=== PATIENT | male | born 1940 | race Caucasian/White ===

== ENCOUNTER 2018-04-16 12:22 | Outpatient (CLI) | payer MEDICARE, SELFPAY ==
[2018-04-17 09:06] LABS: PSA, Diagnostic 1.2 ng/ml (0-6.5)
[2018-04-19 15:25] LABS: Testosterone, Total 35 ng/dL (240-950)
== END 2018-04-16 12:42 ==
PROVIDERS: Nurse Practitioner; Visit Provider Radiology Radiation Oncology
DX: C61 Malignant neoplasm of prostate (principal)
CPT/HCPCS: 36415; 84403; 84153

== ENCOUNTER 2018-08-23 07:28 | Emergency (ER) | payer MEDICARE, SELFPAY ==
[2018-08-23] VITALS (11 sets, daily range): BP systolic 116–162; BP diastolic 59–75; PULSE 68–77; RESP 15–20; TEMP 36.6–36.8; O2SAT 95–97
--- NOTE | 2018-08-23 07:25 | DI.CT_ITS ---
SYMPTOMS/DIAGNOSIS: LT SIDED NUMBNESS NONCONTRAST HEAD CT: No intracranial hemorrhage, mass or infarct is seen. Moderate diffuse atrophy is again noted. The ventricles are normal in size. There are mild white matter changes of small vessel disease. There is mucosal thickening of the maxillary and ethmoid sinuses. The mastoid air cells appear clear. IMPRESSION: Atrophy. No acute abnormality.
[2018-08-23] MEDS: Normal Saline 1,000 ML 125 ML IV (07:53)
[2018-08-23 07:59] LABS: Abs Immature Grans 0.03 k/cumm (0.0-0.09); Absolute Basophil Count 0.02 k/cumm (0.0-0.2); Absolute Eosinophil Count 0.09 k/cumm (0.0-0.7); Absolute Lymphocyte Count 0.82 k/cumm (1.2-3.4); Absolute Monocyte Count 0.49 k/cumm (0.11-0.7); Absolute Neutrophil Count 4.38 k/cumm (1.2-6.7); Basophils % 0.3; Eosinophils % 1.5; HCT 43.9 % (40.0-50.0); HGB 14.9 g/dL (13.5-17.5); Immature Grans % 0.5; Lymphocytes % 14.1; Mean Corp. HGB Concentration 33.9 g/dL (32.0-36.0); Mean Corpuscular Hemoglobin 33.7 pg (27.0-33.0); Mean Corpuscular Volume 99.3 fL (80-95); Mean Platelet Volume 10.8 fL (8.0-11.0); Monocytes % 8.4; Neutrophils % 75.2; Platelet Count 144 x1000/uL (130-400); RBC 4.42 m/cumm (4.50-6.00); RBC Distribution Width 12.9 % (11.8-14.1); White Blood Cell Count 5.83 k/cumm (4.4-10.8)
--- NOTE | 2018-08-23 08:01 | W.ED.GENAD ---
Discharge Plan Disposition Patient Disposition: HOME Condition: Stable Discharge Details Chief Complaint: CVA/TIA Clinical Impression: Arm numbness Reason For Visit: TRI Primary Care Provider: [facility] ED Provider: Terrance Asencio Home Meds and New Rx's Prescriptions: New Eliquis 5 mg tablet 5 mg PO BID Qty: 60 RF: 0 Continued docusate sodium 60 MG/15 ML syrup 100 mg PO BID RF: 0 donepezil 10 MG tablet,disintegrating 10 mg PO DAILY RF: 0 acetaminophen [Tylenol] 325 MG tablet 650 mg PO Q6H PRN PRN (Reason: Mild Pain, Temp. Over 38.5) RF: 0 No Action amlodipine 10 MG tablet 10 mg PO DAILY Qty: 25 RF: 0 Metoprolol Succinate 50 MG TAB.ER.24H 75 mg PO DAILY Qty: 25 RF: 0 atorvastatin 40 MG tablet 40 mg PO DAILY Qty: 25 RF: 0 furosemide 20 MG tablet 40 mg PO DAILY Qty: 60 RF: 11 folic acid 1 MG tablet 1 mg PO DAILY RF: 0 triamcinolone acetonide 63 GM aerosol 63 gm Topical PRN RF: 0 aspirin [Aspir-81] 81 MG tablet,delayed release (DR/EC) 1 tab PO DAILY RF: 0 Discharge Instructions Additional Instructions: With your history of atrial fibrillation you should be on a blood thinner so we prescribed eliquis. If you do start drinking alcohol again then please stop taking this medicine follow up with your primary care provider within 1-2 weeks, and they should prescribe further blood thinners if they want to continue you on this return to the emergency department for weakness, vision changes, or symptoms such as chest pain or difficulty breathing Medical Decision Making 78 yo male with hx of afib not on blood thinners due to prior hx of alcohol abuse and risk of falls and states he no longer drinks alcohol and hasn't so in over a year per pt, comes in with left arm numbness since this morning. Denies weakness, vision changes, chest pain, sob, abd pain. He has no focal motor or sensation deficits on exam, NIH 0, cn II-xII are intact on exam. States numbness is primarily in his shoulder and upper left arm but has no deficits of sensation on exam. I think given lack of focal findings that this is a cva/tia, could be cervical radiculopathy given the localized numbness. Prior provider bfore my exam ordered CT head which showed no acute findings. Will check for electrolyte abnormalities and monitor Pt's labs unremarkable other than glucose of over 300, normal bicarb. Pt has been ambulating with normal gait and states he feels his gait feels normal. Continues to have no deficits and no sensation deficits. I had a long discussion with the pt about how this is likely peripheral neuropathy vs cervical radiculopathy but the possiblity of tia/cva is not excluded. We had a long discussion about if this were the cause of his symptoms it would likely be due to his afib and not being on a blood thinner. After a lengthy discussion the pt decided that he would like me to restart anticoaguation and prefers eliquis over coumadin after lengthy discussion about pros and cons and pt has no desire to be admitted at this time and I feel this is reasonable given his lack of deficits. I advised he f/u with his pcp at the [facility] within 2 weeks and return precautions given. All pt's questions were answered. Differential Diagnosis tia, cva, cervical radiulopathy Imaging Data Radiologic Study: Attestation: I personally reviewed and interpreted this imaging study as follows: Imaging: CT Scan Radiologist's impression: IMPRESSION: 1. No evidence of acute intracranial abnormality. No evidence of acute infarction, hemorrhage, or mass. 2. Atrophy and microvascular disease. 3. Mucosal sinus disease. Lab Data Lab results reviewed: Yes I reviewed the patient's lab results. ECG Data Attestation: I personally reviewed and interpreted this ECG (s) as follows: Prior ECG tracings: not available for review Interpretation: sinus rhythm, rate of 70, pr 206, no acute ischemic st t wave changes HPI General Mode of arrival: EMS. Date/Time Provider Initiated Documentation: 08/23/18 07:48. Limitations to Documentation: no limitations. Information obtained by: patient and old records reviewed. History of Present Illness 78 year old M presents to the emergency department with the chief complaint of left arm numbness, described as mild, Patient started experiencing this unknown No relieving factors improve symptom(s), No exacerbating factors reported . Patient notes no other symptoms.. Patient did receive the following treatments prior to arrival, none Related Data Home Medications Medication Instructions Recorded Confirmed acetaminophen [Tylenol] 650 mg PO Q6H PRN PRN tab 06/24/16 11/09/16 aspirin [Aspir 81] 1 tab PO DAILY 11/09/16 11/09/16 amlodipine 10 mg PO DAILY #25 tab-cap 08/06/17 folic acid 1 mg PO DAILY tab-cap 08/06/17 furosemide 40 mg PO DAILY #60 tab-cap 08/06/17 triamcinolone acetonide 63 gm TOPICAL PRN 08/06/17 albuterol sulfate 2 puff INHALATION QID PRN 08/23/18 08/23/18 apixaban [Eliquis] 5 mg PO BID #60 tab 08/23/18 atorvastatin 0.5 tab PO DAILY 08/23/18 08/23/18 budesonide-formoterol 2 puff INHALATION BID 08/23/18 08/23/18 finasteride 5 mg PO DAILY 08/23/18 08/23/18 gabapentin 300 mg PO BID 08/23/18 08/23/18 metoprolol succinate 75 mg PO DAILY 08/23/18 08/23/18 tamsulosin 0.4 mg PO DAILY 08/23/18 08/23/18 Previous Rx's Medication Instructions Recorded acetaminophen [Tylenol] 650 mg PO Q6H PRN PRN tab 06/24/16 amlodipine 10 mg PO DAILY #25 tab-cap 08/06/17 furosemide 40 mg PO DAILY #60 tab-cap 08/06/17 apixaban [Eliquis] 5 mg PO BID #60 tab 08/23/18 Allergies Allergy/AdvReac Type Severity Reaction Status Date / Time wheat dextrin AdvReac Severe Unverified 08/23/18 07:39 codeine AdvReac Unverified 08/23/18 07:39 glutens Allergy Unknown Uncoded 08/23/18 07:39 glutethimide Allergy Unknown Uncoded 08/23/18 07:39 General Stated Complaint: CVA/TIA ABDIAS: 1 Review of Systems Review of Systems All systems reviewed & are unremarkable except as noted in HPI and below Constitutional Denies chills, Denies fever(s) and Denies weakness Eyes Denies loss of vision ENT Denies change in voice Cardiovascular Denies chest pain and Denies dyspnea Respiratory Denies dyspnea Gastrointestinal Denies abdominal pain, Denies nausea and Denies vomiting Genitourinary Denies dysuria Musculoskeletal Denies joint swelling Integumentary/Breasts Denies rash Neurologic Denies loss of vision and Denies weakness Psychiatric Denies depression Endocrine Denies cold intolerance and Denies heat intolerance Allergic/Immunologic Denies urticaria PFSH Social History Smoking/Tobacco Use Status: Never Exam Const General: no acute distress Orientation: alert HENMT Head: normal to inspection Ears: external ears normal General nose exam: external nose normal Mouth: moist mucous membranes Eyes General: appearance normal, both eyes and all related structures Neck Neck: normal visual inspection Resp Effort & Inspection: normal respiratory effort and able to speak in complete sentences Cardio Rate: regular rate Skin General skin exam: no rashes or lesions noted Neuro General: alert and oriented x3 Extrem General: normal to inspection Psych Mental Status: mental status grossly normal Course Vital Signs Temperature 36.6 C 08/23/18 07:42 Pulse 74 08/23/18 07:42 Respiratory Rate 15 08/23/18 07:42 Blood Pressure 159/75 H 08/23/18 07:42 Pulse Oximetry 96 08/23/18 07:42 Temperature 36.6 C 08/23/18 07:42 Temperature Source Temporal Artery Scan 08/23/18 07:42 Pulse 74 08/23/18 07:42 Respiratory Rate 15 08/23/18 07:46 Respiratory Effort Non-Labored 08/23/18 07:46 Respiratory Depth Normal 08/23/18 07:46 Respiratory Pattern Normal 08/23/18 07:46 Blood Pressure 159/75 H 08/23/18 07:42 Blood Pressure Position Supine 08/23/18 07:42 Pulse Oximetry 96 08/23/18 07:42 Oxygen Delivery Method Room Air 08/23/18 07:42 Oxygen Flow Rate 0 08/23/18 07:42 Pain Level 0 08/23/18 07:42 Lab/Test Results Lab/Test Results: Laboratory Tests Range/Units 08/23/18 07:50 WBC (4.4-10.8) k/cumm 5.83 RBC (4.50-6.00) m/cumm 4.42 L Hgb (13.5-17.5) g/dL 14.9 Hct (40.0-50.0) % 43.9 MCV (80-95) fL 99.3 H MCH (27.0-33.0) pg 33.7 H MCHC (32.0-36.0) g/dL 33.9 RDW (11.8-14.1) % 12.9 Plt Count (130-400) x1000/uL 144 MPV (8.0-11.0) fL 10.8 Immature Gran % 0.5 Neutrophils % 75.2 Lymphocytes % 14.1 Monocytes % 8.4 Eosinophils % 1.5 Basophils % 0.3 Absolute Neutrophils (1.2-6.7) k/cumm 4.38 Absolute Lymphocytes (1.2-3.4) k/cumm 0.82 L Absolute Monocytes (0.11-0.7) k/cumm 0.49 Absolute Eosinophils (0.0-0.7) k/cumm 0.09 Absolute Basophils (0.0-0.2) k/cumm 0.02
--- NOTE | 2018-08-23 08:07 | DI.VRAD_ITS ---
Addendum created by Mayra Sams MD on 08/23/2018 8:18:[address] Asencio was notified of these results by telephone call from Dr. Mayra Sams 08/23/2018 8:17 AM EST and acknowledged receipt of this notification. Initial report created on 08/23/2018 8:06:34 AM EST EXAM: CT Head Without Contrast EXAM DATE/TIME: 08/23/2018 7:27 AM CLINICAL HISTORY: 78 years old, male; Signs and symptoms; Other: Left side numbness TECHNIQUE: Axial computed tomography images of the head/brain without contrast. All CT scans at this facility use at least one of these dose optimization techniques: automated exposure control; mA and/or kV adjustment per patient size (includes targeted exams where dose is matched to clinical indication); or iterative reconstruction. Coronal and sagittal reformatted images were created and reviewed. STROKE PROTOCOL was implemented. COMPARISON: CT HEAD AND CSPINE W/O CONTRAST 05/20/2016 1:03 PM FINDINGS: Brain: There is no acute intracranial hemorrhage. There is lucency in the cerebral white matter, likely microvascular disease although non-specific. Ng white differentiation is intact. There are no extra-axial fluid collections. No evidence of mass. There is no mass effect or midline shift. Ventricles: The ventricles and sulci are enlarged, consistent with volume loss / atrophy. No hydrocephalus. Bones/joints: No acute fracture. Sinuses: There is mucosal thickening in paranasal sinuses. Mastoid air cells: No significant mastoid effusion. Soft tissues: Unremarkable as visualized. Vasculature: There is vascular calcification. IMPRESSION: 1. No evidence of acute intracranial abnormality. No evidence of acute infarction, hemorrhage, or mass. 2. Atrophy and microvascular disease. 3. Mucosal sinus disease. Dictated and Authenticated by: Mayra Sams MD. Ordering:SHARLA Gillette MD
[2018-08-23 08:12] LABS: PTT Activated 28.1 sec (21.0-31.4); Prothrombin Time 9.9 sec (9.3-11.0)
[2018-08-23 08:17] LABS: ALT 41 U/L (12-78); AST 28 U/L (15-37); Albumin 3.6 g/dL (3.4-5.0); Alkaline Phosphatase 93 U/L (46-116); Anion Gap 9.7 mmol/L (3-11); BUN 16 mg/dL (7-18); Bilirubin, Total 0.6 mg/dL (0.2-1.0); CO2 27.3 mmol/L (21.0-32.0); CREATININE 1.05 mg/dL (0.70-1.30); Calcium 9.4 mg/dL (8.5-10.1); Chloride 102 mmol/L (98-107); Glucose 309 mg/dL (70-100); Magnesium 1.9 mg/dL (1.8-2.4); Potassium 4.2 mmol/L (3.5-5.1); Sodium 139 mmol/L (136-145); Total Protein 8.4 g/dL (6.4-8.2); Troponin I < 0.02 ng/mL (0.00-0.06)
[2018-08-23] MEDS: Apixaban 5 MG TAB PO (08:46)
--- NOTE | 2018-08-23 10:09 | PDOC.ERCMPRO ---
Care Management Progress Note FARNAZ paged [facility] for transportation support to enable Williams to return to the [facility]. RCT reported freight delivery driver would be arriving soon for transport. FARNAZ paged [place]: [phone] to notify of requests for F/U appt this week and [facility] CM left for Melanie Figueroa requesting the same as well. FARNAZ spoke with [facility] pharmacist Monica and then relayed information to RN; Funmilayo to coordinate Williams returning home with a few days worth of Eliquis until Williams can retrieve new prescription in the community. CM notified ED of above.
--- NOTE | 2018-08-23 10:20 | CMPROGNOTE_ITS ---
Care Management Progress Note FARNAZ paged [facility] for transportation support to enable Williams to return to the [facility]. RCT reported delivery route driver would be arriving soon for transport. FARNAZ paged [place]: [phone] to notify of requests for F/U appt this week and [facility]. CM left for Melanie Figueroa requesting the same as well. FARNAZ spoke with [facility] pharmacist Monica and then relayed information to RN; Funmilayo to coordinate Williams returning home with a few days worth of Eliquis until Williams can retrieve new prescription in the community. CM notified ED of above.
[2018-08-23] MEDS: Apixaban 5 MG TAB 15 MG PO (10:22)
--- NOTE | 2018-08-24 09:38 | PDOC.ERCMPRO ---
Care Management Progress Note CM rec'd VM from Melanie; BREONNA OSEI requesting documentation of ED encounter. FARNAZ faxed documents to Melanie: F#[phone].
--- NOTE | 2018-08-24 09:45 | CMPROGNOTE_ITS ---
Care Management Progress Note 08/24-Dr. Asencio started Williams on eliqu and and wanted his regular medications reviewed. Kaycee, inpatient Risk And Compliance Analytics Director called Melanie on Friday and left a voice mail. This CM called and left Melanie Figueroa at the [place] a voicemail requesting PCP f/u. Called Williams but there was no answer.
== END 2018-08-23 10:30 | disposition home or self-care (01) ==
LOC: ER 08:41
PROVIDERS: Emergency Medicine; Emergency Provider Emergency Medicine
DX: R20.2 Paresthesia of skin (principal)
CPT/HCPCS: 36415; 80053; 96360; 99284; 70450; 83735; 84484; 85025; 85610; 85730

== ENCOUNTER 2018-10-10 17:39 | Emergency (ER) | payer MEDICARE, SELFPAY ==
[2018-10-10 17:44] VITALS: BP 168/93; PULSE 88; RESP 16; TEMP 36.6; O2SAT 95
--- NOTE | 2018-10-10 18:37 | DI.US_ITS ---
SYMPTOMS/DIAGNOSIS: LEG SWELLING BILATERAL LOWER EXTREMITY ULTRASOUND: The femoral and popliteal veins as well as visualized portions of the calf veins are freely compressible bilaterally. No thrombus is visible. The doppler venous wave form augments normally. No superficial venous thrombosis or odonnell's cyst is seen. IMPRESSION: Negative bilateral lower extremity ultrasound. No evidence of DVT.
[2018-10-10] MEDS: Cephalexin 500 MG CAP PO (18:41)
--- NOTE | 2018-10-10 19:09 | ED.GENADUL_ITS ---
Discharge Plan Disposition Patient Disposition: HOME Condition: Stable Discharge Details Chief Complaint: GenMedical Clinical Impression: Cellulitis Primary Care Provider: [facility] Provider: Jim Reich Home Meds and New Rx's Prescriptions: New cephalexin 500 mg tablet 500 mg PO QID 7 Days Qty: 28 RF: 0 Continued amlodipine 10 MG tablet 10 mg PO DAILY Qty: 25 RF: 0 furosemide 20 MG tablet 40 mg PO DAILY Qty: 60 RF: 11 folic acid 1 MG tablet 1 mg PO DAILY RF: 0 triamcinolone acetonide 63 GM aerosol 63 gm Topical PRN RF: 0 aspirin [Aspir-81] 81 MG tablet,delayed release (DR/EC) 1 tab PO DAILY RF: 0 tamsulosin 0.4 mg Capsule 0.4 mg PO DAILY RF: 0 gabapentin 300 mg Capsule 300 mg PO BID RF: 0 metoprolol succinate 25 mg Tablet Extended Release 24 Hr 75 mg PO DAILY RF: 0 albuterol sulfate 90 mcg/actuation Hfa Aerosol Inhaler 2 puff INHALATION QID PRNRF: 0 finasteride 5 mg Tablet 5 mg PO DAILY RF: 0 budesonide-formoterol 160-4.5 mcg/actuation Hfa Aerosol Inhaler 2 puff INHALATION BID RF: 0 Eliquis 5 mg tablet 5 mg PO BID Qty: 60 RF: 0 atorvastatin 40 MG tablet 0.5 tab PO DAILY RF: 0 docusate sodium 100 mg Tablet 200 mg PO BID RF: 0 acetaminophen [Tylenol] 325 MG tablet 650 mg PO Q6H PRN PRN (Reason: Mild Pain, Temp. Over 38.5) RF: 0 Discharge Instructions Instructions: Cellulitis (ED) Additional Instructions: Please take antibiotics as prescribed and return immediately to the emergency department for any significant worsening of symptoms or if not improving in 48 hours. You may also follow-up with your primary care provider and referral has been sent for a close follow-up to discuss further medication compliance. Referrals: [facility] [Outside] - 3 days (Please call their office Friday morning for arrangement of follow-up appointment) Discharge Data Discharge Date/Time-TO BE ENTERED AT DEPARTURE: 10/10/18 21:22 Medical Decision Making Patient presenting to the emergency department for chief complaint of lower leg pain. Patient's family states that this is been going on for the past week. This morning patient informed family members that he was not feeling well is having a little wheezing which is now resolved but this evening his main concern was his lower leg pain and malaise. Family inspected the legs and noticed some significant redness to right anterior lower leg and left lateral upper leg. Patients chief complaint is discomfort of legs. He denies chest pain, shortness of breath, difficulty breathing or other symptoms. physical exam shows right anterior darby erythema with mild abrasions, left proximal fibula erythema of significant size. Patient has edema to both lower extremities with left being greater than right. Patient denies any known trauma or injury to these areas family states that patient is very poor at taking medication due to dementia. Patient is alert and oriented to person place but does state some difficulty with time. Given physical exam findings and patient is not compliant with his medication including his anticoagulant for his intermittent A. fib which I do not feel that he is in given regular rate and rhythm and normal cardiac exam there is concern of DVT versus cellulitis. Given the lateral aspect of erythema and complaint more suspicious of cellulitis plan to do ultrasound to rule out DVT. Patient given cephalexin pending results. DVT was interpreted as unremarkable for any thrombosis. I feel patient's malaise, and leg pain is due to infection. Patient is otherwise stable with no fever, not hypotensive or tachycardic, no other worrisome exam findings noted. Family very concerned about patient not being able to fully manage his medications and not being compliant with meds. I did contact care management whom stated they would be able to [facility] morning but at this time they recommended that family assist patient in taking medications until further arrangements could be made. Thorough discussion with family and patient about assisting patient with medications, close follow-up with [facility] provider and returning for any worsening of condition or lack of improvement of condition or further concerns of patient not doing well. Patient strongly encouraged to take medication and accept assistance from family or others as I feel that this may also be contributing to him not feeling well. Review of previous records shows multiple attempts to provide patient with assistance with patient continuing to refuse additional services or help. Patient and family were informed they were may return at any point for any further concerns relating to diagnosis of cellulitis or other medical conditions given that patient has not been compliant with medication also did discuss with patient and family that he should take his meds given that he has been placed on anticoagulation due to his atrial fibrillation history. After discussion of diagnosis and plan of care patient and family members no further needs, questions, or concerns and states clear understanding to return to the emergency department for any worsening symptoms or further concerns. HPI General Mode of arrival: ambulatory . Date/Time Provider Initiated Documentation: 10/10/18 17:43 . Limitations to Documentation: no limitations . Information obtained by: patient, family, RN notes reviewed and old records reviewed . History of Present Illness 78 year old M presents to the emergency department with the chief complaint of leg pain/rash, described as moderate, with intensity rated at 3. Quality is described as burning, and is localized to the lower extremity (bilateral). Patient started experiencing this week(s) (1) and it has been constant. Patient did receive the following treatments prior to arrival, none Related Data Home Medications Medication Instructions Recorded Confirmed acetaminophen [Tylenol] 650 mg PO Q6H PRN PRN tab 06/24/16 10/10/18 aspirin [Aspir-81] 1 tab PO DAILY 11/09/16 10/10/18 amlodipine 10 mg PO DAILY #25 tab-cap 08/06/17 10/10/18 folic acid 1 mg PO DAILY tab-cap 08/06/17 10/10/18 furosemide 40 mg PO DAILY #60 tab-cap 08/06/17 10/10/18 triamcinolone acetonide 63 gm TOPICAL PRN 08/06/17 10/10/18 Eliquis 5 mg PO BID #60 tab 08/23/18 10/10/18 albuterol sulfate 2 puff INHALATION QID PRN 08/23/18 10/10/18 atorvastatin 0.5 tab PO DAILY 08/23/18 10/10/18 budesonide-formoterol 2 puff INHALATION BID 08/23/18 10/10/18 finasteride 5 mg PO DAILY 08/23/18 10/10/18 gabapentin 300 mg PO BID 08/23/18 10/10/18 metoprolol succinate 75 mg PO DAILY 08/23/18 10/10/18 tamsulosin 0.4 mg PO DAILY 08/23/18 10/10/18 cephalexin 500 mg PO QID 7 Days #28 tab 10/10/18 docusate sodium 200 mg PO BID 10/10/18 10/10/18 Previous Rx's Medication Instructions Recorded acetaminophen [Tylenol] 650 mg PO Q6H PRN PRN tab 06/24/16 amlodipine 10 mg PO DAILY #25 tab-cap 08/06/17 furosemide 40 mg PO DAILY #60 tab-cap 08/06/17 Eliquis 5 mg PO BID #60 tab 08/23/18 cephalexin 500 mg PO QID 7 Days #28 tab 10/10/18 Allergies Allergy/AdvReac Type Severity Reaction Status Date / Time wheat dextrin AdvReac Severe Unverified 10/10/18 17:49 codeine AdvReac Unverified 10/10/18 17:49 glutens Allergy Unknown Uncoded 10/10/18 17:49 glutethimide Allergy Unknown Uncoded 10/10/18 17:49 General Stated Complaint: GenMedical ABDIAS: 3 Review of Systems Constitutional Denies chills, Denies fever(s) and Reports malaise Cardiovascular Denies chest pain and Reports leg edema Respiratory Denies cough and Reports wheezing (now resolved) Gastrointestinal Denies abdominal pain, Denies nausea and Denies vomiting Integumentary/Breasts Reports as per HPI, Reports erythema, Reports rash and Reports skin pain Allergic/Immunologic Reports wheezing (now resolved) [facility] Social History Smoking and Tabacco status: Never Exam Const General: cooperative, comfortable and no acute distress Orientation: alert and awake Resp Effort & Inspection: normal respiratory effort and able to speak in complete sentences Auscultation: clear to auscultation bilaterally, breath sounds present, no crackles, no rales and no rhonchi Cardio Rate: regular rate and not tachycardic Rhythm: regular rhythm and regular rhythm Heart Sounds: S1 normal and S2 normal Extrem Right lower extremity: lower leg Details: erythema Location: of the mid lower leg Location: anteriorly, tenderness Location: of the distal tibia, non-pitting edema and abrasion (midshaft tibia) Left lower extremity: lower leg Details: erythema Location: of the proximal lower leg Location: laterally and anterolaterally, tenderness Location: of the proximal fibula; not of the posterior calf and non-pitting edema; no palpable cords and no deformity Course Vital Signs Temperature 36.6 C 10/10/18 17:44 Pulse 88 10/10/18 17:44 Respiratory Rate 16 10/10/18 17:44 Blood Pressure 168/93 H 03/02/19 17:44 Pulse Oximetry 95 10/10/18 17:44 Temperature 36.6 C 10/10/18 17:44 Temperature Source Temporal Artery Scan 10/10/18 17:44 Pulse 88 10/10/18 17:44 Respiratory Rate 16 10/10/18 17:44 Blood Pressure 168/93 H 10/10/18 17:44 Blood Pressure Position Sitting 10/10/18 17:44 Pulse Oximetry 95 10/10/18 17:44 Oxygen Delivery Method Room Air 10/10/18 17:44 Oxygen Flow Rate 0 10/10/18 17:44
--- NOTE | 2018-10-10 20:47 | DI.VRAD_ITS ---
EXAM: US Duplex Bilateral Lower Extremity Veins EXAM DATE/TIME: 10/10/2018 8:15 PM CLINICAL HISTORY: 78 years old, male; Pain; Leg, upper and leg, lower; Bilateral; Patient HX: Bilateral pain and swelling TECHNIQUE: Real-time duplex ultrasound of the Bilateral Lower Extremities with 2-D willis scale, color Doppler flow and spectral waveform analysis. Complete exam focused on the bilateral lower extremity veins. COMPARISON: No relevant prior studies available. FINDINGS: Right deep veins: Unremarkable. The common femoral, femoral, proximal profunda femoral and popliteal veins are patent without thrombus. Normal Doppler waveforms. Normal compressibility and/or augmentation response. Right superficial veins: Saphenofemoral junction is patent without thrombus. Left deep veins: Unremarkable. The common femoral, femoral, proximal profunda femoral and popliteal veins are patent without thrombus. Normal Doppler waveforms. Normal compressibility and/or augmentation response. Left superficial veins: Saphenofemoral junction is patent without thrombus. Soft tissues: Unremarkable. IMPRESSION: No acute findings. No evidence of deep vein thrombosis. Dictated and Authenticated by: Jono Rosario MD. Ordering:JUAN Fernandez MD
[2018-10-10] MEDS: Cephalexin 500 MG CAP 1000 MG PO (21:22)
--- NOTE | 2018-10-12 10:45 | PDOC.ERCMPRO ---
Care Management Progress Note 10/12-Called [facility] to [facility]. Williams asked this CM to call his daughter in law Lanette who works at [employer]. Williams stated that Lanette was making the f/u appt. Called Lanette and she stated she had reached out to the [facility] this morning and was waiting for a call back for a f/u appt. Lanette stated that Williams should not be living in the apartment at the [facility] and that he needed to be in a fpc. Lanette stated that he could return to [employer]. Recommended that Lanette speak to the [facility] about this as they paid for Williams to be at [employer] the last time. Both Williams and Lanette have this CM's contact information if further assistance is needed.
--- NOTE | 2018-10-12 10:48 | CMPROGNOTE_ITS ---
Care Management Progress Note 10/12-Called Williams to discuss his [facility]. Williams asked this CM to call his daughter in law Lanette who works at [employer]&. Williams stated that Lanette was making the f/u appt. Called Lanette and she stated she had reached out to the [facility] this morning and was waiting for a call back for a f/u appt. Lanette stated that Williams should not be living in the apartment at the [facility] and that he needed to be in a detention. Lanette stated that he could return to [employer]. Recommended that Lanette speak to the [facility] about this as they paid for Williams to be at [facility] the last time. Both Williams and Lanette have this CM's contact information if further assistance is needed.
== END 2018-10-10 21:22 | disposition home or self-care (01) ==
PROVIDERS: Emergency Provider Nurse Practitioner Family
DX: L03.115 Cellulitis of right lower limb (principal); L03.116 Cellulitis of left lower limb; I10 Essential (primary) hypertension
CPT/HCPCS: 99284; 93970

== ENCOUNTER 2018-10-29 11:43 | Outpatient (REF) | payer MEDICARE, SELFPAY ==
[2018-10-30 09:31] LABS: PSA, Diagnostic 0.6 ng/ml (0-6.5)
== END 2018-10-29 12:03 ==
LOC: LBN 11:43
PROVIDERS: PCP Nurse Practitioner; Visit Provider Nurse Practitioner
DX: C61 Malignant neoplasm of prostate (principal)
CPT/HCPCS: 84153

== ENCOUNTER 2019-07-29 16:10 | Outpatient (CLI) | payer MEDICARE, SELFPAY ==
[2019-07-30 11:49] LABS: PSA, Diagnostic 0.1 ng/mL (0.0-6.5)
== END 2019-07-29 16:30 ==
PROVIDERS: PCP Nurse Practitioner; Visit Provider Nurse Practitioner
DX: C61 Malignant neoplasm of prostate (principal)
CPT/HCPCS: 36415; 84153

== ENCOUNTER 2020-06-06 08:03 | Outpatient (CLI) | payer MEDICARE, SELFPAY ==
[2020-06-08 15:44] LABS: PSA, Ultrasensitive 0.22 ng/mL (<= 7.2)
== END 2020-06-06 08:23 ==
PROVIDERS: PCP Nurse Practitioner; Visit Provider Nurse Practitioner Family
DX: C61 Malignant neoplasm of prostate (principal)
CPT/HCPCS: 36415; 84153

== ENCOUNTER 2020-07-11 17:03 | Emergency (ER) | payer MEDICARE, SELFPAY ==
[2020-07-11] VITALS (12 sets, daily range): BP systolic 111–159; BP diastolic 61–90; PULSE 52–97; RESP 20–23; TEMP 36.5; O2SAT 95–97
--- NOTE | 2020-07-11 17:00 | RT.EKG_ITS ---
APPROVED REPORT Exam: Resting ECG Patient Location: E HR:69 bpm ECG Measurements Heart Rate 69 AXIS TX [id number] P [id number] QRSd 106 QRS 64 QT 421 T 6 QTc 450 Conclusion Atrial fibrillation...? atrial activity. No STEMI. I have reviewed and interpreted ECG and agree with software generated interpretation.
[2020-07-11 17:29] LABS: Abs Immature Grans 0.06 10^3/uL (0.0-0.06); Absolute Basophil Count 0.03 10^3/uL (0.0-0.2); Absolute Eosinophil Count 0.23 10^3/uL (0.0-0.7); Absolute Lymphocyte Count 1.76 10^3/uL (1.2-3.4); Absolute Monocyte Count 0.67 10^3/uL (0.1-0.8); Absolute Neutrophil Count 6.78 10^3/uL (1.2-6.7); Basophils % 0.3; Eosinophils % 2.4; HCT 41.8 % (40.0-50.0); HGB 13.6 g/dL (13.5-17.5); Immature Grans % 0.6; Lymphocytes % 18.5; MCH 32.4 pg (27.0-33.0); MCHC 32.5 % (32.0-36.0); MCV 99.5 fL (80-95); MPV 10.7 fL (8.0-11.0); Neutrophils % 71.2; Nucleated RBC 0 %; Platelet Count 192 10^3/uL (130-400); RDW 13.2 % (11.8-14.1); RDW-SD 48.2 fL; WBC 9.53 10^3/uL (4.4-10.8)
--- NOTE | 2020-07-11 17:33 | ED.GENADUL_ITS ---
Discharge Plan Disposition Patient Disposition: HOME Condition: Improving Discharge Details Clinical Impression: Atrial fibrillation, Palpitations Primary Care Provider: Erika Mix ED Provider: Elba Giles Home Meds and New Rx's Prescriptions: Continued amlodipine 10 MG tablet 10 mg PO DAILY Qty: 25 RF: 0 furosemide 20 MG tablet 40 mg PO DAILY Qty: 60 RF: 11 folic acid 1 MG tablet 1 mg PO DAILY RF: 0 triamcinolone acetonide 63 GM aerosol 63 gm Topical PRN RF: 0 aspirin [Aspir-81] 81 MG tablet,delayed release (DR/EC) 1 tab PO DAILY RF: 0 tamsulosin 0.4 mg Capsule 0.4 mg PO DAILY RF: 0 gabapentin 300 mg Capsule 300 mg PO BID RF: 0 metoprolol succinate 25 mg Tablet Extended Release 24 Hr 75 mg PO DAILY RF: 0 albuterol sulfate 90 mcg/actuation Hfa Aerosol Inhaler 2 puff INHALATION QID PRNRF: 0 finasteride 5 mg Tablet 5 mg PO DAILY RF: 0 budesonide-formoterol 160-4.5 mcg/actuation Hfa Aerosol Inhaler 2 puff INHALATION BID RF: 0 Eliquis 5 mg tablet 5 mg PO BID Qty: 60 RF: 0 atorvastatin 40 MG tablet 0.5 tab PO DAILY RF: 0 docusate sodium 100 mg Tablet 200 mg PO BID RF: 0 acetaminophen [Tylenol] 325 MG tablet 650 mg PO Q6H PRN PRN (Reason: Mild Pain, Temp. Over 38.5) RF: 0 Discharge Instructions Instructions: A-fib (Atrial Fibrillation) (ED), Heart Palpitations (ED) Additional Instructions: Drink plenty of fluids and get plenty of rest. Be sure you are taking your medications as directed. You will receive a visit from home health at your residence for further assessment of any needs you may have at home. Follow-up with your primary care doctor within the next week for re-evaluation and for referral for outpatient hospital monitor if your palpitations continue and for referral to cardiology for consideration for procedure to treat your atrial fibrillation if indicated. Return to the emergency department with any worsening or new concerning symptoms. Discharge Data Discharge Date/Time-TO BE ENTERED AT DEPARTURE: 07/11/20 19:43 Discharge Physician: Elba Giles Medical Decision Making 80-year-old male with history of atrial fibrillation on Eliquis, hypertension, GERD who presents to the ED with palpitations since yesterday. EKG on arrival notes a rate of 69, atrial fibrillation without acute ST-T wave ischemic changes. Patient has no acute complaints at this time. His vitals are within normal limits. Patient referred for labs and imaging which were unremarkable. Case discussed with patient's son over the phone who states that he checks on patient occasionally and notes that he has days of meds that are not taken. Discussed with son my concern for pt not taking his Eliquis and metoprolol for his atrial fibrillation for increased risk of [place] and stroke. Son states that he would prefer if patient was in assisted living but patient has adamantly refused this in the past. I have placed a referral for home health to assess patient's home situation and for medication management. Patient is requesting to go home. I do not acutely see an indication for admission. He remains in no acute distress and has no acute complaints. Advised to follow-up with primary care doctor for evaluation and for referral for possible outpatient hospital monitor for consideration of cardioversion if atrial fibrillation persists and patient is anticoagulated. Usual and customary return precautions given prior to discharge. Medical Records Medical records reviewed: Yes I reviewed the patient's medical records. Imaging Data Radiologic Study: Radiologist's impression: XR Chest, 2 Views Exam date and time: 07/11/2020 6:25 PM Age: 80 years old Clinical indication: Other: Palpitations, R/O acute disease TECHNIQUE: Imaging protocol: XR of the chest Views: 2 views. COMPARISON: CR CHEST 2 VIEWS PA,LAT 07/14/2017 9:14 AM FINDINGS: Lungs: The lungs are clear. There is no pulmonary vascular congestion. Pleural space: No layering pleural effusions are identified. Heart/Mediastinum: Heart size is likely near the upper limits of normal, as on prior study. Bones/joints: Again noted is multilevel hyperostosis throughout the thoracic spine. IMPRESSION: No active cardiopulmonary disease identified. Lab Data Lab results reviewed: Yes I reviewed the patient's lab results. Labs: Laboratory Tests Range/Units 07/11/20 07/11/20 07/11/20 17:18 17:18 17:18 WBC (4.4-10.8) 10^3/uL 9.53 RBC (4.36-5.78) 10^6/uL 4.20 L Hgb (13.5-17.5) g/dL 13.6 Hct (40.0-50.0) % 41.8 MCV (80-95) fL 99.5 H MCH (27.0-33.0) pg 32.4 MCHC (32.0-36.0) % 32.5 RDW (11.8-14.1) % 13.2 Plt Count (130-400) 10^3/uL 192 MPV (8.0-11.0) fL 10.7 Immature Gran % 0.6 Neutrophils % 71.2 Lymphocytes % 18.5 Monocytes % 7.0 Eosinophils % 2.4 Basophils % 0.3 Nucleated RBC % % 0 Absolute Neutrophils (1.2-6.7) 10^3/uL 6.78 H Absolute Lymphocytes (1.2-3.4) 10^3/uL 1.76 Absolute Monocytes (0.1-0.8) 10^3/uL 0.67 Absolute Eosinophils (0.0-0.7) 10^3/uL 0.23 Absolute Basophils (0.0-0.2) 10^3/uL 0.03 PT (9.3-11.0) sec 10.3 INR (0.9-1.1) 1.0 APTT (21.0-27.5) sec 32.5 H Sodium (136-145) mmol/L 141 Potassium (3.5-5.1) mmol/L 3.9 Chloride (98-107) mmol/L 104 Carbon Dioxide (21.0-32.0) mmol/L 26.0 Anion Gap (3-11) mmol/L 11.0 BUN (7-18) mg/dL 19 H Creatinine (0.70-1.30) mg/dL 0.99 Estimated GFR/1.73 m2 (mL/min/1.73m2) >= 60.00 Glucose (74-106) mg/dL 117 H Calcium (8.5-10.1) mg/dL 9.2 Magnesium (1.8-2.4) mg/dL 1.8 Total Bilirubin (0.2-1.0) mg/dL 0.4 AST (15-37) U/L 19 ALT (16-63) U/L 21 Alkaline Phosphatase (46-116) U/L 71 Troponin I (<0.06) ng/mL < 0.05 Total Protein (6.4-8.2) g/dL 8.5 H Albumin (3.4-5.0) g/dL 3.8 ECG Data Attestation: I personally reviewed and interpreted this ECG (s) as follows: Interpretation: Rate [address]. no acute ST elevation or depression. HPI General Mode of arrival: wheelchair . Date/Time Provider Initiated Documentation: 07/11/20 17:05 . Limitations to Documentation: no limitations . Information obtained by: patient . HPI Narrative: Patient is an 80-year-old male with a history of atrial fibrillation on Eliquis, GERD, hypertension, obesity presents for palpitations since yesterday. Patient denies fever, cough, chest pain, shortness of breath, cough, abdominal pain. Patient states he has been taking his medications as directed. He states he lives alone at the [facility] but has a home health nurse that checks on him as needed. Patient was brought to the ER by his son. Related Data Home Medications Medication Instructions Recorded Confirmed acetaminophen [Tylenol] 650 mg PO Q6H PRN PRN tab 06/24/16 10/10/18 aspirin [Aspir-81] 1 tab PO DAILY 11/09/16 10/10/18 amlodipine 10 mg PO DAILY #25 tab-cap 08/06/17 10/10/18 folic acid 1 mg PO DAILY tab-cap 08/06/17 10/10/18 furosemide 40 mg PO DAILY #60 tab-cap 08/06/17 10/10/18 triamcinolone acetonide 63 gm TOPICAL PRN 08/06/17 10/10/18 Eliquis 5 mg PO BID #60 tab 08/23/18 10/10/18 albuterol sulfate 2 puff INHALATION QID PRN 08/23/18 10/10/18 atorvastatin 0.5 tab PO DAILY 08/23/18 10/10/18 budesonide-formoterol 2 puff INHALATION BID 08/23/18 10/10/18 finasteride 5 mg PO DAILY 08/23/18 10/10/18 gabapentin 300 mg PO BID 08/23/18 10/10/18 metoprolol succinate 75 mg PO DAILY 08/23/18 10/10/18 tamsulosin 0.4 mg PO DAILY 08/23/18 10/10/18 docusate sodium 200 mg PO BID 10/10/18 10/10/18 Previous Rx's Medication Instructions Recorded acetaminophen [Tylenol] 650 mg PO Q6H PRN PRN tab 06/24/16 amlodipine 10 mg PO DAILY #25 tab-cap 08/06/17 furosemide 40 mg PO DAILY #60 tab-cap 08/06/17 Eliquis 5 mg PO BID #60 tab 08/23/18 Allergies Allergy/AdvReac Type Severity Reaction Status Date / Time wheat dextrin AdvReac Severe Unverified 10/10/18 17:49 codeine AdvReac Unverified 10/10/18 17:49 glutens Allergy Unknown Uncoded 10/10/18 17:49 glutethimide Allergy Unknown Uncoded 10/10/18 17:49 General Stated Complaint: Palpitatns ABDIAS: 3 Review of Systems All systems reviewed & are unremarkable except as noted in HPI and below Constitutional Constitutional: Reports as per HPI, Denies chills and Denies fever(s) Eyes Eyes: Denies blurry vision ENT Ears, Nose, Mouth, and Throat: Denies dizziness, Denies sore throat and Denies throat swelling Cardiovascular Cardiovascular: Denies chest pain, Reports rapid heart rate and Denies dyspnea Respiratory Respiratory: Denies cough and Denies dyspnea Gastrointestinal Gastrointestinal: Denies abdominal pain, Denies diarrhea and Denies vomiting Genitourinary Genitourinary: Denies hematuria and Denies dysuria Musculoskeletal Musculoskeletal: Denies back pain and Denies numbness Integumentary/Breasts Skin/Breast: Denies lesions and Denies rash Neurologic Neurologic: Denies dizziness, Denies localized weakness and Denies numbness Allergic/Immunologic Allergic/Immunologic: Denies throat swelling [facility] Social History Smoking/Tobacco Use Status: Never Smoking risk assessment performed?: Yes Drug use: Never Do you feel safe at home: Yes Do you feel safe in your relationship?: Yes Exam Const General: cooperative and no acute distress Orientation: alert and awake HENMT Head: normal to inspection Face and sinus: normal facial exam Eyes General: appearance normal, both eyes and all related structures EOM: EOM intact bilaterally Neck Neck: normal visual inspection and No submandibular swelling Lymphatic: no lymphadenopathy noted Chest Chest: normal inspection of the chest and no tenderness Resp Effort & Inspection: normal respiratory effort and able to speak in complete se ntences Auscultation: clear to auscultation bilaterally Cardio Rate: regular rate Rhythm: abnormal rhythm irregularly irregular GI Inspection: normal to inspection and obesity Palpation: soft, not firm, not rigid and nontender Auscultation: normal bowel sounds Skin General skin exam: no rashes or lesions noted Neuro General: patient alert, patient awake and patient oriented x3 Cognition: normal cognition Speech: speech normal Motor: muscle tone normal throughout Sensory Exam: no sensory deficits noted Extrem General: normal to inspection, full ROM, capillary refill normal, no calf tenderness bilaterally and no edema Psych Appearance: grossly normal Mental Status: mental status grossly normal Speech and Movement: speech and movement normal Affect: normal affect Course Vital Signs Vital signs: Vital Signs Temperature 97.7 F 07/11/20 17:12 Pulse 97 H 07/11/20 17:12 Respiratory Rate 22 07/11/20 17:12 Blood Pressure 159/90 H 07/11/20 17:12 Pulse Oximetry 97 07/11/20 17:12 Temperature 97.7 F 07/11/20 17:12 Temperature Source Skin 07/11/20 17:12 Pulse 97 H 07/11/20 17:12 Respiratory Rate 22 07/11/20 17:12 Respiratory Effort 07/11/20 17:26 Blood Pressure 159/90 H 07/11/20 17:12 Blood Pressure Position Sitting 07/11/20 17:12 Pulse Oximetry 97 07/11/20 17:12 Oxygen Delivery Method Room Air 07/11/20 17:12 Oxygen Flow Rate 0 07/11/20 17:12 Lab/Test Results Lab/Test Results: Laboratory Tests Range/Units 07/11/20 17:18 WBC (4.4-10.8) 10^3/uL 9.53 RBC (4.36-5.78) 10^6/uL 4.20 L Hgb (13.5-17.5) g/dL 13.6 Hct (40.0-50.0) % 41.8 MCV (80-95) fL 99.5 H MCH (27.0-33.0) pg 32.4 MCHC (32.0-36.0) % 32.5 RDW (11.8-14.1) % 13.2 Plt Count (130-400) 10^3/uL 192 MPV (8.0-11.0) fL 10.7 Immature Gran % 0.6 Neutrophils % 71.2 Lymphocytes % 18.5 Monocytes % 7.0 Eosinophils % 2.4 Basophils % 0.3 Nucleated RBC % % 0 Absolute Neutrophils (1.2-6.7) 10^3/uL 6.78 H Absolute Lymphocytes (1.2-3.4) 10^3/uL 1.76 Absolute Monocytes (0.1-0.8) 10^3/uL 0.67 Absolute Eosinophils (0.0-0.7) 10^3/uL 0.23 Absolute Basophils (0.0-0.2) 10^3/uL 0.03
[2020-07-11 17:42] LABS: PTT Activated 32.5 sec (21.0-27.5); Prothrombin Time 10.3 sec (9.3-11.0)
[2020-07-11 17:52] LABS: ALT 21 U/L (16-63); AST 19 U/L (15-37); Albumin 3.8 g/dL (3.4-5.0); Alkaline Phosphatase 71 U/L (46-116); BUN 19 mg/dL (7-18); Bilirubin, Total 0.4 mg/dL (0.2-1.0); CREATININE 0.99 mg/dL (0.70-1.30); Calcium 9.2 mg/dL (8.5-10.1); Chloride 104 mmol/L (98-107); Glucose 117 mg/dL (74-106); Magnesium 1.8 mg/dL (1.8-2.4); Potassium 3.9 mmol/L (3.5-5.1); Sodium 141 mmol/L (136-145); Total Protein 8.5 g/dL (6.4-8.2)
[2020-07-11 17:58] LABS: Troponin I < 0.05 ng/mL (<0.06)
--- NOTE | 2020-07-11 18:00 | DI.RAD_ITS ---
EXAM: XR CHEST 2V PA LATERAL CLINICAL HISTORY: palpitations, r/o acute disease. TECHNIQUE: 2D digital imaging was performed. COMPARISON: CR CHEST 2 VIEWS PA,LAT from 07/14/2017 FINDINGS: Heart size upper normal. Mediastinum not widened. There are no infiltrates nor pleural effusions. No pulmonary edema. No pneumothorax IMPRESSION: No acute pulmonary findings. DATA REPOSITORY: RADIATION DOSE DELIVERED:
--- NOTE | 2020-07-11 18:40 | DI.VRAD_ITS ---
PROCEDURE INFORMATION: Exam: XR Chest, 2 Views Exam date and time: 07/11/2020 6:25 PM Age: 80 years old Clinical indication: Other: Palpitations, R/O acute disease TECHNIQUE: Imaging protocol: XR of the chest Views: 2 views. COMPARISON: CR CHEST 2 VIEWS PA,LAT 07/14/2017 9:14 AM FINDINGS: Lungs: The lungs are clear. There is no pulmonary vascular congestion. Pleural space: No layering pleural effusions are identified. Heart/Mediastinum: Heart size is likely near the upper limits of normal, as on prior study. Bones/joints: Again noted is multilevel hyperostosis throughout the thoracic spine. IMPRESSION: No active cardiopulmonary disease identified. Dictated and Authenticated by: Geo Ruano MD. Ordering:JADA Arreola MD
== END 2020-07-11 19:43 | disposition home or self-care (01) ==
PROVIDERS: Emergency Provider Physician Assistant; PCP Nurse Practitioner
DX: I48.91 Unspecified atrial fibrillation (principal); R00.2 Palpitations; Z79.01 Long term (current) use of anticoagulants; I10 Essential (primary) hypertension
CPT/HCPCS: 36415; 80053; 93005; 99285; 71046; 83735; 84484; 85025; 85610; 85730; 93010; 99284

== ENCOUNTER 2020-08-04 08:39 | Inpatient (IN) | payer MEDICARE, SELFPAY ==
[2020-08-04] VITALS (28 sets, daily range): BP systolic 126–145; BP diastolic 58–105; PULSE 52–95; RESP 4–22; TEMP 36.5–37.2; O2SAT 90–98
--- NOTE | 2020-08-04 08:30 | RT.EKG_ITS ---
APPROVED REPORT Exam: Resting ECG Patient Location: E HR:73 bpm ECG Measurements Heart Rate 73 AXIS CO [id number] P [id number] QRSd 94 QRS 66 QT 391 T 19 QTc 432 Conclusion Atrial fibrillation...? atrial activity Physician:Rate 73, atrial fibrillation, no significant ST elevation or depression, old Q waves are no priya in lead III, these are unchanged from prior EKG 1 month ago. No evidence of STEMI.
--- NOTE | 2020-08-04 08:45 | DI.RAD_ITS ---
EXAM: XR CHEST 2V PA LATERAL CLINICAL HISTORY: cough, r/o pneumonia TECHNIQUE: 2D digital imaging was performed. COMPARISON: CR,XR XR CHEST 2V PA LATERAL from 07/11/2020 FINDINGS: MEDIASTINUM: Normal. HEART: Normal. PULMONARY VASCULATURE: Normal. LUNGS: Clear. PLEURAL SPACE: No pleural effusion or pneumothorax. BONE:Degenerative changes in the spine. IMPRESSION: No acute pulmonary findings. DATA REPOSITORY: RADIATION DOSE DELIVERED:
--- NOTE | 2020-08-04 09:21 | ED.GENADUL_ITS ---
Discharge Plan Disposition Patient Disposition: [facility] INPATIENT Condition: Stable Discharge Details Chief Complaint: Dizzy/Sync Clinical Impression: Acute UTI, Weakness Primary Care Provider: Erika Mix ED Provider: Jas Able Home Meds and New Rx's Prescriptions: No Action furosemide 20 MG tablet 40 mg PO DAILY Qty: 60 RF: 11 triamcinolone acetonide 63 GM aerosol 63 gm Topical PRN RF: 0 tamsulosin 0.4 mg Capsule 0.4 mg PO DAILY RF: 0 gabapentin 300 mg Capsule 300 mg PO BID RF: 0 metoprolol succinate 25 mg Tablet Extended Release 24 Hr 25 mg PO DAILY RF: 0 albuterol sulfate 90 mcg/actuation Hfa Aerosol Inhaler 2 puff INHALATION QID PRNRF: 0 atorvastatin 40 MG tablet 0.5 tab PO DAILY RF: 0 docusate sodium 100 mg Tablet 200 mg PO BID RF: 0 polyethylene glycol 3350 17 gram Powder In Packet 17 g PO DAILY RF: 0 metformin 1,000 mg Tablet 1,000 mg PO BID RF: 0 sennosides 8.6 mg Capsule 8.6 mg PO DAILY RF: 0 alogliptin 6.25 mg Tablet 6.25 mg PO DAILY RF: 0 acetaminophen [Tylenol] 325 MG tablet 650 mg PO Q6H PRN PRN (Reason: Mild Pain, Temp. Over 38.5) RF: 0 Medical Decision Making 80-year-old male who goes to the [place] who is unfortunately a poor historian, with past medical history of atrial fibrillation on aspirin, no longer on Eliquis, asthma, GERD, hypertension, celiac disease, who presents today for evaluation of weakness and dizziness. Patient states that for the last 3 to 4 days he has had mild weakness and dizziness. He describes it as a generalized weakness which makes him feel slightly lightheaded. He denies any chest pain, shortness of breath, room spinning sensation. He denies any headache or vision changes. He denies any nausea, vomiting, diarrhea, dysuria, hematuria, hematochezia, melena, acholic stool. He denies any chest tightness, chest heaviness,, arm or throat pain. He denies any new medications. He was unable to get up today out of his chair secondary to weakness, but he denies any falls hitting his head or any other significant trauma. He lives alone at home. No other complaints at this time. No other modifying factors. Of note the patient denies taking any breathing treatments for his asthma, and states that he has not used his puffer in a long long time. Physical exam shows no focal neurologic deficits, no asymmetric weakness. Actually demonstrates good strength throughout. Pulmonary exam demonstrates wheezes and mild rhonchi throughout, although he denies cough or fever he does have an occasional cough here. No signs of hypoxemia or respiratory distress at all. Differential is highest for mild dehydration, potential mild pneumonia versus mild asthma exacerbation. We will give some breathing treatments, gently rehydrate, evaluate for infectious etiology causing his weakness, and a CT scan of the head, monitor closely and reassess. 11:53 AM Laboratory work-up is returned, no white count or bandemia, electrolytes stable, VBG unremarkable. Troponin normal, EKG unchanged. TSH normal, proBNP slightly elevated, however subjectively on my evaluation the patient looks more dry than being in heart failure. Echo from 2016 appears to show an EF of 44% at that time. He did get a small 500 cc bolus. Wheezing completely resolved after breathing treatment. He feels well. Oxygen remained totally normal. Urinalysis shows notable leuk esterase and elevated WBC count, bladder scan was performed and he had 200 cc of urine in there still, potential for bladder stone or mild retention from prostate issues. We will give 2 g of Rocephin for treatment of UTI. Chest x-ray negative for acute process, CT scan negative for acute process per virtual radiology. With the patient's age, comorbidities, and living alone, and evidence of urinary tract infection I do feel he benefit from admission for antibiotics gentle rehydration and expected discharge in the next day or so. Discussed the case with the hospitalist, she agrees with the assessment and plan. Dr. Carrizales has requested that we get a CT scan of the abdomen to evaluate for signs of kidney stones. We will get this on his way out. Currently shows no signs of urosepsis at all. I have extensively reviewed the treatment plan with the patient. I have addressed all patient concerns at this time. I have also discussed the plan with the admitting physician and they agree with the current assessment and plan and have agreed to assume responsibility for the patient. All parties demonstrate verbal understanding and agreement with our assessment and plan at this time. 11:25 AM EKG 8: 47 Rate 73, atrial fibrillation, no significant ST elevation or depression, old Q waves are noted in lead III, these are unchanged from prior EKG 1 month ago. No evidence of STEMI. FINDINGS: Brain: Stable brain atrophy. No hemorrhage. Periventricular white matter changes consistent with chronic small vessel ischemic disease. No mass effect. Cerebral ventricles: No ventriculomegaly. Bones/joints: Unremarkable. No acute fracture. Paranasal sinuses: Mild frontal and ethmoid sinus mucosal thickening. Mastoid air cells: Visualized mastoid air cells are well aerated. Soft tissues: Unremarkable. IMPRESSION: No acute intracranial abnormality. Thank you for allowing us to participate in the care of your patient. Dictated and Authenticated by: Evangelist Adam MD 08/04/2020 11:06 AM Eastern Time ([place] & [place]) FINDINGS: Lungs: No airspace disease. No consolidation. Pleural space: Unremarkable. No pleural effusion. No pneumothorax. Heart/Mediastinum: Unremarkable. No cardiomegaly. Bones/joints: Unremarkable. IMPRESSION: No acute findings. Thank you for allowing us to participate in the care of your patient. Dictated and Authenticated by: Evangelist Adam MD 08/04/2020 11:00 AM Eastern Time ([place] & [place]) HPI General Date/Time Provider Initiated Documentation: 08/04/20 08:40 . HPI Narrative: 80-year-old male who [facility] who is unfortunately a poor historian, with past medical history of atrial fibrillation on aspirin, no longer on Eliquis, asthma, GERD, hypertension, celiac disease, who presents today for evaluation of weakness and dizziness. Patient states that for the last 3 to 4 days he has had mild weakness and dizziness. He describes it as a generalized weakness which makes him feel slightly lightheaded. He denies any chest pain, shortness of breath, room spinning sensation. He denies any headache or vision changes. He denies any nausea, vomiting, diarrhea, dysuria, hematuria, hematochezia, melena, acholic stool. He denies any chest tightness, chest heaviness,, arm or throat pain. He denies any new medications. He was unable to get up today out of his chair secondary to weakness, but he denies any falls hitting his head or any other significant trauma. He lives alone at home. No other complaints at this time. No other modifying factors. Of note the patient denies taking any breathing treatments for his asthma, and states that he has not used his puffer in a long long time. Related Data Home Medications Medication Instructions Recorded Confirmed acetaminophen [Tylenol] 650 mg PO Q6H PRN PRN tab 06/24/16 08/04/20 furosemide 40 mg PO DAILY #60 tab-cap 08/06/17 08/04/20 triamcinolone acetonide 63 gm TOPICAL PRN 08/06/17 08/04/20 albuterol sulfate 2 puff INHALATION QID PRN 08/23/18 08/04/20 atorvastatin 0.5 tab PO DAILY 08/23/18 08/04/20 gabapentin 300 mg PO BID 08/23/18 08/04/20 metoprolol succinate 25 mg PO DAILY 08/23/18 08/04/20 tamsulosin 0.4 mg PO DAILY 08/23/18 08/04/20 docusate sodium 200 mg PO BID 10/10/18 08/04/20 alogliptin 6.25 mg PO DAILY 08/04/20 08/04/20 metformin 1,000 mg PO BID 08/04/20 08/04/20 polyethylene glycol 3350 17 g PO DAILY 08/04/20 08/04/20 sennosides 8.6 mg PO DAILY 08/04/20 08/04/20 Previous Rx's Medication Instructions Recorded acetaminophen [Tylenol] 650 mg PO Q6H PRN PRN tab 06/24/16 furosemide 40 mg PO DAILY #60 tab-cap 08/06/17 Allergies Allergy/AdvReac Type Severity Reaction Status Date / Time wheat dextrin AdvReac Severe Unverified 08/04/20 10:00 codeine AdvReac Unverified 08/04/20 10:00 glutens Allergy Unknown Uncoded 08/04/20 10:00 glutethimide Allergy Unknown Uncoded 08/04/20 10:00 General Stated Complaint: Dizzy/Sync ABDISA: 3 Review of Systems All systems reviewed & are unremarkable except as noted in HPI and below PFSH Social History Smoking/Tobacco Use Status: Never Smoking risk assessment performed?: Yes Drug use: Never Do you feel safe at home: Yes Do you feel safe in your relationship?: Yes Exam Narrative Exam Narrative: 1.Const: Well-nourished, Well-developed, appearing stated age 2.Eyes: PERRL, no conjunctival injection, and symmetrical lids. No horizontal or vertical nystagmus. 3.ENT: Atraumatic external nose and ears. Moist MM. Neck: Symmetric, trachea midline, No thyromegaly. No hemotympanum. No evidence of trauma 4.CVS: +S1/S2, No murmurs or gallops. Peripheral pulses 2+ and equal in all extremities. Brisk capillary refill in all extremities. 5.RESP: Unlabored respiratory effort. Mild wheezes and rhonchi throughout. 6.GI: Soft, Nontender/Nondistended, No hepatosplenomegaly. No guarding or rebound. 7.MSK: Normocephalic/Atraumatic, Extremities w/o deformity or ttp No cyanosis or clubbing, Normal movement of all extremities 8.Skin: Warm, Dry. No rashes or lesions. 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 Sensation grossly intact, no focal neurologic deficits. All 6 cardinal planes of vision are fully intact. No evidence of rotatory or vertical nystagmus. The patient demonstrated a normal [id number], good dexterity. There was no evidence of dysdiadochokinesia. Patient was able to ambulate slowly without significant difficulty but he was weak. There was no wide-based gait. Lqoz-[id number] testing was normal. Sensation was intact bilaterally as well as muscle strength bilaterally for all extremities. Patient was able to verbalize butter cup with no slurring, or miss pronunciation. 10.Psych: (AAO) x3. Appropriate mood and affect Course Vital Signs Vital signs: Vital Signs Temperature 36.7 C 08/04/20 08:47 Pulse 73 08/04/20 08:47 Respiratory Rate 21 08/04/20 08:47 Blood Pressure 134/105 H 08/04/20 08:47 Pulse Oximetry 98 08/04/20 08:47 Temperature 36.7 C 08/04/20 08:47 Temperature Source Skin 08/04/20 08:47 Pulse 73 08/04/20 08:47 Respiratory Rate 21 08/04/20 08:47 Respiratory Effort Non-Labored 08/04/20 08:47 Blood Pressure 134/105 H 08/04/20 08:47 Blood Pressure Position Supine 08/04/20 08:47 Pulse Oximetry 98 08/04/20 08:47 Oxygen Delivery Method Room Air 08/04/20 08:47 Oxygen Flow Rate 0 08/04/20 08:47 Pain Level 0 08/04/20 08:47 Lab/Test Results Lab/Test Results: 08/04/20 08:49 Blood Blood Culture - Pending 08/04/20 08:49 Blood Blood Culture - Pending
[2020-08-04] MEDS: Normal Saline 500 ML IV (09:30)
--- NOTE | 2020-08-04 09:30 | DI.CT_ITS ---
EXAM: CT HEAD WO CLINICAL HISTORY: dizzy. TECHNIQUE: Imaging Protocol: Axial computed tomography images with coronal and sagittal reformatted images were created and reviewed COMPARISON: No exams were available for comparison FINDINGS: Ventricles and Extra axial spaces: Normal in size and morphology for the patient's age. Hemorrhage: None. Cerebral parenchyma: Atrophy. White matter changes consistent with small vessel disease. Midline shift: None. Brainstem/Cerebellum: Normal. Calvarium: Normal. Visualized Paranasal sinuses/Mastoids: Clear. IMPRESSION: No acute abnormality. RADIATION DOSE DELIVERED: 981.21mGy.cm Total DLP 981.21mGy.cm Total DLP DATA REPOSITORY: All CT scans at this facility are submitted to the National Radiology Data Registry (NRDR) Dose Index Registry (DIR) with the [employer] (ACR). RADIATION OPTIMIZATION: All CT scans at this facility use at least one of these dose optimization te chniques: automated exposure control; mA and/or kV adjustment per patient size (includes targeted exa ms where dose is matched to clinical indication); or iterative reconstruction.
[2020-08-04 09:40] LABS: BE (Venous) -1 mmol/L (-2-3); HCO3 (Venous) 24 mmol/L (23-28); O2 Sat (Venous) 86 %; TCO2 (Venous) 22 mmol/L (24-29); pCO2 (Venous) 40 mmHg (41-51); pO2 (Venous) 50 mmHg
[2020-08-04 09:42] LABS: Abs Immature Grans 0.07 10^3/uL (0.0-0.06); Absolute Basophil Count 0.04 10^3/uL (0.0-0.2); Absolute Eosinophil Count 0.17 10^3/uL (0.0-0.7); Absolute Lymphocyte Count 1.25 10^3/uL (1.2-3.4); Absolute Neutrophil Count 7.13 10^3/uL (1.2-6.7); Basophils % 0.4; Eosinophils % 1.8; HCT 38.7 % (40.0-50.0); HGB 12.9 g/dL (13.5-17.5); Immature Grans % 0.7; Lactate 1.9 mmol/L (0.6-1.4); Lymphocytes % 13.4; MCH 32.8 pg (27.0-33.0); MCHC 33.3 % (32.0-36.0); MCV 98.5 fL (80-95); Monocytes % 7.5; Neutrophils % 76.2; Nucleated RBC 0 %; Platelet Count 184 10^3/uL (130-400); RBC 3.93 10^6/uL (4.36-5.78); RDW 12.7 % (11.8-14.1); RDW-SD 46.2 fL; WBC 9.36 10^3/uL (4.4-10.8)
[2020-08-04 09:43] LABS: Bilirubin Negative (Negative); Blood Trace-lysed (Negative); Clarity Sl Cloudy (Clear); Glucose Negative (Negative); Ketones Negative (Negative); Leukocyte Esterase Moderate (Negative); Nitrite Negative (Negative); Urobilinogen 0.2 EU/dL (Up TO 0.2)
[2020-08-04 09:53] LABS: WBC >50 HPF (0-5)
[2020-08-04 09:54] LABS: C & S Indicated? Yes
[2020-08-04 09:56] LABS: PTT Activated 30.5 sec (21.0-27.5); Prothrombin Time 10.4 sec (9.3-11.0)
[2020-08-04 10:03] LABS: Troponin I < 0.05 ng/mL (<0.06)
[2020-08-04 10:06] LABS: ALT 20 U/L (16-63); AST 14 U/L (15-37); Albumin 3.4 g/dL (3.4-5.0); Alkaline Phosphatase 74 U/L (46-116); BUN 22 mg/dL (7-18); Bilirubin, Total 0.4 mg/dL (0.2-1.0); CREATININE 0.93 mg/dL (0.70-1.30); Chloride 106 mmol/L (98-107); Glucose 146 mg/dL (74-106); NT-proBNP 1678 pg/mL (<300); Potassium 4.3 mmol/L (3.5-5.1); Sodium 139 mmol/L (136-145); TSH (W/Ref FT4) 1.66 uIU/mL (0.36-3.74); Total Protein 7.9 g/dL (6.4-8.2)
[2020-08-04] MEDS: Meclizine 25 MG TAB PO (10:22)
[2020-08-04] MEDS: cefTRIAXone 2 GM/50 ML BAG IVPB (10:40)
--- NOTE | 2020-08-04 11:01 | DI.VRAD_ITS ---
PROCEDURE INFORMATION: Exam: XR Chest, 2 Views Exam date and time: 08/04/2020 10:46 AM Age: 80 years old Clinical indication: Cough TECHNIQUE: Imaging protocol: XR of the chest Views: 2 views. COMPARISON: CR XR CHEST 2V PA LATERAL 07/11/2020 6:21 PM FINDINGS: Lungs: No airspace disease. No consolidation. Pleural space: Unremarkable. No pleural effusion. No pneumothorax. Heart/Mediastinum: Unremarkable. No cardiomegaly. Bones/joints: Unremarkable. IMPRESSION: No acute findings. Dictated and Authenticated by: Evangelist Adam MD. Ordering:RODNEY Mark MD
--- NOTE | 2020-08-04 11:07 | DI.VRAD_ITS ---
PROCEDURE INFORMATION: Exam: CT Head Without Contrast Exam date and time: 08/04/2020 9:34 AM Age: 80 years old Clinical indication: Dizziness; Patient HX: Dizzyness TECHNIQUE: Imaging protocol: Computed tomography of the head without contrast. Radiation optimization: All CT scans at this facility use at least one of these dose optimization techniques: automated exposure control; mA and/or kV adjustment per patient size (includes targeted exams where dose is matched to clinical indication); or iterative reconstruction. COMPARISON: CT HEAD FOR STROKE PROTOCOL 08/23/2018 7:34 AM FINDINGS: Brain: Stable brain atrophy. No hemorrhage. Periventricular white matter changes consistent with chronic small vessel ischemic disease. No mass effect. Cerebral ventricles: No ventriculomegaly. Bones/joints: Unremarkable. No acute fracture. Paranasal sinuses: Mild frontal and ethmoid sinus mucosal thickening. Mastoid air cells: Visualized mastoid air cells are well aerated. Soft tissues: Unremarkable. IMPRESSION: No acute intracranial abnormality. Dictated and Authenticated by: Evangelist Adam MD. Ordering:RODNEY Mark MD
--- NOTE | 2020-08-04 11:15 | DI.CT_ITS ---
EXAM: CT RENAL COLIC WO CLINICAL HISTORY: elderly, uti, eval for stones. TECHNIQUE: Imaging Protocol: Axial computed tomography images with coronal and sagittal reformatted images were created and reviewed. CONTRAST MATERIAL: Noncontrast- Oral: yes / no COMPARISON: CT ABD PELVIS WITH CONTRAST from 03/13/2017 CT ABD PELVIS WITH CONTRAST from 03/13/2017 FINDINGS: ABDOMEN: Lung Bases: A small portion of the lung bases are visible. There are multifocal infiltrates.. Liver: Hepatic steatosis.. No measurable mass. Gallbladder and biliary tract: Small amount of layering tiny stones are seen. There is no wall thic kening. There is no biliary dilatation.. Pancreas: Normal density, no abnormal calcifications or inflammatory process. Spleen: Normal. Kidneys: Normal size, contour and axis. No radiodense stones or obstructive uropathy. No masses seen. Adrenal glands: No masses seen. Abdominal Aorta: Sclerotic changes. Mild focal dilatation to 2.7 cm. PELVIS: Bladder: Prominent diffuse bladder wall thickening. There is surrounding stranding perivesical fat. No focal mass or stone. Patella densities in the prostate. Bowel: No obstruction or bowel wall thickening. Peritoneal cavity: No ascites, collection or mesenteric inflammatory response. Bones: Degenerative disc changes and facet degenerative changes greatest at L3-4 and L4-5. No gross evidence of lytic or blastic lesions. Soft tissues: Small fatty containing left inguinal hernia. IMPRESSION: 1. Bladder wall thickening with surrounding stranding in the fat could indicate cystitis or could be secondary to posttherapy changes. No renal, ureteral or bladder calculi are seen. 2. Multifocal bibasilar infiltrates. RADIATION DOSE DELIVERED: 997.57mGy.cm Total DLP DATA REPOSITORY: All CT scans at this facility are submitted to the National Radiology Data Registry (NRDR) Dose Index Registry (DIR) with the [employer] (ACR). RADIATION OPTIMIZATION: All CT scans at this facility use at least one of these dose optimization te chniques: automated exposure control; mA and/or kV adjustment per patient size (includes targeted exa ms where dose is matched to clinical indication); or iterative reconstruction.
[2020-08-04 11:47] LABS: Source Nasopharynx
[2020-08-04] MEDS: Albuterol/Ipratropium 3 ML UPD VIAL 9 ML UPD (11:57)
[2020-08-04 12:10] LABS: Troponin I < 0.05 ng/mL (<0.06)
[2020-08-04 12:29] LABS: COVID-19 PCR Negative (Negative); Influenza A PCR Negative (Negative); Influenza B PCR Negative (Negative); RSV PCR Negative (Negative)
--- NOTE | 2020-08-04 13:27 | DI.VRAD_ITS ---
PROCEDURE INFORMATION: Exam: CT Abdomen And Pelvis Without Contrast Exam date and time: 08/04/2020 12:30 PM Age: 80 years old Clinical indication: Other: UTI TECHNIQUE: Imaging protocol: Computed tomography of the abdomen and pelvis without contrast. COMPARISON: CT ABD PELVIS WITH CONTRAST 03/13/2017 10:52 AM FINDINGS: Lungs: Patchy airspace disease is present in both lung bases. Liver: Normal. No mass. Gallbladder and bile ducts: Cholelithiasis. Gallbladder is mildly dilated. Pancreas: Normal. No ductal dilation. Spleen: Normal. No splenomegaly. Adrenal glands: Normal. No mass. Kidneys and ureters: No evidence of nephrolithiasis bilaterally. Stomach and bowel: Unremarkable. No obstruction. No mucosal thickening. Appendix: No evidence of appendicitis. Intraperitoneal space: Unremarkable. No free air. No significant fluid collection. Vasculature: Unremarkable. No abdominal aortic aneurysm. Lymph nodes: There are mildly prominent pelvic lymph nodes. Urinary bladder: No urinary bladder calculi. Urinary bladder wall is mildly thickened. 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 Bones/joints: No lower thoracic or lumbar compression deformities. No evidence of lytic or blastic disease. Soft tissues: Fat containing left inguinal hernia. IMPRESSION: 1. No nephrolithiasis or urinary bladder calculi. 2. Diffusely thickened urinary bladder wall. Question partial outlet obstruction. 3. Evidence of prostate radiation seeds. 4. Mildly prominent pelvic lymph nodes. No definite adenopathy. 5. Cholelithiasis. 6. Bilateral lower lung patchy airspace disease. Cannot exclude multifocal pneumonia. Dictated and Authenticated by: Evangelist Adam MD. Ordering:RODNEY Mark MD
--- NOTE | 2020-08-04 16:38 | HPE_ITS ---
Date of service: 08/04/20 Time of Service: 16:39 Assessment and Plan Assessment and plan (1) Acute UTI: Status: Acute Assessment and plan: Present on admission. In setting of partial bladder outlet obstruction and thickened bladder, concerning for urinary retention. Will monitor PVRs. Continue empiric ceftriaxone, initiated in the ED. Await urine C&S results. Continue flomax/finasteride (2) Atrial fibrillation: Status: Chronic Assessment and plan: Rate controlled on toprol XL 25 mg PO daily. Not on anticoagulation. Continue asa, metoprolol. (3) Abnormal CT of the chest: Status: Acute Assessment and plan: Clinically, the patient has no signs of pneumonia at this time. He tested negative for COVID-19. His procalcitonin was undetectable. I do not feel that this is sales and merchandising representative of pneumonia clinically. (4) Chronic constipation: Status: Chronic Assessment and plan: Provide a bowel regimen (5) Weakness: Status: Acute Assessment and plan: Likely due to UTI. Treat underlying infection and consult PT. (6) DVT prophylaxis: Status: Acute Assessment and plan: Lovenox SC (7) Discharge planning issues: Status: Acute Assessment and plan: DNR/intubation ok, per records. History of Present Illness History of Present Illness Chief Complaint: Weakness and dizziness Narrative: Mr Rodriguez is an 80 year old male with H/o Afib no longer on eliquis and not on aspirin, as well as h/o NIDDM2, hypertension, asthma, GERD, prostate cancer s/p brachytherapy, who presented to [facility] ED today complaining of generalized weakness and lightheadedness x 3-4 days, to the point that he could not get out of his chair today and slid out of it. In the ED, he was found to have wheezing as well as evidence of a UTI. He was initiated on IV ceftriaxone. CT imaging of the kidneys was obtained: this did not show any renal pathology, though it did show partial urinary bladder outlet obstruction with evidence of prostate radiation seeds. There was also evidence of bilateral airspace disease, pneumonia not excluded. The patient tested negative for COVID-19. We were asked to admit the patient for further care. The patient cannot tell me the details of what brought him to the hospital. He states I guess I was not functioning well. He reports constipation. Denies urinary symptoms to me, but did report them to the nurse. Review of Systems Narrative: Reports constipation. Reported dysuria to nursing, but denied it to me. Denies shortness of breath, cough, fever. All systems reviewed & are unremarkable except as noted in HPI and below PFSH Medical History (Updated 08/04/20 @ 18:16 by Leydi Carrizales MD) Abnormality of gait due to impairment of balance Alcohol dependence Asthma Atypical chest pain CAD (coronary artery disease) Carpal tunnel syndrome Celiac disease Chronic constipation Cognitive impairment Dementia associated with alcoholism Edema of lower extremity Enlarged prostate GERD (gastroesophageal reflux disease) Hyperlipidemia Hypertension Insomnia Major depression Non-insulin dependent type 2 diabetes mellitus Noncompliance with medication regimen Obesity Paroxysmal A-fib Prostate cancer Seborrheic dermatitis Sensorineural hearing loss of combined sites Sialadenitis Spinal stenosis Thyroid nodule TMJ (dislocation of temporomandibular joint) Urinary retention Surgical History (Updated 08/04/20 @ 17:58 by Leydi Carrizales MD) History of appendectomy History of brachytherapy Family History (Updated 08/04/20 @ 17:58 by Leydi Carrizales MD) Other Family history unobtainable due to patient's condition Social History Smoking/Tobacco Use Status: Never Smoking risk assessment performed?: Yes Drug use: Never Do you feel safe at home: Yes Do you feel safe in your relationship?: Yes Meds Home Medications and Allergies Home Medications Medication Instructions Recorded Confirmed Type acetaminophen [Tylenol] 650 mg PO Q6H PRN PRN tab 06/24/16 08/04/20 Rx furosemide 40 mg PO DAILY #60 tab-cap 08/06/17 08/04/20 Rx triamcinolone acetonide 63 gm TOPICAL PRN 08/06/17 08/04/20 History albuterol sulfate 2 puff INHALATION QID PRN 08/23/18 08/04/20 History atorvastatin 0.5 tab PO DAILY 08/23/18 08/04/20 History gabapentin 300 mg PO BID 08/23/18 08/04/20 History metoprolol succinate 25 mg PO DAILY 08/23/18 08/04/20 History tamsulosin 0.4 mg PO DAILY 08/23/18 08/04/20 History docusate sodium 200 mg PO BID 10/10/18 08/04/20 History alogliptin 6.25 mg PO DAILY 08/04/20 08/04/20 History finasteride 5 mg PO DAILY 08/04/20 08/04/20 History folic acid 1 mg PO DAILY 08/04/20 08/04/20 History metformin 1,000 mg PO BID 08/04/20 08/04/20 History polyethylene glycol 3350 17 g PO DAILY 08/04/20 08/04/20 History sennosides 8.6 mg PO DAILY 08/04/20 08/04/20 History Allergies Allergy/AdvReac Type Severity Reaction Status Date / Time wheat dextrin AdvReac Severe Unverified 08/04/20 10:00 codeine AdvReac Unverified 08/04/20 10:00 glutens Allergy Unknown Uncoded 08/04/20 10:00 glutethimide Allergy Unknown Uncoded 08/04/20 10:00 Exam Narrative Exam Narrative: General: Pleasant elderly male, A&Ox2, seated comfortably in a chair, poor history provider Neurological: A&Ox2, no focal deficits Psychiatric: Appropriate speech pattern/content Skin: Visible skin intact HEENT: Atraumatic, normocephalic, EOMI, MMM, clear oropharynx, no submandibular or cervical lymphadenopathy, + goiter, no JVD Cardiovascular: irregularly irregular rhythm, no m/r/g Lungs: coarse/irritated breath sounds B, but no wheezing Gastrointestinal: soft, nontender, nondistended Genitourinary: deferred Extremities: 2+ BLE edema, no c/c. Results Imaging Additional studies: CXR: No acute findings. CT head: No acute intracranial abnormality. CT abdomen/pelvis: 1. No nephrolithiasis or urinary bladder calculi. 2. Diffusely thickened urinary bladder wall. Question partial outlet obstruction. 3. Evidence of prostate radiation seeds. 4. Mildly prominent pelvic lymph nodes. No definite adenopathy. 5. Cholelithiasis. 6. Bilateral lower lung patchy airspace disease. Cannot exclude multifocal pneumonia. EKG: Afib, HR 73, nonspecdific ST-T abnormalities in inferiolateral leads, Old Q wave in lead III, no acute ischemia Labs Result diagrams: 08/04/20 09:30 08/04/20 09:30 Labs: Laboratory Results - last 24 hr 08/04/20 08/04/20 08/04/20 09:30 09:30 09:30 WBC RBC Hgb Hct MCV MCH MCHC RDW Plt Count MPV Immature Gran % Neutrophils % Lymphocytes % Monocytes % Eosinophils % Basophils % Nucleated RBC % Absolute Neutrophils Absolute Lymphocytes Absolute Monocytes Absolute Eosinophils Absolute Basophils PT INR APTT VBG pH 7.40 VBG pCO2 40 L VBG pO2 50 VBG HCO3 24 VBG Total CO2 22 L VBG O2 Saturation 86 VBG Base Excess -1 VBG Lactate Sodium 139 Potassium 4.3 Chloride 106 Carbon Dioxide 24.0 Anion Gap 9.0 BUN 22 H Creatinine 0.93 Estimated GFR/1.73 m2 >= 60.00 Glucose 146 H Calcium 9.0 Total Bilirubin 0.4 AST 14 L ALT 20 Alkaline Phosphatase 74 Troponin I < 0.05 NT-Pro-B Natriuret Pep 1678 H Total Protein 7.9 Albumin 3.4 TSH 1.66 Urine Color Urine Clarity Urine pH Ur Specific Golden Urine Protein Urine Ketones Urine Blood Urine Nitrite Urine Bilirubin Urine Urobilinogen Ur Leukocyte Esterase Urine RBC Urine WBC Ur Epithelial Cells Urine Crystals Urine Bacteria Urine Mucus Ur Culture Indicated? Urine Glucose COVID-19 Source SARS-CoV-2 (PCR) Influenza Type A (PCR) Influenza Type B (PCR) RSV (PCR) 08/04/20 08/04/20 08/04/20 09:30 09:30 09:30 WBC 9.36 RBC 3.93 L Hgb 12.9 L Hct 38.7 L MCV 98.5 H MCH 32.8 MCHC 33.3 RDW 12.7 Plt Count 184 MPV 11.0 Immature Gran % 0.7 Neutrophils % 76.2 Lymphocytes % 13.4 Monocytes % 7.5 Eosinophils % 1.8 Basophils % 0.4 Nucleated RBC % 0 Absolute Neutrophils 7.13 H Absolute Lymphocytes 1.25 Absolute Monocytes 0.70 Absolute Eosinophils 0.17 Absolute Basophils 0.04 PT 10.4 INR 1.0 APTT 30.5 H VBG pH VBG pCO2 VBG pO2 VBG HCO3 VBG Total CO2 VBG O2 Saturation VBG Base Excess VBG Lactate 1.9 H Sodium Potassium Chloride Carbon Dioxide Anion Gap BUN Creatinine Estimated GFR/1.73 m2 Glucose Calcium Total Bilirubin AST ALT Alkaline Phosphatase Troponin I NT-Pro-B Natriuret Pep Total Protein Albumin TSH Urine Color Urine Clarity Urine pH Ur Specific Golden Urine Protein Urine Ketones Urine Blood Urine Nitrite Urine Bilirubin Urine Urobilinogen Ur Leukocyte Esterase Urine RBC Urine WBC Ur Epithelial Cells Urine Crystals Urine Bacteria Urine Mucus Ur Culture Indicated? Urine Glucose COVID-19 Source SARS-CoV-2 (PCR) Influenza Type A (PCR) Influenza Type B (PCR) RSV (PCR) 08/04/20 08/04/20 08/04/20 09:30 11:45 11:49 WBC RBC Hgb Hct MCV MCH MCHC RDW Plt Count MPV Immature Gran % Neutrophils % Lymphocytes % Monocytes % Eosinophils % Basophils % Nucleated RBC % Absolute Neutrophils Absolute Lymphocytes Absolute Monocytes Absolute Eosinophils Absolute Basophils PT INR APTT VBG pH VBG pCO2 VBG pO2 VBG HCO3 VBG Total CO2 VBG O2 Saturation VBG Base Excess VBG Lactate Sodium Potassium Chloride Carbon Dioxide Anion Gap BUN Creatinine Estimated GFR/1.73 m2 Glucose Calcium Total Bilirubin AST ALT Alkaline Phosphatase Troponin I < 0.05 NT-Pro-B Natriuret Pep Total Protein Albumin TSH Urine Color Yellow Urine Clarity Sl cloudy Urine pH 7.0 Ur Specific Golden 1.020 Urine Protein 30 H Urine Ketones Negative Urine Blood Trace-lysed H Urine Nitrite Negative Urine Bilirubin Negative Urine Urobilinogen 0.2 Ur Leukocyte Esterase Moderate H Urine RBC Not Applicable Urine WBC >50 H Ur Epithelial Cells Not Applicable Urine Crystals Not Applicable Urine Bacteria Urine Mucus Not Applicable Ur Culture Indicated? Yes Urine Glucose Negative COVID-19 Source Nasopharynx SARS-CoV-2 (PCR) Negative Influenza Type A (PCR) Negative Influenza Type B (PCR) Negative RSV (PCR) Negative Last Vital Signs Temp 37.2 C 08/04/20 16:34 Pulse 63 08/04/20 16:34 Resp 17 08/04/20 16:34 BP 140/74 08/04/20 16:34 Pulse Ox 97 08/04/20 16:34 COVID-19 Screening Have you, or household traveled for leisure in last 14 days?: No Had IN PERSON contact w/suspected or confirmed C-19 person: No
[2020-08-04 17:19] LABS: Procalcitonin < 0.1 ng/mL
[2020-08-04] MEDS: Bisacodyl 5 MG TABEC 10 MG PO (18:43)
[2020-08-04] MEDS: Acetaminophen 325 MG TAB 650 MG PO (18:43)
[2020-08-04] MEDS: Atorvastatin 20 MG TAB PO (19:44)
[2020-08-04] MEDS: Milk of Magnesia 30 ML CUP PO (19:44)
[2020-08-04] MEDS: Docusate Sodium 100 MG CAP 200 MG PO (19:44)
[2020-08-04] MEDS: Gabapentin 300 MG CAP PO (19:44)
[2020-08-04] MEDS: Senna TAB 1 TAB PO (19:44)
[2020-08-04] MEDS: Normal Saline Flush 10 ML SYR IVP (19:45)
[2020-08-05] VITALS (9 sets, daily range): BP systolic 105–140; BP diastolic 61–88; PULSE 56–81; RESP 17–18; TEMP 36.6–37.1; O2SAT 97–98
[2020-08-05 06:35] LABS: Abs Immature Grans 0.07 10^3/uL (0.0-0.06); Absolute Basophil Count 0.03 10^3/uL (0.0-0.2); Absolute Eosinophil Count 0.19 10^3/uL (0.0-0.7); Absolute Lymphocyte Count 1.11 10^3/uL (1.2-3.4); Absolute Monocyte Count 0.56 10^3/uL (0.1-0.8); Absolute Neutrophil Count 5.76 10^3/uL (1.2-6.7); Basophils % 0.4; Eosinophils % 2.5; HCT 39.2 % (40.0-50.0); Immature Grans % 0.9; Lymphocytes % 14.4; MCH 32.8 pg (27.0-33.0); MCHC 33.2 % (32.0-36.0); MPV 10.8 fL (8.0-11.0); Monocytes % 7.3; Neutrophils % 74.5; Nucleated RBC 0 %; Platelet Count 175 10^3/uL (130-400); RBC 3.96 10^6/uL (4.36-5.78); RDW 12.9 % (11.8-14.1); RDW-SD 46.8 fL; WBC 7.72 10^3/uL (4.4-10.8)
[2020-08-05 06:53] LABS: Anion Gap 7.3 mmol/L (3-11); BUN 17 mg/dL (7-18); CO2 24.7 mmol/L (21.0-32.0); CREATININE 0.94 mg/dL (0.70-1.30); Calcium 8.9 mg/dL (8.5-10.1); Chloride 109 mmol/L (98-107); Glucose 150 mg/dL (74-106); Magnesium 2.5 mg/dL (1.8-2.4); Potassium 4.4 mmol/L (3.5-5.1); Sodium 141 mmol/L (136-145)
[2020-08-05] MEDS: Polyethylene Glycol 3350 17 GM PACKET PO (08:01)
[2020-08-05] MEDS: Gabapentin 300 MG CAP PO ×2 (08:02→19:36)
[2020-08-05] MEDS: Metoprolol CR 25 MG TABCR PO (08:02)
[2020-08-05] MEDS: Senna TAB 1 TAB PO ×2 (08:02→19:36)
[2020-08-05] MEDS: Tamsulosin 0.4 MG CAPCR PO (08:02)
[2020-08-05] MEDS: Docusate Sodium 100 MG CAP 200 MG PO ×2 (08:02→19:36)
[2020-08-05] MEDS: Finasteride 5 MG TAB PO (08:02)
[2020-08-05] MEDS: Folic Acid 1 MG TAB PO (08:02)
[2020-08-05] MEDS: Furosemide 20 MG TAB 40 MG PO (08:02)
--- NOTE | 2020-08-05 09:14 | INITIAL_ITS ---
- If Service Date Differs Date of service: 08/05/20 Time of Service: 09:15 Care Management Initial Assess REASON FOR HOSPITALIZATION:: UTI PAST MEDICAL HISTORY/PAST SURGICAL HISTORY:: Medical History (Updated 08/04/20 @ 18:16 by Leydi Carrizales MD). Abnormality of gait due to impairment of balance. Alcohol dependence. Asthma. Atypical chest pain. CAD (coronary artery disease). Carpal tunnel syndrome. Celiac disease. Chronic constipation. Cognitive impairment. Dementia associated with alcoholism. Edema of lower extremity. Enlarged prostate. GERD (gastroesophageal reflux disease). Hyperlipidemia. Hypertension. Insomnia. Major depression. Non-insulin dependent type 2 diabetes mellitus. Noncompliance with medication regimen. Obesity. Paroxysmal A-fib. Prostate cancer. Seborrheic dermatitis. Sensorineural hearing loss of combined sites. Sialadenitis. Spinal stenosis. Thyroid nodule. TMJ (dislocation of temporomandibular joint). Urinary retention. Surgical History (Updated 08/04/20 @ 17:58 by Leydi Carrizales MD). History of appendectomy. History of brachytherapy PREVIOUS FUNCTIONAL STATUS/SOCIAL/FAMILY SUPPORTS:: Williams lives alone in an apartment at the [facility]. He has 4 sons and [id number] that are very supportive of his needs. He receives breakfast daily at his apartment house and can also order dinner if he chooses to do so. Williams is independent with ADLs and only occasionally uses a cane for ambulation outside. Williams has a home health nurse visit once a week. This service is provided through the [facility]. He does not wish to increase services at this time. CURRENT FUNCTIONAL STATUS:: Williams was sitting up in bed when CM met with him. He was polite but guarded at first. Williams stated that he is a very private person and does not share personal information readily. That being said, he talked a lot about his family and how close and supportive they are. He has lost a daughter and son to pancreatic cancer, as well as a grandmother. Williams also talked reluctantly about advanced directives. He stated that they are on file (confirmed by CM) but that they need to be changed. His oldest son Tal who was listed as his primary person. He asked for and received a copy of the existing documents and also a blank copy of the [place]. AD forms. ADVANCE DIRECTIVES:: None on file at [facility] Has patient been provided with info about the portal/API?: Yes Did the patient sign up for the portal?: No CODE STATUS:: DNR (Intubation OK) CODE STATUS COMMENT:: Intubation OK INSURANCE COVERAGE / FINANCIAL ISSUES:: Medicare. [employer] CURRENT HOME/COMMUNITY SERVICES/EQUIPMENT:: nurse once a week through [facility]. Cane when ambulationg outside PRIMARY CARE PHYSICIAN:: Erika Mix POTENTIAL DISCHARGE NEEDS:: Follow up with PCP and discharge plan of care PATIENT/FAMILY EDUCATION NEEDS:: Discharge plan, follow up , limitations, Ask Me Three TRANSPORTATION:: via private vehicle with family PLAN:: Williams will likely be discharged back home with a resumption of HH nursing. He will folllow up with his PCP and transport with family. CM will continue to support Williams and his family and assess for discharge concerns.
--- NOTE | 2020-08-05 09:50 | PGE_ITS ---
Date of Service Date of service: 08/05/20 Time of Service: 09:50 Assessment and Plan Assessment and plan (1) Acute UTI: Status: Acute Assessment and plan: Present on admission. In setting of partial bladder outlet obstruction and thickened bladder, concerning for urinary retention. Will monitor PVRs. Continue empiric ceftriaxone day 2 Await urine C&S results. Continue flomax/finasteride (2) Atrial fibrillation: Status: Chronic Assessment and plan: Rate controlled on toprol XL 25 mg PO daily. Not on anticoagulation. Continue asa, metoprolol. (3) Abnormal CT of the chest: Status: Acute Assessment and plan: Clinically, the patient has no signs of pneumonia at this time. He tested negative for COVID-19. His procalcitonin was undetectable. Not believed that this is patient accounting representative of pneumonia clinically. (4) Chronic constipation: Status: Chronic Assessment and plan: Provide a bowel regimen (5) Weakness: Status: Acute Assessment and plan: Likely due to UTI. Treat underlying infection and consult PT. (6) DVT prophylaxis: Status: Acute Assessment and plan: Lovenox SC (7) Discharge planning issues: Status: Acute Assessment and plan: DNR/intubation ok, per records. case management following for discharge planning. wishes for discharge to home +/- home health services/PT discussed with DR Andres Subjective Subjective Patient reports: no new complaints, feels better, tolerating liquids well, tolerating a regular diet, voiding w/o difficulty and afebrile; denies shortness of breath Interval history since last seen: getting up an ambulating in room with walker with no assist. had small BM after many bowel meds this morning, no abdominal pain or nausea, Exam Narrative Exam Narrative: General: Pleasant elderly male, A&Ox2, seated comfortably in a chair Neurological: A&Ox3, no focal deficits Psychiatric: normal mood and affect Skin: no rashes or lesions HEENT: Atraumatic, normocephalic, EOMI, MMM, clear oropharynx, Cardiovascular: irregularly irregular rhythm, no m/r/g Lungs: no wheezing, no rhonchi, dim in bases Gastrointestinal: soft, nontender, nondistended Extremities: 2+ BLE edema, moves all extremities x4 Objective Last Vital Signs Temp 37.0 C 08/05/20 07:11 Pulse 56 L 08/05/20 07:20 Resp 17 08/05/20 07:11 BP 129/88 08/05/20 07:11 Pulse Ox 97 08/05/20 07:11 Laboratory Results - last 24 hr 08/04/20 08/04/20 08/04/20 09:30 09:30 09:30 WBC RBC Hgb Hct MCV MCH MCHC RDW Plt Count MPV Immature Gran % Neutrophils % Lymphocytes % Monocytes % Eosinophils % Basophils % Nucleated RBC % Absolute Neutrophils Absolute Lymphocytes Absolute Monocytes Absolute Eosinophils Absolute Basophils PT 10.4 INR 1.0 APTT 30.5 H Sodium 139 Potassium 4.3 Chloride 106 Carbon Dioxide 24.0 Anion Gap 9.0 BUN 22 H Creatinine 0.93 Estimated GFR/1.73 m2 >= 60.00 Glucose 146 H Calcium 9.0 Magnesium Total Bilirubin 0.4 AST 14 L ALT 20 Alkaline Phosphatase 74 Troponin I < 0.05 NT-Pro-B Natriuret Pep 1678 H Total Protein 7.9 Albumin 3.4 Procalcitonin TSH 1.66 Urine RBC Urine WBC Ur Epithelial Cells Urine Crystals Urine Bacteria Urine Mucus Ur Culture Indicated? COVID-19 Source SARS-CoV-2 (PCR) Influenza Type A (PCR) Influenza Type B (PCR) RSV (PCR) 08/04/20 08/04/20 08/04/20 09:30 09:30 11:45 WBC RBC Hgb Hct MCV MCH MCHC RDW Plt Count MPV Immature Gran % Neutrophils % Lymphocytes % Monocytes % Eosinophils % Basophils % Nucleated RBC % Absolute Neutrophils Absolute Lymphocytes Absolute Monocytes Absolute Eosinophils Absolute Basophils PT INR APTT Sodium Potassium Chloride Carbon Dioxide Anion Gap BUN Creatinine Estimated GFR/1.73 m2 Glucose Calcium Magnesium Total Bilirubin AST ALT Alkaline Phosphatase Troponin I NT-Pro-B Natriuret Pep Total Protein Albumin Procalcitonin < 0.1 TSH Urine RBC Not Applicable Urine WBC >50 H Ur Epithelial Cells Not Applicable Urine Crystals Not Applicable Urine Bacteria Urine Mucus Not Applicable Ur Culture Indicated? Yes COVID-19 Source Nasopharynx SARS-CoV-2 (PCR) Negative Influenza Type A (PCR) Negative Influenza Type B (PCR) Negative RSV (PCR) Negative 08/04/20 08/05/20 08/05/20 11:49 06:20 06:20 WBC 7.72 RBC 3.96 L Hgb 13.0 L Hct 39.2 L MCV 99.0 H MCH 32.8 MCHC 33.2 RDW 12.9 Plt Count 175 MPV 10.8 Immature Gran % 0.9 Neutrophils % 74.5 Lymphocytes % 14.4 Monocytes % 7.3 Eosinophils % 2.5 Basophils % 0.4 Nucleated RBC % 0 Absolute Neutrophils 5.76 Absolute Lymphocytes 1.11 L Absolute Monocytes 0.56 Absolute Eosinophils 0.19 Absolute Basophils 0.03 PT INR APTT Sodium 141 Potassium 4.4 Chloride 109 H Carbon Dioxide 24.7 Anion Gap 7.3 BUN 17 Creatinine 0.94 Estimated GFR/1.73 m2 >= 60.00 Glucose 150 H Calcium 8.9 Magnesium 2.5 H Total Bilirubin AST ALT Alkaline Phosphatase Troponin I < 0.05 NT-Pro-B Natriuret Pep Total Protein Albumin Procalcitonin TSH Urine RBC Urine WBC Ur Epithelial Cells Urine Crystals Urine Bacteria Urine Mucus Ur Culture Indicated? COVID-19 Source SARS-CoV-2 (PCR) Influenza Type A (PCR) Influenza Type B (PCR) RSV (PCR)
[2020-08-05] MEDS: cefTRIAXone 1 GM/50 ML BAG IVPB (09:59)
--- NOTE | 2020-08-05 11:07 | PT.INIE ---
Date of service: 08/05/20 Time of Service: 10:00 PT Notes Visit Reasons: UTI, DEHYDRATION, WEAKNESS Inpatient Physical Therapy Evaluation Date: 08/05/20 Referring Doctor: Leydi Carrizales MD PT Orders: PT CONSULT: Limited Ability Precautions: Fall risk, standard Patient Profile/Admitting Diagnosis: UTI, dehydration, weakness PMHX: Medical History (Updated 08/04/20 @ 18:16 by Leydi Carrizales MD) Abnormality of gait due to impairment of balance Alcohol dependence Asthma Atypical chest pain CAD (coronary artery disease) Carpal tunnel syndrome Celiac disease Chronic constipation Cognitive impairment Dementia associated with alcoholism Edema of lower extremity Enlarged prostate GERD (gastroesophageal reflux disease) Hyperlipidemia Hypertension Insomnia Major depression Non-insulin dependent type 2 diabetes mellitus Noncompliance with medication regimen Obesity Paroxysmal A-fib Prostate cancer Seborrheic dermatitis Sensorineural hearing loss of combined sites Sialadenitis Spinal stenosis Thyroid nodule TMJ (dislocation of temporomandibular joint) Urinary retention Surgical History (Updated 08/04/20 @ 17:58 by Leydi Carrizales MD) History of appendectomy History of brachytherapy Social History/Home Situation: Lives alone in apartment, has elevators or stairs he can use Current Functional Limitations: Impaired mobility Equipment Owned/DME: Cane Subjective: Williams is sitting up in chair with nursing present in room. He is agreeable to PT, but declines public walk in hallway. He is confused as to how he ended up in hospital and what current situation is. He reports playing football every week. Objective: General Observation: Pleasant Pain: Denies pain ROM: Right Upper Extremity: WNL Left Upper Extremity: WNL Right Lower Extremity: WNL Left Lower Extremity: WNL Strength: Right Upper Extremity: WNL Left Upper Extremity: 4+5 left shoulder flexion, abduction otherwise WNL Right Lower Extremity: WNL Left Lower Extremity: WNL Sensation: Intact to pressure and light touch Bed Mobility/Transfers: Bed mobility not assessed today Sit to stand: supervision Stand to sit: supervision Gait: Ambulated 10 ft to door and back to chair with FWW, SBA Balance: Static Sitting: Normal Dynamic Sitting: Good Static Standing: Good Dynamic Standing: Good Special Tests: Mobility Limitations Standardized Measure [facility] AM-PAC 6 clicks Basic Mobility Inpatient Short Form: Raw Score: 20 CMS Score: 35.83% Informed Consent/Education: Patient instructed in purpose of PT consult and plan of care. Assessment: Patient is an 80 year old male referred to physical therapy services with the diagnosis of UTI, dehydration, and weakness. He demonstrates good upper and lower extremity strength with mild impairments in left shoulder. He denies presence of pain. He does have mild confusion on why he was admitted and how he got here. He declined walking out of room as not wanting to be on display in public. He needs further evaluation for walking endurance and stairs. At baseline he used cane for ambulation. He was left sitting in chair with chair alarm on and call light in reach. Patient presents with clinical signs and symptoms consistent with current/admitting diagnoses that have resulted to mobility limitations, gait instability, generalized weakness, and impairment of motor control as demonstrated by the following impairment level findings: 1. Decreased strength to left shoulder abduction/flexion 2. Impaired activity tolerance 3. Impaired dynamic balance 4. Increased confusion Impairments are contributing to the following functional limitations: 1. Increased fall risk 2. Inability to safely ambulate without assistive device 3. Increased assist to ambulate stairs Patient is [place] a Low [id number] complexity based on the following: History: See above Examination: See above Presentation: Stable Decision Making: Moderate Goals: Goals X1 week 1. Supine-Sit Independent 2. Sit-Supine Independent 3. Sit-Stand Independent 4. Stand-Sit Independent 5. Bed-Chair Independent 6. Chair-Bed Independent 7. Gait Independent 8. Stairs Independent 9. Independent with home exercise program 10. Balance improved to normal Plan of Care/Treatment Plan: 1-2x/day, 7 days/week x 1 week. Plan of care has been reviewed with the [employer] providing the service under Physical Therapy direction. Initiate Physical Therapy intervention for strengthening, bed mobility, transfers, gait, stairs, balance training, use of assistive device. DISCHARGE RECOMMENDATIONS: Home when medically cleared TREATMENT CODE/TIME: 42725, 10:00-10:15
--- NOTE | 2020-08-05 12:04 | PHA.REVIEW ---
Pharmacy Admission Review - Admission Clinical Review (Last Updated 08/04/20 @ 18:15 by Leydi Carrizales MD) Discharge planning issues (Acute) DVT prophylaxis (Acute) Abnormal CT of the chest (Acute) Acute UTI (Acute) Weakness (Acute) wheat dextrin Adverse Reaction (Severe, Unverified 08/04/20 10:00) codeine Adverse Reaction (Unverified 08/04/20 10:00) glutens Allergy (Unknown, Uncoded 08/04/20 10:00) glutethimide Allergy (Unknown, Uncoded 08/04/20 10:00) Height 5 ft 8.5 in Weight 104.7 kg - Renal Dosing Renal Dosing: BUN 17 mg/dL (7-18) 08/05/20 06:20 Creatinine 0.94 mg/dL (0.70-1.30) 08/05/20 06:20 Medications needing adjustments: Reviewed (Crcl ~72.9 mmL/min using adjusted body weight, current meds okay.) - Anticoagulation Anticoagulation: Hgb 13.0 g/dL (13.5-17.5) L 08/05/20 06:20 Hct 39.2 % (40.0-50.0) L 08/05/20 06:20 Plt Count 175 10^3/uL (130-400) 08/05/20 06:20 INR 1.0 (0.9-1.1) 08/04/20 09:30 Creatinine 0.94 mg/dL (0.70-1.30) 08/05/20 06:20 DVT Prohphylaxis: Reviewed Medications: Enoxaparin Therapeutic Anticoagulation: N/A - Opiate Usage Evaluate Pain Scale/Pains Meds: N/A - Relevant Labs Sodium 141 mmol/L (136-145) 08/05/20 06:20 Potassium 4.4 mmol/L (3.5-5.1) 08/05/20 06:20 Chloride 109 mmol/L (98-107) H 08/05/20 06:20 Magnesium 2.5 mg/dL (1.8-2.4) H 08/05/20 06:20 Electrolytes, C-Reactive P, ESR: Reviewed - DM Control DM Control: Glucose 150 mg/dL (74-106) H 08/05/20 06:20 Finger Stick Blood Glucose 110 Finger Stick Blood Glucose 137 Finger Stick Blood Glucose 137 Insulin Dosing: Reviewed (has sliding scale aspart ordered) - Heart Failure/KY Heart Failure/[place]: Troponin I < 0.05 ng/mL (<0.06) 08/04/20 11:49 NT-Pro-B Natriuret Pep 1678 pg/mL (<300) H 08/04/20 09:30 EF%, BRADLEY's, B-Blockers, Diuretics: Reviewed - BP Control BP Control: Blood Pressure 129/88 Blood Pressure 140/68 If elevated: N/A - Qtc Review If Elevated: N/A (QTc 432 on admission) - IV to PO Switch IV Medications: Reviewed - Home Meds Home Med List reviewed: Reviewed (alogliptin and metformin (pt has sliding scale aspart ordered)) - Current meds Current Medication Order Review: Reviewed - Comments Comments/Follow Ups: Watch VS, BG, labs, for culture results and med changes. Antibiotic Activity - Pharmacy Antibiotic Review Pharmacy Antibiotic Activity: C/S review (Blood cultures no growth @24 hours, urine culture growing gram+ cony. Ceftriaxone continues (day 2).)
[2020-08-05] MEDS: Enoxaparin 40 MG/0.4 ML SYR SC (14:11)
[2020-08-05] MEDS: Atorvastatin 20 MG TAB PO (19:36)
[2020-08-05] MEDS: Normal Saline Flush 10 ML SYR IVP (19:37)
[2020-08-06] VITALS (7 sets, daily range): BP systolic 115–130; BP diastolic 69–76; PULSE 50–74; RESP 17–18; TEMP 36–36.9; O2SAT 95–98
[2020-08-06] MEDS: Polyethylene Glycol 3350 17 GM PACKET PO (07:53)
[2020-08-06] MEDS: Docusate Sodium 100 MG CAP 200 MG PO ×2 (07:53→21:01)
[2020-08-06] MEDS: Finasteride 5 MG TAB PO (07:54)
[2020-08-06] MEDS: Gabapentin 300 MG CAP PO ×2 (07:54→21:01)
[2020-08-06] MEDS: Metoprolol CR 25 MG TABCR PO (07:54)
[2020-08-06] MEDS: Furosemide 20 MG TAB 40 MG PO (07:54)
[2020-08-06] MEDS: Senna TAB 1 TAB PO ×2 (07:54→21:01)
[2020-08-06] MEDS: Folic Acid 1 MG TAB PO (07:54)
[2020-08-06] MEDS: Tamsulosin 0.4 MG CAPCR PO ×2 (07:54→16:51)
[2020-08-06] MEDS: Insulin Aspart 300 UNITS/3 ML PEN SC (08:15)
--- NOTE | 2020-08-06 08:28 | PDOC.CMPRO ---
- If Service Date Differs Date of service: 08/06/20 Time of Service: 08:28 Care Management Progress Note S/O: Williams was sitting up in a chair when CM met with him. he was visibly upset and asserted that if he ever needs to go to the hospital again, it will be to [facility]. He stated that he had an unpleasant interaction with a caregiver and would not come back here. CM offered active listening and support and Williams became calmer and more focused. He spoke at length about his need for privacy and independence and about his family. His oldest son Tal a couple of years ago from pancreatic cancer and they were very close. His second son Benitez has tried to take over some of the role that Tal played but Williams has not been able to allow him to fulfill that role. Benitez received a phone call from Williams last night and Williams seemed to have forgotten about Tal's . Benitez and his were understandably upset about this memory loss and were expressing their concerns about his returning home alone. CM discussed the situation with Williams and he was very clear that he will not consider going to a SNF and that he does not want any additional supports in the home. That was when he shared the information about his relationship with his 2 oldest sons. Williams also shared that Barbie, Tal's , is very special and that he has a tremendous amount of respect for her. Williams is doing well clinically. He remains afebrile and his vital signs are stable. He continue to experience frequency of urination and shared with CM that he has burning and discomfort during urination as well. His antibiotics have been discontinued as there was no significant growth however the provider increased his Flomax and added pyridium for comfort. A: Williams is n 80 year old man admitted on 08/04/20 with a UTI P: Williams will likely be discharged back home tomorow pending successful PT eval, with a resumption of nursing. He will follow up with his PCP and transport with family. CM will continue to support Williams and his family and assess for discharge concerns.
--- NOTE | 2020-08-06 09:49 | NT_ITS ---
PT Notes Visit Reasons: UTI, DEHYDRATION, WEAKNESS 08/06/2020 Refuses PT today. Daya Rodgers, [employer]
--- NOTE | 2020-08-06 09:49 | PT.INNT ---
PT Notes Visit Reasons: UTI, DEHYDRATION, WEAKNESS 08/06/2020 Refuses PT today. Daya Rodgers, [employer]
--- NOTE | 2020-08-06 13:46 | PGE_ITS ---
Date of Service Date of service: 08/06/20 Time of Service: 13:47 Assessment and Plan Assessment and plan (1) Acute UTI: Start date: 08/06/20 Start time: 13:50 Status: Ruled-out Assessment and plan: D/c ceftriaxone, urine culture with no growth He does have prostate radiation seeds, likely contributing to his problems with pain and frequency (2) Atrial fibrillation: Start date: 08/06/20 Start time: 13:55 Status: Chronic Assessment and plan: Rate controlled on toprol XL 25 mg PO daily. Not on anticoagulation. Continue asa, metoprolol. (3) Abnormal CT of the chest: Start date: 08/06/20 Start time: 13:55 Status: Acute Assessment and plan: Clinically, the patient has no signs of pneumonia at this time. He tested negative for COVID-19. His procalcitonin was undetectable. 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 (4) Chronic constipation: Start date: 08/06/20 Start time: 13:55 Status: Chronic Assessment and plan: Provide a bowel regimen (5) Weakness: Start date: 08/06/20 Start time: 13:55 Status: Acute Assessment and plan: Likely due to UTI. Treat underlying infection and consult PT. (6) DVT prophylaxis: Start date: 08/06/20 Start time: 13:55 Status: Acute Assessment and plan: Lovenox SC (7) Discharge planning issues: Start date: 08/06/20 Start time: 13:55 Status: Acute Assessment and plan: DNR/intubation ok, per records. case management following for discharge planning. wishes for discharge to home +/- home health services/PT discussed with DR Andres Subjective Subjective Patient reports: no new complaints Interval history since last seen: Patient refused to work with PT this am. He has agreed to work with them tomorrow if he passes with distance and stairs he will discharged home. He does have frequency and pain with urination, urine culture without growth. This likely is a result of his prostate radiation seeds. Will increase flomax to BID and add pyridium to reduce pain. Exam Narrative Exam Narrative: General: Pleasant elderly male, A&Ox3, seated comfortably in a chair Neurological: A&Ox3, no focal deficits Psychiatric: normal mood and affect Skin: no rashes or lesions HEENT: Atraumatic, normocephalic, EOMI, MMM, clear oropharynx, Cardiovascular: irregularly irregular rhythm, no m/r/g Lungs: no wheezing, no rhonchi, dim in bases Gastrointestinal: soft, nontender, nondistended Extremities: 2+ BLE edema, moves all extremities x4 Objective Last Vital Signs Temp 36.9 C 08/06/20 07:40 Pulse 69 08/06/20 12:28 Resp 18 08/06/20 07:40 BP 121/71 08/06/20 07:40 Pulse Ox 97 08/06/20 07:40
[2020-08-06] MEDS: Enoxaparin 40 MG/0.4 ML SYR SC (15:20)
[2020-08-06] MEDS: Phenazopyridine 100 MG TAB PO ×2 (15:20→21:01)
[2020-08-06] MEDS: Atorvastatin 20 MG TAB PO (21:01)
[2020-08-06] MEDS: Normal Saline Flush 10 ML SYR IVP (21:02)
[2020-08-06] MEDS: LORazepam 0.5 MG TAB PO (21:58)
--- NOTE | 2020-08-06 22:44 | NUR.NOTE ---
Nursing Note: Patient discussed concerns r/t anxiety with RN, stating I don't feel good in an emotional way. I feel anxious. Patient reports feeling this way for a long time and when he feels anxious at night at home, he walks the streets of [place] in the middle of the night. I don't want to but there's only so long you can toss and turn. Patient expresses not wanting to tell anybody about these feelings, including PCP: the less people who know, the better. He reports he will take some time to think about if he wants to discuss his mental health with his PCP. He verbalizes concerns about his feelings being talked about around town. RN educated patient about patient confidentiality, which he says he understands. Patient reports not having a strong support system, but is very spiritual within the [facility] and belongs to a [facility] [place], [place] which he has not been able to visit since he had to give up driving. Patient is open to speaking with a hospital specimen collector. Patient denies any current or past thoughts of suicidal ideation. Patient was stoic and concerned throughout conversation. Conversation lasted approximately 20 minutes.
[2020-08-07 07:08] VITALS: BP 103/61; PULSE 65; RESP 17; TEMP 36.7; O2SAT 95
[2020-08-07 07:13] LABS: Platelet Count 212 10^3/uL (130-400)
[2020-08-07 07:21] LABS: Anion Gap 7.9 mmol/L (3-11); BUN 18 mg/dL (7-18); CO2 27.1 mmol/L (21.0-32.0); CREATININE 1.06 mg/dL (0.70-1.30); Calcium 8.8 mg/dL (8.5-10.1); Chloride 106 mmol/L (98-107); Glucose 149 mg/dL (74-106); Magnesium 2.4 mg/dL (1.8-2.4); Potassium 4.4 mmol/L (3.5-5.1); Sodium 141 mmol/L (136-145)
[2020-08-07] MEDS: Normal Saline Flush 10 ML SYR IVP (07:50)
[2020-08-07] MEDS: Finasteride 5 MG TAB PO (07:52)
[2020-08-07] MEDS: Gabapentin 300 MG CAP PO (07:53)
[2020-08-07] MEDS: Furosemide 20 MG TAB 40 MG PO (07:53)
[2020-08-07] MEDS: Folic Acid 1 MG TAB PO (07:54)
[2020-08-07] MEDS: Tamsulosin 0.4 MG CAPCR PO (07:54)
[2020-08-07] MEDS: Metoprolol CR 25 MG TABCR PO (07:55)
[2020-08-07] MEDS: Phenazopyridine 100 MG TAB PO ×2 (07:55→14:24)
[2020-08-07] MEDS: Senna TAB 1 TAB PO (07:57)
[2020-08-07] MEDS: Docusate Sodium 100 MG CAP 200 MG PO (07:58)
[2020-08-07] MEDS: Polyethylene Glycol 3350 17 GM PACKET PO (07:58)
--- NOTE | 2020-08-07 09:16 | PT.INTREAT ---
Date of service: 08/07/20 Time of Service: 08:45 PT Notes Visit Reasons: UTI, DEHYDRATION, WEAKNESS Inpatient Physical Therapy Treatment Note [facility] Date: 08/07/2020 PRECAUTIONS: Fall SUBJECTIVE: Williams states that he would like to return to home, he feels he is feeling well enough to return home safely. He does report that he has been feeling SOB with activity and occasionally at rest, which was relayed to Manuela Del Angel NP. OBJECTIVE: PAIN: No c/o pain BED MOBILITY/TRANSFERS Sit-stand: S Stand-sit: S GAIT Assistive Device: SPC Weight bearing: Full Assist: SBA Distance: 100' x2 Deviation: Mild path deviation STAIRS: Up/down 3x4 and 2x6 using B rails and a step-over pattern, independently. ASSESSMENT: Patient tolerated session well with minimal c/o SOB following gait training. He was able to tolerate a significant progression in gait distance with SPC and SBA, demonstrating only mild path deviation. PLAN: Patient to discharge to home with PT services TREATMENT CODE/TIME: 20 minutes; [id number]
--- NOTE | 2020-08-07 09:30 | DSE_ITS ---
Date of service: 08/07/20 Time of Service: 09:30 DS: Diagnosis Discharge Diagnosis (1) Acute UTI: Start date: 08/07/20 Start time: 09:30 Status: Ruled-out Asessment and Plan: Received 2 days of ceftriaxone until UTI r/o. No growth on urine culture, sx likely from radiation seeds, he was initiated on pyridium for burning and flomax bid for frequency which has appeared to help with sx [facility] (2) Atrial fibrillation: Start date: 08/07/20 Start time: 09:39 Status: Chronic Asessment and Plan: Rate controlled follow up with home regimen continue at home (3) Abnormal CT of the chest: Start date: 08/07/20 Start time: 09:40 Status: Ruled-out Asessment and Plan: No signs of pneumonia clinically, COVID negative, procal undetectable no treatment (4) Chronic constipation: Start date: 08/07/20 Start time: 09:40 Status: Chronic Asessment and Plan: Continue bowel regimen (5) Weakness: Start date: 08/07/20 Start time: 09:41 Status: Resolved Asessment and Plan: Improved. He was able to work with PT ambulating and walking up stairs without difficulty. above case discussed with Dr. Newton who is in agreement. Discharge Plan Disposition Patient Disposition: HOME Condition: Stable Discharge Details Reason For Visit: UTI, DEHYDRATION, WEAKNESS Admit Date/Time: 08/04/20 11:24 Admit Provider: Leydi Carrizales Attending Provider: Leydi Carrizales Primary Care Provider: Erika Mix Hospital Course Hospital Course: Mr Rodriguez is an 80 year old male with H/o Afib no longer on eliquis and not on aspirin, as well as h/o NIDDM2, hypertension, asthma, GERD, prostate cancer s/p brachytherapy, who was admitted to [facility] with complaints of generalized weakness and lightheadedness x 3-4 days, to the point that he could not get out of his chair and slid out of it. In the ED, he was found to have wheezing as well as what was thought to be a UTI. He initiated on ceftriaxone, renal u/s revealing: IMPRESSION: 1. No nephrolithiasis or urinary bladder calculi. 2. Diffusely thickened urinary bladder wall. Question partial outlet obstruction. 3. Evidence of prostate radiation seeds. 4. Mildly prominent pelvic lymph nodes. No definite adenopathy. 5. Cholelithiasis. 6. Bilateral lower lung patchy airspace disease. Cannot exclude multifocal pneumonia. Urine cx revealing no growth. Ceftriaxone dcd after 2 days. He did have c/o frequency and burning, likely from the radiation seeds, flomax was increased to BID and he was started on pyridium. Constipation relieved and patient has been feeling much better. He ambulated with PT this am and was able to walk up stairs unassisted therefore he is being discharged home. He will resume [place] nursing care and follow up with PCP in 1 week. He denies CP, SOB, N/V/D. Total time spent discharging approx 60 mins Home Meds and New Rx's Prescriptions: New tamsulosin 0.4 mg Capsule 0.4 mg PO BID@0830,1730 Qty: 60 RF: 0 phenazopyridine 100 mg Tablet 100 mg PO TID Qty: 28 RF: 0 Continued furosemide 20 MG tablet 40 mg PO DAILY Qty: 60 RF: 11 triamcinolone acetonide 63 GM aerosol 63 gm Topical PRN RF: 0 gabapentin 300 mg Capsule 300 mg PO BID RF: 0 metoprolol succinate 25 mg Tablet Extended Release 24 Hr 25 mg PO DAILY RF: 0 albuterol sulfate 90 mcg/actuation Hfa Aerosol Inhaler 2 puff INHALATION QID PRNRF: 0 atorvastatin 40 MG tablet 0.5 tab PO DAILY RF: 0 docusate sodium 100 mg Tablet 200 mg PO BID RF: 0 polyethylene glycol 3350 17 gram Powder In Packet 17 g PO DAILY RF: 0 metformin 1,000 mg Tablet 1,000 mg PO BID RF: 0 sennosides 8.6 mg Capsule 8.6 mg PO DAILY RF: 0 alogliptin 6.25 mg Tablet 6.25 mg PO DAILY RF: 0 folic acid 1 mg Tablet 1 mg PO DAILY RF: 0 finasteride 5 mg Tablet 5 mg PO DAILY RF: 0 acetaminophen [Tylenol] 325 MG tablet 650 mg PO Q6H PRN PRN (Reason: Mild Pain, Temp. Over 38.5) RF: 0 Discontinued tamsulosin 0.4 mg Capsule 0.4 mg PO DAILY RF: 0 Discharge Instructions Instructions: Constipation (DC), High Fiber Diet (DC) Additional Instructions: Take flomax twice daily Take pyridium three times a day follow up with PCP in 1 week Continue to ambulate at home Drink plenty of water Activity:: Activity as Tolerated Equipment/Supplies:: No Equipment Needed Diet:: Carb Counting Discharge Orders Discharge Orders: Discharge Order (Routine); Ordered 08/07/20 Ordered By: Bita So DS: Summary Status at Discharge Functional status at discharge: uses cane/walker Overall status at discharge: patient is back to baseline Mental Status: other (Forgetful) Speech and Movement: speech and movement normal Mood: congruent mood and other (Forgetful) Affect: normal affect Exam Narrative Exam Narrative: General: Pleasant elderly male, A&Ox3, seated comfortably in a chair, forgetful Neurological: A&Ox3, no focal deficits Psychiatric: normal mood and affect Skin: no rashes or lesions HEENT: Atraumatic, normocephalic, EOMI, MMM, clear oropharynx, Cardiovascular: irregularly irregular rhythm, no m/r/g Lungs: no wheezing, no rhonchi, dim in bases Gastrointestinal: soft, nontender, nondistended Extremities: 1+ BLE edema, moves all extremities x4 Psych Mental Status: other (Forgetful) Speech and Movement: speech and movement normal Mood: congruent mood and other (Forgetful) Affect: normal affect DS: Data Vitals/I&O Vitals and I&O: Vital Signs Temperature 36.7 C 08/07/20 07:08 Temperature Source Tympanic 08/07/20 07:08 Pulse 65 08/07/20 07:08 Pulse Rhythm Regular 08/07/20 04:05 Pulse 71 08/04/20 10:36 Respiratory Rate 17 08/07/20 07:08 Respiratory Effort Non-Labored 08/07/20 04:05 Respiratory Depth Normal 08/07/20 04:05 Respiratory Pattern Normal 08/07/20 04:05 Blood Pressure 103/61 08/07/20 07:08 Blood Pressure Mean 74 08/04/20 12:16 Blood Pressure Position Supine 08/04/20 08:47 Pulse Oximetry 95 08/07/20 07:08 Oxygen Delivery Method Room Air 08/07/20 07:08 Oxygen Flow Rate 0 08/07/20 07:08 Pain Level 0 08/07/20 07:50 Intake & Output 08/06/20 08/06/20 08/07/20 11:59 23:59 11:59 Intake Total 750 / 1500 750 / 1500 240 / 240 Output Total 1800 / 2700 900 / 2700 800 / 800 Balance -1050 / -1200 -150 / -1200 -560 / -560 Weight 104.4 kg Intake: IV Oral 750 / 1490 740 / 1490 240 / 240 Output: Urine 1600 / 2500 900 / 2500 800 / 800 Post Void Residual 200 / 200 Other: Urine Color Straw [place] Yellow Straw Urine Appearance Cloudy Clear Clear Urine Odor Normal Normal Normal Comment Patient voided 150mL, then bladder scanned 200mL. Nurse notified Voiding Methods Toilet Toilet Toilet Data Completed and Pending Completed studies during hospitalization [Text1]: : 1940ge: 80 Exam(s) a CT:CT renal colic wo EXAM: CT RENAL COLIC WO CLINICAL HISTORY: elderly, uti, eval for stones. TECHNIQUE: Imaging Protocol: Axial computed tomography images with coronal and sagittal reformatted images were created and reviewed. CONTRAST MATERIAL: Noncontrast- Oral: yes / no COMPARISON: CT ABD PELVIS WITH CONTRAST from 03/13/2017 CT ABD PELVIS WITH CONTRAST from 03/13/2017 FINDINGS: ABDOMEN: Lung Bases: A small portion of the lung bases are visible. There are multifocal infiltrates.. Liver: Hepatic steatosis.. No measurable mass. Gallbladder and biliary tract: Small amount of layering tiny stones are seen. There is no wall thickening. There is no biliary dilatation.. Pancreas: Normal density, no abnormal calcifications or inflammatory process. Spleen: Normal. Kidneys: Normal size, contour and axis. No radiodense stones or obstructive uropathy. No masses seen. Adrenal glands: No masses seen. Abdominal Aorta: Sclerotic changes. Mild focal dilatation to 2.7 cm. PELVIS: Bladder: Prominent diffuse bladder wall thickening. There is surrounding stranding perivesical fat. No focal mass or stone. Patella densities in the prostate. Bowel: No obstruction or bowel wall thickening. Peritoneal cavity: No ascites, collection or mesenteric inflammatory response. Bones: Degenerative disc changes and facet degenerative changes greatest at L3-4 and L4-5. No gross evidence of lytic or blastic lesions. Soft tissues: Small fatty containing left inguinal hernia. IMPRESSION: 1. Bladder wall thickening with surrounding stranding in the fat could indicate cystitis or could be secondary to posttherapy changes. No renal, ureteral or bladder calculi are seen. 2. Multifocal bibasilar infiltrates. Exam(s) a CT:CT head wo EXAM: CT HEAD WO CLINICAL HISTORY: dizzy. TECHNIQUE: Imaging Protocol: Axial computed tomography images with coronal and sagittal reformatted images were created and reviewed COMPARISON: No exams were available for comparison FINDINGS: Ventricles and Extra axial spaces: Normal in size and morphology for the patient's age. Hemorrhage: None. Cerebral parenchyma: Atrophy. White matter changes consistent with small vessel disease. Midline shift: None. Brainstem/Cerebellum: Normal. Calvarium: Normal. Visualized Paranasal sinuses/Mastoids: Clear. IMPRESSION: No acute abnormality. Exam(s) PROCEDURE INFORMATION: Exam: CT Abdomen And Pelvis Without Contrast Exam date and time: 08/04/2020 12:30 PM Age: 80 years old Clinical indication: Other: UTI TECHNIQUE: Imaging protocol: Computed tomography of the abdomen and pelvis without contrast. COMPARISON: CT ABD PELVIS WITH CONTRAST 03/13/2017 10:52 AM FINDINGS: Lungs: Patchy airspace disease is present in both lung bases. Liver: Normal. No mass. Gallbladder and bile ducts: Cholelithiasis. Gallbladder is mildly dilated. Pancreas: Normal. No ductal dilation. Spleen: Normal. No splenomegaly. Adrenal glands: Normal. No mass. Kidneys and ureters: No evidence of nephrolithiasis bilaterally. Stomach and bowel: Unremarkable. No obstruction. No mucosal thickening. Appendix: No evidence of appendicitis. Intraperitoneal space: Unremarkable. No free air. No significant fluid collection. Vasculature: Unremarkable. No abdominal aortic aneurysm. Lymph nodes: There are mildly prominent pelvic lymph nodes. Urinary bladder: No urinary bladder calculi. Urinary bladder wall is mildly thickened. 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 Bones/joints: No lower thoracic or lumbar compression deformities. No evidence of lytic or blastic disease. Soft tissues: Fat containing left inguinal hernia. IMPRESSION: 1. No nephrolithiasis or urinary bladder calculi. 2. Diffusely thickened urinary bladder wall. Question partial outlet obstruction. 3. Evidence of prostate radiation seeds. 4. Mildly prominent pelvic lymph nodes. No definite adenopathy. 5. Cholelithiasis. 6. Bilateral lower lung patchy airspace disease. Cannot exclude multifocal pneumonia. Exam(s) PROCEDURE INFORMATION: Exam: XR Chest, 2 Views Exam date and time: 08/04/2020 10:46 AM Age: 80 years old Clinical indication: Cough TECHNIQUE: Imaging protocol: XR of the chest Views: 2 views. COMPARISON: CR XR CHEST 2V PA LATERAL 07/11/2020 6:21 PM FINDINGS: Lungs: No airspace disease. No consolidation. Pleural space: Unremarkable. No pleural effusion. No pneumothorax. Heart/Mediastinum: Unremarkable. No cardiomegaly. Bones/joints: Unremarkable. IMPRESSION: No acute findings Labs on day of discharge: Labs from last 24 hours 08/07/20 08/07/20 06:30 06:30 Plt Count 212 Sodium 141 Potassium 4.4 Chloride 106 Carbon Dioxide 27.1 Anion Gap 7.9 BUN 18 Creatinine 1.06 Estimated GFR/1.73 m2 >= 60.00 Glucose 149 H Calcium 8.8 Magnesium 2.4 Preliminary micro results at discharge 08/04/20 10:22 Blood Culture - Preliminary Blood NO GROWTH 48 HOURS 08/04/20 09:30 Blood Culture - Preliminary Blood NO GROWTH 48 HOURS [facility] Medical History (Updated 08/07/20 @ 09:41 by Bita So NP) Abnormality of gait due to impairment of balance Alcohol dependence Asthma Atypical chest pain CAD (coronary artery disease) Carpal tunnel syndrome Celiac disease Chronic constipation Cognitive impairment Dementia associated with alcoholism Edema of lower extremity Enlarged prostate GERD (gastroesophageal reflux disease) Hyperlipidemia Hypertension Insomnia Major depression Non-insulin dependent type 2 diabetes mellitus Noncompliance with medication regimen Obesity Paroxysmal A-fib Prostate cancer Seborrheic dermatitis Sensorineural hearing loss of combined sites Sialadenitis Spinal stenosis Thyroid nodule TMJ (dislocation of temporomandibular joint) Urinary retention Surgical History (Updated 08/04/20 @ 17:58 by Leydi Carrizales MD) History of appendectomy History of brachytherapy Family History (Updated 08/04/20 @ 17:58 by Leydi Carrizales MD) Other Family history unobtainable due to patient's condition Social History Smoking/Tobacco Use Status: Never Smoking risk assessment performed?: Yes Drug use: Never Do you feel safe at home: Yes Do you feel safe in your relationship?: Yes
--- NOTE | 2020-08-07 17:00 | PDOC.CMDIS ---
- If Service Date Differs Date of service: 08/07/20 Time of Service: 17:00 LACE Index Scoring Tool - Questions: Length of Stay (in days): 3 Acuity (Admit via E.D.?): Yes Comorbidities: Diabetes w/o Complication, Any Tumor E.D. Visits: 2 - Answers: Total Score: 11 Risk of Readmission: High Risk Care Management Discharge Reason for Hospitalization: UTI Discharge Plan: Williams will be discharged back home today with a resumption of nursing coordinated through the [place]. He will follow up with his PCP and transport with family. Patient/Family Education Needs: Discharge plan, limitations, follow up plan, Ask Me Three
--- NOTE | 2020-08-08 17:25 | INDS_ITS ---
Date of service: 08/08/20 Time of Service: 17:25 PT Notes Visit Reasons: UTI, DEHYDRATION, WEAKNESS Physical Therapy Inpatient Discharge Summary Date: 08/08/20 Date of service: 08/05/2020 through 08/07/2020 This is a clinical summary of care provided on the duration of dates listed above. No charge was made in the completion of this documentation. Referring Doctor: Leydi Carrizales MD PT Orders: PT CONSULT: Limited Ability Precautions: Fall risk, standard Patient Profile/Admitting Diagnosis: UTI, dehydration, weakness PMHX: Medical History (Updated 08/04/20 @ 18:16 by Leydi Carrizales MD) Abnormality of gait due to impairment of balance Alcohol dependence Asthma Atypical chest pain CAD (coronary artery disease) Carpal tunnel syndrome Celiac disease Chronic constipation Cognitive impairment Dementia associated with alcoholism Edema of lower extremity Enlarged prostate GERD (gastroesophageal reflux disease) Hyperlipidemia Hypertension Insomnia Major depression Non-insulin dependent type 2 diabetes mellitus Noncompliance with medication regimen Obesity Paroxysmal A-fib Prostate cancer Seborrheic dermatitis Sensorineural hearing loss of combined sites Sialadenitis Spinal stenosis Thyroid nodule TMJ (dislocation of temporomandibular joint) Urinary retention Surgical History (Updated 08/04/20 @ 17:58 by Leydi Carrizales MD) History of appendectomy History of brachytherapy Social History/Home Situation: Lives alone in apartment, has elevators or stairs he can use Current Functional Limitations: Impaired mobility Equipment Owned/DME: Cane Subjective: NT. See most recent [facility] notes. Objective: General Observation: NT. See most recent [facility] notes. Pain: NT. See most recent [facility] notes. Denies pain ROM: Right Upper Extremity: WNL Left Upper Extremity: WNL Right Lower Extremity: WNL Left Lower Extremity: WNL Strength: Right Upper Extremity: WNL Left Upper Extremity: 4+5 left shoulder flexion, abduction otherwise WNL Right Lower Extremity: WNL Left Lower Extremity: WNL Sensation: Intact to pressure and light touch Bed Mobility/Transfers: Bed mobility supervision Sit to stand: supervision Stand to sit: supervision Gait: Up to 100 feet x 2 using a single-point cane with full weightbearing requiring standby assist with mild path deviation noted. Tolerated up-and-down three 4 inch steps and two 6 inch steps holding onto bilateral rails with step over step pattern independently. Balance: Static Sitting: Normal Dynamic Sitting: Good Static Standing: Good Dynamic Standing: Good Assessment: Patient is an 80 year old male referred to physical therapy services with the diagnosis of UTI, dehydration, and weakness. He demonstrates good upper and lower extremity strength with mild impairments in left shoulder. Williams demonstrates improved functional mobility level resulting from skilled services provided during this episode of care. Patient continues to present with clinical signs and symptoms consistent with current/admitting diagnoses that have resulted to mobility limitations, gait instability, generalized weakness, and impairment of motor control as demonstrated by the following impairment level findings: 1. Decreased strength to left shoulder abduction/flexion 2. Impaired activity tolerance 3. Impaired dynamic balance Impairments are continuing to contribute to the following functional limitations: 1. Increased fall risk 2. Inability to safely ambulate without assistive device 3. Increased assist to ambulate stairs Goals: Goals X1 week 1. Supine-Sit Independent NOT MET 2. Sit-Supine Independent NOT MET 3. Sit-Stand Independent NOT MET 4. Stand-Sit Independent NOT MET 5. Bed-Chair Independent NOT MET 6. Chair-Bed Independent NOT MET 7. Gait Independent NOT MET 8. Stairs Independent NOT MET 9. Independent with home exercise program NOT MET 10. Balance improved to normal NOT MET DISCHARGE RECOMMENDATIONS: Home when medically cleared TREATMENT CODE/TIME: NC. Thank you for the opportunity to participate in the care of this patient. Salima Mcintosh PT, DPT, CLT [facility] [place], [place]
== END 2020-08-07 14:27 | disposition home or self-care (01) | DRG 699 ==
LOC: ER 11:56 → MS 12:44
PROVIDERS: Internal Medicine; Nurse Practitioner Family; Admitting Provider Internal Medicine; Emergency Provider Student in an Organized Health Care Education/Training Program; PCP Nurse Practitioner; Visit Provider Internal Medicine
DX: N32.0 Bladder-neck obstruction (principal); F10.27 Alcohol dependence with alcohol-induced persisting dementia; R30.0 Dysuria; R35.0 Frequency of micturition; K59.09 Other constipation; R53.1 Weakness; Z66 Do not resuscitate; J45.909 Unspecified asthma, uncomplicated; K21.9 Gastro-esophageal reflux disease without esophagitis; I10 Essential (primary) hypertension; K90.0 Celiac disease; R42 Dizziness and giddiness; I25.10 Atherosclerotic heart disease of native coronary artery without angina pectoris; E78.5 Hyperlipidemia, unspecified; G47.00 Insomnia, unspecified; F32.9 Major depressive disorder, single episode, unspecified; E11.9 Type 2 diabetes mellitus without complications; E66.9 Obesity, unspecified; Z91.14 Patient's other noncompliance with medication regimen; I48.0 Paroxysmal atrial fibrillation; H90.5 Unspecified sensorineural hearing loss; M48.00 Spinal stenosis, site unspecified; T66.XXXA Radiation sickness, unspecified, initial encounter; Y84.2 Radiological procedure and radiotherapy as the cause of abnormal reaction of the patient, or of later complication, without mention of misadventure at the time of the procedure; R91.8 Other nonspecific abnormal finding of lung field
CPT/HCPCS: 36415; 80048; 80053; 82805; 84145; 87040; 87637; 93005; 94640; 96361; 96365; 97161; 97530; 99223; 99233; 99239; 99285; J1650; 70450; 71046; 74176; 81003; 81015; 83605; 83735; 83880; 84443; 84484; 85025; 85049; 85610; 85730; 87086; 93010; J0696; J7620

== ENCOUNTER 2020-08-14 10:54 | Emergency (ER) | payer MEDICARE, SELFPAY ==
[2020-08-14] VITALS (10 sets, daily range): BP systolic 124–153; BP diastolic 69–83; PULSE 59–74; RESP 11–20; TEMP 36.6–36.8; O2SAT 95–98
--- NOTE | 2020-08-14 10:45 | RT.EKG_ITS ---
APPROVED REPORT Exam: Resting ECG Patient Location: E HR:70 bpm ECG Measurements Heart Rate 70 AXIS AL 144 P 0 QRSd 96 QRS 64 QT 416 T 59 QTc 451 Conclusion Atrial fibrillation
--- NOTE | 2020-08-14 11:15 | DI.RAD_ITS ---
EXAM: XR CHEST 2V PA LATERAL CLINICAL HISTORY: dizzy. TECHNIQUE: 2D digital imaging was performed. COMPARISON: CR,XR XR CHEST 2V PA LATERAL from 08/04/2020 FINDINGS: Mild cardiomegaly. Chest leads in place. The mediastinum is not widened. COPD findings but no confluent infiltrates nor pleural effusions. No pulmonary edema. No pneumothor ax. IMPRESSION: No acute pulmonary findings.COPD. Mild cardiomegaly. DATA REPOSITORY: RADIATION DOSE DELIVERED:
[2020-08-14 11:49] LABS: Abs Immature Grans 0.09 10^3/uL (0.0-0.06); Absolute Basophil Count 0.03 10^3/uL (0.0-0.2); Absolute Lymphocyte Count 1.16 10^3/uL (1.2-3.4); Absolute Monocyte Count 0.62 10^3/uL (0.1-0.8); Absolute Neutrophil Count 7.21 10^3/uL (1.2-6.7); Basophils % 0.3; Eosinophils % 2.1; HCT 42.1 % (40.0-50.0); HGB 13.6 g/dL (13.5-17.5); Lymphocytes % 12.5; MCH 32.1 pg (27.0-33.0); MCHC 32.3 % (32.0-36.0); MCV 99.3 fL (80-95); MPV 10.8 fL (8.0-11.0); Monocytes % 6.7; Neutrophils % 77.4; Nucleated RBC 0 %; Platelet Count 211 10^3/uL (130-400); RBC 4.24 10^6/uL (4.36-5.78); RDW 13.2 % (11.8-14.1); RDW-SD 47.8 fL; WBC 9.31 10^3/uL (4.4-10.8)
[2020-08-14 12:04] LABS: ALT 22 U/L (16-63); AST 19 U/L (15-37); Albumin 3.5 g/dL (3.4-5.0); Alkaline Phosphatase 60 U/L (46-116); Anion Gap 7.4 mmol/L (3-11); BUN 18 mg/dL (7-18); Bilirubin, Total 0.6 mg/dL (0.2-1.0); CO2 26.6 mmol/L (21.0-32.0); CREATININE 0.98 mg/dL (0.70-1.30); Calcium 9.3 mg/dL (8.5-10.1); Chloride 105 mmol/L (98-107); Glucose 142 mg/dL (74-106); Magnesium 2.3 mg/dL (1.8-2.4); Sodium 139 mmol/L (136-145); Total Protein 8.2 g/dL (6.4-8.2); Troponin I < 0.05 ng/mL (<0.06)
[2020-08-14 12:05] LABS: PTT Activated 32.3 sec (21.0-27.5); Prothrombin Time 10.5 sec (9.3-11.0)
[2020-08-14 12:11] LABS: TSH 1.64 uIU/mL (0.36-3.74)
--- NOTE | 2020-08-14 12:15 | DI.MRI_ITS ---
CLINICAL HISTORY: ataxia. TECHNIQUE: Multiplanar multisequence MRA of the brain was performed using [id number] sequence. IV Contrast: None COMPARISON: Recent CT scan was reviewed. Brain MRI performed today was also reviewed FINDINGS: ANTERIOR CIRCULATION: Both internal carotid arteries are demonstrated be patent in the skull base-carotid canals as well as within the cavernous sinuses. The ophthalmic arteries arising conventional fashion off the intracave rnous internal carotid arteries. The supraclinoid aspect of both internal carotid arteries are patent and nonaneurysmal. Both middle cerebral arteries are patent out to the sylvian fissure branches. The re are no intraluminal filling defects nor aneurysms of these vessels. Both A1 segments are patent as are the anterior cerebral arteries. There is no evidence of aneurysm a t the level of the anterior communicating artery. POSTERIOR CIRCULATION: There is a twig like contribution from the right vertebral artery. The basilar artery is performed is formed predominately by the dominant left vertebral artery and ascends in mildly dolichoectatic fash ion. Distally it gives off superior cerebellar arteries and above this level terminates as patent daryl ateral posterior cerebral arteries. There is a posterior communicating artery on the right side of th e [id number] which exhibits a luminal diameter of 1.5 millimeters. Similar vessel is not seen o n the left side of the [id number]. IMPRESSION: No evidence of intraluminal thrombus nor aneurysm in the anterior circulation. Basilar artery is patent and formed predominately by the dominant left vertebral artery. Right verteb ral artery is twig like at the skull base level, possibly developmental. If there is clinical conside ration for vertebral artery symptomatology then I would recommend CT angiography of the head and neck . DATA REPOSITORY:
--- NOTE | 2020-08-14 12:15 | DI.MRI_ITS ---
EXAM: MR BRAIN WO CLINICAL HISTORY: ataxia TECHNIQUE: Multiplanar multisequence MRI of the brain was performed. Both noninfused and contrast i nfused sequences were performed. IV Contrast injected was cc Dotarem. COMPARISON: CT CT HEAD WO from 08/04/[address] scan from earlier today FINDINGS: CEREBRAL PARENCHYMA: No evidence of intracranial hemorrhage, mass effect nor shift of midline structu re. No extraaxial fluid collections. Ventricles are unchanged in size.. There is no significant focal signal abnormality in the cerebellar hemispheres nor within the sid, m idbrain, and thalami. There is mild relatively symmetrical periventricular white signal abnormality cyst with chronic small vessel changes. PITUITARY GLAND: No mass nor parasellar abnormality. No obvious abnormality in the cavernous sinuses. FLOW VOIDS: The expected flow void are noted. No evidence of obvious aneurysm nor obvious vascular ma lformation. Left vertebral artery is dominant. PARANASAL SINUSES: Circumferential mucosal thickening is noted in the right maxillary sinus with a sm all retention cyst inferiorly. No fluid level. Mild mucosal thickening is noted in the opposite-lef t maxillary sinus. Also in the frontal sinuses. Sphenoid sinuses are clear. ORBITS: No obvious abnormal findings. IMPRESSION: 1. Chronic small vessel ischemic changes no evidence of acute territorial infarction. 2. No obvious intracranial hemorrhage. If there is suspicion for subarachnoid hemorrhage then noninf used CT scan should be performed. I note that the last CT scan was 08/04/2020. 3. See separate brain MRA report DATA REPOSITORY:
[2020-08-14 12:50] LABS: Bilirubin Negative (Negative); Blood Negative (Negative); Clarity Sl Cloudy (Clear); Glucose Negative (Negative); Ketones Negative (Negative); Leukocyte Esterase Trace (Negative); Nitrite Negative (Negative); Specific Gravity >= 1.030 (1.005-1.025); Urobilinogen 0.2 EU/dL (Up TO 0.2)
[2020-08-14 13:00] LABS: Bacteria Rare HPF (Negative); Casts 0-2 Hyaline LPF (Negative); Crystals Negative HPF (Negative); Epithelial Cells Rare HPF (Negative); Mucus Negative (Negative); RBC Negative HPF (0-2); WBC >50 HPF (0-5)
[2020-08-14 13:01] LABS: C & S Indicated? Yes
[2020-08-14] MEDS: LORazepam 2 MG/ML VIAL 1 MG IVP (13:09)
[2020-08-14] MEDS: Normal Saline Flush 10 ML SYR IVP ×2 (13:10→16:57)
--- NOTE | 2020-08-14 13:12 | NUR.NOTE ---
patient medicated per PA order. Nursing Note:
--- NOTE | 2020-08-14 14:13 | ED.GENADUL_ITS ---
Discharge Plan Disposition Patient Disposition: HOME Condition: Fair Discharge Details Clinical Impression: UTI (urinary tract infection), Weakness Primary Care Provider: Erika Mix ED Provider: Precious Meraz Home Meds and New Rx's Prescriptions: New cephalexin [Keflex] 500 mg capsule 500 mg PO BID 5 Days Qty: 10 RF: 0 Continued furosemide 20 MG tablet 40 mg PO DAILY Qty: 60 RF: 11 triamcinolone acetonide 63 GM aerosol 63 gm Topical PRN RF: 0 gabapentin 300 mg Capsule 300 mg PO BID RF: 0 metoprolol succinate 25 mg Tablet Extended Release 24 Hr 25 mg PO DAILY RF: 0 albuterol sulfate 90 mcg/actuation Hfa Aerosol Inhaler 2 puff INHALATION QID PRNRF: 0 atorvastatin 40 MG tablet 0.5 tab PO DAILY RF: 0 docusate sodium 100 mg Tablet 200 mg PO BID RF: 0 polyethylene glycol 3350 17 gram Powder In Packet 17 g PO DAILY RF: 0 metformin 1,000 mg Tablet 1,000 mg PO BID RF: 0 sennosides 8.6 mg Capsule 8.6 mg PO DAILY RF: 0 alogliptin 6.25 mg Tablet 6.25 mg PO DAILY RF: 0 folic acid 1 mg Tablet 1 mg PO DAILY RF: 0 finasteride 5 mg Tablet 5 mg PO DAILY RF: 0 tamsulosin 0.4 mg Capsule 0.4 mg PO BID@0830,1730 Qty: 60 RF: 0 phenazopyridine 100 mg Tablet 100 mg PO TID Qty: 28 RF: 0 acetaminophen [Tylenol] 325 MG tablet 650 mg PO Q6H PRN PRN (Reason: Mild Pain, Temp. Over 38.5) RF: 0 Discharge Instructions Instructions: Urinary Tract Infection in Men (ED), Weakness (ED) Additional Instructions: Please continue to encourage water intake. Please take your medications as prescribed. Usual reminders to help with this. As we discussed, there are some chronic findings in your imaging that should be followed up. I am unclear if these have to do with your weakness you have been experiencing and would like for you to follow-up with a specialist. A referral has been sent. Care management will also be reaching out to you regarding assistance at home and options to help around the house. If you develop fever/chills, increased weakness, difficulty walking, falls, headache or other new/worsening symptoms seek care urgently once again. Otherwise, please follow-up with your primary care in the next week for reevaluation. Referrals: Erika Mix [Primary Care Provider] - Discharge Data Discharge Date/Time-TO BE ENTERED AT DEPARTURE: 08/14/20 18:11 Medical Decision Making <DEMETRIO Bland - Last Filed: 08/15/20 09:05> 80-year-old male who goes to the ID who is unfortunately a poor historian, with past medical history of atrial fibrillation on aspirin, no longer on Eliquis, asthma, GERD, hypertension, celiac disease, who presents today for evaluation of weakness and dizziness. Similar presentation on August 04, admitted for 3 days. In reviewing his records it appears as though he had a head CT that no additional brain imaging. Patient had a 15-minute episode today that began around 9:00, asymptomatic now. He clinically appears well, nontoxic, neurologically intact. He tells me he would not like to be here very long. Given his age, comorbidities, recent hospitalization for the same, I would like to pursue a cardiac work-up and a brain MRI. I do question potential posterior stroke that may explain his ongoing symptoms. After ordering the brain MRI, radiology called and recommended also obtaining an MRA Patient was initially agreeable to obtaining the MRI but upon going to the diagnostic imaging department he declined. Upon return to the ER we discussed options. He is initially requesting to leave but after discussing additional options he is agreeable to receiving 1 mg IV Ativan and will try the MRI once again. Initial laboratory values do not reveal any obvious emergent process. White blood cell count of 9.31 hemoglobin 13.6 hematocrit 42.1 platelet count 211. INR 1. Electrolytes unremarkable. Creatinine 0.98 with a GFR greater. Glucose 142. Magnesium 2.3. Troponin less than 0.05. TSH 1 0.64. Urinalysis is cloudy, trace leukoesterase, greater than 50 white cells. Upon reviewing his previous record, it looks as though he was initially treated with antibiotics but after his culture did not grow any bacteria his antibiotic therapy was discontinued. Given his ongoing weakness, greater than 50 white blood cells in his urine, will initiate p.o. Keflex. MRI and MRA both obtained and resulted by radiology. Given the discrepancies in the vertebral arteries, recommending CTA of head and neck for further evaluation of potential dissection. Patient is agreeable to having these tests obtained. I was able to speak with the patient's son on the phone making him aware of his work-up thus far. He states that his father is quite stubborn, they have discussed his need for additional help at home and the potential for placement to a potential rehab facility or intermission coordinator care facility, he has been resistant thus far. Patient able to eat lunch without difficulty. Repeat troponin less than 0.05 Patient remains asymptomatic. Work-up thus far is unremarkable for obvious emergent process. He does appear to have a urinary tract infection, Keflex given. At time of signout, CTA of head and neck pending. Care transitioned to [facility] Medical Records Medical records reviewed: Yes I reviewed the patient's medical records. Imaging Data Radiologic Study: Attestation: I personally reviewed and interpreted this imaging study as follows: Imaging: MRI Radiologist's impression: Brain MRI read by radiology as chronic small vessel ischemia changes no evidence of acute infarction. No obvious intracranial hemorrhage. Radiologic Study #2: Attestation: I personally reviewed and interpreted this imaging study as follows: Imaging: MRI Radiologist's impression: MRA of the brain reveals no evidence of intraluminal thrombus nor aneurysm in the anterior circulation. Basilar artery is patent and formed predominantly by the left vertebral artery. Right vertebral artery is twiglike at the skull base level. Possibly developmental. If there is a clinical consideration for vertebral artery hematology then I would recommend CT angiograph of the head and neck Lab Data Lab results reviewed: Yes I reviewed the patient's lab results. Lab results narrative: 08/14/20 12:40 Urine - Reflex from Ua Urine Culture - Pending Laboratory Tests Range/Units 08/14/20 08/14/20 08/14/20 11:28 11:28 11:28 WBC (4.4-10.8) 10^3/uL RBC (4.36-5.78) 10^6/uL Hgb (13.5-17.5) g/dL Hct (40.0-50.0) % MCV (80-95) fL MCH (27.0-33.0) pg MCHC (32.0-36.0) % RDW (11.8-14.1) % Plt Count (130-400) 10^3/uL MPV (8.0-11.0) fL Immature Gran % Neutrophils % Lymphocytes % Monocytes % Eosinophils % Basophils % Nucleated RBC % % Absolute Neutrophils (1.2-6.7) 10^3/uL Absolute Lymphocytes (1.2-3.4) 10^3/uL Absolute Monocytes (0.1-0.8) 10^3/uL Absolute Eosinophils (0.0-0.7) 10^3/uL Absolute Basophils (0.0-0.2) 10^3/uL PT (9.3-11.0) sec 10.5 INR (0.9-1.1) 1.0 APTT (21.0-27.5) sec 32.3 H Sodium (136-145) mmol/L 139 Potassium (3.5-5.1) mmol/L 4.0 Chloride (98-107) mmol/L 105 Carbon Dioxide (21.0-32.0) mmol/L 26.6 Anion Gap (3-11) mmol/L 7.4 BUN (7-18) mg/dL 18 Creatinine (0.70-1.30) mg/dL 0.98 Estimated GFR/1.73 m2 (mL/min/1.73m2) >= 60.00 Glucose (74-106) mg/dL 142 H Calcium (8.5-10.1) mg/dL 9.3 Magnesium (1.8-2.4) mg/dL 2.3 Total Bilirubin (0.2-1.0) mg/dL 0.6 AST (15-37) U/L 19 ALT (16-63) U/L 22 Alkaline Phosphatase (46-116) U/L 60 Troponin I (<0.06) ng/mL < 0.05 Total Protein (6.4-8.2) g/dL 8.2 Albumin (3.4-5.0) g/dL 3.5 TSH (0.36-3.74) uIU/mL 1.64 Urine Color (Yellow) Urine Clarity (Clear) Urine pH (5-8) Ur Specific [place] (1.005-1.025) Urine Protein (Negative) mg/dL Urine Ketones (Negative) mg/dL Urine Blood (Negative) Urine Nitrite (Negative) Urine Bilirubin (Negative) Urine Urobilinogen (Up TO 0.2) EU/dL Ur Leukocyte Esterase (Negative) Urine RBC (0-2) HPF Urine WBC (0-5) HPF Ur Epithelial Cells (Negative) HPF Urine Crystals (Negative) HPF Urine Bacteria (Negative) HPF Urine Casts (Negative) LPF Urine Mucus (Negative) Ur Culture Indicated? Urine Glucose (Negative) mg/dL Range/Units 08/14/20 08/14/20 08/14/20 11:28 12:40 14:15 WBC (4.4-10.8) 10^3/uL 9.31 RBC (4.36-5.78) 10^6/uL 4.24 L Hgb (13.5-17.5) g/dL 13.6 Hct (40.0-50.0) % 42.1 MCV (80-95) fL 99.3 H MCH (27.0-33.0) pg 32.1 MCHC (32.0-36.0) % 32.3 RDW (11.8-14.1) % 13.2 Plt Count (130-400) 10^3/uL 211 MPV (8.0-11.0) fL 10.8 Immature Gran % 1.0 Neutrophils % 77.4 Lymphocytes % 12.5 Monocytes % 6.7 Eosinophils % 2.1 Basophils % 0.3 Nucleated RBC % % 0 Absolute Neutrophils (1.2-6.7) 10^3/uL 7.21 H Absolute Lymphocytes (1.2-3.4) 10^3/uL 1.16 L Absolute Monocytes (0.1-0.8) 10^3/uL 0.62 Absolute Eosinophils (0.0-0.7) 10^3/uL 0.20 Absolute Basophils (0.0-0.2) 10^3/uL 0.03 PT (9.3-11.0) sec INR (0.9-1.1) APTT (21.0-27.5) sec Sodium (136-145) mmol/L Potassium (3.5-5.1) mmol/L Chloride (98-107) mmol/L Carbon Dioxide (21.0-32.0) mmol/L Anion Gap (3-11) mmol/L BUN (7-18) mg/dL Creatinine (0.70-1.30) mg/dL Estimated GFR/1.73 m2 (mL/min/1.73m2) Glucose (74-106) mg/dL Calcium (8.5-10.1) mg/dL Magnesium (1.8-2.4) mg/dL Total Bilirubin (0.2-1.0) mg/dL AST (15-37) U/L ALT (16-63) U/L Alkaline Phosphatase (46-116) U/L Troponin I (<0.06) ng/mL < 0.05 Total Protein (6.4-8.2) g/dL Albumin (3.4-5.0) g/dL TSH (0.36-3.74) uIU/mL Urine Color (Yellow) Yellow Urine Clarity (Clear) Sl cloudy Urine pH (5-8) 7.0 Ur Specific [place] (1.005-1.025) >= 1.030 H Urine Protein (Negative) mg/dL 30 H Urine Ketones (Negative) mg/dL Negative Urine Blood (Negative) Negative Urine Nitrite (Negative) Negative Urine Bilirubin (Negative) Negative Urine Urobilinogen (Up TO 0.2) EU/dL 0.2 Ur Leukocyte Esterase (Negative) Trace H Urine RBC (0-2) HPF Negative Urine WBC (0-5) HPF >50 H Ur Epithelial Cells (Negative) HPF Rare Urine Crystals (Negative) HPF Negative Urine Bacteria (Negative) HPF Rare Urine Casts (Negative) LPF 0-2 hyaline Urine Mucus (Negative) Negative Ur Culture Indicated? Yes Urine Glucose (Negative) mg/dL Negative ECG Data Attestation: I personally reviewed and interpreted this ECG (s) as follows: Interpretation: Please see official report by Dr. Giles. Atrial fibrillation, rate controlled, ventricular to 70.. No STEMI. Patient with known A. fib <DEMETRIO Boone - Last Filed: 08/14/20 21:14> Care transition myself from Benja Alvarez PA-C. Please see his initial note regarding presentation, history and exam. In brief, patient is a 80-year-old gentleman who presented today with 15 minutes of ataxia. Patient had similar episode last week at which time he had been admitted. At that time, there is any concern for potential UTI. Subsequent culture grew out nothing. However, patient does have evidence of UTI again today. Patient had no acute findings on physical exam. No acute change in his status. Has been asymptomatic since being here. Labs were unremarkable aside from urinalysis which again suggested UTI. MRI has been completed. There was question of potential dissection versus congenital anomaly of the right vertebral artery. Recommendation for CTA have been made. Care transition to myself with CTA pending. ANTERIOR CIRCULATION: Right internal carotid artery: Very dense atheromatous calcification of right cavernous carotid artery without evidence of focal stenosis. Intracranial segment is patent with no significant stenosis. No aneurysm. Right middle cerebral artery: Unremarkable. No occlusion or significant stenosis. No aneurysm. Right anterior cerebral artery: Unremarkable. No occlusion or significant stenosis. No aneurysm. Left internal carotid artery: Very dense atheromatous calcification of left cavernous carotid artery without evidence of focal stenosis. Intracranial segment is patent with no significant stenosis. No aneurysm. Left middle cerebral artery: Unremarkable. No occlusion or significant stenosis. No aneurysm. Left anterior cerebral artery: Unremarkable. No occlusion or significant stenosis. No aneurysm Right vertebral artery: Markedly diminutive right vertebral artery. No occlusion or significant stenosis. No aneurysm. Left vertebral artery: Unremarkable. No occlusion or significant stenosis. No aneurysm. Basilar artery: Unremarkable. No occlusion or significant stenosis. No aneurysm. Right posterior cerebral artery: Unremarkable. No occlusion or significant stenosis. No aneurysm. Left posterior cerebral artery: Unremarkable. No occlusion or significant stenosis. No aneurysm. Brain: Diffuse parenchymal atrophy. No intra-axial or extra-axial mass or hemorrhage. No midline shift. Cerebral ventricles: No ventriculomegaly. Paranasal sinuses: Membrane thickening in the ethmoid sinuses frontal sinuses, and maxillary sinuses. Bones/joints: Unremarkable. No acute fracture. Soft tissues: Unremarkable. IMPRESSION: 1. Very dense atheromatous calcification of the bilateral cavernous carotid arteries without evidence stenosis. 2. Markedly diminutive right vertebral artery 3. No intra or extra-axial mass or hemorrhage. No midline shift. 4. Diffuse parenchymal atrophy. 5. Paranasal sinusitis. FINDINGS: Right common carotid artery: Minimal atheromatous calcification of the origin of right common carotid artery. No stenosis. No dissection or occlusion. Right internal carotid artery: Minimal atheromatous calcification in the proximal right internal carotid artery No stenosis of the extracranial segment. No dissection or occlusion. Right external carotid artery: No occlusion or stenosis of the origin. Right vertebral artery: A right vertebral artery is not visualized in the neck from the aortic arch. The right vertebral artery is not seen until the skull base which could be due to c hronic occlusion. Left common carotid artery: Minimal atheromatous calcification. No stenosis. No dissection or occlusion. Left internal carotid artery: Minimal atheromatous calcification. Less than 50% diameter reduction proximal left internal carotid artery. No dissection or occlusion. Left external carotid artery: No occlusion or stenosis of the origin. Left vertebral artery: No stenosis. No dissection or occlusion. Thyroid: Multinodular thyroid gland containing multiple coarse calcifications. 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 Slight anterolisthesis of C4 on C5 and retrolisthesis of C5 on C6. Advanced facet arthropathy in the upper cervical facets. Prominent anterior endplate osteophytes cause ankylosis C5 through T2. 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 Soft tissues: Normal. No significant soft tissue swelling. IMPRESSION: 1. Nonvisualization the right vertebral artery from the aortic arch through the skull base, could be due to chronic occlusion. 2. Atheromatous calcification with less than 50% diameter reduction of the proximal left internal carotid artery. Discussed the findings with the patient. 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 I discussed these findings with the patient at length. At this point, he has been repetitively asking to be discharged. I did discuss with the patient that it would be prudent to consult with neurology regarding his recurrent symptoms as well as the findings on imaging which the patient has declined to do. Most this does appear to be both vascular as well as neurologic issue, plan to refer to [facility] neurology. Patient has been completely asympto matic since being here. I do agree with Mr. Alvarez's initial plan of continuing him on the antibiotics for presumed UTI. We did discuss that this also could be causing some of his symptoms. Patient continues to deny any headache. He is asymptomatic here. I do not see any evidence to suggest any acute dissection or stroke at this time. Patient is able to demonstrate decision-making capacity at this time in regard to his departure prior to consultation. I did speak with the patient on he seems to be heavily involved in his care. Patient's son, Benitez who can be reached at [phone], is concerned that the patient only intermittently takes his medications and often not as prescribed. I have asked care management to reach out to the patient as well as his son to discuss options for further assistance at home. Patient likes to stay in his own home and has declined assisted living historically as well today. Benitez seems to be very involved in his father's care and has got him a pillbox that will alert him on a time to take medications as well as placing signs around the house with reminders. Encourage as he reach out to his father to ensure that he is trying to take his antibiotics as prescribed. Also advised close follow-up with primary care within the next week for reevaluation. Patient is aware that he may return anytime for further evaluation. Return precautions were given. Patient was ambulatory in the department with his baseline cane. All of their questions and concerns were addressed and they are in agreement with this plan. HPI <DEMETRIO Bland - Last Filed: 08/15/20 09:05> General Mode of arrival: ambulatory . Date/Time Provider Initiated Documentation: 08/14/20 11:16 . Limitations to Documentation: no limitations . Information obtained by: patient . HPI Narrative: This is a 80-year-old male who is seen the ID who is unfortunately a poor historian, with past medical history of atrial fibrillation on aspirin, no longer on Eliquis, asthma, GERD, hypertension, celiac disease, who presents today for evaluation of weakness and dizziness. The patient was seen in the ER for the same on , admitted to our facility and subsequently discharged on 08-07-20.. He describes it as a generalized weakness which makes him feel slightly lightheaded. He denies any chest pain, shortness of breath, room spinning sensation. He denies any headache or vision changes. He tells me that he lives at home alone, uses a walker in his house, and a cane outside. He was discharged on the and reports that he has had no real improvement of his symptoms. He would estimate an additional 8-12 episodes since he was discharged, he tells me that he has fallen twice but denies any injury from his falls. He had an episode today at around 9 AM, was resting when this occurred. It lasted for approximately 15 minutes and resolved on its own. He is currently asymptomatic. He tells me that he does not like coming to the hospital, will attempt to cooperate with my recommendations, but does not really want to be here. He states that he was recently admitted and he is already refusing any po tential admission if this was indicated. Related Data Home Medications Medication Instructions Recorded Confirmed acetaminophen [Tylenol] 650 mg PO Q6H PRN PRN tab 06/24/16 08/04/20 furosemide 40 mg PO DAILY #60 tab-cap 08/06/17 08/04/20 triamcinolone acetonide 63 gm TOPICAL PRN 08/06/17 08/04/20 albuterol sulfate 2 puff INHALATION QID PRN 08/23/18 08/04/20 atorvastatin 0.5 tab PO DAILY 08/23/18 08/04/20 gabapentin 300 mg PO BID 08/23/18 08/04/20 metoprolol succinate 25 mg PO DAILY 08/23/18 08/04/20 docusate sodium 200 mg PO BID 10/10/18 08/04/20 alogliptin 6.25 mg PO DAILY 08/04/20 08/04/20 finasteride 5 mg PO DAILY 08/04/20 08/04/20 folic acid 1 mg PO DAILY 08/04/20 08/04/20 metformin 1,000 mg PO BID 08/04/20 08/04/20 polyethylene glycol 3350 17 g PO DAILY 08/04/20 08/04/20 sennosides 8.6 mg PO DAILY 08/04/20 08/04/20 phenazopyridine 100 mg PO TID #28 tab 08/07/20 tamsulosin 0.4 mg PO BID@0830,1730 #60 cap 08/07/20 cephalexin [Keflex] 500 mg PO BID 5 Days #10 cap 08/14/20 Previous Rx's Medication Instructions Recorded acetaminophen [Tylenol] 650 mg PO Q6H PRN PRN tab 06/24/16 furosemide 40 mg PO DAILY #60 tab-cap 08/06/17 phenazopyridine 100 mg PO TID #28 tab 08/07/20 tamsulosin 0.4 mg PO BID@0830,1730 #60 cap 08/07/20 cephalexin [Keflex] 500 mg PO BID 5 Days #10 cap 08/14/20 Allergies Allergy/AdvReac Type Severity Reaction Status Date / Time wheat dextrin AdvReac Severe Unverified 08/14/20 10:59 codeine AdvReac Unverified 08/14/20 10:59 glutens Allergy Unknown Uncoded 08/14/20 10:59 glutethimide Allergy Unknown Uncoded 08/14/20 10:59 General Stated Complaint: Dizzy/Sync ABDIAS: 3 Review of Systems <DEMETRIO Bland - Last Filed: 08/15/20 09:05> Constitutional Constitutional: Denies fatigue, Denies fever(s) and Denies headache(s) Eyes Eyes: Denies change in vision ENT Ears, Nose, Mouth, and Throat: Denies headache(s) and Denies neck pain Cardiovascular Cardiovascular: Denies chest pain and Denies dyspnea Respiratory Respiratory: Denies cough and Denies dyspnea Gastrointestinal Gastrointestinal: Denies abdominal pain, Denies nausea and Denies vomiting Genitourinary Genitourinary: Denies dysuria Musculoskeletal Musculoskeletal: Denies neck pain, Denies numbness and Denies tingling Integumentary/Breasts Skin/Breast: Denies rash Neurologic Neurologic: Reports dizziness (Described as lightheaded, not the room spinning), Denies headache(s), Denies numbness and Denies tingling Endocrine Endocrine: Denies fatigue PFSH <DEMETRIO Bland - Last Filed: 08/15/20 09:05> Medical History Abnormality of gait due to impairment of balance Alcohol dependence Asthma Atypical chest pain CAD (coronary artery disease) Carpal tunnel syndrome Celiac disease Chronic constipation Cognitive impairment Dementia associated with alcoholism Edema of lower extremity Enlarged prostate GERD (gastroesophageal reflux disease) Hyperlipidemia Hypertension Insomnia Major depression Non-insulin dependent type 2 diabetes mellitus Noncompliance with medication regimen Obesity Paroxysmal A-fib Prostate cancer Seborrheic dermatitis Sensorineural hearing loss of combined sites Sialadenitis Spinal stenosis Thyroid nodule TMJ (dislocation of temporomandibular joint) Urinary retention Surgical History History of appendectomy History of brachytherapy Family History Other Family history unobtainable due to patient's condition Social History Smoking/Tobacco Use Status: Never Smoking risk assessment performed?: Yes Alcohol Intake: never Drug use: Never Substance use type: does not use Do you feel safe at home: Yes Do you feel safe in your relationship?: Yes Exam <DEMETRIO Bland - Last Filed: 08/15/20 09:05> Const General: cooperative, healthy appearing, comfortable and no acute distress Orientation: alert, awake and oriented x3 [facility] Head: normal to inspection, normocephalic and atraumatic Ears: external ears normal, TM's normal bilaterally and EAC's normal Face and sinus: normal facial exam Mouth: moist mucous membranes Eyes General: appearance normal, both eyes and all related structures Alignment and Position: alignment normal Periorbital: periorbital findings normal Eyelids: eyelids normal Conjunctivae: conjunctivae normal Sclera: sclerae normal Cornea: corneas normal Pupils: PERRL EOM: EOM intact bilaterally Direct ophthalmoscopy: normal light reflex Neck Neck: normal visual inspection, full ROM, no lymphadenopathy, no meningeal signs, trachea midline, supple and nontender Resp Effort & Inspection: normal respiratory effort and able to speak in complete sentences Auscultation: clear to auscultation bilaterally Cardio Rate: regular rate Rhythm: regular rhythm GI Palpation: soft, not firm, no guarding and nontender Auscultation: normal bowel sounds Back/Spine/Pelvis Back: No back tenderness Skin General skin exam: no rashes or lesions noted Neuro General: patient alert, patient awake, patient oriented x3, moves all extremities and no focal motor deficits Cranial Nerves: CN's II-XI intact bilaterally Cognition: normal cognition Speech: speech normal Gait: normal gait (Using a walker) Motor: muscle tone normal throughout, strength 5/5 throughout, no pronator drift, no movement abnormalities noted and no fasciculations Sensory Exam: no sensory deficits noted Coordination: [id number] test normal and Does not sway with eyes open Extrem General: normal to inspection, full ROM, capillary refill normal, no pedal edema and no calf tenderness Psych Appearance: grossly normal Mental Status: mental status grossly normal Course <DEMETRIO Bland - Last Filed: 08/15/20 09:05> Vital Signs Vital signs: Vital Signs Temperature 36.6 C 08/14/20 10:55 Pulse 67 08/14/20 10:55 Respiratory Rate 11 L 08/14/20 10:55 Blood Pressure 153/77 H 08/14/20 10:55 Pulse Oximetry 95 08/14/20 10:55 Temperature 36.6 C 08/14/20 10:55 Temperature Source Skin 08/14/20 10:55 Pulse 61 08/14/20 11:16 Pulse 62 08/14/20 11:30 Respiratory Rate 18 08/14/20 11:40 Respiratory Effort Non-Labored 08/14/20 11:01 Respiratory Depth Normal 08/14/20 11:01 Respiratory Pattern Normal 08/14/20 11:01 Blood Pressure 135/69 08/14/20 11:16 Blood Pressure Mean 86 08/14/20 11:16 Blood Pressure Position Sitting 08/14/20 10:55 Pulse Oximetry 95 08/14/20 11:40 Oxygen Delivery Method Room Air 08/14/20 10:55 Oxygen Flow Rate 0 08/14/20 10:55 Pain Level 0 08/14/20 10:55 Lab/Test Results Lab/Test Results: 08/14/20 12:40 Urine - Reflex from Ua Urine Culture - Pending Laboratory Tests Range/Units 08/14/20 08/14/20 08/14/20 11:28 11:28 11:28 WBC (4.4-10.8) 10^3/uL RBC (4.36-5.78) 10^6/uL Hgb (13.5-17.5) g/dL Hct (40.0-50.0) % MCV (80-95) fL MCH (27.0-33.0) pg MCHC (32.0-36.0) % RDW (11.8-14.1) % Plt Count (130-400) 10^3/uL MPV (8.0-11.0) fL Immature Gran % Neutrophils % Lymphocytes % Monocytes % Eosinophils % Basophils % Nucleated RBC % % Absolute Neutrophils (1.2-6.7) 10^3/uL Absolute Lymphocytes (1.2-3.4) 10^3/uL Absolute Monocytes (0.1-0.8) 10^3/uL Absolute Eosinophils (0.0-0.7) 10^3/uL Absolute Basophils (0.0-0.2) 10^3/uL PT (9.3-11.0) sec 10.5 INR (0.9-1.1) 1.0 APTT (21.0-27.5) sec 32.3 H Sodium (136-145) mmol/L 139 Potassium (3.5-5.1) mmol/L 4.0 Chloride (98-107) mmol/L 105 Carbon Dioxide (21.0-32.0) mmol/L 26.6 Anion Gap (3-11) mmol/L 7.4 BUN (7-18) mg/dL 18 Creatinine (0.70-1.30) mg/dL 0.98 Estimated GFR/1.73 m2 (mL/min/1.73m2) >= 60.00 Glucose (74-106) mg/dL 142 H Calcium (8.5-10.1) mg/dL 9.3 Magnesium (1.8-2.4) mg/dL 2.3 Total Bilirubin (0.2-1.0) mg/dL 0.6 AST (15-37) U/L 19 ALT (16-63) U/L 22 Alkaline Phosphatase (46-116) U/L 60 Troponin I (<0.06) ng/mL < 0.05 Total Protein (6.4-8.2) g/dL 8.2 Albumin (3.4-5.0) g/dL 3.5 TSH (0.36-3.74) uIU/mL 1.64 Urine Color (Yellow) Urine Clarity (Clear) Urine pH (5-8) Ur Specific [place] (1.005-1.025) Urine Protein (Negative) mg/dL Urine Ketones (Negative) mg/dL Urine Blood (Negative) Urine Nitrite (Negative) Urine Bilirubin (Negative) Urine Urobilinogen (Up TO 0.2) EU/dL Ur Leukocyte Esterase (Negative) Urine RBC (0-2) HPF Urine WBC (0-5) HPF Ur Epithelial Cells (Negative) HPF Urine Crystals (Negative) HPF Urine Bacteria (Negative) HPF Urine Casts (Negative) LPF Urine Mucus (Negative) Ur Culture Indicated? Urine Glucose (Negative) mg/dL Range/Units 08/14/20 08/14/20 11:28 12:40 WBC (4.4-10.8) 10^3/uL 9.31 RBC (4.36-5.78) 10^6/uL 4.24 L Hgb (13.5-17.5) g/dL 13.6 Hct (40.0-50.0) % 42.1 MCV (80-95) fL 99.3 H MCH (27.0-33.0) pg 32.1 MCHC (32.0-36.0) % 32.3 RDW (11.8-14.1) % 13.2 Plt Count (130-400) 10^3/uL 211 MPV (8.0-11.0) fL 10.8 Immature Gran % 1.0 Neutrophils % 77.4 Lymphocytes % 12.5 Monocytes % 6.7 Eosinophils % 2.1 Basophils % 0.3 Nucleated RBC % % 0 Absolute Neutrophils (1.2-6.7) 10^3/uL 7.21 H Absolute Lymphocytes (1.2-3.4) 10^3/uL 1.16 L Absolute Monocytes (0.1-0.8) 10^3/uL 0.62 Absolute Eosinophils (0.0-0.7) 10^3/uL 0.20 Absolute Basophils (0.0-0.2) 10^3/uL 0.03 PT (9.3-11.0) sec INR (0.9-1.1) APTT (21.0-27.5) sec Sodium (136-145) mmol/L Potassium (3.5-5.1) mmol/L Chloride (98-107) mmol/L Carbon Dioxide (21.0-32.0) mmol/L Anion Gap (3-11) mmol/L BUN (7-18) mg/dL Creatinine (0.70-1.30) mg/dL Estimated GFR/1.73 m2 (mL/min/1.73m2) Glucose (74-106) mg/dL Calcium (8.5-10.1) mg/dL Magnesium (1.8-2.4) mg/dL Total Bilirubin (0.2-1.0) mg/dL AST (15-37) U/L ALT (16-63) U/L Alkaline Phosphatase (46-116) U/L Troponin I (<0.06) ng/mL Total Protein (6.4-8.2) g/dL Albumin (3.4-5.0) g/dL TSH (0.36-3.74) uIU/mL Urine Color (Yellow) Yellow Urine Clarity (Clear) Sl cloudy Urine pH (5-8) 7.0 Ur Specific [place] (1.005-1.025) >= 1.030 H Urine Protein (Negative) mg/dL 30 H Urine Ketones (Negative) mg/dL Negative Urine Blood (Negative) Negative Urine Nitrite (Negative) Negative Urine Bilirubin (Negative) Negative Urine Urobilinogen (Up TO 0.2) EU/dL 0.2 Ur Leukocyte Esterase (Negative) Trace H Urine RBC (0-2) HPF Negative Urine WBC (0-5) HPF >50 H Ur Epithelial Cells (Negative) HPF Rare Urine Crystals (Negative) HPF Negative Urine Bacteria (Negative) HPF Rare Urine Casts (Negative) LPF 0-2 hyaline Urine Mucus (Negative) Negative Ur Culture Indicated? Yes Urine Glucose (Negative) mg/dL Negative Sign Out <DEMETRIO Bland - Last Filed: 08/15/20 09:05> Sign Out Data: Sign Out Comment: Intermittent ataxia x1-2 weeks. Has already been worked up and admitted for this. Patient was symptomatic around 9:00 this morning, lasted for 15 minutes. Patient is currently asymptomatic and work-up thus far- unremarkable for acute emergent process. Radiology recommends CTA of head and neck to further evaluate vertebral artery. Patient also given 500 p.o. for suspected UTI. Will likely need a prescription for this Last updated by Tre Alvarez PA at 08/14/20 15:48
[2020-08-14 14:39] LABS: Troponin I < 0.05 ng/mL (<0.06)
--- NOTE | 2020-08-14 15:15 | DI.CT_ITS ---
EXAM: CT BRAIN NECK CTA CLINICAL HISTORY: Ataxia, MRA revealed unequal vertebral arteries. TECHNIQUE: Imaging Protocol: Axial CT angiography was performed with multi-slice acquisition and mu lti-planar and/or 3D reconstructions. CONTRAST MATERIAL: Intravenous: Omnipaque 350 Contrast volume:structured data in ml COMPARISON: CT CT RENAL COLIC WO from 08/04/2020 FINDINGS: CT Head W/O: Ventricles and Extra axial spaces: Normal in size and morphology for the patient's age. Hemorrhage: None. Cerebral parenchyma: There are areas of decreased attenuation in the white matter consistent with chr onic microvascular ischemic disease. No acute territorial infarct. Midline shift: None. Brainstem/Cerebellum: Normal. Calvarium: Normal. Visualized Paranasal sinuses/Mastoids: Mild paranasal sinusitis. Soft Tissues: Unremarkable. CTA Brain W: Internal Carotid Arteries: Petrous: Normal. Cavernous: Extensive atherosclerosis. No evidence of occlusion or aneurysm. No significant stenosis . Cerebral: No evidence of occlusion or aneurysm. Anterior Cerebral Arteries: Right: No aneurysm, occlusion or significant stenosis. Left: No aneurysm, occlusion or significant stenosis. Middle Cerebral Arteries: Right: No aneurysm, occlusion or significant stenosis. Left: No aneurysm, occlusion or significant stenosis. Posterior cerebral Arteries: Right: No aneurysm, occlusion or significant stenosis. Left: No aneurysm, occlusion or significant stenosis. Vertebral Arteries: Right: Markedly diminutive right vertebral artery. No occlusion or significant stenosis. No aneury sm. Left: No aneurysm, occlusion or significant stenosis. Basilar Artery: No aneurysm, occlusion or significant stenosis. CTA Neck W: Common Carotid: Right: No dissection, occlusion or significant stenosis. Minimal calcific plaque at the origin the r ight common carotid. Left: No dissection, occlusion or significant stenosis. Mild calcific plaque. External Carotid: Right: No occlusion or significant stenosis. Left: No occlusion or significant stenosis. Internal Carotid: Right: No dissection, occlusion or significant stenosis. Mild calcific plaque. Left: No dissection or occlusion. Less than 50 percent narrowing of the proximal left internal crowder tid artery. Calcific plaque is present. Vertebral Artery: Right: Nonvisualization of the right vertebral artery from the aortic arch through the skull base. Left: No dissection, occlusion or significant stenosis. Lung Apices: Normal. Bones: Normal. Soft Tissues: Multinodular thyroid gland. Thyroid ultrasound may be considered for further evaluatio n. IMPRESSION: 1. Marked atherosclerosis of the cavernous internal carotid arteries bilaterally without evidence of stenosis. 2. Delete diminutive right vertebral artery without evidence of occlusion or significant stenosis. 3. No acute intracranial process. 4. Nonvisualization of the right vertebral artery from the aortic arch through the skull base. This could be due to chronic occlusion. 5. Calcific plaque in the proximal left internal carotid artery resulting in less than 50 percent jayme rowing. RADIATION DOSE DELIVERED: 1,231.12mGy.cm Total DLP DATA REPOSITORY: All CT scans at this facility are submitted to the National Radiology Data Registry (NRDR) Dose Index Registry (DIR) with the [employer] (ACR). RADIATION OPTIMIZATION: All CT scans at this facility use at least one of these dose optimization te chniques: automated exposure control; mA and/or kV adjustment per patient size (includes targeted exa ms where dose is matched to clinical indication); or iterative reconstruction.
[2020-08-14] MEDS: Normal Saline - Diluent 50 ML VIAL IV (16:56)
[2020-08-14] MEDS: Omnipaque 350 MG/ML 100 ML BTL IJ (16:56)
--- NOTE | 2020-08-14 17:27 | DI.VRAD_ITS ---
PROCEDURE INFORMATION: Exam: CT Angiography Head With Contrast Exam date and time: 08/14/2020 4:44 PM Age: 80 years old Clinical indication: Abnormal findings; Abnormal mri of head; Patient HX: Mra shows unequal vertebral arteries TECHNIQUE: Imaging protocol: Computed tomography angiography of the head with intravenous contrast. 3D rendering (Not supervised by radiologist): MIP and/or 3D reconstructed images were created by the technologist. COMPARISON: MR ANGIO BRAIN WO 08/14/2020 1:33 PM FINDINGS: ANTERIOR CIRCULATION: Right internal carotid artery: Very dense atheromatous calcification of right cavernous carotid artery without evidence of focal stenosis. Intracranial segment is patent with no significant stenosis. No aneurysm. Right middle cerebral artery: Unremarkable. No occlusion or significant stenosis. No aneurysm. Right anterior cerebral artery: Unremarkable. No occlusion or significant stenosis. No aneurysm. Left internal carotid artery: Very dense atheromatous calcification of left cavernous carotid artery without evidence of focal stenosis. Intracranial segment is patent with no significant stenosis. No aneurysm. Left middle cerebral artery: Unremarkable. No occlusion or significant stenosis. No aneurysm. Left anterior cerebral artery: Unremarkable. No occlusion or significant stenosis. No aneurysm. POSTERIOR CIRCULATION: Right vertebral artery: Markedly diminutive right vertebral artery. No occlusion or significant stenosis. No aneurysm. Left vertebral artery: Unremarkable. No occlusion or significant stenosis. No aneurysm. Basilar artery: Unremarkable. No occlusion or significant stenosis. No aneurysm. Right posterior cerebral artery: Unremarkable. No occlusion or significant stenosis. No aneurysm. Left posterior cerebral artery: Unremarkable. No occlusion or significant stenosis. No aneurysm. Brain: Diffuse parenchymal atrophy. No intra-axial or extra-axial mass or hemorrhage. No midline shift. Cerebral ventricles: No ventriculomegaly. Paranasal sinuses: Membrane thickening in the ethmoid sinuses frontal sinuses, and maxillary sinuses. Bones/joints: Unremarkable. No acute fracture. Soft tissues: Unremarkable. IMPRESSION: 1. Very dense atheromatous calcification of the bilateral cavernous carotid arteries without evidence stenosis. 2. Markedly diminutive right vertebral artery 3. No intra or extra-axial mass or hemorrhage. No midline shift. 4. Diffuse parenchymal atrophy. 5. Paranasal sinusitis. PROCEDURE INFORMATION: Exam: CT Angiography Neck With Contrast Exam date and time: 08/14/2020 4:44 PM Age: 80 years old Clinical indication: Abnormal findings; Abnormal mri of head; Patient HX: Mra shows unequal vertebral arteries TECHNIQUE: Imaging protocol: Computed tomography angiography of the neck with intravenous contrast. 3D rendering (Not supervised by radiologist): MIP and/or 3D reconstructed images were created by the technologist. COMPARISON: MR ANGIO BRAIN WO 08/14/2020 1:33 PM FINDINGS: Right common carotid artery: Minimal atheromatous calcification of the origin of right common carotid artery. No stenosis. No dissection or occlusion. Right internal carotid artery: Minimal atheromatous calcification in the proximal right internal carotid artery No stenosis of the extracranial segment. No dissection or occlusion. Right external carotid artery: No occlusion or stenosis of the origin. Right vertebral artery: A right vertebral artery is not visualized in the neck from the aortic arch. The right vertebral artery is not seen until the skull base which could be due to chronic occlusion. Left common carotid artery: Minimal atheromatous calcification. No stenosis. No dissection or occlusion. Left internal carotid artery: Minimal atheromatous calcification. Less than 50% diameter reduction proximal left internal carotid artery. No dissection or occlusion. Left external carotid artery: No occlusion or stenosis of the origin. Left vertebral artery: No stenosis. No dissection or occlusion. Thyroid: Multinodular thyroid gland containing multiple coarse calcifications. 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 Slight anterolisthesis of C4 on C5 and retrolisthesis of C5 on C6. Advanced facet arthropathy in the upper cervical facets. Prominent anterior endplate osteophytes cause ankylosis C5 through T2. 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 Soft tissues: Normal. No significant soft tissue swelling. IMPRESSION: 1. Nonvisualization the right vertebral artery from the aortic arch through the skull base, could be due to chronic occlusion. 2. Atheromatous calcification with less than 50% diameter reduction of the proximal left internal carotid artery. REFERENCES: NASCET CRITERIA. The degree of internal carotid artery stenosis is based on NASCET criteria. Normal is no stenosis. Mild is less than 50% stenosis. Moderate is 50-69% stenosis. Severe is 70% to 99% stenosis. Total occlusion is no detectable patent lumen. Dictated and Authenticated by: Suzy Pendleton MD. Ordering:TAWANDA Toledo MD
--- NOTE | 2020-08-14 17:51 | NUR.NOTE ---
Nursing Note: Referral for follow up with [facility] given to Care Management. Mayra Murray
== END 2020-08-14 18:11 | disposition home or self-care (01) ==
PROVIDERS: Physician Assistant; Emergency Provider Physician Assistant; PCP Nurse Practitioner
DX: N39.0 Urinary tract infection, site not specified (principal); R53.1 Weakness; I10 Essential (primary) hypertension; E11.9 Type 2 diabetes mellitus without complications; Z79.84 Long term (current) use of oral hypoglycemic drugs; R33.9 Retention of urine, unspecified
CPT/HCPCS: 36415; 70496; 70498; 70544; 80053; 93005; 96374; 99285; 70551; 71046; 81003; 81015; 83735; 84443; 84484; 85025; 85610; 85730; 87086; 93010; J2060; J3490

== ENCOUNTER 2020-08-17 10:43 | Inpatient (IN) | payer MEDICARE, SELFPAY ==
[2020-08-17] VITALS (34 sets, daily range): BP systolic 102–140; BP diastolic 54–72; PULSE 55–76; RESP 15–24; TEMP 36.5–36.8; O2SAT 93–97
--- NOTE | 2020-08-17 11:00 | RT.EKG_ITS ---
APPROVED REPORT Exam: Resting ECG Patient Location: E HR:61 bpm ECG Measurements Heart Rate 61 AXIS CA [id number] P [id number] QRSd 97 QRS 63 QT 333 T [id number] QTc 343 Conclusion Atrial fibrillation. Narrow qrs without ST elevation
--- NOTE | 2020-08-17 11:15 | DI.CT_ITS ---
EXAM: CT CHEST/ABD/PEL W CLINICAL HISTORY: Weakness, falls, upper abd pain. recent bi infiltr. TECHNIQUE: Imaging Protocol: Axial computed tomography images with coronal and sagittal reformatted images were created and reviewed CONTRAST MATERIAL: Intravenous: Omnipaque 350 Contrast volume:100 ml Oral: None COMPARISON: CT CT RENAL COLIC WO from 08/04/[address] RENAL COLIC WO from 08/04/[address] BRAIN NECK CTA from 08/14/2020 FINDINGS: CHEST: LUNGS: There is mild subpleural increased markings in the anterior segment of the left upper lobe.. Also mild infiltrate in the medial left lung base-medial basal segment. Small peripheral bulla measu ring 1 centimeter in the lateral basal segment of the left lower lobe noted. In opposite-right lung there are mild peripheral benign-appearing increased markings but no confluent infiltrates and no ple ural effusion pleural effusion.. MEDIASTINUM: There is no hilar nor mediastinal adenopathy. Thyroid gland contains significant nodules in both lobes. Follow-up ultrasound recommended. CARDIAC: Heart size is normal. There is no pericardial effusion.Caliber of the thoracic aorta is wit hin normal limits. OSSEOUS: No significant osseous lesions.. ABDOMEN: There is no ascites. LIVER: Small benign-appearing right hepatic lobe lesion which is most probably a small benign hemangi ramu. GALLBLADDER/BILIARY: There are multiple small layering gallstones on the dependent wall of the gallbl adder. Gallbladder wall is not edematous. There is no pericholecystic fluid. The CBD is not dilate d. PANCREAS: There is a calcification in the body of the pancreas which measures 7 x 6 millimeters, not associated with obvious mass or ductal dilatation and there is no peripancreatic streaking. Although the duct is not significantly dilated, the diameter of the duct between the tail of the pancreas and and this calcification is slightly wider than the diameter of the duct on the other side of this mid -level calcification in the pancreas. SPLEEN: Spleen size is slightly prominent. There no intrasplenic lesions. Splenic and portal veins are patent. ADRENALS: There are no significant adrenal masses. KIDNEYS: No calculi nor hydronephrosis. No solid renal masses. No cysts evident. ABDOMINAL AORTA: There is mild fusiform dilatation of the lower infrarenal abdominal aorta at the lev el of the inferior mesenteric artery. However, the maximum diameter is 2.5 centimetres. There is no significant arterial megaly in the iliac arteries. ABDOMINAL WALL/GI: No evidence of significant anterior abdominal wall hernia. No bowel obstruction. PELVIS: LYMPH NODES: There is no intrapelvic nor inguinal adenopathy. GI: No evidence of appendicitis.Sigmoid diverticulosis. No obvious acute diverticulitis. URINARY BLADDER: Urinary bladder wall is diffusely trabeculated. There are no radiopaque calculi see n within the bladder. REPRODUCTIVE: There are clips at the prostate site, from previous procedure. Seminal vesicles appear unremarkable. OSSEOUS: No significant osseous lesions. Mild degenerative anterolisthesis L4 upon L5. IMPRESSION: 1. Mild subpleural infiltrate left upper lobe and medial aspect of the left lower lobe. No pleural e ffusions. No intrathoracic adenopathy. 2. Small benign-appearing right hepatic lobe lesion which is probably hemangioma 3. Single central calcification in the pancreas body measuring 7 x 6 millimeters. Duct size as above but not grossly dilated. There is no obvious distinct mass at this level nor elsewhere in the pancr eas and no peripancreatic fluid or streaking. 4. Mild fusiform infrarenal abdominal aortic aneurysm with maximum diameter 2.5 centimetres. 5. Sigmoid diverticulosis. No obvious acute diverticulitis. 6. Diffuse trabeculation of the urinary bladder wall. Previous prostate procedure. No intrapelvic adenopathy. RADIATION DOSE DELIVERED: 2,048.74mGy.cm Total DLP DATA REPOSITORY: All CT scans at this facility are submitted to the National Radiology Data Registry (NRDR) Dose Index Registry (DIR) with the [employer] (ACR). RADIATION OPTIMIZATION: All CT scans at this facility use at least one of these dose optimization te chniques: automated exposure control; mA and/or kV adjustment per patient size (includes targeted exa ms where dose is matched to clinical indication); or iterative reconstruction.
--- NOTE | 2020-08-17 11:21 | W.ED.GENAD ---
Discharge Plan Disposition Patient Disposition: [facility] INPATIENT Condition: Stable Discharge Details Clinical Impression: Frequent falls, Weakness Primary Care Provider: Erika Mix ED Provider: Gary Marrero Home Meds and New Rx's Prescriptions: No Action furosemide 20 MG tablet 40 mg PO DAILY Qty: 60 RF: 11 triamcinolone acetonide 63 GM aerosol 63 gm Topical PRN RF: 0 gabapentin 300 mg Capsule 300 mg PO BID RF: 0 metoprolol succinate 25 mg Tablet Extended Release 24 Hr 25 mg PO DAILY RF: 0 albuterol sulfate 90 mcg/actuation Hfa Aerosol Inhaler 2 puff INHALATION QID PRNRF: 0 atorvastatin 40 MG tablet 0.5 tab PO DAILY RF: 0 docusate sodium 100 mg Tablet 200 mg PO BID RF: 0 polyethylene glycol 3350 17 gram Powder In Packet 17 g PO DAILY RF: 0 metformin 1,000 mg Tablet 1,000 mg PO BID RF: 0 sennosides 8.6 mg Capsule 8.6 mg PO DAILY RF: 0 alogliptin 6.25 mg Tablet 6.25 mg PO DAILY RF: 0 folic acid 1 mg Tablet 1 mg PO DAILY RF: 0 finasteride 5 mg Tablet 5 mg PO DAILY RF: 0 tamsulosin 0.4 mg Capsule 0.4 mg PO BID@0830,1730 Qty: 60 RF: 0 phenazopyridine 100 mg Tablet 100 mg PO TID Qty: 28 RF: 0 cephalexin [Keflex] 500 mg capsule 500 mg PO BID 5 Days Qty: 10 RF: 0 acetaminophen [Tylenol] 325 MG tablet 650 mg PO Q6H PRN PRN (Reason: Mild Pain, Temp. Over 38.5) RF: 0 Medical Decision Making This is an 80-year-old male referred in by [facility]. He was admitted to the hospital from August 04- for urinary tract infection. He was discharged on Keflex which he states he continues to take. He was seen in the emergency department on August 14 with persistent UTI symptoms and continue the Keflex. He has had generalized weakness for 2 days with 3 separate falls while ambulating at home. His home health nurse noted a decline over the past 2 weeks. Noted the patient was naked except for his underpants and seemed confused this morning. He states he did not injure himself at home and denies a loss of consciousness. He has noted some persistent burning with urination and generalized weakness. He arrives afebrile with a temp of 36.7, pulse 64, blood pressure 128/70. He is pleasant and in no acute distress. While in the hospital at the end of July he was noted to have bibasilar infiltrates on chest x-ray and thickened urinary bladder on renal CT scan. He has noted some weight loss as well as persistent urinary tract infection symptoms despite antibiotics. Given his decline at home, referral in by home health nurses, recent abnormal findings on imaging, he had IV access established, screening laboratories obtained and referred for CT images of chest, abdomen and pelvis. Imaging: Thickened and trabeculated bladder. Mild subpleural increased markings. No confluent infiltrates, no pleural effusion. Chronic findings. See formal report. Repeat lactate obtained after nearly 500 cc of fluid, it remains persistently elevated at 2.7. Patient is not in distress. Question if this may be due to Metformin induced metabolic acidosis. He has had a luncheon meal. He appears to be failing at home as noted by his increasing weakness and per report of in-home nursing which knows him well. Seeing by care management in consultation. Will consider observation admission HPI General Mode of arrival: EMS. Date/Time Provider Initiated Documentation: 08/17/20 10:44. Limitations to Documentation: no limitations. Information obtained by: patient and EMS. History of Present Illness 80 year old M presents to the emergency department with the chief complaint of Generalized weakness, falls at home, described as moderate, Quality is described as other, Patient started experiencing this day(s) and it has been intermittent. No relieving factors improve symptom(s), No exacerbating factors reported . Patient notes weakness; denies chest pain, cough, fever/chills, malaise, shortness of breath and syncope. Patient did receive the following treatments prior to arrival, other (States he is taking cephalexin for urinary tract infection) Related Data Home Medications Medication Instructions Recorded Confirmed acetaminophen [Tylenol] 650 mg PO Q6H PRN PRN tab 06/24/16 08/04/20 furosemide 40 mg PO DAILY #60 tab-cap 08/06/17 08/04/20 triamcinolone acetonide 63 gm TOPICAL PRN 08/06/17 08/04/20 albuterol sulfate 2 puff INHALATION QID PRN 08/23/18 08/04/20 atorvastatin 0.5 tab PO DAILY 08/23/18 08/04/20 gabapentin 300 mg PO BID 08/23/18 08/04/20 metoprolol succinate 25 mg PO DAILY 08/23/18 08/04/20 docusate sodium 200 mg PO BID 10/10/18 08/04/20 alogliptin 6.25 mg PO DAILY 08/04/20 08/04/20 finasteride 5 mg PO DAILY 08/04/20 08/04/20 folic acid 1 mg PO DAILY 08/04/20 08/04/20 metformin 1,000 mg PO BID 08/04/20 08/04/20 polyethylene glycol 3350 17 g PO DAILY 08/04/20 08/04/20 sennosides 8.6 mg PO DAILY 08/04/20 08/04/20 phenazopyridine 100 mg PO TID #28 tab 08/07/20 tamsulosin 0.4 mg PO BID@0830,1730 #60 cap 08/07/20 cephalexin [Keflex] 500 mg PO BID 5 Days #10 cap 08/14/20 Previous Rx's Medication Instructions Recorded acetaminophen [Tylenol] 650 mg PO Q6H PRN PRN tab 06/24/16 furosemide 40 mg PO DAILY #60 tab-cap 08/06/17 phenazopyridine 100 mg PO TID #28 tab 08/07/20 tamsulosin 0.4 mg PO BID@0830,1730 #60 cap 08/07/20 cephalexin [Keflex] 500 mg PO BID 5 Days #10 cap 08/14/20 Allergies Allergy/AdvReac Type Severity Reaction Status Date / Time wheat dextrin AdvReac Severe Unverified 08/17/20 11:05 codeine AdvReac Unverified 08/17/20 11:05 glutens Allergy Unknown Uncoded 08/17/20 11:05 glutethimide Allergy Unknown Uncoded 08/17/20 11:05 General Stated Complaint: Dizzy/Sync ABDIAS: 3 Review of Systems Narrative: Denies a loss of consciousness. No injury. No neck/chest/back/abdomen pain. No extremity injury. No fever. Some burning with urination that is persistent. Denies abdominal pain to me. 8 systems reviewed and otherwise negative. [facility] Medical History Abnormality of gait due to impairment of balance Alcohol dependence Asthma Atypical chest pain CAD (coronary artery disease) Carpal tunnel syndrome Celiac disease Chronic constipation Cognitive impairment Dementia associated with alcoholism Edema of lower extremity Enlarged prostate GERD (gastroesophageal reflux disease) Hyperlipidemia Hypertension Insomnia Major depression Non-insulin dependent type 2 diabetes mellitus Noncompliance with medication regimen Obesity Paroxysmal A-fib Prostate cancer Seborrheic dermatitis Sensorineural hearing loss of combined sites Sialadenitis Spinal stenosis Thyroid nodule TMJ (dislocation of temporomandibular joint) Urinary retention Surgical History History of appendectomy History of brachytherapy Family History Other Family history unobtainable due to patient's condition Social History Smoking/Tobacco Use Status: Never Smoking risk assessment performed?: Yes Alcohol Intake: never Drug use: Never Substance use type: does not use Do you feel safe at home: Yes Do you feel safe in your relationship?: Yes Exam Narrative Exam Narrative: GEN: awake, alert, oriented 3. Pleasant, well groomed, interactive. HEAD: Normocephalic, atraumatic ENT: Mucous membranes moist, oropharynx unremarkable, External ear exam unremarkable EYES: PERRL, EOMI NECK: Full ROM, no SELVIN, no menigismus CHEST/RESP: Nontender, clear to auscultation bilateral, no wheeze/rhonchi/rales CARDIOVASCULAR: Irregularly irregular 2+ Rad pulse bilateral ABDOMEN: Soft, minimal upper abdomen tenderness to palpation, no mass. +Bowel sounds EXT: Full ROM, trace bilateral pretibial edema, no rash Neuro: Grossly normal neurologic exam, conversant, interactive. Psych: Speech fluent, thoughts congruent, affect normal Course Vital Signs Vital signs: Vital Signs Temperature 36.7 C 08/17/20 10:51 Pulse 64 08/17/20 10:51 Respiratory Rate 20 08/17/20 10:51 Blood Pressure 128/70 08/17/20 10:51 Pulse Oximetry 97 08/17/20 10:51 Temperature 36.7 C 08/17/20 10:51 Temperature Source Skin 08/17/20 10:51 Pulse 64 08/17/20 10:51 Respiratory Rate 16 08/17/20 11:06 Respiratory Effort 08/17/20 11:06 Respiratory Depth Normal 08/17/20 11:06 Respiratory Pattern Normal 08/17/20 11:06 Blood Pressure 128/70 08/17/20 10:51 Pulse Oximetry 97 08/17/20 10:51 Oxygen Delivery Method Room Air 08/17/20 10:51 Oxygen Flow Rate 0 08/17/20 10:51 Pain Level 0 08/17/20 10:51
[2020-08-17] MEDS: Normal Saline Flush 10 ML SYR IVP ×2 (11:25→20:27)
[2020-08-17] MEDS: Normal Saline 1,000 ML 150 ML IV (11:25)
[2020-08-17 11:38] LABS: Abs Immature Grans 0.04 10^3/uL (0.0-0.06); Absolute Basophil Count 0.02 10^3/uL (0.0-0.2); Absolute Eosinophil Count 0.19 10^3/uL (0.0-0.7); Absolute Lymphocyte Count 0.98 10^3/uL (1.2-3.4); Absolute Monocyte Count 0.64 10^3/uL (0.1-0.8); Absolute Neutrophil Count 6.42 10^3/uL (1.2-6.7); Basophils % 0.2; Eosinophils % 2.3; HCT 41.1 % (40.0-50.0); HGB 13.5 g/dL (13.5-17.5); Immature Grans % 0.5; Lymphocytes % 11.8; MCH 32.2 pg (27.0-33.0); MCHC 32.8 % (32.0-36.0); MCV 98.1 fL (80-95); MPV 10.6 fL (8.0-11.0); Monocytes % 7.7; Neutrophils % 77.5; Nucleated RBC 0 %; Platelet Count 200 10^3/uL (130-400); RBC 4.19 10^6/uL (4.36-5.78); RDW 13.1 % (11.8-14.1); RDW-SD 46.2 fL; WBC 8.29 10^3/uL (4.4-10.8)
[2020-08-17 11:40] LABS: Lactate 2.7 mmol/L (0.6-1.4)
[2020-08-17] MEDS: Normal Saline 250 ML IV (11:40)
[2020-08-17 11:56] LABS: ALT 22 U/L (16-63); AST 16 U/L (15-37); Albumin 3.5 g/dL (3.4-5.0); Alkaline Phosphatase 64 U/L (46-116); Anion Gap 10.1 mmol/L (3-11); BUN 19 mg/dL (7-18); Bilirubin, Total 0.5 mg/dL (0.2-1.0); CO2 25.9 mmol/L (21.0-32.0); CREATININE 0.99 mg/dL (0.70-1.30); Chloride 105 mmol/L (98-107); Glucose 126 mg/dL (74-106); Magnesium 1.9 mg/dL (1.8-2.4); Potassium 3.7 mmol/L (3.5-5.1); Sodium 141 mmol/L (136-145); Total Protein 8.1 g/dL (6.4-8.2)
[2020-08-17 11:57] LABS: Troponin I < 0.05 ng/mL (<0.06)
[2020-08-17 12:07] LABS: Bilirubin Negative (Negative); Blood Negative (Negative); Clarity Clear (Clear); Glucose Negative (Negative); Ketones Negative (Negative); Leukocyte Esterase Negative (Negative); Nitrite Negative (Negative); Specific Gravity 1.025 (1.005-1.025); Urobilinogen 0.2 EU/dL (Up TO 0.2)
[2020-08-17] MEDS: Omnipaque 350 MG/ML 100 ML BTL IJ (12:22)
[2020-08-17] MEDS: Normal Saline - Diluent 50 ML VIAL IV (12:23)
--- NOTE | 2020-08-17 13:16 | NUR.NOTE ---
pt provided with diabetic lunch tray Nursing Note:
[2020-08-17 13:51] LABS: Lactate 2.7 mmol/L (0.6-1.4)
--- NOTE | 2020-08-17 14:33 | W.PM.HP.N ---
Date of service: 08/17/20 Time of Service: 14:33 Assessment and Plan Assessment and plan (1) Frequent falls: Status: Acute Assessment and plan: re-admit to [facility]. PT/OT for ambulatory dysfunction, freq falls, fall precautions (2) Non-insulin dependent type 2 diabetes mellitus: Status: Chronic Assessment and plan: diabetic diet blood sugars ac/hs with sliding scale coverage, have been 114-182, A1C pending holding metformin for 48 hours s/p CT (3) Cognitive impairment: Status: Chronic Assessment and plan: safety precautions Dr Olson consulted for capacity assessment (4) Alcohol dependence: Status: Chronic Assessment and plan: thiamine daily (5) Acute UTI: Status: Acute Assessment and plan: complete keflex course urine culture showed mixed growth most consistent with contamination. no symptoms discussed with DR Carrizales History of Present Illness History of Present Illness Chief Complaint: frequent falls Narrative: This is an 80-year-old male referred in by home health and [facility]. He was admitted to the hospital from August 04- for urinary tract infection. He was discharged on Keflex which he states he continues to take. He was seen in the emergency department on August 14 with persistent UTI symptoms and continue the Keflex. He has had generalized weakness for 2 days with 3 separate falls while ambulating at home. His home health nurse noted a decline over the past 2 weeks. work up in the ED shows no acute medical condition and case management was consulted. decision made to return to [facility] for ongoing PT/OT and nursing care Review of Systems All systems reviewed & are unremarkable except as noted in HPI and below Constitutional Constitutional: Denies fever(s), Reports frequent falls and Denies headache(s) ENT Ears, Nose, Mouth, and Throat: Denies headache(s) Cardiovascular Cardiovascular: Denies chest pain and Denies dyspnea Respiratory Respiratory: Denies cough and Denies dyspnea Gastrointestinal Gastrointestinal: Denies diarrhea, Denies nausea and Denies vomiting Musculoskeletal Musculoskeletal: Reports abnormal gait Integumentary/Breasts Skin/Breast: Denies new lesions and Denies rash Neurologic Neurologic: Reports abnormal gait, Reports frequent falls and Denies headache(s) [facility], [facility] Medical History (Updated 08/18/20 @ 12:52 by Lyric Curry NP) Abnormality of gait due to impairment of balance Alcohol dependence Asthma Atypical chest pain CAD (coronary artery disease) Carpal tunnel syndrome Celiac disease Chronic constipation Cognitive impairment Dementia associated with alcoholism Edema of lower extremity Enlarged prostate GERD (gastroesophageal reflux disease) Hyperlipidemia Hypertension Insomnia Major depression Non-insulin dependent type 2 diabetes mellitus Noncompliance with medication regimen Obesity Paroxysmal A-fib Prostate cancer Seborrheic dermatitis Sensorineural hearing loss of combined sites Sialadenitis Spinal stenosis Thyroid nodule TMJ (dislocation of temporomandibular joint) Urinary retention Surgical History History of appendectomy History of brachytherapy Family History Other Family history unobtainable due to patient's condition Social History Smoking/Tobacco Use Status: Never Smoking risk assessment performed?: Yes Alcohol Intake: never Drug use: Never Substance use type: does not use Do you feel safe at home: Yes Do you feel safe in your relationship?: Yes Meds Home Medications and Allergies Home Medications Medication Instructions Recorded Confirmed Type acetaminophen [Tylenol] 650 mg PO Q6H PRN PRN tab 06/24/16 08/17/20 Rx furosemide 40 mg PO DAILY #60 tab-cap 08/06/17 08/17/20 Rx triamcinolone acetonide 63 gm TOPICAL PRN 08/06/17 08/17/20 History albuterol sulfate 2 puff INHALATION QID PRN 08/23/18 08/17/20 History atorvastatin 40 mg PO DAILY 08/23/18 08/17/20 History gabapentin 300 mg PO BID 08/23/18 08/17/20 History metoprolol succinate 25 mg PO DAILY 08/23/18 08/17/20 History docusate sodium 200 mg PO BID 10/10/18 08/17/20 History alogliptin 6.25 mg PO DAILY 08/04/20 08/17/20 History finasteride 5 mg PO DAILY 08/04/20 08/17/20 History folic acid 1 mg PO DAILY 08/04/20 08/17/20 History metformin 1,000 mg PO BID 08/04/20 08/17/20 History polyethylene glycol 3350 17 g PO DAILY 08/04/20 08/17/20 History sennosides 8.6 mg PO DAILY 08/04/20 08/17/20 History cephalexin [Keflex] 500 mg PO BID 5 Days #10 cap 08/14/20 08/17/20 Rx carboxymethylcellulose sodium 1 drp OPHTHALMIC (EYE) QID 08/17/20 08/17/20 History tamsulosin 0.4 mg PO DAILY 08/17/20 08/17/20 History Allergies Allergy/AdvReac Type Severity Reaction Status Date / Time wheat dextrin AdvReac Severe Unverified 08/17/20 11:05 animal dander AdvReac Unknown Unverified 08/17/20 15:31 codeine AdvReac Unverified 08/17/20 11:05 glutens Allergy Unknown Uncoded 08/17/20 15:31 glutethimide Allergy Unknown Uncoded 08/17/20 11:05 cats AdvReac Unknown Uncoded 08/17/20 15:31 Exam Narrative Exam Narrative: GEN: awake, alert, oriented 3. Pleasant, well groomed, interactive. HEAD: Normocephalic, atraumatic ENT: Mucous membranes moist, oropharynx unremarkable, External ear exam unremarkable EYES: PERRL, EOMI NECK: Full ROM, no SELVIN, no menigismus CHEST/RESP: Nontender, clear to auscultation bilateral, no wheeze/rhonchi/rales CARDIOVASCULAR: Irregularly irregular 2+ Rad pulse bilateral ABDOMEN: Soft, minimal upper abdomen tenderness to palpation, no mass. +Bowel sounds EXT: Full ROM, trace bilateral pretibial edema, no rash Neuro: Grossly normal neurologic exam, conversant, interactive. Psych: Speech fluent, thoughts congruent, affect normal Results Labs Result diagrams: 08/17/20 11:25 08/17/20 11:25 Labs: Laboratory Results - last 24 hr 08/17/20 08/17/20 08/17/20 11:25 11:25 11:25 WBC 8.29 RBC 4.19 L Hgb 13.5 Hct 41.1 MCV 98.1 H MCH 32.2 MCHC 32.8 RDW 13.1 Plt Count 200 MPV 10.6 Immature Gran % 0.5 Neutrophils % 77.5 Lymphocytes % 11.8 Monocytes % 7.7 Eosinophils % 2.3 Basophils % 0.2 Nucleated RBC % 0 Absolute Neutrophils 6.42 Absolute Lymphocytes 0.98 L Absolute Monocytes 0.64 Absolute Eosinophils 0.19 Absolute Basophils 0.02 VBG Lactate 2.7 H* Sodium 141 Potassium 3.7 Chloride 105 Carbon Dioxide 25.9 Anion Gap 10.1 BUN 19 H Creatinine 0.99 Estimated GFR/1.73 m2 >= 60.00 Glucose 126 H Calcium 9.0 Magnesium 1.9 Total Bilirubin 0.5 AST 16 ALT 22 Alkaline Phosphatase 64 Troponin I < 0.05 Total Protein 8.1 Albumin 3.5 Urine Color Urine Clarity Urine pH Ur Specific [place] Urine Protein Urine Ketones Urine Blood Urine Nitrite Urine Bilirubin Urine Urobilinogen Ur Leukocyte Esterase Urine Glucose 08/17/20 08/17/20 12:04 13:45 WBC RBC Hgb Hct MCV MCH MCHC RDW Plt Count MPV Immature Gran % Neutrophils % Lymphocytes % Monocytes % Eosinophils % Basophils % Nucleated RBC % Absolute Neutrophils Absolute Lymphocytes Absolute Monocytes Absolute Eosinophils Absolute Basophils VBG Lactate 2.7 H* Sodium Potassium Chloride Carbon Dioxide Anion Gap BUN Creatinine Estimated GFR/1.73 m2 Glucose Calcium Magnesium Total Bilirubin AST ALT Alkaline Phosphatase Troponin I Total Protein Albumin Urine Color Yellow Urine Clarity Clear Urine pH 6.0 Ur Specific [place] 1.025 Urine Protein Negative Urine Ketones Negative Urine Blood Negative Urine Nitrite Negative Urine Bilirubin Negative Urine Urobilinogen 0.2 Ur Leukocyte Esterase Negative Urine Glucose Negative Last Vital Signs Temp 36.7 C 08/17/20 10:51 Pulse 63 08/17/20 11:46 Resp 23 08/17/20 14:10 BP 107/54 L 08/17/20 11:46 Pulse Ox 95 08/17/20 14:00 COVID-19 Screening Have you, or household traveled for leisure in last 14 days?: No Had IN PERSON contact w/suspected or confirmed C-19 person: No
[2020-08-17 16:09] LABS: Troponin I < 0.05 ng/mL (<0.06)
[2020-08-17 20:18] LABS: COVID-19 RT-PCR UVMMC Result Negative (Negative)
[2020-08-17] MEDS: Gabapentin 300 MG CAP PO (20:25)
[2020-08-17] MEDS: Docusate Sodium 100 MG CAP 200 MG PO (20:25)
[2020-08-17] MEDS: Cephalexin 500 MG CAP PO (20:25)
[2020-08-17] MEDS: Refresh PLUS Eye Drops 0.4ml OP (20:26)
[2020-08-17] MEDS: Melatonin 3 MG TAB 6 MG PO (21:57)
[2020-08-18] MEDS: Acetaminophen 325 MG TAB 650 MG PO ×2 (01:59→19:40)
[2020-08-18 07:20] VITALS: BP 109/68; PULSE 65; RESP 18; TEMP 36.5; O2SAT 96
--- NOTE | 2020-08-18 08:34 | OT.INIE ---
Occupational Therapy Notes Inpatient Occupational Therapy Evaluation Date: 08/18/20 Referring Doctor:Lyric Curry NP OT Orders: Non-urgent Precautions: Fall, standard, DNR/intubation OK PATIENT PROFILE/ADMITTING DIAGNOSIS: Pt is an 80 year old male who was admitted through the ED for frequent falls, cognitive impairment, DM II, and acute UTI. Past Medical History: Medical History (Updated 08/17/20 @ 17:25 by Lyric Curry NP) Abnormality of gait due to impairment of balance Alcohol dependence Asthma Atypical chest pain CAD (coronary artery disease) Carpal tunnel syndrome Celiac disease Chronic constipation Cognitive impairment Dementia associated with alcoholism Edema of lower extremity Enlarged prostate GERD (gastroesophageal reflux disease) Hyperlipidemia Hypertension Insomnia Major depression Non-insulin dependent type 2 diabetes mellitus Noncompliance with medication regimen Obesity Paroxysmal A-fib Prostate cancer Seborrheic dermatitis Sensorineural hearing loss of combined sites Sialadenitis Spinal stenosis Thyroid nodule TMJ (dislocation of temporomandibular joint) Urinary retention Surgical History History of appendectomy History of brachytherapy Social History/Home Situation: Pt states that he lives alone in an apartment and notes that he is (I) at his baseline level of function. He is able to perform his bathing in his tub shower which he does report that he has a shower bench although he states that he stands. He states that he is able to perform his eating routine (I), dressing (I) which he is able to demonstrate at todays session. He reports that he uses a FWW at home and notes that he is from a past and likes to remain as functionally (I) as possible. Equipment owned/DME: FWW, grab bars, shower bench SUBJECTIVE: Pt was sitting on toilet when OT arrived. He was agreeable to OT session and notes that he has background and doesn't accept to have issues or problems with his daily routines. He likes to be as (I) As possible. OBJECTIVE: General Observation: Mental Status: A&ox2 Pain: no c/o pain ROM: RUE AROM WFL L UE AROM WFL STRENGTH: RUE 4/5 throughout LUE 4/5 throughout FUNCTIONAL MOBILITY/ADLS: Transfers with FWW Sit-Stand (S) Stand-sit (S) Bed-Chair (S) BATHING - pt denies as he would like to hold till after breakfast but was able to perform his functional ROM with ideal (I) for simulated bathing routine. DRESSING sitting in chair Dressing UE NT as pt denied Dressing LE pt was able to (I) don and doff his (B) socks and demonstrated (I) with pants. (I) with pulling up his underwear after toileting routine. GROOMING standing at sink with FWW pt was able to brush his (I) TOILETING on toilet (S) for standing, (I) toileting hygiene EATING NT BALANCE: Static sitting Normal Dynamic Sitting Normal Static Standing Normal Dynamic Standing Good SPECIAL TESTS: Daily Activity Limitations Standardized Measure [facility] AM -PAC ?6 clicks? Daily Activity Inpatient Short Form: Raw score: 22 Standardized score: 47.10 CMS score: 25.80% INFORMED CONSENT/EDUCATION: Pt instructed in purpose of OT Consult and plan of care. ASSESSMENT: Patient is a 80-year-old male referred to occupational therapy services with diagnosis of frequent falls, cognitive impairment, DM II and acute UTI. Patient presents with clinical signs and symptoms consistent with dx, pt was seen today for OT consultation today and was able to demonstrate ideal increased (I) in his ADL/IADL routines. Based on pts ability to perform his ADLs OT does feel that pt is at his baseline level of function at this time. AMPAC score 22 Patient is assessed as a Low 17940 complexity based on the following: History: see above Examination: see functional limitations as noted above Presentation: evolving Decision Making: AMPAC score 22, CMS 25.80% GOALS N/A pt was seen for OT consult only. PLAN OF CARE/TREATMENT PLAN: Discharge pt from skilled OT services. DISCHARGE RECOMMENDATIONS BAsed on pts current level of functional (I) and his ability to perform his ADLS in the standing position without (A) and (S), OT feels that pt would benefit from returning home when medically cleared per MD. TREATMENT TIME/MINUTES/CODES 23698, 20 minutes (07:30) MONICA Navarro/[facility]
[2020-08-18] MEDS: Polyethylene Glycol 3350 17 GM PACKET PO (08:44)
[2020-08-18] MEDS: Insulin Aspart 300 UNITS/3 ML PEN SC (08:44)
[2020-08-18] MEDS: Docusate Sodium 100 MG CAP 200 MG PO ×2 (08:44→19:41)
[2020-08-18] MEDS: Gabapentin 300 MG CAP PO ×2 (08:45→19:40)
[2020-08-18] MEDS: Metoprolol CR 25 MG TABCR PO (08:45)
[2020-08-18] MEDS: Folic Acid 1 MG TAB PO (08:45)
[2020-08-18] MEDS: Refresh PLUS Eye Drops 0.4ml OP ×4 (08:45→19:39)
[2020-08-18] MEDS: Furosemide 20 MG TAB 40 MG PO (08:45)
[2020-08-18] MEDS: Atorvastatin 40 MG TAB PO (08:45)
[2020-08-18] MEDS: Tamsulosin 0.4 MG CAPCR PO (08:45)
[2020-08-18] MEDS: Finasteride 5 MG TAB PO (08:45)
[2020-08-18] MEDS: Cephalexin 500 MG CAP PO ×2 (08:45→19:40)
[2020-08-18] MEDS: Senna TAB 1 TAB PO (08:46)
--- NOTE | 2020-08-18 09:50 | IN_ITS ---
Date of service: 08/18/20 Time of Service: 09:50 PT Notes Visit Reasons: FALLS, MULTIPLE Physical Therapy Inpatient Initial Evaluation Date: 08/18/2020 Referring Doctor: Lyric Curry NP PT Orders: PT CONSULT: Eval/treat. Precautions: Fall. Standard. Activity as tolerated. Patient Profile/Admitting Diagnosis: Williams is an 80-year-old male with past medical history significant for spinal stenosis who presented to the ED on 08/17/2020 due to generalized weakness, repeated falls, functional mobility decline, confusion, and persistent sensation of burning while urinating. Patient is diagnosed with EtOH dependence, acute urinary tract infection, frequent falls, NIDDM, and cognitive impairment. Was recently seen at this hospital for physical therapy services from August 05 through August 07, 2020. PMHX: Medical History (Updated 08/17/20 @ 17:25 by Lyric Curry NP) Abnormality of gait due to impairment of balance Alcohol dependence Asthma Atypical chest pain CAD (coronary artery disease) Carpal tunnel syndrome Celiac disease Chronic constipation Cognitive impairment Dementia associated with alcoholism Edema of lower extremity Enlarged prostate GERD (gastroesophageal reflux disease) Hyperlipidemia Hypertension Insomnia Major depression Non-insulin dependent type 2 diabetes mellitus Noncompliance with medication regimen Obesity Paroxysmal A-fib Prostate cancer Seborrheic dermatitis Sensorineural hearing loss of combined sites Sialadenitis Spinal stenosis Thyroid nodule TMJ (dislocation of temporomandibular joint) Urinary retention Surgical History History of appendectomy History of brachytherapy Social History/Home Situation: Lives on the first floor of the [facility]. He did that he uses the ramp to get into the apartment building. Community ambulator without an assistive device. Reports that he has 3 sons who are involved with his care. Equipment Owned/DME: Front wheeled walker, SPC Subjective: Williams expresses that he is all set with his ways and indicates that he does not need any help with mobility nor does he need any safety recommendations. He reports that his only problem is that he tends to walk fast which makes him fall. He is not receptive at all to continuing with exercises and with mobility progression at this time. He wants people to mind their own business and let him be. He stresses that the way it works is that he can go out of this hospital anytime he wants. Refused manual muscle testing, balance testing, and full mobility assessment. Objective: General Observation: Sitting on reclining chair. No lines seen. Mental Status: Appeared minimally distressed over hospital people wanting to get into his business. Able to recall son's name and talked about his son and who passed several years ago. Pain: None reported ROM: Right Upper Extremity: Grossly WFL Left Upper Extremity: Grossly WFL Right Lower Extremity: Grossly WFL Left Lower Extremity: Grossly WFL Strength: Right Upper Extremity: Grossly 3/5 Left Upper Extremity: Grossly 3/5 Right Lower Extremity: Grossly 3/5 Left Lower Extremity: Grossly 3/5 Sensation: Unable to test Bed Mobility/Transfers: Sit to stand standby assist Stand to sit standby assist Bed to chair standby assist Chair to bed standby assist Gait: Williams agreed to showing this provider the way he walks but insisted on doing it inside his room only. He was able to walk into and about [address] without an assistive device nor any complaints of chest pain, lightheadedness, and dizziness. Balance: Static Sitting: Normal Dynamic Sitting: Normal Static Standing: Good Dynamic Standing: Fair Special Tests: Mobility Limitations Standardized Measure [facility] 6 clicks Basic Mobility Inpatient Short Form: Raw Score: 23 CMS Score: 11% deficit Informed Consent/Education: Patient instructed in purpose of PT consult and plan of care. Assessment: Williams only agreed to a short walking assessment inside his room and refused formal manual muscle testing and balance testing. Appears to exhibit avoidance behavior towards finding out his actual mobility level for fear of possible facility placement. His denial of his mobility issue may put him more at risk for increased falls. Yulia Graves and GABRIELLA Gunter were both apprised of patient's decision not to participate in functional mobility training/mobility progression. Patient is assessed as a 74561 moderate complexity based on the following: History: 80-year-old male with impairment level findings, functional limitations, and past medical history as indicated above Examination: Demonstrable impairment in strength, balance, and mobility level with underlying impairments and functional limitations as documented above Presentation:Evolving Decision Makin moderate complexity Goals: N/A. PT eval only due to patient's refusal. Plan of Care/Treatment Plan: N/A. PT eval only due to patient's refusal. DISCHARGE RECOMMENDATIONS: PT services for balance training, strengthening, and functional mobility training to increase patient's ability to return home. Has assistive device for walking at home. TREATMENT CODE/TIME: 75431 x 30 minutes beginning at 9:50 AM. Thank you for the opportunity to participate in the care of this patient. Salima Mcintosh PT, DPT, CLT [facility] [place], [place]
[2020-08-18 11:48] VITALS: BP 91/43; PULSE 71; RESP 18; TEMP 36.7; O2SAT 97
--- NOTE | 2020-08-18 14:41 | CM.SBPSYCH ---
- If Service Date Differs Date of service: 08/18/20 Time of Service: 14:41 SB Psychosocial/Act.Assessment - Hospital Admission Admission Date: 08/17/20 Admission From:: ED - Social Supports PREVIOUS FUNCTIONAL STATUS/SOCIAL/FAMILY SUPPORTS:: Williams lives alone in an apartment at the [facility]. He has 4 sons and [id number] that are very supportive of his needs. He receives breakfast daily at his apartment house and can also order dinner if he chooses to do so. Williams is independent with ADLs and only occasionally uses a cane for ambulation outside. Williams has a home health nurse visit once a week. This service is provided through the NH. He does not wish to increase services at this time. - Prior to Admission Living Arrangements/Environment Prior to Admission:: Williams has been living alone in his apartment. Per home health, he has become increasingly weak, often needing to call for help to get back to his apartment after walking a short distance. He has lost a about 40 lbs in the past 2 months and may not be eating adequately. - [place]: Yes - Benefits Financial: Social Security, Other Pension - [employer] Affliation: [facility] - Advance Directives for Healthcare Advance Directive Agent: on file but need updating as son listed as agent - Present Functional Status Physical Abilities:: weakness Cognitive:: has dementia Communication:: good verbal communication skills but tends to repeat himself - Medical History PAST MEDICAL HISTORY/PAST SURGICAL HISTORY:: Medical History (Updated 08/04/20 @ 18:16 by Leydi Carrizales MD). Abnormality of gait due to impairment of balance. Alcohol dependence. Asthma. Atypical chest pain. CAD (coronary artery disease). Carpal tunnel syndrome. Celiac disease. Chronic constipation. Cognitive impairment. Dementia associated with alcoholism. Edema of lower extremity. Enlarged prostate. GERD (gastroesophageal reflux disease). Hyperlipidemia. Hypertension. Insomnia. Major depression. Non-insulin dependent type 2 diabetes mellitus. Noncompliance with medication regimen. Obesity. Paroxysmal A-fib. Prostate cancer. Seborrheic dermatitis. Sensorineural hearing loss of combined sites. Sialadenitis. Spinal stenosis. Thyroid nodule. TMJ (dislocation of temporomandibular joint). Urinary retention. Surgical History (Updated 08/04/20 @ 17:58 by Leydi Carrizales MD). History of appendectomy. History of brachytherapy General Health:: Fair - Admission Data Reason for Swing Bed Admission:: Williams has been failing at home. He is entering swing bed for stabilization and strengthening and evaluation for safety for independent living. Discharge Plan:: Williams would benefit from SNF placement for rehab but it is unclear if he will accept that option at this point
--- NOTE | 2020-08-18 14:53 | CHAPLAIN ---
Williams was sitting up in his chair watching tv when I visited. He shared some personal history, telling me about growing up n [facility], then traveling to [place], [place], [facility], [place] and other place. 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 Williams's son Tal, a couple of years ago. Williams said Tal's continues to be a good friend, and he's asked her to become his guardian. Williams lives at the [facility], where he said he tries to stay out of the [facility].
--- NOTE | 2020-08-18 15:06 | CM.SWINGPC ---
Swingbed Plan of Care Plan of care: SWING BED PROGRAM ACTIVITIES/DISCHARGE PLAN OF CARE ACTIVITIES PLAN Date: Identified Need: Intervention/Plan: Initials DISCHARGE PLAN Date: Identified Need: Intervention/Plan: Initials
--- NOTE | 2020-08-18 16:01 | NUR.NOTE ---
Nursing Note: Patient has become more confused as the afternoon advances. He will not use the call tay, and he resists offers from staff to assist him with ambulation, when the chair alarm goes off. he has become surly and uncooperative as well, continue to monitor and support as best as we can
[2020-08-18 16:28] LABS: Hemoglobin A1C 6.7 % (<5.7)
[2020-08-18] MEDS: LORazepam 0.5 MG TAB PO ×2 (18:42→19:57)
[2020-08-18] MEDS: Normal Saline Flush 10 ML SYR IVP (19:43)
[2020-08-18] MEDS: Melatonin 3 MG TAB 6 MG PO (21:04)
[2020-08-19 07:18] VITALS: BP 112/78; PULSE 61; RESP 18; TEMP 36.5; O2SAT 98
[2020-08-19] MEDS: Insulin Aspart 300 UNITS/3 ML PEN SC (08:12)
[2020-08-19] MEDS: Polyethylene Glycol 3350 17 GM PACKET PO (08:12)
[2020-08-19] MEDS: Refresh PLUS Eye Drops 0.4ml OP ×4 (08:12→20:44)
[2020-08-19] MEDS: Metoprolol CR 25 MG TABCR PO (08:13)
[2020-08-19] MEDS: Cephalexin 500 MG CAP PO ×2 (08:13→20:44)
[2020-08-19] MEDS: Thiamine 100 MG TAB PO (08:13)
[2020-08-19] MEDS: Furosemide 20 MG TAB 40 MG PO (08:13)
[2020-08-19] MEDS: Senna TAB 1 TAB PO (08:13)
[2020-08-19] MEDS: Gabapentin 300 MG CAP PO ×2 (08:13→20:44)
[2020-08-19] MEDS: Finasteride 5 MG TAB PO (08:13)
[2020-08-19] MEDS: Folic Acid 1 MG TAB PO (08:13)
[2020-08-19] MEDS: Docusate Sodium 100 MG CAP 200 MG PO ×2 (08:13→20:44)
[2020-08-19] MEDS: Tamsulosin 0.4 MG CAPCR PO (08:14)
[2020-08-19] MEDS: Atorvastatin 40 MG TAB PO (08:14)
[2020-08-19] MEDS: QUEtiapine 25 MG TAB PO ×2 (11:32→20:44)
[2020-08-19] MEDS: Melatonin 3 MG TAB 6 MG PO (20:47)
[2020-08-20 07:30] VITALS: BP 115/63; PULSE 62; RESP 18; TEMP 36.2; O2SAT 95
[2020-08-20] MEDS: Docusate Sodium 100 MG CAP 200 MG PO ×2 (08:34→19:43)
[2020-08-20] MEDS: Polyethylene Glycol 3350 17 GM PACKET PO (08:34)
[2020-08-20] MEDS: Refresh PLUS Eye Drops 0.4ml OP ×4 (08:34→19:43)
[2020-08-20] MEDS: Atorvastatin 40 MG TAB PO (08:34)
[2020-08-20] MEDS: Insulin Aspart 300 UNITS/3 ML PEN SC (08:34)
[2020-08-20] MEDS: Metoprolol CR 25 MG TABCR PO (08:35)
[2020-08-20] MEDS: Cephalexin 500 MG CAP PO ×2 (08:35→19:43)
[2020-08-20] MEDS: Folic Acid 1 MG TAB PO (08:35)
[2020-08-20] MEDS: Furosemide 20 MG TAB 40 MG PO (08:35)
[2020-08-20] MEDS: metFORMIN 500 MG TAB 1000 MG PO ×2 (08:35→16:50)
[2020-08-20] MEDS: Thiamine 100 MG TAB PO (08:35)
[2020-08-20] MEDS: Tamsulosin 0.4 MG CAPCR PO (08:35)
[2020-08-20] MEDS: Finasteride 5 MG TAB PO (08:35)
[2020-08-20] MEDS: Senna TAB 1 TAB PO (08:35)
[2020-08-20] MEDS: QUEtiapine 25 MG TAB PO ×2 (08:36→19:43)
[2020-08-20] MEDS: Gabapentin 300 MG CAP PO ×2 (08:36→19:43)
[2020-08-20 15:25] VITALS: BP 133/72; PULSE 61; RESP 18; TEMP 36.3; O2SAT 94
[2020-08-20] MEDS: Melatonin 3 MG TAB 6 MG PO (21:35)
[2020-08-21 07:40] VITALS: BP 162/65; PULSE 65; RESP 18; TEMP 36.8; O2SAT 94
[2020-08-21] MEDS: Polyethylene Glycol 3350 17 GM PACKET PO (09:16)
[2020-08-21] MEDS: Folic Acid 1 MG TAB PO (09:16)
[2020-08-21] MEDS: Refresh PLUS Eye Drops 0.4ml OP ×3 (09:16→20:13)
[2020-08-21] MEDS: metFORMIN 500 MG TAB 1000 MG PO ×2 (09:17→17:05)
[2020-08-21] MEDS: Finasteride 5 MG TAB PO (09:17)
[2020-08-21] MEDS: Senna TAB 1 TAB PO (09:17)
[2020-08-21] MEDS: Gabapentin 300 MG CAP PO ×2 (09:17→20:13)
[2020-08-21] MEDS: Metoprolol CR 25 MG TABCR PO (09:17)
[2020-08-21] MEDS: Furosemide 20 MG TAB 40 MG PO (09:17)
[2020-08-21] MEDS: Tamsulosin 0.4 MG CAPCR PO (09:18)
[2020-08-21] MEDS: Atorvastatin 40 MG TAB PO (09:18)
[2020-08-21] MEDS: QUEtiapine 25 MG TAB PO ×2 (09:18→20:13)
[2020-08-21] MEDS: Docusate Sodium 100 MG CAP 200 MG PO ×2 (09:18→20:13)
[2020-08-21] MEDS: Thiamine 100 MG TAB PO (09:18)
[2020-08-21] MEDS: Melatonin 3 MG TAB 6 MG PO (21:32)
[2020-08-22] MEDS: Refresh PLUS Eye Drops 0.4ml OP ×2 (07:35→12:17)
[2020-08-22] MEDS: Atorvastatin 40 MG TAB PO (07:35)
[2020-08-22] MEDS: Polyethylene Glycol 3350 17 GM PACKET PO (07:35)
[2020-08-22] MEDS: Senna TAB 1 TAB PO (07:35)
[2020-08-22] MEDS: Folic Acid 1 MG TAB PO (07:35)
[2020-08-22] MEDS: Finasteride 5 MG TAB PO (07:35)
[2020-08-22] MEDS: metFORMIN 500 MG TAB 1000 MG PO (07:36)
[2020-08-22] MEDS: Tamsulosin 0.4 MG CAPCR PO (07:37)
[2020-08-22] MEDS: Thiamine 100 MG TAB PO (07:37)
[2020-08-22] MEDS: Docusate Sodium 100 MG CAP 200 MG PO (07:37)
[2020-08-22] MEDS: Gabapentin 300 MG CAP PO (07:38)
[2020-08-22] MEDS: Furosemide 20 MG TAB 40 MG PO (07:38)
[2020-08-22] MEDS: QUEtiapine 25 MG TAB PO (07:38)
[2020-08-22] MEDS: Metoprolol CR 25 MG TABCR PO (07:38)
[2020-08-22] MEDS: Insulin Aspart 300 UNITS/3 ML PEN SC (08:00)
[2020-08-22 08:34] VITALS: BP 142/82; PULSE 76; RESP 18; TEMP 36.6; O2SAT 96
--- NOTE | 2020-08-22 10:27 | PSYCO_ITS ---
History of Present Illness Narrative: New Inpatient Psychiatric Consultation Information source: Patient, chart, medical team Primary Care Provider: Once yearly visit to PCP at [place], plus a local PCP unknown but not one at [facility]. Reason for consultation: Lyric Curry INSIDE POLISHER requested psychiatric consultation for Williams Rodriguez for question regarding his capacity to decide to go home from this hospitalization. History Of Present Illness: Per Gary Marrero's Emergency note of 08/17/20: This is an 80-year-old male referred in by home health and his [place] clinic provider. He was admitted to the hospital from August 04- for urinary tract infection. He was discharged on Keflex which he states he continues to take. He was seen in the emergency department on August 14 with persistent UTI symptoms and continue the Keflex. He has had generalized weakness for 2 days with 3 separate falls while ambulating at home. His home health nurse noted a decline over the past 2 weeks. Noted the patient was naked except for his underpants and seemed confused this morning. He states he did not injure himself at home and denies a loss of c onsciousness. He has noted some persistent burning with urination and generalized weakness. He arrives afebrile with a temp of 36.7, pulse 64, blood pressure 128/70. He is pleasant and in no acute distress. While in the hospital at the end of July he was noted to have bibasilar infiltrates on chest x-ray and thickened urinary bladder on renal CT scan. He has noted some weight loss as well as persistent urinary tract infection symptoms despite antibiotics. Given his decline at home, referral in by home health nurses, recent abnormal findings on imaging, he had IV access established, screening laboratories obtained and referred for CT images of chest, abdomen and pelvis. Imaging: Thickened and trabeculated bladder. Mild subpleural increased markings. No confluent infiltrates, no pleural effusion. Chronic findings. See formal report. Repeat lactate obtained after nearly 500 cc of fluid, it remains persistently elevated at 2.7. Patient is not in distress. Question if this may be due to Metformin induced metabolic acidosis. He has had a luncheon meal. He appears to be failing at home as noted by his increasing weakness and per report of in-home nursing which knows him well. Seeing by care management in consultation. Will consider observation admission Per Lyric Curry INSIDE POLISHER H&P of 08/17/20: He has had generalized weakness for 2 days with 3 separate falls while ambulating at home. His home health nurse noted a decline over the past 2 weeks. work up in the ED shows no acute medical condition and case management was consulted. decision made to return to [facility] rehab for ongoing PT/OT and nursing care Per Ely Garcia, Geological E Logger who know patient well from last admission and this one, he has refused to cooperate with PT/OT this visit, although he agreed on last admission to cooperate with them as that was the condition of his going home and he did well. In general he is minimally engaging with care planning insisting that he is a private person and that he wants to go home and he will be fine. She reports that he has a [facility] nurse who visits him weekly and whom he respects. He has otherwise refused any increase in services in his home. He does have daily contact with family by phone, calling them frequently largely because he has forgotten that he has already called them that day. he is not reported to cause any disturbance in [facility] due to cognitive or physical problems. he does have a history of alcohol dependence on record, however, Ely is not aware [facility] and he has not had alcohol withdrawal symptoms during this or last admissions. The [facility] reported to Ely that when she visited him last on her usual day he answered door naked except for underware. He was baker of nakedness, had just fallen and told her about it because he was scared, and told her it was third time in 24 hours. so she called the ambulance. When I met by video with the patient today with Care Management assistance, patient initially refused to engage with me but then did reluctantly. He reports that he fell at home, that he got himself up, and that the ambulance came because he called them. (in fact, he reported to home health nurse that he had fallen three times and she called the ambulance). When I asked him the number he called to call the ambulance, he was not willing or not able to say. given his lack of cooperation in general, it is hard to discern unwillingness from inability. Regarding his living situation, he gave the correct name and address of [facility] where he lives. He states that he likes living there and other than too many people playing God no one gives him any trouble. He did not elaborate on what he meant. He reports that they are under the restrictions that I impose and gave examples of making requests like that he does or doesn't want to eat dinner or he wants a taxi and they have to listen to him. He reports that he does not cook for himself and also initially said that he makes his own breakfast and dinner, and then said he eats those meals provided by [employer] [place]. Through this interview which lasted 25 minutes he said You are wasting my time and your time, now go! pointing to the door. When I tried to ask about his plans for when he goes back home, like if he falls again, he would only say, I don't speak in hypotheticals, now go. In his protest about not being allowed to go home he stated several times that You are forcing me to go! Substances: unknown unable to assess today Safety: - current suicidal/homicidal/violent ideations: patient not cooperative with questioning. - guns in home or access to weapons: unable to assess today. PAST PSYCHIATRIC HISTORY: Hospitalizations: none Suicide attempts: unknown Prescribers: PCP Medications: - no psychotropic medications. Therapist: none REVIEW OF SYSTEMS: Patient not willing to engage in ROS. MENTAL STATUS EXAM: Constitutional: appears stated age, in hospital clothing, sitting up in chair, alert. Attitude: guarded, reluctant to talk or engage, angry Psychomotor: no retardation or agitation Speech: nonpressured, normal volume and prosody. No articulation problems noted. Associations: no looseness Thought process: perseverative on wanting to go home, illogical and contradictory at times. Thought content without psychosis, delusions, obsessions No suicidal or homicidal ideations evident but not specifically asked given his lack of willingness to cooperate Hallucinations denied Mood: patient not able/willing to report Affect: anxious more than angry with tightly knit brow Attention/Concentration: intact for interveiw Judgment/insight: poor/poor - but not impaired in terms of need for medical care after falling Oriented to self, home, hospital, situation. Language appropriate to age and education but with paraphasias. Fund of knowledge appropriate to age and education Memory somewhat poor Other cognitive testing: none, patient refused to cooperate. Assessment and Plan Assessment and plan (1) Cognitive impairment: Status: Chronic Assessment and plan: Williams Rodriguez is an 80 year old male with past psychiatric history of alcohol dependence and cognitive decline related to alcoholism and past medical history of recent UTI treated with Keflex who is now hospital day 5 on observation status for medical monitoring and discharge planning. No acute medical issue has revealed a reason for his falls at home and no sequelae from falls has been found on this admission. He has show limited cooperation with supportive treatments like OT/PT and has continued to decline any increase in services to be arranged at his home. He states desire to return home and psychiatry was consulted to help with determining his capacity to make this decision. History and clinical exam are consistent with mild-moderate dementia however, the level of dementia is based on his language and somewhat poor history rather than any objective cognitive testing. The answer to the question of capacity has to take in to account the level of risk involved in the decision. He is not willing to engage in an assessment of his understanding of risks and benefits of his decision. Some of it is likely due to cognitive inability, some probably due to principled unwillingess and it is hard to tell which factor is impacting his reticence more. Assessment of his capacity to make a decision to go home and the risks involved in that decision have to be taken from observation. In terms of risk, he lives in the lowest risk setting outside of a [place] [facility] [place] [facility] at [facility]. He has contact with family daily who can trigger alarm if they don't hear from him. He has a nurse whom he trusts and respects checking in on him weekly. His decision to go back home does not put anyone else at immediate risk (for example, causing a cooking fire or being delusional and causing someone harm). His behavior indicates understanding that he needed medical evaluation after a fall. It happened to be his nurse who saw him first after a fall. It is unknown if he would have called someone to report a fall or need for medical attention. It's questionable whether he would have the wherewithall to call 911 himself. His safety is reliant on other checking on him daily. He is absolutely refusing to be placed in a [facility] facility per Care Management, and he clearly has a strong need for autonomy and privacy which is met in his current living situation. Given his strongly stated preference to go home to a place that is the lowest risk setting outside of a [facility] facility, I would say his capacity to make the decision to go home matches the level of risk of the situation. This does not mean he is without risk for harm in this situation in the future, and his ability to live independently with supports will likely decline and need ongoing assessment. Assessment will have to based on objective facts of his physical needs and behaviors around cooperating with appropriate medical care rather than based on his cognitive ability to assess risks vs benefits. He would greatly benefit from an outpatient palliative care consultation to meet his goals for care and limit hospitalizations such as this one if his goal is to remain at home. He would also benefit from a guardian to make decisions about his health care in the future. I discussed my findings and opinion with Care Management and will communicate my note with Bita So NP who is his hospitalist provider today. Thank you very much for requesting psychiatric consultation for Williams Rodriguez. I enjoyed meeting him today. Visit Statistics Total Visit Minutes: 45 Visit Time Allocation >50% of face to face visit spent in counseling (Extensive teaching, explanation and instructions. Counseling as appropriate. Review of plans, and discussion concerning medical problems dealt with at this visit. Discussion of benefits/risks of treatment, anticipated course of events, potential medication side effects, options, alternatives, and follow up plans. Questions were solicited and answered, and the patient verbalized understanding.), and/or coordination of care. [facility] Medical History (Updated 08/18/20 @ 12:52 by Lyric Curry NP) Abnormality of gait due to impairment of balance Alcohol dependence Asthma Atypical chest pain CAD (coronary artery disease) Carpal tunnel syndrome Celiac disease Chronic constipation Cognitive impairment Dementia associated with alcoholism Edema of lower extremity Enlarged prostate GERD (gastroesophageal reflux disease) Hyperlipidemia Hypertension Insomnia Major depression Non-insulin dependent type 2 diabetes mellitus Noncompliance with medication regimen Obesity Paroxysmal A-fib Prostate cancer Seborrheic dermatitis Sensorineural hearing loss of combined sites Sialadenitis Spinal stenosis Thyroid nodule TMJ (dislocation of temporomandibular joint) Urinary retention Surgical History History of appendectomy History of brachytherapy Family History Other Family history unobtainable due to patient's condition Social History Smoking/Tobacco Use Status: Never Smoking risk assessment performed?: Yes Alcohol Intake: never Drug use: Never Substance use type: does not use Do you feel safe at home: Yes Do you feel safe in your relationship?: Yes Results Last Vital Signs Temp 36.6 C 08/22/20 08:34 Pulse 76 08/22/20 08:34 Resp 18 08/22/20 08:34 BP 142/82 H 08/22/20 08:34 Pulse Ox 96 08/22/20 08:34 Labs Result diagrams: 08/17/20 11:25 08/17/20 11:25
--- NOTE | 2020-08-22 10:48 | W.NUTRFU ---
Date of service: 08/22/20 Time of Service: 10:48 Nutritional Follow up NOTE: 80 year old male admitted with UTI with hx of etoh abuse, DM 2, cognitive impairment. Labs: A1C 7.4% indicating well controlled diabetes in view of age. Following diabetic low salt diet with excellent intake (>75% of meals). Not at nutritional risk at this time. Will continue to follow. Time Spent in Nutritional Counseling and Treatment: 0
--- NOTE | 2020-08-22 12:46 | PCNE_ITS ---
Date of service: 08/22/20 History of Present Illness History of Present Illness Chief Complaint: recurrent falls, weakness, goals of care Narrative: I am familiar with Williams from the community. I also took care of his son last year when he of pancreatic cancer on hospice. Williams is very stoic. He is a self described introvert. He recognizes that he is having memory problems. He has little enjoyment in life. He was evaluated by Dr Olson today for competency. He is still competent. He admits to feeling blue. He misses his son Tal tremendously. He misses his daughter, Lucie, who also of pancreatic cancer, about 10 years ago. He has 3 surviving sons, one of whom is in and out of assisted. He was closest to Tal and Lucie.... He was to the mother of his kids for about 30 years until she . 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 He keeps to himself most of the time. He doesn't think the pandemic has affected him much. He appears more flat than he used to. Consults Consult date: 08/22/20 Requesting physician: Bita So Assessment and Plan Assessment and plan (1) Cognitive impairment: Status: Chronic Assessment and plan: worse than I have seen him unsure how much is acute, how much is chronic he looks as if he will likely have to move out of his apartment before the year is out needs to make plan b soon (2) Weakness: Status: Acute (3) Frequent falls: Status: Chronic Assessment and plan: usually uses a walker unclear IF alcohol plays a role in his falls I did not ask him directly will do so next visit might benefit from HH with PT.OT (4) Palliative care patient: Status: Acute (5) Goals of care, counseling/discussion: Status: Acute Assessment and plan: doesn't want to be a burden on anyone not very committed to living this life anymore, misses his 2 children, doesn't see the point sad lonely untrusting, per staff (6) Lives alone with help available: Status: Acute Review of Systems All systems reviewed & are unremarkable except as noted in HPI and below Constitutional Constitutional: Reports fatigue, Denies fever(s), Reports frequent falls, Denies headache(s) and Reports weakness ENT Ears, Nose, Mouth, and Throat: Denies headache(s) and Reports disequilibrium Cardiovascular Cardiovascular: Denies chest pain and Denies dyspnea Respiratory Respiratory: Denies cough and Denies dyspnea Gastrointestinal Gastrointestinal: Denies diarrhea, Denies nausea and Denies vomiting Musculoskeletal Musculoskeletal: Reports abnormal gait, Reports atrophy and Reports muscle weakness Integumentary/Breasts Skin/Breast: Denies new lesions and Denies rash Neurologic Neurologic: Reports abnormal gait, Reports behavioral changes, Reports frequent falls, Denies headache(s), Reports memory loss, Reports disequilibrium and Reports weakness Psychiatric Psychiatric: Reports behavioral changes, Reports depression, Reports difficulty concentrating, Reports anhedonia and Reports memory loss Endocrine Endocrine: Reports fatigue [facility] Medical History (Updated 08/22/20 @ 21:21 by Lea Zayas MD) Abnormality of gait due to impairment of balance Alcohol dependence Asthma Atypical chest pain CAD (coronary artery disease) Carpal tunnel syndrome Celiac disease Chronic constipation Cognitive impairment Dementia associated with alcoholism Edema of lower extremity Enlarged prostate GERD (gastroesophageal reflux disease) Goals of care, counseling/discussion Hyperlipidemia Hypertension Insomnia Lives alone with help available [facility] Major depression Non-insulin dependent type 2 diabetes mellitus Noncompliance with medication regimen Obesity Palliative care patient Paroxysmal A-fib Prostate cancer Seborrheic dermatitis Sensorineural hearing loss of combined sites Sialadenitis Spinal stenosis Thyroid nodule TMJ (dislocation of temporomandibular joint) Urinary retention Surgical History History of appendectomy History of brachytherapy Family History (Updated 08/22/20 @ 21:15 by Lea Zayas MD) Son Pancreatic cancer Daughter Pancreatic cancer Son Substance abuse History of incarceration Son No problems noted. Son No problems noted. 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 [employer] Pets and animals: No Sexually active: No Current gender identity: male What is your relationship status?: How often do you talk on the phone with friends or family?: once per week How often do you get together with friends or relatives?: never Do you belong to any clubs or organized social groups?: no Panel score (0-1 are the most socially isolated patients): 0 What type of physical activity do you participate in: walking and sedentary lifestyle Duration: < 15 minutes/day Special melissa needs: No Seatbelt use: always Water heater temp set <120 deg: Yes Working smoke detector in home: Yes Fire extinguisher in home: Yes Firearms in home: No Do you feel safe at home: Yes Do you feel safe in your relationship?: Yes Additional Social history: Lives at [facility]. Keeping to himself more since COVID-19. Used to sit out in LR with other residents. No one else in his family with dementia or memory issues. He has weekly visit from nurse Randa Pierre, from . He has plans to go to [place] facility when he can no longer live alone. I'm an introvert by nature. He was the valedictorian from his high school class and went out to [place] after he graduated, only to return a few months later after being hospitalized with ruptured appendix. Life went a different direction from his hopes. Exam Narrative Exam Narrative: GEN: awake, alert, oriented 3. Pleasant, well groomed, interactive. HEAD: Normocephalic, atraumatic ENT: Mucous membranes moist, oropharynx unremarkable, External ear exam unremarkable EYES: PERRL, EOMI NECK: Full ROM, no SELVIN, no menigismus CHEST/RESP: Nontender, clear to auscultation bilateral, no wheeze/rhonchi/rales CARDIOVASCULAR: Irregularly irregular 2+ Rad pulse bilateral ABDOMEN: Soft, minimal upper abdomen tenderness to palpation, no mass. +Bowel sounds EXT: Full ROM, trace bilateral pretibial edema, no rash Neuro: Grossly normal neurologic exam, conversant, interactive. Psych: Speech fluent, thoughts congruent, affect normal Psych Mental Status: mental status grossly normal Speech and Movement: speech and movement normal Mood: congruent mood Affect: normal affect Results Last Vital Signs Temp 97.9 F 08/22/20 08:34 Pulse 76 08/22/20 08:34 Resp 18 08/22/20 08:34 BP 142/82 H 08/22/20 08:34 Pulse Ox 96 08/22/20 08:34 Labs Result diagrams: 08/17/20 11:25 08/17/20 11:25
--- NOTE | 2020-08-22 12:59 | W.PM.DS.N ---
Date of service: 08/22/20 Time of Service: 12:59 DS: Diagnosis Discharge Diagnosis (1) Cognitive impairment: Start date: 08/22/20 Start time: 12:59 Status: Chronic Asessment and Plan: Re admission to [facility] after discharge and falling at home. He was place [facility]. Today he had a capacity evaluation by Dr. Veronica Olson. Who deemed him to be at this time able to make decisions. He has mild dementia he understands he he falls but trusts no one. He has been working with PT, they recommend HH services, however patient refuses services. He is being discharged home above case discussed with Dr. Newton who is in agreement. Discharge Plan Disposition Patient Disposition: HOME Condition: Stable Discharge Details Reason For Visit: FALLS, MULTIPLE Admit Date/Time: 08/17/20 14:28 Admit Provider: Leydi Carrizales Attending Provider: Leydi Carrizales Primary Care Provider: Erika Mix Hospital Course Hospital Course: This is an 80-year-old male [facility]. He was admitted to the hospital from August 04- for urinary tract infection. He was discharged on Keflex which he states he continues to take. He was seen in the emergency department on August 14 with persistent UTI symptoms and continue the Keflex. He had generalized weakness for 2 days with 3 separate falls while ambulating at home. His home health nurse noted a decline over the past 2 weeks. work up in the ED shows no acute medical condition and case management was consulted. decision made to return to [facility] for ongoing PT/OT and nursing care. Today he had a capacity evaluation by Dr. Veronica Olson, who deemed him to be at this time able to make decisions. He has mild dementia he understands he he falls but trusts no one. He has been working with PT, they recommend HH services, however patient refuses services. He is being discharged home. He was seen by Dr. Zayas and she does agree his mental state has declined. She will continue to follow him as an outpatient, he does know that there will be a time when he won't be able to care for himself and he does have ideas of where he would like to go at that time. He denies Cp, SOB, N/V/D Home Meds and New Rx's Prescriptions: New quetiapine 25 mg Tablet 25 mg PO BID Qty: 30 RF: 0 thiamine mononitrate (vit B1) [Vitamin B-1 (mononitrate)] 100 mg Tablet 100 mg PO DAILY Qty: 30 RF: 0 Continued furosemide 20 MG tablet 40 mg PO DAILY Qty: 60 RF: 11 triamcinolone acetonide 63 GM aerosol 63 gm Topical PRN RF: 0 gabapentin 300 mg Capsule 300 mg PO BID RF: 0 metoprolol succinate 25 mg Tablet Extended Release 24 Hr 25 mg PO DAILY RF: 0 albuterol sulfate 90 mcg/actuation Hfa Aerosol Inhaler 2 puff INHALATION QID PRNRF: 0 atorvastatin 40 MG tablet 40 mg PO DAILY RF: 0 docusate sodium 100 mg Tablet 200 mg PO BID RF: 0 polyethylene glycol 3350 17 gram Powder In Packet 17 g PO DAILY RF: 0 metformin 1,000 mg Tablet 1,000 mg PO BID RF: 0 sennosides 8.6 mg Capsule 8.6 mg PO DAILY RF: 0 alogliptin 6.25 mg Tablet 6.25 mg PO DAILY RF: 0 folic acid 1 mg Tablet 1 mg PO DAILY RF: 0 finasteride 5 mg Tablet 5 mg PO DAILY RF: 0 carboxymethylcellulose sodium 0.5 % Drops 1 drp ophthalmic (eye) QID RF: 0 tamsulosin 0.4 mg capsule 0.4 mg PO DAILY RF: 0 acetaminophen [Tylenol] 325 MG tablet 650 mg PO Q6H PRN PRN (Reason: Mild Pain, Temp. Over 38.5) RF: 0 Discontinued cephalexin [Keflex] 500 mg capsule 500 mg PO BID 5 Days Qty: 10 RF: 0 Discharge Instructions Instructions: Weakness (DC) Additional Instructions: Follow up with your PCP in 1-2 weeks. Activity:: Activity as Tolerated Equipment/Supplies:: No Equipment Needed Diet:: As Tolerated Discharge Orders Discharge Orders: Discharge Order (Routine); Ordered 08/22/20 Ordered By: Bita So DS: Summary Status at Discharge Functional status at discharge: independent ambulation Overall status at discharge: patient is back to baseline Mental Status: mental status grossly normal Speech and Movement: speech and movement normal Mood: congruent mood Affect: normal affect Exam Narrative Exam Narrative: GEN: awake, alert, oriented 3. Pleasant, well groomed, interactive. HEAD: Normocephalic, atraumatic ENT: Mucous membranes moist, oropharynx unremarkable, External ear exam unremarkable EYES: PERRL, EOMI NECK: Full ROM, no SELVIN, no menigismus CHEST/RESP: Nontender, clear to auscultation bilateral, no wheeze/rhonchi/rales CARDIOVASCULAR: Irregularly irregular 2+ Rad pulse bilateral ABDOMEN: Soft, minimal upper abdomen tenderness to palpation, no mass. +Bowel sounds EXT: Full ROM, trace bilateral pretibial edema, no rash Neuro: Grossly normal neurologic exam, conversant, interactive. Psych: Speech fluent, thoughts congruent, affect normal Psych Mental Status: mental status grossly normal Speech and Movement: speech and movement normal Mood: congruent mood Affect: normal affect DS: Data Vitals/I&O Vitals and I&O: Vital Signs Temperature 36.6 C 08/22/20 08:34 Temperature Source Tympanic 08/22/20 08:34 Pulse 76 08/22/20 08:34 Pulse Rhythm Irregular 08/22/20 07:35 Pulse 67 08/17/20 15:01 Respiratory Rate 18 08/22/20 08:34 Respiratory Effort Non-Labored 08/22/20 07:35 Respiratory Depth Normal 08/22/20 07:35 Respiratory Pattern Normal 08/22/20 07:35 Blood Pressure 142/82 H 08/22/20 08:34 Blood Pressure Mean 80 08/17/20 15:01 Pulse Oximetry 96 08/22/20 08:34 Oxygen Delivery Method Room Air 08/22/20 08:34 Oxygen Flow Rate 0 08/22/20 08:34 Pain Level 0 08/22/20 08:34 Comment 08/18/20 11:48 Intake & Output 08/21/20 08/22/20 08/22/20 23:59 11:59 23:59 Intake Total 480 / 1660 490 / 490 Balance 480 / 1660 490 / 490 Intake: Oral 480 / 1660 490 / 490 Other: Urine Color Yellow Yellow Urine Appearance Clear Clear Urine Odor Normal None Comment x 1 toilet and incontinent lg amount in brief Voiding Methods Toilet Toilet Data Completed and Pending Completed studies during hospitalization [Text1]: Exam(s) a CT:CT chest/abd/pel w EXAM: CT CHEST/ABD/PEL W CLINICAL HISTORY: Weakness, falls, upper abd pain. recent bi infiltr. TECHNIQUE: Imaging Protocol: Axial computed tomography images with coronal and sagittal reformatted images were created and reviewed CONTRAST MATERIAL: Intravenous: Omnipaque 350 Contrast volume:100 ml Oral: None COMPARISON: CT CT RENAL COLIC WO from 08/04/[address] RENAL COLIC WO from 08/04/[address] BRAIN NECK CTA from 08/14/2020 FINDINGS: CHEST: LUNGS: There is mild subpleural increased markings in the anterior segment of the left upper lobe.. Also mild infiltrate in the medial left lung base-medial basal segment. Small peripheral bulla measuring 1 centimeter in the lateral basal segment of the left lower lobe noted. In opposite-right lung there are mild peripheral benign-appearing increased markings but no confluent infiltrates and no pleural effusion pleural effusion.. MEDIASTINUM: There is no hilar nor mediastinal adenopathy. Thyroid gland contains significant nodules in both lobes. Follow-up ultrasound recommended. CARDIAC: Heart size is normal. There is no pericardial effusion.Caliber of the thoracic aorta is within normal limits. OSSEOUS: No significant osseous lesions.. ABDOMEN: There is no ascites. LIVER: Small benign-appearing right hepatic lobe lesion which is most probably a small benign hemangioma. GALLBLADDER/BILIARY: There are multiple small layering gallstones on the dependent wall of the gallbladder. Gallbladder wall is not edematous. There is no pericholecystic fluid. The CBD is not dilated. PANCREAS: There is a calcification in the body of the pancreas which measures 7 x 6 millimeters, not associated with obvious mass or ductal dilatation and there is no peripancreatic streaking. Although the duct is not significantly dilated, the diameter of the duct between the tail of the pancreas and and this calcification is slightly wider than the diameter of the duct on the other side of this mid-level calcification in the pancreas. SPLEEN: Spleen size is slightly prominent. There no intrasplenic lesions. Splenic and portal veins are patent. ADRENALS: There are no significant adrenal masses. KIDNEYS: No calculi nor hydronephrosis. No solid renal masses. No cysts evident. ABDOMINAL AORTA: There is mild fusiform dilatation of the lower infrarenal abdominal aorta at the level of the inferior mesenteric artery. However, the maximum diameter is 2.5 centimetres. There is no significant arterial megaly in the iliac arteries. ABDOMINAL WALL/GI: No evidence of significant anterior abdominal wall hernia. No bowel obstruction. [facility] Medical History Abnormality of gait due to impairment of balance Alcohol dependence Asthma Atypical chest pain CAD (coronary artery disease) Carpal tunnel syndrome Celiac disease Chronic constipation Cognitive impairment Dementia associated with alcoholism Edema of lower extremity Enlarged prostate GERD (gastroesophageal reflux disease) Hyperlipidemia Hypertension Insomnia Major depression Non-insulin dependent type 2 diabetes mellitus Noncompliance with medication regimen Obesity Paroxysmal A-fib Prostate cancer Seborrheic dermatitis Sensorineural hearing loss of combined sites Sialadenitis Spinal stenosis Thyroid nodule TMJ (dislocation of temporomandibular joint) Urinary retention Surgical History History of appendectomy History of brachytherapy Family History Other Family history unobtainable due to patient's condition Social History Smoking/Tobacco Use Status: Never Smoking risk assessment performed?: Yes Alcohol Intake: never Drug use: Never Substance use type: does not use Do you feel safe at home: Yes Do you feel safe in your relationship?: Yes
--- NOTE | 2020-08-22 19:03 | PDOC.CMDIS ---
- If Service Date Differs Date of service: 08/22/20 Time of Service: 19:03 LACE Index Scoring Tool - Questions: Length of Stay (in days): 4 - 6 Acuity (Admit via E.D.?): Yes Comorbidities: Diabetes w/o Complication, Any Tumor E.D. Visits: 4 - Answers: Total Score: 14 Risk of Readmission: High Risk Care Management Discharge Reason for Hospitalization: frequent falls Discharge Plan: Williams will be discharged home with a resumption of home health nursing. He has refused SNF placement for rehab and has also refused additional services in the home. This morning he underwent a capacity evaluation by Dr. Olson, who deemed he had capacity to make the decision about going home, including the risks. He will [facility] with his [facility]. Williams did have an event monitor applied prior to discharge which will be followed [facility] through the [facility]. He will transport home via RCT coordinated by CM. Patient/Family Education Needs: Discharge plan, limitations, follow up plans, Ask Me Three Services Needed at Discharge: Home Health Care Services
--- NOTE | 2020-08-22 19:11 | PDOC.CMPRO ---
- If Service Date Differs Date of service: 08/22/20 Time of Service: 19:11 Care Management Progress Note CM placed a call to Benitez Rodriguez, Williams's oldest living son, yesterday to discuss discharge plans and the call was returned this afternoon. Benitez expressed frustration with Williams's discharge, verbalizing that he did not feel he was safe at home. He shared that Williams calls him repeatedly throughout the day stating that he is dizzy and can't find his way back to his room, or requesting that Benitez come over and make him a sandwich. Sometimes he calls for the same reason, forgetting that he called before. CM explained that Dr. Olson completed a capacity evaluation to determine if Williams had capacity to make the decision to go home vs a SNF or other facility. It was determined that he did have capacity, so Williams was discharged home. Benitez informed CM that he understands that Williams cannot be forced to go somewhere or do something that he refuses. He accepts that Williams has the ability and right to make his own decisions, but that it is frustrating to watch him decline and refuse help..
== END 2020-08-22 15:31 | disposition home or self-care (01) | DRG 897 ==
LOC: ER 15:19 → MS 15:23
PROVIDERS: Nurse Practitioner Acute Care; Admitting Provider Internal Medicine; Emergency Provider Emergency Medicine; PCP Nurse Practitioner; Visit Provider Internal Medicine
DX: F10.27 Alcohol dependence with alcohol-induced persisting dementia (principal); R53.1 Weakness; J45.909 Unspecified asthma, uncomplicated; I25.10 Atherosclerotic heart disease of native coronary artery without angina pectoris; R29.6 Repeated falls; Z91.81 History of falling; K90.0 Celiac disease; K21.9 Gastro-esophageal reflux disease without esophagitis; E78.5 Hyperlipidemia, unspecified; I10 Essential (primary) hypertension; G47.00 Insomnia, unspecified; F32.9 Major depressive disorder, single episode, unspecified; E11.9 Type 2 diabetes mellitus without complications; Z79.84 Long term (current) use of oral hypoglycemic drugs; E66.9 Obesity, unspecified; I48.0 Paroxysmal atrial fibrillation; C61 Malignant neoplasm of prostate; H90.5 Unspecified sensorineural hearing loss; M48.00 Spinal stenosis, site unspecified; R33.9 Retention of urine, unspecified
CPT/HCPCS: 36415; 74177; 80053; 93005; 93270; 96361; 97162; 97165; 99253; 99254; 99285; 99304; 99316; U0003; 71260; 81003; 83036; 83605; 83735; 84484; 85025; 93010; 99238; J3490

== ENCOUNTER 2020-08-26 10:21 | Emergency (ER) | payer MEDICARE, SELFPAY ==
[2020-08-26] VITALS (19 sets, daily range): BP systolic 111–150; BP diastolic 53–76; PULSE 46–76; RESP 16–23; TEMP 36.5; O2SAT 94–98
--- NOTE | 2020-08-26 10:15 | RT.EKG_ITS ---
APPROVED REPORT Exam: Resting ECG Patient Location: E HR:68 bpm ECG Measurements Heart Rate 68 AXIS NV [id number] P [id number] QRSd 104 QRS 72 QT [id number] T 65 QTc 0 Conclusion Atrial fibrillation...V-rate 53- 83, irreg A-activity I have reviewed and interpreted ECG and agree with software generated interpretation.
--- NOTE | 2020-08-26 10:17 | W.ED.GENAD ---
Discharge Plan Disposition Patient Disposition: HOME Condition: Stable Discharge Details Clinical Impression: Dizziness Primary Care Provider: Erika Mix ED Provider: Elba Giles Home Meds and New Rx's Prescriptions: Continued furosemide 20 MG tablet 40 mg PO DAILY Qty: 60 RF: 11 triamcinolone acetonide 63 GM aerosol 63 gm Topical PRN RF: 0 gabapentin 300 mg Capsule 300 mg PO BID RF: 0 metoprolol succinate 25 mg Tablet Extended Release 24 Hr 25 mg PO DAILY RF: 0 albuterol sulfate 90 mcg/actuation Hfa Aerosol Inhaler 2 puff INHALATION QID PRNRF: 0 atorvastatin 40 MG tablet 40 mg PO DAILY RF: 0 docusate sodium 100 mg Tablet 200 mg PO BID RF: 0 polyethylene glycol 3350 17 gram Powder In Packet 17 g PO DAILY RF: 0 metformin 1,000 mg Tablet 1,000 mg PO BID RF: 0 sennosides 8.6 mg Capsule 8.6 mg PO DAILY RF: 0 alogliptin 6.25 mg Tablet 6.25 mg PO DAILY RF: 0 folic acid 1 mg Tablet 1 mg PO DAILY RF: 0 finasteride 5 mg Tablet 5 mg PO DAILY RF: 0 carboxymethylcellulose sodium 0.5 % Drops 1 drp ophthalmic (eye) QID RF: 0 tamsulosin 0.4 mg capsule 0.4 mg PO DAILY RF: 0 thiamine mononitrate (vit B1) [Vitamin B-1 (mononitrate)] 100 mg Tablet 100 mg PO DAILY Qty: 30 RF: 0 quetiapine [Seroquel] 25 mg tablet 25 mg PO BID Qty: 60 RF: 0 thiamine HCl (vitamin B1) 100 mg tablet 100 mg PO DAILY Qty: 30 RF: 0 acetaminophen [Tylenol] 325 MG tablet 650 mg PO Q6H PRN PRN (Reason: Mild Pain, Temp. Over 38.5) RF: 0 Discharge Instructions Instructions: Dizziness (ED) Additional Instructions: Drink plenty of fluids and get plenty of rest. Be sure to use your walker when you are ambulating to prevent any further falls if your dizziness returns. Return the property assessment monitor to the hospital as directed. Follow-up with your primary care doctor in 1 week. Return to the emergency department with any worsening or new concerning symptoms. Discharge Data Discharge Date/Time-TO BE ENTERED AT DEPARTURE: 08/26/20 13:30 Discharge Physician: Elba Giles Medical Decision Making 80 year-old male who is DNR but not DNI who is followed by palliative care with a history of diabetes, frequent falls, coronary artery disease, dementia associated with alcoholism, hypertension, hyperlipidemia, obesity and paroxysmal atrial fibrillation presents for dizziness for the past few months, with an episode today. He states the dizziness is consistent with his usual episodes. He denies any complaints at present. EKG on arrival notes a rate of 68, atrial fibrillation, no acute ST or T wave ischemic findings. Vitals within normal limits. Patient has no acute findings on exam. No focal deficits. Patient was admitted here last week and discharged 4 days ago for dizziness, weakness and frequent falls. He had a 30-day property assessment monitor placed which is currently not on the patient. He states he took it off a few days ago because he did not know why it was there. Review of cardiology records of this monitor note that he has had sustained A. fib with heart rates ranging between 50s and 70s for the first 3 days of wearing the monitor. He was also recently treated for urinary tract infection with Keflex. We will obtain screening labs, urinalysis. As he has no focal deficits do not see an indication for repeat CT head imaging at this time. He had a CTA head and neck and brain MRI/MRA on August 14 which noted chronic vessel changes but no acute findings. Discussed with respiratory and they will replace his property assessment monitor at bedside. There was no reason given for property assessment monitor placement on his recent discharge summary, but I assume it has been for his dizziness. I decided to go with a 14-day monitor as patient may have more difficulty with using the cell phone that comes with a 30-day monitor and this may be better tolerated by patient. Labs reviewed and unremarkable. Normal white blood cell count. Negative urinalysis. Patient was able to ambulate with walker and tolerated this well without any significant complaints and he feels comfortable going home. Advised to follow up with the primary care doctor for re-evaluation. Usual and customary return precautions given prior to discharge. Medical Records Medical records reviewed: Yes I reviewed the patient's medical records. Lab Data Lab results reviewed: Yes I reviewed the patient's lab results. Labs: Laboratory Tests Range/Units 08/26/20 08/26/20 08/26/20 10:13 10:13 10:13 WBC (4.4-10.8) 10^3/uL 8.66 RBC (4.36-5.78) 10^6/uL 4.20 L Hgb (13.5-17.5) g/dL 13.5 Hct (40.0-50.0) % 41.6 MCV (80-95) fL 99.0 H MCH (27.0-33.0) pg 32.1 MCHC (32.0-36.0) % 32.5 RDW (11.8-14.1) % 12.9 Plt Count (130-400) 10^3/uL 178 MPV (8.0-11.0) fL 10.7 Immature Gran % 0.9 Neutrophils % 73.2 Lymphocytes % 14.2 Monocytes % 8.5 Eosinophils % 2.7 Basophils % 0.5 Nucleated RBC % % 0 Absolute Neutrophils (1.2-6.7) 10^3/uL 6.34 Absolute Lymphocytes (1.2-3.4) 10^3/uL 1.23 Absolute Monocytes (0.1-0.8) 10^3/uL 0.74 Absolute Eosinophils (0.0-0.7) 10^3/uL 0.23 Absolute Basophils (0.0-0.2) 10^3/uL 0.04 PT (9.3-11.0) sec 10.3 INR (0.9-1.1) 1.0 APTT (21.0-27.5) sec 31.9 H Sodium (136-145) mmol/L 139 Potassium (3.5-5.1) mmol/L 4.2 Chloride (98-107) mmol/L 104 Carbon Dioxide (21.0-32.0) mmol/L 27.9 Anion Gap (3-11) mmol/L 7.1 BUN (7-18) mg/dL 27 H Creatinine (0.70-1.30) mg/dL 1.08 Estimated GFR/1.73 m2 (mL/min/1.73m2) >= 60.00 Glucose (74-106) mg/dL 136 H Calcium (8.5-10.1) mg/dL 9.1 Magnesium (1.8-2.4) mg/dL 2.0 Total Bilirubin (0.2-1.0) mg/dL 0.5 AST (15-37) U/L 16 ALT (16-63) U/L 20 Alkaline Phosphatase (46-116) U/L 73 Troponin I (<0.06) ng/mL < 0.05 Total Protein (6.4-8.2) g/dL 8.5 H Albumin (3.4-5.0) g/dL 3.6 Urine Color (Yellow) Urine Clarity (Clear) Urine pH (5-8) Ur Specific [place] (1.005-1.025) Urine Protein (Negative) mg/dL Urine Ketones (Negative) mg/dL Urine Blood (Negative) Urine Nitrite (Negative) Urine Bilirubin (Negative) Urine Urobilinogen (Up TO 0.2) EU/dL Ur Leukocyte Esterase (Negative) Urine Glucose (Negative) mg/dL Range/Units 08/26/20 11:10 WBC (4.4-10.8) 10^3/uL RBC (4.36-5.78) 10^6/uL Hgb (13.5-17.5) g/dL Hct (40.0-50.0) % MCV (80-95) fL MCH (27.0-33.0) pg MCHC (32.0-36.0) % RDW (11.8-14.1) % Plt Count (130-400) 10^3/uL MPV (8.0-11.0) fL Immature Gran % Neutrophils % Lymphocytes % Monocytes % Eosinophils % Basophils % Nucleated RBC % % Absolute Neutrophils (1.2-6.7) 10^3/uL Absolute Lymphocytes (1.2-3.4) 10^3/uL Absolute Monocytes (0.1-0.8) 10^3/uL Absolute Eosinophils (0.0-0.7) 10^3/uL Absolute Basophils (0.0-0.2) 10^3/uL PT (9.3-11.0) sec INR (0.9-1.1) APTT (21.0-27.5) sec Sodium (136-145) mmol/L Potassium (3.5-5.1) mmol/L Chloride (98-107) mmol/L Carbon Dioxide (21.0-32.0) mmol/L Anion Gap (3-11) mmol/L BUN (7-18) mg/dL Creatinine (0.70-1.30) mg/dL Estimated GFR/1.73 m2 (mL/min/1.73m2) Glucose (74-106) mg/dL Calcium (8.5-10.1) mg/dL Magnesium (1.8-2.4) mg/dL Total Bilirubin (0.2-1.0) mg/dL AST (15-37) U/L ALT (16-63) U/L Alkaline Phosphatase (46-116) U/L Troponin I (<0.06) ng/mL Total Protein (6.4-8.2) g/dL Albumin (3.4-5.0) g/dL Urine Color (Yellow) Yellow Urine Clarity (Clear) Clear Urine pH (5-8) 6.0 Ur Specific [place] (1.005-1.025) 1.025 Urine Protein (Negative) mg/dL Negative Urine Ketones (Negative) mg/dL Negative Urine Blood (Negative) Negative Urine Nitrite (Negative) Negative Urine Bilirubin (Negative) Negative Urine Urobilinogen (Up TO 0.2) EU/dL 0.2 Ur Leukocyte Esterase (Negative) Negative Urine Glucose (Negative) mg/dL Negative ECG Data Attestation: I personally reviewed and interpreted this ECG (s) as follows: Interpretation: Rate of 68, atrial fibrillation, no acute ST elevation or depression. HPI General Mode of arrival: EMS. Date/Time Provider Initiated Documentation: 08/26/20 10:29. Limitations to Documentation: no limitations. Information obtained by: patient. HPI Narrative: Patient is an 80-year-old male who is DNR but not DNI who is followed by palliative care with a history of diabetes, frequent falls, coronary artery disease, dementia associated with alcoholism, hypertension, hyperlipidemia, obesity and paroxysmal atrial fibrillation presents for dizziness. He states he uses a walker for ambulation while in his apartment but walked down to the lounge in his building only using a cane. He states he did not want to use his walker outside of his apartment. He states he does use it when going to his appointments at the [facility]. He states he understands that he probably should not use his walker while walking to the lounge. He states while walking down the line using his cane he developed some dizziness and nearly fell but was able to catch himself. He denies any injury. He denies any dizziness at present. He also denies any fever, cough, headache, blurry vision, chest pain, shortness of breath, abdominal pain, vomiting, diarrhea or urinary symptoms. He states he has been eating and drinking well. He states he has nursing check on him every Friday for any of his needs. He states he does not need any assistance at home otherwise throughout the weekend his son Benitez helps him as needed. He states his son Benitez grocery shops for him and he prepares his meals which are usually canned foods. He states he helps himself in the bathroom and feels that he manages okay at home at this time. Patient was discharged from here 4 days ago after admitted for weakness and frequent falls in the setting of urinary tract infection. He was also admitted to the hospital on August 05 for UTI and was treated with Keflex. He then returned to the ER on August 14 with persistent UTI symptoms and continued the Keflex. He was admitted here on August 17 for 3 separate falls with home health nurse noting a decline. Patient had a capacity evaluation by Dr. Veroinca Olson during his recent admission and deemed him having the capacity to make decisions on his own. He had refused home health services and was discharged home. He was also seen by Dr. Zayas during a recent admission and she noted that his mental state had declined but will continue to follow him as an outpatient knowing that there may be a time he will be unable to care for himself and may need placement. Related Data Home Medications Medication Instructions Recorded Confirmed acetaminophen [Tylenol] 650 mg PO Q6H PRN PRN tab 06/24/16 08/26/20 furosemide 40 mg PO DAILY #60 tab-cap 08/06/17 08/26/20 triamcinolone acetonide 63 gm TOPICAL PRN 08/06/17 08/26/20 albuterol sulfate 2 puff INHALATION QID PRN 08/23/18 08/26/20 atorvastatin 40 mg PO DAILY 08/23/18 08/26/20 gabapentin 300 mg PO BID 08/23/18 08/26/20 metoprolol succinate 25 mg PO DAILY 08/23/18 08/26/20 docusate sodium 200 mg PO BID 10/10/18 08/26/20 alogliptin 6.25 mg PO DAILY 08/04/20 08/26/20 finasteride 5 mg PO DAILY 08/04/20 08/26/20 folic acid 1 mg PO DAILY 08/04/20 08/26/20 metformin 1,000 mg PO BID 08/04/20 08/26/20 polyethylene glycol 3350 17 g PO DAILY 08/04/20 08/26/20 sennosides 8.6 mg PO DAILY 08/04/20 08/26/20 carboxymethylcellulose sodium 1 drp OPHTHALMIC (EYE) QID 08/17/20 08/26/20 tamsulosin 0.4 mg PO DAILY 08/17/20 08/26/20 quetiapine [Seroquel] 25 mg PO BID #60 tab 08/22/20 08/26/20 thiamine HCl (vitamin B1) 100 mg PO DAILY #30 tab 08/22/20 08/26/20 thiamine mononitrate (vit B1) 100 mg PO DAILY #30 tab 08/22/20 08/26/20 [Vitamin B-1 (mononitrate)] Previous Rx's Medication Instructions Recorded acetaminophen [Tylenol] 650 mg PO Q6H PRN PRN tab 06/24/16 furosemide 40 mg PO DAILY #60 tab-cap 08/06/17 quetiapine [Seroquel] 25 mg PO BID #60 tab 08/22/20 thiamine HCl (vitamin B1) 100 mg PO DAILY #30 tab 08/22/20 thiamine mononitrate (vit B1) 100 mg PO DAILY #30 tab 08/22/20 [Vitamin B-1 (mononitrate)] Allergies Allergy/AdvReac Type Severity Reaction Status Date / Time wheat dextrin AdvReac Severe Unverified 08/26/20 10:32 animal dander AdvReac Unknown Unverified 08/26/20 10:32 codeine AdvReac Unverified 08/26/20 10:32 glutens Allergy Unknown Uncoded 08/26/20 10:32 glutethimide Allergy Unknown Uncoded 08/26/20 10:32 cats AdvReac Unknown Uncoded 08/26/20 10:32 General ABDIAS: 3 Review of Systems All systems reviewed & are unremarkable except as noted in HPI and below Constitutional Constitutional: Reports as per HPI, Denies chills and Denies fever(s) Eyes Eyes: Denies blurry vision ENT Ears, Nose, Mouth, and Throat: Reports dizziness, Denies sore throat and Denies throat swelling Cardiovascular Cardiovascular: Denies chest pain and Denies dyspnea Respiratory Respiratory: Denies cough and Denies dyspnea Gastrointestinal Gastrointestinal: Denies abdominal pain, Denies diarrhea and Denies vomiting Genitourinary Genitourinary: Denies hematuria and Denies dysuria Musculoskeletal Musculoskeletal: Denies back pain and Denies numbness Integumentary/Breasts Skin/Breast: Denies lesions and Denies rash Neurologic Neurologic: Reports dizziness, Denies localized weakness and Denies numbness Allergic/Immunologic Allergic/Immunologic: Denies throat swelling [facility] Medical History (Updated 08/26/20 @ 12:16 by Elba Giles DO) Abnormality of gait due to impairment of balance Alcohol dependence Asthma Atypical chest pain CAD (coronary artery disease) Carpal tunnel syndrome Celiac disease Chronic constipation Cognitive impairment Dementia associated with alcoholism Edema of lower extremity Enlarged prostate GERD (gastroesophageal reflux disease) Goals of care, counseling/discussion Hyperlipidemia Hypertension Insomnia Lives alone with help available [facility] Major depression Non-insulin dependent type 2 diabetes mellitus Noncompliance with medication regimen Obesity Palliative care patient Paroxysmal A-fib Prostate cancer Seborrheic dermatitis Sensorineural hearing loss of combined sites Sialadenitis Spinal stenosis Thyroid nodule TMJ (dislocation of temporomandibular joint) Urinary retention Surgical History History of appendectomy History of brachytherapy Family History (Updated 08/22/20 @ 21:15 by Lea Zayas MD) Son Pancreatic cancer Daughter Pancreatic cancer Son Substance abuse History of incarceration Son No problems noted. Son No problems noted. 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[employer], [employer] Pets and animals: No Sexually active: No Current gender identity: male What is your relationship status?: How often do you talk on the phone with friends or family?: once per week How often do you get together with friends or relatives?: never Do you belong to any clubs or organized social groups?: no Panel score (0-1 are the most socially isolated patients): 0 What type of physical activity do you participate in: walking and sedentary lifestyle Duration: < 15 minutes/day Special melissa needs: No Seatbelt use: always Water heater temp set <120 deg: Yes Working smoke detector in home: Yes Fire extinguisher in home: Yes Firearms in home: No Do you feel safe at home: Yes Do you feel safe in your relationship?: Yes Additional Social history: Lives at [facility]. Keeping to himself more since COVID-19. Used to sit out in LR with other residents. No one else in his family with dementia or memory issues. He has weekly visit from nurse Randa Pierre, from . He has plans to go to [place] facility when he can no longer live alone. I'm an introvert by nature. 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 Life went a different direction from his hopes. Exam Const General: cooperative and healthy appearing Orientation: alert and awake [facility] Head: normal to inspection Ears: hearing grossly normal bilaterally, external ears normal and TM's normal bilaterally General nose exam: external nose normal Face and sinus: normal facial exam Mouth: oral mucosae normal Teeth and gingiva: dentition normal Throat: posterior oropharynx normal Eyes General: appearance normal, both eyes and all related structures Eyelids: eyelids normal Pupils: PERRL EOM: EOM intact bilaterally Neck Neck: normal visual inspection Lymphatic: no lymphadenopathy noted Chest Chest: normal inspection of the chest Resp Effort & Inspection: normal respiratory effort and able to speak in complete sentences Auscultation: clear to auscultation bilaterally Cardio Rate: regular rate Rhythm: regular rhythm GI Inspection: normal to inspection Palpation: soft, not firm, no guarding, no hepatosplenomegaly, no masses and nontender Auscultation: normal bowel sounds Back/Spine/Pelvis Back: no CVA tenderness Skin General skin exam: no rashes or lesions noted Neuro General: patient alert and patient awake Cranial Nerves: CN's II-XI intact bilaterally Cognition: normal cognition Speech: speech normal Gait: normal gait Motor: muscle tone normal throughout, strength 5/5 throughout and no pronator drift Sensory Exam: no sensory deficits noted Extrem General: normal to inspection, full ROM, capillary refill normal and no edema Psych Appearance: grossly normal Mental Status: mental status grossly normal Speech and Movement: speech and movement normal Affect: normal affect Thought Process: normal
[2020-08-26 10:31] LABS: Abs Immature Grans 0.08 10^3/uL (0.0-0.06); Absolute Basophil Count 0.04 10^3/uL (0.0-0.2); Absolute Eosinophil Count 0.23 10^3/uL (0.0-0.7); Absolute Lymphocyte Count 1.23 10^3/uL (1.2-3.4); Absolute Monocyte Count 0.74 10^3/uL (0.1-0.8); Absolute Neutrophil Count 6.34 10^3/uL (1.2-6.7); Basophils % 0.5; Eosinophils % 2.7; HCT 41.6 % (40.0-50.0); HGB 13.5 g/dL (13.5-17.5); Immature Grans % 0.9; Lymphocytes % 14.2; MCH 32.1 pg (27.0-33.0); MCHC 32.5 % (32.0-36.0); MPV 10.7 fL (8.0-11.0); Monocytes % 8.5; Neutrophils % 73.2; Nucleated RBC 0 %; Platelet Count 178 10^3/uL (130-400); RDW 12.9 % (11.8-14.1); RDW-SD 47.3 fL; WBC 8.66 10^3/uL (4.4-10.8)
[2020-08-26 10:44] LABS: PTT Activated 31.9 sec (21.0-27.5); Prothrombin Time 10.3 sec (9.3-11.0)
[2020-08-26 10:47] LABS: ALT 20 U/L (16-63); AST 16 U/L (15-37); Albumin 3.6 g/dL (3.4-5.0); Alkaline Phosphatase 73 U/L (46-116); Anion Gap 7.1 mmol/L (3-11); BUN 27 mg/dL (7-18); Bilirubin, Total 0.5 mg/dL (0.2-1.0); CO2 27.9 mmol/L (21.0-32.0); CREATININE 1.08 mg/dL (0.70-1.30); Calcium 9.1 mg/dL (8.5-10.1); Chloride 104 mmol/L (98-107); Glucose 136 mg/dL (74-106); Potassium 4.2 mmol/L (3.5-5.1); Sodium 139 mmol/L (136-145); Total Protein 8.5 g/dL (6.4-8.2); Troponin I < 0.05 ng/mL (<0.06)
[2020-08-26] MEDS: Normal Saline 250 ML IV (11:10)
[2020-08-26 11:33] LABS: Bilirubin Negative (Negative); Blood Negative (Negative); Clarity Clear (Clear); Glucose Negative (Negative); Ketones Negative (Negative); Leukocyte Esterase Negative (Negative); Nitrite Negative (Negative); Specific Gravity 1.025 (1.005-1.025); Urobilinogen 0.2 EU/dL (Up TO 0.2)
== END 2020-08-26 13:30 | disposition home or self-care (01) ==
PROVIDERS: Emergency Provider Physician Assistant; PCP Nurse Practitioner
DX: R42 Dizziness and giddiness (principal); I48.0 Paroxysmal atrial fibrillation; R29.6 Repeated falls; I10 Essential (primary) hypertension; E11.9 Type 2 diabetes mellitus without complications; Z79.84 Long term (current) use of oral hypoglycemic drugs; F10.97 Alcohol use, unspecified with alcohol-induced persisting dementia
CPT/HCPCS: 80053; 93005; 93246; 96360; 99284; 81003; 83735; 84484; 85025; 85610; 85730; 93010

== ENCOUNTER 2020-08-28 19:49 | Emergency (ER) | payer MEDICARE, SELFPAY ==
[2020-08-28 19:54] VITALS: BP 144/50; PULSE 72; RESP 16; TEMP 37; O2SAT 97
[2020-08-28 20:01] VITALS: RESP 16
--- NOTE | 2020-08-28 20:12 | ED.GENADUL_ITS ---
Discharge Plan Disposition Patient Disposition: HOME Condition: Good Discharge Details Clinical Impression: Encounter for medical assessment Primary Care Provider: Erika Mix ED Provider: Jas Abel Home Meds and New Rx's Prescriptions: Continued furosemide 20 MG tablet 40 mg PO DAILY Qty: 60 RF: 11 triamcinolone acetonide 63 GM aerosol 63 gm Topical PRN RF: 0 gabapentin 300 mg Capsule 300 mg PO BID RF: 0 metoprolol succinate 25 mg Tablet Extended Release 24 Hr 25 mg PO DAILY RF: 0 albuterol sulfate 90 mcg/actuation Hfa Aerosol Inhaler 2 puff INHALATION QID PRNRF: 0 atorvastatin 40 MG tablet 20 mg PO DAILY RF: 0 docusate sodium 100 mg Tablet 100 mg PO BID RF: 0 polyethylene glycol 3350 17 gram Powder In Packet 17 g PO DAILY RF: 0 metformin 1,000 mg Tablet 1,000 mg PO BID RF: 0 sennosides 8.6 mg Capsule 8.6 mg PO DAILY RF: 0 alogliptin 6.25 mg Tablet 6.25 mg PO DAILY RF: 0 folic acid 1 mg Tablet 1 mg PO DAILY RF: 0 finasteride 5 mg Tablet 5 mg PO DAILY RF: 0 carboxymethylcellulose sodium 0.5 % Drops 1 drp ophthalmic (eye) QID RF: 0 tamsulosin 0.4 mg capsule 0.4 mg PO BID RF: 0 quetiapine [Seroquel] 25 mg tablet 25 mg PO BID Qty: 60 RF: 0 thiamine HCl (vitamin B1) 100 mg tablet 100 mg PO DAILY Qty: 30 RF: 0 aspirin 81 mg Tablet 81 mg PO DAILY RF: 0 acetaminophen [Tylenol] 325 MG tablet 650 mg PO Q6H PRN PRN (Reason: Mild Pain, Temp. Over 38.5) RF: 0 Discharge Instructions Instructions: Dizziness (ED) Additional Instructions: At this time you have requested that we do no more testing, and your exam shows no signs of acute life-threatening etiology. Please consider the options we have recommended of living in a facility where you can have more help and support. If you notice any worsening of your symptoms, or any new symptoms such as vomiting, diarrhea, fever, chills, shortness of breath, chest pain, numbness, weakness, or fainting , please return immediately to the emergency department for reevaluation. Please follow up with your primary care provider as soon as possible for reassessment and reevaluation. As always, it was a pleasure participating in your medical care today. Referrals: Erika Mix [Primary Care Provider] - Medical Decision Making 80 year-old male who is DNR but not DNI who is followed by palliative care with a history of diabetes, frequent falls, coronary artery disease, dementia associated with alcoholism, hypertension, hyperlipidemia, obesity and paroxysmal atrial fibrillation who presents today for a transient episode of dizziness. Patient states that at home he had a brief 15-minute episode where he was dizzy and his symptoms resolved on its own. He felt a little weak at that time. He denies any falls or trauma. Home health nurse came and evaluated him, and after an extensive discussion he decided to come to the ER for further assessment. He was brought by EMS. Vital signs stable. Currently the patient states that he feels well, I symptoms are gone, and I want to go home. The patient lives alone at home, he does have home health nursing coming once a week. He does not want any further work-up done at time. He states that he feels safe at home, but states that he is open to placement at a facility in the future. No other complaints, no other modifying factors. Patient feels well. Physical exam demonstrates no neurologic deficits, we did get the patient up he ambulated extremely well from the bathroom to his room and back. He shows no signs of ataxia, imbalance, weakness, or lightheadedness. I did contact his home health nurse, and she states that he seemed relatively stable but felt that further evaluation was indicated at the time. As his symptoms could be completely resolved, and he shows no deficits nystagmus or other significant abnormality in conjunction with his multiple reassuring work-up/imaging of the head in the past, I see no indication for additional emergent imaging or emergent work-up. We will get a urinalysis out of an abundance of precaution as he does state he has fatigue currently. I did contact her director of casework department Martha, and discussed the case with her. She will follow-up closely with the patient on an outpatient basis for further discussion of placement. Of note in the past he is notably refused placement, but I do feel he may benefit from further assistance at home or placement in a facility where he would have more generalized support. 8:38 PM Urinalysis is returned negative for evidence of infection. Patient remains well and continues to state that he feels fine and does not want any further work-up. He again ambulates well, and shows no signs of significant imbalance. Urine leuk esterase and nitrates are both negative, 5-10 WBCs, but not indicative of an infectious etiology. No indication for antibiotics at this time. Patient will be discharged home with close follow-up with case management on an outpatient basis. Signs and symptoms at this time are clinically inconsistent with stroke, cerebellar stroke, significant electrolyte derangement, or hemodynamic instability. I have extensively reviewed the treatment plan and discharge instructions with the patient. I have addressed all patient concerns at this time. The patient was made aware of what symptoms to monitor for that would warrant a return to the emergency department. Discussed the plan with the patient, they demonstrate verbal understanding and agreement with our assessment and plan at this time. Additionally I did contact the patient's son Benitez and discussed the case with him. He too exhibited some frustration with his father's unwillingness to get help were be at a facility where he could receive some more care and help. I answered all questions that he had. HPI General Date/Time Provider Initiated Documentation: 08/28/20 19:58 . HPI Narrative: 80 year-old male who is DNR but not DNI who is followed by palliative care with a history of diabetes, frequent falls, coronary artery disease, dementia associated with alcoholism, hypertension, hyperlipidemia, obesity and paroxysmal atrial fibrillation who presents today for a transient episode of dizziness. Patient states that at home he had a brief 15-minute episode where he was dizzy and his symptoms resolved on its own. He felt a little weak at that time. He denies any falls or trauma. Home health nurse came and evaluated him, and after an extensive discussion he decided to come to the ER for further assessment. He was brought by EMS. Vital signs stable. Currently the patient states that he feels well, I symptoms are gone, and I want to go home. The patient lives alone at home, he does have home health nursing coming once a week. He does not want any further work-up done at time. He states that he feels safe at home, but states that he is open to placement at a facility in the future. No other complaints, no other modifying factors. Patient feels well. Related Data Home Medications Medication Instructions Recorded Confirmed acetaminophen [Tylenol] 650 mg PO Q6H PRN PRN tab 06/24/16 08/28/20 furosemide 40 mg PO DAILY #60 tab-cap 08/06/17 08/28/20 triamcinolone acetonide 63 gm TOPICAL PRN 08/06/17 08/28/20 albuterol sulfate 2 puff INHALATION QID PRN 08/23/18 08/28/20 atorvastatin 20 mg PO DAILY 08/23/18 08/28/20 gabapentin 300 mg PO BID 08/23/18 08/28/20 metoprolol succinate 25 mg PO DAILY 08/23/18 08/28/20 docusate sodium 100 mg PO BID 10/10/18 08/28/20 alogliptin 6.25 mg PO DAILY 08/04/20 08/28/20 finasteride 5 mg PO DAILY 08/04/20 08/28/20 folic acid 1 mg PO DAILY 08/04/20 08/28/20 metformin 1,000 mg PO BID 08/04/20 08/28/20 polyethylene glycol 3350 17 g PO DAILY 08/04/20 08/28/20 sennosides 8.6 mg PO DAILY 08/04/20 08/28/20 carboxymethylcellulose sodium 1 drp OPHTHALMIC (EYE) QID 08/17/20 08/28/20 tamsulosin 0.4 mg PO BID 08/17/20 08/28/20 quetiapine [Seroquel] 25 mg PO BID #60 tab 08/22/20 08/28/20 thiamine HCl (vitamin B1) 100 mg PO DAILY #30 tab 08/22/20 08/28/20 aspirin 81 mg PO DAILY 08/28/20 08/28/20 Previous Rx's Medication Instructions Recorded acetaminophen [Tylenol] 650 mg PO Q6H PRN PRN tab 06/24/16 furosemide 40 mg PO DAILY #60 tab-cap 08/06/17 quetiapine [Seroquel] 25 mg PO BID #60 tab 08/22/20 thiamine HCl (vitamin B1) 100 mg PO DAILY #30 tab 08/22/20 Allergies Allergy/AdvReac Type Severity Reaction Status Date / Time wheat dextrin AdvReac Severe Unverified 08/26/20 10:32 animal dander AdvReac Unknown Unverified 08/26/20 10:32 codeine AdvReac Unverified 01/16/21 10:32 glutens Allergy Unknown Uncoded 08/26/20 10:32 glutethimide Allergy Unknown Uncoded 08/26/20 10:32 cats AdvReac Unknown Uncoded 08/26/20 10:32 General Stated Complaint: Dizzy/Sync ABDIAS: 3 Review of Systems All systems reviewed & are unremarkable except as noted in HPI and below PFSH Medical History Abnormality of gait due to impairment of balance Alcohol dependence Asthma Atypical chest pain CAD (coronary artery disease) Carpal tunnel syndrome Celiac disease Chronic constipation Cognitive impairment Dementia associated with alcoholism Edema of lower extremity Enlarged prostate GERD (gastroesophageal reflux disease) Goals of care, counseling/discussion Hyperlipidemia Hypertension Insomnia Lives alone with help available [facility] Major depression Non-insulin dependent type 2 diabetes mellitus Noncompliance with medication regimen Obesity Palliative care patient Paroxysmal A-fib Prostate cancer Seborrheic dermatitis Sensorineural hearing loss of combined sites Sialadenitis Spinal stenosis Thyroid nodule TMJ (dislocation of temporomandibular joint) Urinary retention Surgical History History of appendectomy History of brachytherapy Family History Son Pancreatic cancer Daughter Pancreatic cancer Son Substance abuse History of incarceration Son No problems noted. Son No problems noted. 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 [employer] Pets and animals: No Sexually active: No Current gender identity: male What is your relationship status?: How often do you talk on the phone with friends or family?: once per week How often do you get together with friends or relatives?: never Do you belong to any clubs or organized social groups?: no Panel score (0-1 are the most socially isolated patients): 0 What type of physical activity do you participate in: walking and sedentary lifestyle Duration: < 15 minutes/day Special melissa needs: No Seatbelt use: always Water heater temp set <120 deg: Yes Working smoke detector in home: Yes Fire extinguisher in home: Yes Firearms in home: No Do you feel safe at home: Yes Do you feel safe in your relationship?: Yes Additional Social history: Lives at [facility]. Keeping to himself more since COVID-19. Used to sit out in LR with other residents. No one else in his family with dementia or memory issues. He has weekly visit from nurse Randa Pierre, from . He has plans to go to [facility] facility when he can no longer live alone. I'm an introvert by nature. He was the valedictorian from his high school class and went out to [place] after he graduated, only to return a few months later after being hospitalized with ruptured appendix. Life went a different direction from his hopes. Exam Narrative Exam Narrative: 1.Const: Well-nourished, Well-developed, appearing stated age 2.Eyes: PERRL, no conjunctival injection, and symmetrical lids. 3.ENT: Atraumatic external nose and ears. Moist MM. Neck: Symmetric, trachea midline, No thyromegaly. 4.CVS: +S1/S2, No murmurs or gallops. Peripheral pulses 2+ and equal in all extremities. Brisk capillary refill in all extremities. 5.RESP: Unlabored respiratory effort. Clear to auscultation bilaterally. No wheezes rales or rhonchi 6.GI: Soft, Nontender/Nondistended, No hepatosplenomegaly. No guarding or rebound. 7.MSK: Normocephalic/Atraumatic, Extremities w/o deformity or ttp No cyanosis or clubbing, Normal movement of all extremities 8.Skin: Warm, Dry. No rashes or lesions. 9.Neuro: manager paper II-XII grossly intact. Sensation grossly intact, no focal neurologic deficits. All 6 cardinal planes of vision are fully intact. No evidence of rotatory or vertical nystagmus. The patient demonstrated a normal [id number], good dexterity. There was no evidence of dysdiadochokinesia. Patient was able to ambulate without difficulty. There was no wide-based gait. Romberg testing was normal. Jryp-hz-[id number] testing was normal. Sensation was intact bilaterally as well as muscle strength bilaterally for all extremities. Patient was able to verbalize butter cup with no slurring, or miss pronunciation. 10.Psych: (AAO) x3. Appropriate mood and affect Course Vital Signs Vital signs: Vital Signs Temperature 37.0 C 08/28/20 19:54 Pulse 72 08/28/20 19:54 Respiratory Rate 16 08/28/20 19:54 Blood Pressure 144/50 H 08/28/20 19:54 Pulse Oximetry 97 08/28/20 19:54 Temperature 37.0 C 08/28/20 19:54 Temperature Source Skin 08/28/20 19:54 Pulse 72 08/28/20 19:54 Respiratory Rate 16 08/28/20 20:01 Respiratory Effort 08/28/20 20:01 Respiratory Depth Normal 08/28/20 20:01 Respiratory Pattern Normal 08/28/20 20:01 Blood Pressure 144/50 H 08/28/20 19:54 Blood Pressure Position Sitting 08/28/20 19:54 Pulse Oximetry 97 08/28/20 19:54 Oxygen Delivery Method Room Air 08/28/20 19:54 Oxygen Flow Rate 0 08/28/20 19:54 Pain Level 0 08/28/20 19:54
[2020-08-28 20:26] LABS: Bilirubin Negative (Negative); Blood Trace-intact (Negative); Clarity Clear (Clear); Glucose Negative (Negative); Ketones Negative (Negative); Leukocyte Esterase Negative (Negative); Nitrite Negative (Negative); Specific Gravity 1.025 (1.005-1.025); Urobilinogen 0.2 EU/dL (Up TO 0.2); pH 6.5 (5-8)
[2020-08-28 20:35] LABS: RBC 0-2 HPF (0-2)
[2020-08-28 20:36] LABS: Bacteria Few HPF (Negative); C & S Indicated? Yes; Casts Negative LPF (Negative); Crystals Negative HPF (Negative); Epithelial Cells Few HPF (Negative); Mucus Negative (Negative)
[2020-08-28 20:59] VITALS: BP 118/88; PULSE 70; RESP 16; TEMP 36.8; O2SAT 97
--- NOTE | 2020-08-29 16:50 | PDOC.ERCMPRO ---
- If Service Date Differs Date of service: 08/29/20 Time of Service: 16:51 Care Management Progress Note Williams comes to the ED on 08/28/2020 for weakness. At the request of Dr. Abel, ED provider, FARNAZ telephones Williams to discuss placement and/or an increase of in-home services. Williams reports he lives alone in an apartment at the [facility]. He shares he does not have a or a girlfriend so he gets lonely sometimes. Williams states Randa Pierre, a Home Health RN, comes to his home every Friday. He goes on to say that she takes very good care of him and he greatly enjoys her visit every week. When Williams is asked about meals, he replies he gets his own breakfast and supper and the [facility] delivers dinner to his door. Williams cleans his apartment, does the dishes, and is independent with his ADLs. His son, Benitez, picks up his clothes and does his laundry. Williams states he gave his niece some money and asked her to buy him a steam iron because sometimes his clothes are wrinkled when Benitez brings them back to him. Williams is quite clear that he has no interest in moving out of his apartment and into a SNF or assisted-living. He also declines an increase in in-home services, saying there's nothing for anyone to do. Williams is instructed to let his HH RN know if he changes his mind. CM will continue to follow.
== END 2020-08-28 20:55 | disposition home or self-care (01) ==
PROVIDERS: Emergency Provider Student in an Organized Health Care Education/Training Program; PCP Nurse Practitioner
DX: R42 Dizziness and giddiness (principal); R29.6 Repeated falls; E11.9 Type 2 diabetes mellitus without complications; Z79.84 Long term (current) use of oral hypoglycemic drugs; I10 Essential (primary) hypertension; I48.91 Unspecified atrial fibrillation
CPT/HCPCS: 99283; 81003; 81015; 87086

== ENCOUNTER 2020-08-29 18:34 | Emergency (ER) | payer MEDICARE, SELFPAY ==
--- NOTE | 2020-08-29 18:15 | RT.EKG_ITS ---
APPROVED REPORT Exam: Resting ECG Patient Location: E HR:81 bpm ECG Measurements Heart Rate 81 AXIS ID [id number] P [id number] QRSd 93 QRS 77 QT 391 T 242 QTc 454 Conclusion Atrial fibrillation...V-rate 61-115, irreg A-activity Nonspecific T abnormalities, diffuse leads...T <-0.10mV, ant/lat/inf I have reviewed and interpreted ECG and agree with software generated interpretation.
[2020-08-29 18:26] VITALS: PULSE 92; RESP 18
[2020-08-29 18:27] VITALS: BP 146/69; PULSE 74; PULSE 81; PULSE 87; RESP 18; TEMP 36.6; O2SAT 96; O2SAT 98
--- NOTE | 2020-08-29 18:52 | ED.GENADUL_ITS ---
Discharge Plan Disposition Patient Disposition: HOME Condition: Stable Discharge Details Clinical Impression: Encounter for medical assessment Primary Care Provider: Erika Mix ED Provider: Elba Giles Home Meds and New Rx's Prescriptions: Continued furosemide 20 MG tablet 40 mg PO DAILY Qty: 60 RF: 11 triamcinolone acetonide 63 GM aerosol 63 gm Topical PRN RF: 0 gabapentin 300 mg Capsule 300 mg PO BID RF: 0 metoprolol succinate 25 mg Tablet Extended Release 24 Hr 25 mg PO DAILY RF: 0 albuterol sulfate 90 mcg/actuation Hfa Aerosol Inhaler 2 puff INHALATION QID PRNRF: 0 atorvastatin 40 MG tablet 20 mg PO DAILY RF: 0 docusate sodium 100 mg Tablet 100 mg PO BID RF: 0 polyethylene glycol 3350 17 gram Powder In Packet 17 g PO DAILY RF: 0 metformin 1,000 mg Tablet 1,000 mg PO BID RF: 0 sennosides 8.6 mg Capsule 8.6 mg PO DAILY RF: 0 alogliptin 6.25 mg Tablet 6.25 mg PO DAILY RF: 0 folic acid 1 mg Tablet 1 mg PO DAILY RF: 0 finasteride 5 mg Tablet 5 mg PO DAILY RF: 0 carboxymethylcellulose sodium 0.5 % Drops 1 drp ophthalmic (eye) QID RF: 0 tamsulosin 0.4 mg capsule 0.4 mg PO BID RF: 0 quetiapine [Seroquel] 25 mg tablet 25 mg PO BID Qty: 60 RF: 0 thiamine HCl (vitamin B1) 100 mg tablet 100 mg PO DAILY Qty: 30 RF: 0 aspirin 81 mg Tablet 81 mg PO DAILY RF: 0 acetaminophen [Tylenol] 325 MG tablet 650 mg PO Q6H PRN PRN (Reason: Mild Pain, Temp. Over 38.5) RF: 0 Discharge Instructions Instructions: A-fib (Atrial Fibrillation) (ED) Additional Instructions: Take your regular medications as directed. Care management will continue to discuss with you whether you decide to receive home health services. Follow-up with your primary care doctor in 1 week. Return to the emergency department with any worsening or new concerning symptoms. Discharge Data Discharge Date/Time-TO BE ENTERED AT DEPARTURE: 08/29/20 20:00 Discharge Physician: Elba Giles Medical Decision Making 80-year-old male with a history of paroxysmal atrial fibrillation, hypertension, hyperlipidemia, diabetes, obesity, former alcohol dependence presents for evaluation after discussion at home with home health nurse regarding his A. fib . Patient was seen here last night for similar complaint of medical assessment and brief complaint of dizziness and had a urinalysis which noted 5-10 WBCs but culture still pending. Patient was also seen here 3 days ago and had a full work-up which was unremarkable. EKG notes a rate of 81, atrial fibrillation with no acute ST ischemic findings. Patient evaluated at bedside and he has no acute complaints. Patient was admitted here last week and was evaluated by psychiatry and determined that he has capacity to make decisions. Patient is requesting to go home. Discussed at length with patient's son and [id number] over the phone -they were initially very concerned with patient going home but they understand that he was recently evaluated as having competency thus complicating the issue of forcing him to stay. They are concerned about his ongoing behavior and whether he is able to live at home alone. [id number] stated that patient has sundowners and he tends to be evaluated during the day and this is not seen. [id number] stated she was trying to look into patient going to [place] as he would like a private room. [facility] was discussed with patient at bedside and he is refusing this. Son Benitez is going to pick up operator patient in the ED. Case discussed with care management -recommended that we have palliative care evaluate patient at home with a family meeting in the next week. HPI General Mode of arrival: ambulatory . Date/Time Provider Initiated Documentation: 08/29/20 18:40 . Limitations to Documentation: no limitations . Information obtained by: patient . HPI Narrative: Pt is an 80yo M with a history of diabetes, coronary artery disease, GERD, asthma, paroxysmal atrial fibrillation, prostate cancer and former alcohol abuse who presents to the ED for evaluation. Patient has been to the ED several times in the past week and was admitted here this month and treated for UTI. He was determined to have increasing difficulty in caring for himself at home and plan was for discharge to acute rehab but patient declined and went home. He had been evaluated by psychiatry for competency and was determined that he has his own capacity make decisions. When asked patient why he is here today, he denies any acute complaints. EMS had reported that patient spoke to his home health nurse who advised that he come here. He denies any complaint of headache, chest pain, shortness of breath, dizziness, vomiting, diarrhea or abdominal pain. Related Data Home Medications Medication Instructions Recorded Confirmed acetaminophen [Tylenol] 650 mg PO Q6H PRN PRN tab 06/24/16 08/30/20 furosemide 40 mg PO DAILY #60 tab-cap 08/06/17 08/30/20 triamcinolone acetonide 63 gm TOPICAL PRN 08/06/17 08/30/20 albuterol sulfate 2 puff INHALATION QID PRN 08/23/18 08/30/20 atorvastatin 20 mg PO DAILY 08/23/18 08/30/20 gabapentin 300 mg PO BID 08/23/18 08/30/20 metoprolol succinate 25 mg PO DAILY 08/23/18 08/30/20 docusate sodium 100 mg PO BID 10/10/18 08/30/20 alogliptin 6.25 mg PO DAILY 08/04/20 08/30/20 finasteride 5 mg PO DAILY 08/04/20 08/30/20 folic acid 1 mg PO DAILY 08/04/20 08/30/20 metformin 1,000 mg PO BID 08/04/20 08/30/20 polyethylene glycol 3350 17 g PO DAILY 08/04/20 08/30/20 sennosides 8.6 mg PO DAILY 08/04/20 08/30/20 carboxymethylcellulose sodium 1 drp OPHTHALMIC (EYE) QID 08/17/20 08/30/20 tamsulosin 0.4 mg PO BID 08/17/20 08/30/20 quetiapine [Seroquel] 25 mg PO BID #60 tab 08/22/20 08/30/20 thiamine HCl (vitamin B1) 100 mg PO DAILY #30 tab 08/22/20 08/30/20 aspirin 81 mg PO DAILY 08/28/20 08/30/20 Previous Rx's Medication Instructions Recorded acetaminophen [Tylenol] 650 mg PO Q6H PRN PRN tab 06/24/16 furosemide 40 mg PO DAILY #60 tab-cap 08/06/17 quetiapine [Seroquel] 25 mg PO BID #60 tab 08/22/20 thiamine HCl (vitamin B1) 100 mg PO DAILY #30 tab 08/22/20 Allergies Allergy/AdvReac Type Severity Reaction Status Date / Time wheat dextrin AdvReac Severe Unverified 08/29/20 18:33 animal dander AdvReac Unknown Unverified 08/29/20 18:33 codeine AdvReac Unverified 08/29/20 18:33 glutens Allergy Unknown Uncoded 08/29/20 18:33 glutethimide Allergy Unknown Uncoded 08/29/20 18:33 cats AdvReac Unknown Uncoded 08/29/20 18:33 General Stated Complaint: Palpitatns ABDIAS: 3 Review of Systems All systems reviewed & are unremarkable except as noted in HPI and below Constitutional Constitutional: Reports as per HPI, Denies chills and Denies fever(s) Eyes Eyes: Denies blurry vision ENT Ears, Nose, Mouth, and Throat: Denies dizziness, Denies sore throat and Denies throat swelling Cardiovascular Cardiovascular: Denies chest pain and Denies dyspnea Respiratory Respiratory: Denies cough and Denies dyspnea Gastrointestinal Gastrointestinal: Denies abdominal pain, Denies diarrhea and Denies vomiting Genitourinary Genitourinary: Denies hematuria and Denies dysuria Musculoskeletal Musculoskeletal: Denies back pain and Denies numbness Integumentary/Breasts Skin/Breast: Denies lesions and Denies rash Neurologic Neurologic: Denies dizziness, Denies localized weakness and Denies numbness Allergic/Immunologic Allergic/Immunologic: Denies throat swelling [facility] Medical History Abnormality of gait due to impairment of balance Alcohol dependence Asthma Atypical chest pain CAD (coronary artery disease) Carpal tunnel syndrome Celiac disease Chronic constipation Cognitive impairment Dementia associated with alcoholism Edema of lower extremity Enlarged prostate GERD (gastroesophageal reflux disease) Goals of care, counseling/discussion Hyperlipidemia Hypertension Insomnia Lives alone with help available [facility] Major depression Non-insulin dependent type 2 diabetes mellitus Noncompliance with medication regimen Obesity Palliative care patient Paroxysmal A-fib Prostate cancer Seborrheic dermatitis Sensorineural hearing loss of combined sites Sialadenitis Spinal stenosis Thyroid nodule TMJ (dislocation of temporomandibular joint) Urinary retention Surgical History History of appendectomy History of brachytherapy Family History Son Pancreatic cancer Daughter Pancreatic cancer Son Substance abuse History of incarceration Son No problems noted. Son No problems noted. 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 [employer] Pets and animals: No Sexually active: No Current gender identity: male What is your relationship status?: How often do you talk on the phone with friends or family?: once per week How often do you get together with friends or relatives?: never Do you belong to any clubs or organized social groups?: no Panel score (0-1 are the most socially isolated patients): 0 What type of physical activity do you participate in: walking and sedentary lifestyle Duration: < 15 minutes/day Special melissa needs: No Seatbelt use: always Water heater temp set <120 deg: Yes Working smoke detector in home: Yes Fire extinguisher in home: Yes Firearms in home: No Do you feel safe at home: Yes Do you feel safe in your relationship?: Yes Exam Const General: cooperative, healthy appearing and no acute distress HENMT Head: normal to inspection Face and sinus: normal facial exam Eyes General: appearance normal, both eyes and all related structures Pupils: PERRL EOM: EOM intact bilaterally Neck Neck: normal visual inspection and No submandibular swelling Lymphatic: no lymphadenopathy noted Chest Chest: normal inspection of the chest and no tenderness Resp Effort & Inspection: normal respiratory effort and able to speak in complete sentences Auscultation: clear to auscultation bilaterally Cardio Rate: regular rate Rhythm: regular rhythm GI Inspection: normal to inspection Palpation: soft, not firm, not rigid and nontender Auscultation: normal bowel sounds Skin General skin exam: no rashes or lesions noted Neuro General: patient alert, patient awake and patient oriented x3 Cognition: normal cognition Speech: speech normal Motor: muscle tone normal throughout Sensory Exam: no sensory deficits noted Extrem General: normal to inspection, full ROM, capillary refill normal, no calf tenderness bilaterally and no edema Psych Appearance: grossly normal Mental Status: mental status grossly normal Speech and Movement: speech and movement normal Affect: normal affect Course Vital Signs Vital signs: Vital Signs Respiratory Rate 18 08/29/20 18:26 Temperature 97.9 F 08/29/20 18:27 Temperature Source Skin 08/29/20 18:27 Pulse 74 08/29/20 18:27 Pulse 87 08/29/20 18:27 Respiratory Rate 18 08/29/20 18:27 Respiratory Effort Non-Labored 08/29/20 18:29 Blood Pressure 146/69 H 08/29/20 18:27 Blood Pressure Mean 86 08/29/20 18:27 Blood Pressure Position Sitting 08/29/20 18:27 Pulse Oximetry 96 08/29/20 18:27 Oxygen Delivery Method Room Air 08/29/20 18:27 Oxygen Flow Rate 0 08/29/20 18:27 Pain Level 0 08/29/20 18:27
== END 2020-08-29 20:00 | disposition home or self-care (01) ==
PROVIDERS: Emergency Provider Physician Assistant; PCP Nurse Practitioner
DX: I48.0 Paroxysmal atrial fibrillation (principal); I10 Essential (primary) hypertension; E11.9 Type 2 diabetes mellitus without complications; Z79.84 Long term (current) use of oral hypoglycemic drugs; Z60.2 Problems related to living alone
CPT/HCPCS: 36416; 82962; 93005; 99284; 93010; 99283

== ENCOUNTER 2020-08-30 17:25 | Observation (INO) | payer MEDICARE, SELFPAY ==
[2020-08-30 17:38] VITALS: BP 112/55; PULSE 95; RESP 18; TEMP 36.6; O2SAT 95
[2020-08-30 17:56] LABS: Bilirubin Negative (Negative); Blood Trace-intact (Negative); Clarity Clear (Clear); Glucose Negative (Negative); Ketones Negative (Negative); Leukocyte Esterase Negative (Negative); Nitrite Negative (Negative); Specific Gravity 1.015 (1.005-1.025); Urobilinogen 0.2 EU/dL (Up TO 0.2)
[2020-08-30 18:08] LABS: Bacteria Negative HPF (Negative); C & S Indicated? Yes; Casts Negative LPF (Negative); Crystals Negative HPF (Negative); Epithelial Cells Negative HPF (Negative); Mucus Negative (Negative); Other Cells Negative (Negative)
--- NOTE | 2020-08-30 18:20 | ED.GENADUL_ITS ---
Discharge Plan Disposition Patient Disposition: [facility] INPATIENT Condition: Stable Discharge Details Clinical Impression: Adult failure to thrive Primary Care Provider: Erika Mix ED Provider: Elba Giles Home Meds and New Rx's Prescriptions: No Action furosemide 20 MG tablet 40 mg PO DAILY Qty: 60 RF: 11 triamcinolone acetonide 63 GM aerosol 63 gm Topical PRN RF: 0 gabapentin 300 mg Capsule 300 mg PO BID RF: 0 metoprolol succinate 25 mg Tablet Extended Release 24 Hr 25 mg PO DAILY RF: 0 albuterol sulfate 90 mcg/actuation Hfa Aerosol Inhaler 2 puff INHALATION QID PRNRF: 0 atorvastatin 40 MG tablet 20 mg PO DAILY RF: 0 docusate sodium 100 mg Tablet 100 mg PO BID RF: 0 polyethylene glycol 3350 17 gram Powder In Packet 17 g PO DAILY RF: 0 metformin 1,000 mg Tablet 1,000 mg PO BID RF: 0 sennosides 8.6 mg Capsule 8.6 mg PO DAILY RF: 0 alogliptin 6.25 mg Tablet 6.25 mg PO DAILY RF: 0 folic acid 1 mg Tablet 1 mg PO DAILY RF: 0 finasteride 5 mg Tablet 5 mg PO DAILY RF: 0 carboxymethylcellulose sodium 0.5 % Drops 1 drp ophthalmic (eye) QID RF: 0 tamsulosin 0.4 mg capsule 0.4 mg PO BID RF: 0 quetiapine [Seroquel] 25 mg tablet 25 mg PO BID Qty: 60 RF: 0 thiamine HCl (vitamin B1) 100 mg tablet 100 mg PO DAILY Qty: 30 RF: 0 aspirin 81 mg Tablet 81 mg PO DAILY RF: 0 acetaminophen [Tylenol] 325 MG tablet 650 mg PO Q6H PRN PRN (Reason: Mild Pain, Temp. Over 38.5) RF: 0 Medical Decision Making 80-year-old male with a history of dementia presents for progressive cognitive decline and inability to care for himself at home. This is patient's third visit in the last 3 days for various complaints, including dizziness, no complaints, or stating he has A. fib. Once patient arrived to the ED yesterday and today, he has no acute complaints. Family expressed concern of patient being discharged home last night but patient declined admission yesterday and wanted to go home. He was deemed by psychiatry last week to have capacity to make decisions. Family agreed with plan for discharge home last night with plan for palliative care and care management to arrange a family meeting to discuss their concern that patient should be placed in a senior living facility. It is clear that patient has continued decline per family's description of his sundowners and that he cannot be at home alone with concern for his safety. They state that he leaves the house and goes outside and called family members in the middle the night and his memory is continuing to decline. Patient stated to nursing staff that he feels he cannot do this anymore and needs placement. Upon my evaluation of patient in room, he is asking to go home and stating I do not want my family involved in my results anymore . Patient is able to be redirected and agrees that he does not want to go home and fall and expresses understanding for concern. Care management discussed with family who states they would like patient admitted for plan for placement to possible rehab or senior living facility. Case discussed with hospitalist accepts patient for admission for adult failure to thrive. Screening labs obtained and notes 5-10 WBCs. Urine culture from 2 days ago no growth. Remainder of labs unremarkable. Medical Records Medical records reviewed: Yes I reviewed the patient's medical records. HPI General Mode of arrival: EMS . Date/Time Provider Initiated Documentation: 08/30/20 18:05 . Limitations to Documentation: no limitations . Information obtained by: patient and family . HPI Narrative: Patient is a an 80-year-old male with a history of dementia with progressive cognitive decline, diabetes, asthma, former alcohol abuse, obesity, paroxysmal atrial fibrillation who presents for admission for inability to care for himself at home per family. This is patient's third visit to the ED in the last 3 days. Patient was seen here twice last week and admitted and seen by psychiatry and determined to have capacity to make decisions and refused admission or transfer to a senior living facility at that time. Patient was last seen her last night and there was long discussion with care management and patient's family that as he had been deemed competent and was refusing admission last night, plan was for patient to go home with plan for family meeting and consider reassessing his competency and whether he needs guardianship to make decisions for him. Patient states to nursing staff today that he does feel he needs placement as he cannot care for himself at home anymore. When discussed with patient at bedside, he states I want to keep my family out of my results from now on. He otherwise denies any acute complaints. Related Data Home Medications Medication Instructions Recorded Confirmed acetaminophen [Tylenol] 650 mg PO Q6H PRN PRN tab 06/24/16 08/29/20 furosemide 40 mg PO DAILY #60 tab-cap 08/06/17 08/29/20 triamcinolone acetonide 63 gm TOPICAL PRN 08/06/17 08/29/20 albuterol sulfate 2 puff INHALATION QID PRN 08/23/18 08/29/20 atorvastatin 20 mg PO DAILY 08/23/18 08/29/20 gabapentin 300 mg PO BID 08/23/18 08/29/20 metoprolol succinate 25 mg PO DAILY 08/23/18 08/29/20 docusate sodium 100 mg PO BID 10/10/18 08/29/20 alogliptin 6.25 mg PO DAILY 08/04/20 08/29/20 finasteride 5 mg PO DAILY 08/04/20 08/29/20 folic acid 1 mg PO DAILY 08/04/20 08/29/20 metformin 1,000 mg PO BID 08/04/20 08/29/20 polyethylene glycol 3350 17 g PO DAILY 08/04/20 08/29/20 sennosides 8.6 mg PO DAILY 08/04/20 08/29/20 carboxymethylcellulose sodium 1 drp OPHTHALMIC (EYE) QID 08/17/20 08/29/20 tamsulosin 0.4 mg PO BID 08/17/20 08/29/20 quetiapine [Seroquel] 25 mg PO BID #60 tab 08/22/20 08/29/20 thiamine HCl (vitamin B1) 100 mg PO DAILY #30 tab 08/22/20 08/29/20 aspirin 81 mg PO DAILY 08/28/20 08/29/20 Previous Rx's Medication Instructions Recorded acetaminophen [Tylenol] 650 mg PO Q6H PRN PRN tab 06/24/16 furosemide 40 mg PO DAILY #60 tab-cap 08/06/17 quetiapine [Seroquel] 25 mg PO BID #60 tab 08/22/20 thiamine HCl (vitamin B1) 100 mg PO DAILY #30 tab 08/22/20 Allergies Allergy/AdvReac Type Severity Reaction Status Date / Time wheat dextrin AdvReac Severe Unverified 08/29/20 18:33 animal dander AdvReac Unknown Unverified 08/29/20 18:33 codeine AdvReac Unverified 08/29/20 18:33 glutens Allergy Unknown Uncoded 08/29/20 18:33 glutethimide Allergy Unknown Uncoded 08/29/20 18:33 cats AdvReac Unknown Uncoded 08/29/20 18:33 General Stated Complaint: GenMedical ABDIAS: 3 Review of Systems All systems reviewed & are unremarkable except as noted in HPI and below Constitutional Constitutional: Reports as per HPI, Denies chills and Denies fever(s) Eyes Eyes: Denies blurry vision ENT Ears, Nose, Mouth, and Throat: Denies dizziness, Denies sore throat and Denies throat swelling Cardiovascular Cardiovascular: Denies chest pain and Denies dyspnea Respiratory Respiratory: Denies cough and Denies dyspnea Gastrointestinal Gastrointestinal: Denies abdominal pain, Denies diarrhea and Denies vomiting Genitourinary Genitourinary: Denies hematuria and Denies dysuria Musculoskeletal Musculoskeletal: Denies back pain and Denies numbness Integumentary/Breasts Skin/Breast: Denies lesions and Denies rash Neurologic Neurologic: Denies dizziness, Denies localized weakness and Denies numbness Allergic/Immunologic Allergic/Immunologic: Denies throat swelling [facility] Medical History Abnormality of gait due to impairment of balance Alcohol dependence Asthma Atypical chest pain CAD (coronary artery disease) Carpal tunnel syndrome Celiac disease Chronic constipation Cognitive impairment Dementia associated with alcoholism Edema of lower extremity Enlarged prostate GERD (gastroesophageal reflux disease) Goals of care, counseling/discussion Hyperlipidemia Hypertension Insomnia Lives alone with help available [facility] Major depression Non-insulin dependent type 2 diabetes mellitus Noncompliance with medication regimen Obesity Palliative care patient Paroxysmal A-fib Prostate cancer Seborrheic dermatitis Sensorineural hearing loss of combined sites Sialadenitis Spinal stenosis Thyroid nodule TMJ (dislocation of temporomandibular joint) Urinary retention Surgical History History of appendectomy History of brachytherapy Family History Son Pancreatic cancer Daughter Pancreatic cancer Son Substance abuse History of incarceration Son No problems noted. Son No problems noted. 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 [employer] Pets and animals: No Sexually active: No Current gender identity: male What is your relationship status?: How often do you talk on the phone with friends or family?: once per week How often do you get together with friends or relatives?: never Do you belong to any clubs or organized social groups?: no Panel score (0-1 are the most socially isolated patients): 0 What type of physical activity do you participate in: walking and sedentary lifestyle Duration: < 15 minutes/day Special melissa needs: No Seatbelt use: always Water heater temp set <120 deg: Yes Working smoke detector in home: Yes Fire extinguisher in home: Yes Firearms in home: No Do you feel safe at home: Yes Do you feel safe in your relationship?: Yes Exam Const General: cooperative, healthy appearing and no acute distress HENMT Head: normal to inspection Face and sinus: normal facial exam Eyes General: appearance normal, both eyes and all related structures Pupils: PERRL EOM: EOM intact bilaterally Neck Neck: normal visual inspection and No submandibular swelling Lymphatic: no lymphadenopathy noted Chest Chest: normal inspection of the chest and no tenderness Resp Effort & Inspection: normal respiratory effort and able to speak in complete sentences Auscultation: clear to auscultation bilaterally Cardio Rate: regular rate Rhythm: regular rhythm GI Inspection: normal to inspection Palpation: soft, not firm, not rigid and nontender Auscultation: normal bowel sounds Male General Exam: Yes normal external exam Back/Spine/Pelvis Thoracic/Lumbar Spine: thoracic and lumbar spine normal to inspection Pelvis: no pain with anterior-posterior compression Skin General skin exam: no rashes or lesions noted Neuro General: patient alert, patient awake and patient oriented x3 Cognition: normal cognition Speech: speech normal Motor: muscle tone normal throughout Sensory Exam: no sensory deficits noted Extrem General: normal to inspection, full ROM, capillary refill normal, no calf tenderness bilaterally and no edema Psych Appearance: grossly normal Mental Status: mental status grossly normal Speech and Movement: speech and movement normal Affect: normal affect Course Vital Signs Vital signs: Vital Signs Temperature 97.9 F 08/30/20 17:38 Pulse 95 H 08/30/20 17:38 Respiratory Rate 18 08/30/20 17:38 Blood Pressure 112/55 L 08/30/20 17:38 Pulse Oximetry 95 08/30/20 17:38 Temperature 97.9 F 08/30/20 17:38 Temperature Source Skin 08/30/20 17:38 Pulse 95 H 08/30/20 17:38 Respiratory Rate 18 08/30/20 17:38 Respiratory Effort Non-Labored 08/30/20 18:18 Blood Pressure 112/55 L 08/30/20 17:38 Blood Pressure Position Sitting 08/30/20 17:38 Pulse Oximetry 95 08/30/20 17:38 Oxygen Delivery Method Room Air 08/30/20 17:38 Oxygen Flow Rate 0 08/30/20 17:38 Lab/Test Results Lab/Test Results: 08/30/20 17:50 Urine - Reflex from Ua Urine Culture - Pending Laboratory Tests Range/Units 08/30/20 17:50 Urine Color (Yellow) Yellow Urine Clarity (Clear) Clear Urine pH (5-8) 6.0 Ur Specific [place] (1.005-1.025) 1.015 Urine Protein (Negative) mg/dL 30 H Urine Ketones (Negative) mg/dL Negative Urine Blood (Negative) Trace-intact H Urine Nitrite (Negative) Negative Urine Bilirubin (Negative) Negative Urine Urobilinogen (Up TO 0.2) EU/dL 0.2 Ur Leukocyte Esterase (Negative) Negative Urine RBC (0-2) HPF 3-5 H Urine WBC (0-5) HPF 5-10 Ur Epithelial Cells (Negative) HPF Negative Urine Crystals (Negative) HPF Negative Urine Bacteria (Negative) HPF Negative Urine Casts (Negative) LPF Negative Urine Mucus (Negative) Negative Urine Other (Negative) Negative Ur Culture Indicated? Yes Urine Glucose (Negative) mg/dL Negative
[2020-08-30 18:39] LABS: Abs Immature Grans 0.04 10^3/uL (0.0-0.06); Absolute Basophil Count 0.04 10^3/uL (0.0-0.2); Absolute Eosinophil Count 0.09 10^3/uL (0.0-0.7); Absolute Lymphocyte Count 1.13 10^3/uL (1.2-3.4); Absolute Monocyte Count 0.62 10^3/uL (0.1-0.8); Absolute Neutrophil Count 7.13 10^3/uL (1.2-6.7); Basophils % 0.4; HCT 42.4 % (40.0-50.0); HGB 13.9 g/dL (13.5-17.5); Immature Grans % 0.4; Lymphocytes % 12.5; MCHC 32.8 % (32.0-36.0); MCV 97.7 fL (80-95); MPV 10.6 fL (8.0-11.0); Monocytes % 6.9; Neutrophils % 78.8; Nucleated RBC 0 %; Platelet Count 195 10^3/uL (130-400); RBC 4.34 10^6/uL (4.36-5.78); RDW 12.8 % (11.8-14.1); RDW-SD 45.9 fL; WBC 9.05 10^3/uL (4.4-10.8)
--- NOTE | 2020-08-30 18:47 | HPE_ITS ---
Date of service: 08/30/20 Time of Service: 18:48 Assessment and Plan Assessment and plan (1) Dementia: Status: Chronic Assessment and plan: Dementia, perhaps aggravated by possible UTI. Will treat for UTI empirically pending cxx, with planned possible disposition to H&R in AM. History of Present Illness History of Present Illness Chief Complaint: failure to thrive Narrative: 80 male with dementia. Multiple recent ER visits. In hospital last week, deemed competent at that time and decided to go home, declining recommended HH services. Family brings him back tonight concerned about his ability to manage. In ER initial w/u of note for low grade pyuria (5-10 WBC) , normal CBC; chemistries pending. Patient has agreed to stay, with plan for likely placement at Rehab (verbal from CM is that bed available tomorrow). Patient has no c/o at this time. Review of Systems All systems reviewed & are unremarkable except as noted in HPI and below PFSH Medical History Abnormality of gait due to impairment of balance Alcohol dependence Asthma Atypical chest pain CAD (coronary artery disease) Carpal tunnel syndrome Celiac disease Chronic constipation Cognitive impairment Dementia associated with alcoholism Edema of lower extremity Enlarged prostate GERD (gastroesophageal reflux disease) Goals of care, counseling/discussion Hyperlipidemia Hypertension Insomnia Lives alone with help available [facility] Major depression Non-insulin dependent type 2 diabetes mellitus Noncompliance with medication regimen Obesity Palliative care patient Paroxysmal A-fib Prostate cancer Seborrheic dermatitis Sensorineural hearing loss of combined sites Sialadenitis Spinal stenosis Thyroid nodule TMJ (dislocation of temporomandibular joint) Urinary retention Surgical History History of appendectomy History of brachytherapy Family History Son Pancreatic cancer Daughter Pancreatic cancer Son Substance abuse History of incarceration Son No problems noted. Son No problems noted. 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 [email or web address] Pets and animals: No Sexually active: No Current gender identity: male What is your relationship status?: How often do you talk on the phone with friends or family?: once per week How often do you get together with friends or relatives?: never Do you belong to any clubs or organized social groups?: no Panel score (0-1 are the most socially isolated patients): 0 What type of physical activity do you participate in: walking and sedentary lifestyle Duration: < 15 minutes/day Special melissa needs: No Seatbelt use: always Water heater temp set <120 deg: Yes Working smoke detector in home: Yes Fire extinguisher in home: Yes Firearms in home: No Do you feel safe at home: Yes Do you feel safe in your relationship?: Yes Meds Home Medications and Allergies Home Medications Medication Instructions Recorded Confirmed Type acetaminophen [Tylenol] 650 mg PO Q6H PRN PRN tab 06/24/16 08/29/20 Rx furosemide 40 mg PO DAILY #60 tab-cap 08/06/17 08/29/20 Rx triamcinolone acetonide 63 gm TOPICAL PRN 08/06/17 08/29/20 History albuterol sulfate 2 puff INHALATION QID PRN 08/23/18 08/29/20 History atorvastatin 20 mg PO DAILY 08/23/18 08/29/20 History gabapentin 300 mg PO BID 08/23/18 08/29/20 History metoprolol succinate 25 mg PO DAILY 08/23/18 08/29/20 History docusate sodium 100 mg PO BID 10/10/18 08/29/20 History alogliptin 6.25 mg PO DAILY 08/04/20 08/29/20 History finasteride 5 mg PO DAILY 08/04/20 08/29/20 History folic acid 1 mg PO DAILY 08/04/20 08/29/20 History metformin 1,000 mg PO BID 08/04/20 08/29/20 History polyethylene glycol 3350 17 g PO DAILY 08/04/20 08/29/20 History sennosides 8.6 mg PO DAILY 08/04/20 08/29/20 History carboxymethylcellulose sodium 1 drp OPHTHALMIC (EYE) QID 08/17/20 08/29/20 H istory tamsulosin 0.4 mg PO BID 08/17/20 08/29/20 History quetiapine [Seroquel] 25 mg PO BID #60 tab 08/22/20 08/29/20 Rx thiamine HCl (vitamin B1) 100 mg PO DAILY #30 tab 08/22/20 08/29/20 Rx aspirin 81 mg PO DAILY 08/28/20 08/29/20 History Allergies Allergy/AdvReac Type Severity Reaction Status Date / Time wheat dextrin AdvReac Severe Unverified 08/29/20 18:33 animal dander AdvReac Unknown Unverified 08/29/20 18:33 codeine AdvReac Unverified 08/29/20 18:33 glutens Allergy Unknown Uncoded 08/29/20 18:33 glutethimide Allergy Unknown Uncoded 08/29/20 18:33 cats AdvReac Unknown Uncoded 08/29/20 18:33 Exam Narrative Exam Narrative: 112/55, 95, 36.6, 18, 95% RA. HEENT atraumatic; neck supple; lungs clear; heart RRR; abdomen soft and NT; extremities trace pedal edema; neuro Ox2, moves all 4s Results Labs Result diagrams: 08/30/20 18:30 08/30/20 18:30 Labs: Laboratory Results - last 24 hr 08/30/20 08/30/20 17:50 18:30 WBC 9.05 RBC 4.34 L Hgb 13.9 Hct 42.4 MCV 97.7 H MCH 32.0 MCHC 32.8 RDW 12.8 Plt Count 195 MPV 10.6 Immature Gran % 0.4 Neutrophils % 78.8 Lymphocytes % 12.5 Monocytes % 6.9 Eosinophils % 1.0 Basophils % 0.4 Nucleated RBC % 0 Absolute Neutrophils 7.13 H Absolute Lymphocytes 1.13 L Absolute Monocytes 0.62 Absolute Eosinophils 0.09 Absolute Basophils 0.04 Urine Color Yellow Urine Clarity Clear Urine pH 6.0 Ur Specific [place] 1.015 Urine Protein 30 H Urine Ketones Negative Urine Blood Trace-intact H Urine Nitrite Negative Urine Bilirubin Negative Urine Urobilinogen 0.2 Ur Leukocyte Esterase Negative Urine RBC 3-5 H Urine WBC 5-10 Ur Epithelial Cells Negative Urine Crystals Negative Urine Bacteria Negative Urine Casts Negative Urine Mucus Negative Urine Other Negative Ur Culture Indicated? Yes Urine Glucose Negative Last Vital Signs Temp 36.6 C 08/30/20 17:38 Pulse 95 H 08/30/20 17:38 Resp 18 08/30/20 17:38 BP 112/55 L 08/30/20 17:38 Pulse Ox 95 08/30/20 17:38 COVID-19 Screening Have you, or household traveled for leisure in last 14 days?: No Had IN PERSON contact w/suspected or confirmed C-19 person: No
[2020-08-30 18:52] LABS: INR 1.1 (0.9-1.1); Prothrombin Time 10.8 sec (9.3-11.0)
[2020-08-30 18:55] LABS: ALT 20 U/L (16-63); AST 18 U/L (15-37); Albumin 3.5 g/dL (3.4-5.0); Alkaline Phosphatase 67 U/L (46-116); Anion Gap 11.8 mmol/L (3-11); BUN 19 mg/dL (7-18); Bilirubin, Total 0.4 mg/dL (0.2-1.0); CO2 23.2 mmol/L (21.0-32.0); Calcium 9.2 mg/dL (8.5-10.1); Chloride 104 mmol/L (98-107); Glucose 167 mg/dL (74-106); Magnesium 2.2 mg/dL (1.8-2.4); Potassium 3.8 mmol/L (3.5-5.1); Sodium 139 mmol/L (136-145); Total Protein 8.4 g/dL (6.4-8.2)
[2020-08-30 18:57] LABS: Troponin I < 0.05 ng/mL (<0.06)
[2020-08-30 20:22] LABS: Source Nasopharynx
[2020-08-30] MEDS: Gabapentin 300 MG CAP PO (20:32)
[2020-08-30] MEDS: Tamsulosin 0.4 MG CAPCR PO (20:33)
[2020-08-30] MEDS: MacroBID 100 MG CAP PO (20:38)
[2020-08-30] MEDS: QUEtiapine 25 MG TAB PO (20:49)
[2020-08-30 21:03] LABS: COVID-19 PCR Negative (Negative); Influenza A PCR Negative (Negative); Influenza B PCR Negative (Negative); RSV PCR Negative (Negative)
[2020-08-30 21:55] VITALS: BP 94/69; PULSE 65; RESP 16; TEMP 36.5; O2SAT 96
--- NOTE | 2020-08-30 22:35 | NUR.NOTE ---
2121 Patient arrived in wheelchair from ER with RN. See admit part 2 for full assessment. VSS, denies pain. AAOX2, confused at times. Settled into room and showed patient call bel and how to use it. Patient sitting on edge of bed drinking water with bed alarm on. Patient Nursing Note:
[2020-08-30 23:55] VITALS: BP 128/67; PULSE 63; RESP 19; TEMP 37.9; O2SAT 95
[2020-08-31 07:27] VITALS: BP 136/70; PULSE 67; RESP 19; TEMP 37; O2SAT 96
--- NOTE | 2020-08-31 08:11 | PDOC.ERCMACT ---
- If Service Date Differs Date of service: 08/30/20 Time of Service: 16:00 Care Management Activity Note CM receives a telephone call from Lanette, Williams's [id number]. She reports Williams is in the hallway outside of his apartment at the [facility]. He is refusing to go back into his apartment due to being afraid of being alone, per family. She states he is upset and saying he needs help and can no longer do it on his own. According to Lanette, he is now agreeable to placement which he has refused in the past. Williams is reportedly not taking his medications and not eating or drinking. At the request of family, FARNAZ coordinates a referral to [facility] for placement.
--- NOTE | 2020-08-31 08:33 | PDOC.ERCMIN ---
- If Service Date Differs Date of service: 08/30/20 Time of Service: 18:10 Care Management Initial Assess REASON FOR HOSPITALIZATION:: Failure to thrive and UTI. PAST MEDICAL HISTORY/PAST SURGICAL HISTORY:: Medical History: Abnormality of gait due to impairment of balance, Alcohol dependence, Asthma, Atypical chest pain, CAD (coronary artery disease), Carpal tunnel syndrome, Celiac disease, Chronic constipation,. Cognitive impairment, Dementia associated with alcoholism, Edema of lower extremity, Enlarged prostate, GERD (gastroesophageal reflux disease), Goals of care, counseling/discussion, Hyperlipidemia, Hypertension, Insomnia, Lives alone with help available - [facility], Major depression, Non-insulin dependent type 2 diabetes mellitus,. Noncompliance with medication regimen, Obesity, Palliative care patient,. Paroxysmal A-fib, Prostate cancer, Seborrheic dermatitis, Sensorineural hearing loss of combined sites, Sialadenitis, Spinal stenosis, Thyroid nodule, TMJ (dislocation of temporomandibular joint), and Urinary retention. Surgical History: History of appendectomy and History of brachytherapy. PREVIOUS FUNCTIONAL STATUS/SOCIAL/FAMILY SUPPORTS:: Williams is an 80 year old male who lives alone in an apartment at the [facility]. He has four sons, one of whom in 2019 of cancer, and a daughter who is also . Williams is independent with his ADLs but family report that lately they have seen both a cognitive and physical decline that is adversely affecting his ability to care for himself. Williams reportedly is not taking his medication, is not eating or drinking, is severely depressed, and is afraid to be home alone, especially at night. Williams does have a Home Health RN who visits once a week on Friday afternoon. An increase in Home Health services was offered during a recent hospitalization and again during a phone call between FARNAZ and Williams just a few days ago but Williams continues to decline the offer. CURRENT FUNCTIONAL STATUS:: Williams is sitting in a wheelchair in the waiting room when FARNAZ comes to meet with him. He has a solemn look on his face, is staring at the floor, and does not make eye contact when FARNAZ introduces herself. He then abruptly yells out I have to urinate at which point FARNAZ retrieves an RN to assist Williams in the restroom. ADVANCE DIRECTIVES:: Durable Power of Transportation Planner for Health Care on file; his son Benitez Rodriguez is his alternate agent. Mikel Rodriguez (son) is listed as healthcare agent but Mikel is . Has patient been provided with info about the portal/API?: Yes Did the patient sign up for the portal?: No (Previously declined) CODE STATUS:: DNR INSURANCE COVERAGE / FINANCIAL ISSUES:: [employer] and Medicare. CURRENT HOME/COMMUNITY SERVICES/EQUIPMENT:: Home Health RN once a week through the [facility]. Williams uses a cane and FWW for ambulation. PRIMARY CARE PHYSICIAN:: Erika Mix. POTENTIAL DISCHARGE NEEDS:: Follow up appointment with PCP, discharge plan of care, and [place]. PATIENT/FAMILY EDUCATION NEEDS:: Discharge instructions, limitations, follow up plan of care including Ask Me Three and self management. ANTICIPATED BARRIERS TO DISCHARGE:: Williams's failure at home and potential refusal of services and/or placement. TRANSPORTATION:: Contingent on disposition plan. PLAN:: Plan is to seek a [place] health care facility placement for Williams. A referral has been made to [facility] for review. CM will continue to support Williams, his family, and discharge needs.
[2020-08-31] MEDS: Docusate Sodium 100 MG CAP PO (08:38)
[2020-08-31] MEDS: Finasteride 5 MG TAB PO (08:38)
[2020-08-31] MEDS: Tamsulosin 0.4 MG CAPCR PO (08:38)
[2020-08-31] MEDS: MacroBID 100 MG CAP PO (08:38)
[2020-08-31] MEDS: Folic Acid 1 MG TAB PO (08:38)
[2020-08-31] MEDS: Atorvastatin 40 MG TAB 20 MG PO (08:38)
[2020-08-31] MEDS: Aspirin 81 MG CHEW PO (08:38)
[2020-08-31] MEDS: Metoprolol CR 25 MG TABCR PO (08:38)
[2020-08-31] MEDS: metFORMIN 500 MG TAB 1000 MG PO (08:38)
[2020-08-31] MEDS: QUEtiapine 25 MG TAB PO (08:38)
[2020-08-31] MEDS: Polyethylene Glycol 3350 17 GM PACKET PO (08:38)
[2020-08-31] MEDS: Gabapentin 300 MG CAP PO (08:38)
[2020-08-31] MEDS: Furosemide 20 MG TAB 40 MG PO (08:38)
[2020-08-31] MEDS: Refresh PLUS Eye Drops 0.4ml OP ×2 (09:05→12:26)
[2020-08-31] MEDS: Senna TAB 1 TAB PO (09:40)
--- NOTE | 2020-08-31 10:29 | PDOC.CMDIS ---
LACE Index Scoring Tool - Questions: Length of Stay (in days): 1 Acuity (Admit via E.D.?): Yes Comorbidities: Diabetes w/o Complication, Dementia E.D. Visits: 9 - Answers: Total Score: 13 Risk of Readmission: High Risk Care Management Discharge Reason for Hospitalization: Failure to thrive and UTI. Discharge Plan: Williams will discharge to [facility] for continued rehabilitation. He will transport via W/C van, provided by the facility. CM notifed Benitez of discharge plan. Patient/Family Education Needs: Review discharge instructions, discuss Ask Me Three. Services Needed at Discharge: Residential Facility ([facility]), Transportation (W/C Van)
--- NOTE | 2020-08-31 10:34 | W.PM.DS.N ---
Date of service: 08/31/20 Time of Service: 10:34 DS: Diagnosis Discharge Diagnosis (1) Dementia: Status: Chronic Discharge Plan Disposition Patient Disposition: SNF (LEVEL 1) [facility] Condition: Stable Discharge Details Reason For Visit: FAILURE TO THRIVE Admit Date/Time: 08/30/20 18:57 Admit Provider: Sp Morales Attending Provider: Sp Morales Primary Care Provider: Erika Mix Hospital Course Hospital Course: This is an 80-year-old male with a history of cognitive impairment who presents to the ED once again for progressive cognitive decline and inability to care for himself at home. This is his third visit to ED in the last 3 days for various complaints, including dizziness, no complaints, or stating he has A. fib. Once patient arrived to the ED yesterday and today, he has no acute complaints. Work up have been unremarkable. Family expressed concern again of patient being discharged home but patient declined admission yesterday and wanted to go home. He has refused rehab and services in the past. He was deemed by psychiatry last week to have capacity to make decisions. Family agreed with plan for discharge home last night with plan for palliative care and care management to arrange a family meeting to discuss their concern that patient should be placed in a long term facility. He is agreeable to rehab at this point and a bed has been secured at [facility]. discharge discussed with DR Omer Home Meds and New Rx's Prescriptions: Continued furosemide 20 MG tablet 40 mg PO DAILY Qty: 60 RF: 11 triamcinolone acetonide 63 GM aerosol 63 gm Topical PRN RF: 0 gabapentin 300 mg Capsule 300 mg PO BID RF: 0 metoprolol succinate 25 mg Tablet Extended Release 24 Hr 25 mg PO DAILY RF: 0 albuterol sulfate 90 mcg/actuation Hfa Aerosol Inhaler 2 puff INHALATION QID PRNRF: 0 atorvastatin 40 MG tablet 20 mg PO DAILY RF: 0 docusate sodium 100 mg Tablet 100 mg PO BID RF: 0 polyethylene glycol 3350 17 gram Powder In Packet 17 g PO DAILY RF: 0 metformin 1,000 mg Tablet 1,000 mg PO BID RF: 0 sennosides 8.6 mg Capsule 8.6 mg PO DAILY RF: 0 alogliptin 6.25 mg Tablet 6.25 mg PO DAILY RF: 0 folic acid 1 mg Tablet 1 mg PO DAILY RF: 0 finasteride 5 mg Tablet 5 mg PO DAILY RF: 0 carboxymethylcellulose sodium 0.5 % Drops 1 drp ophthalmic (eye) QID RF: 0 tamsulosin 0.4 mg capsule 0.4 mg PO BID RF: 0 quetiapine [Seroquel] 25 mg tablet 25 mg PO BID Qty: 60 RF: 0 thiamine HCl (vitamin B1) 100 mg tablet 100 mg PO DAILY Qty: 30 RF: 0 aspirin 81 mg Tablet 81 mg PO DAILY RF: 0 acetaminophen [Tylenol] 325 MG tablet 650 mg PO Q6H PRN PRN (Reason: Mild Pain, Temp. Over 38.5) RF: 0 Discharge Instructions Instructions: Failure to Thrive (ED), Failure to Thrive (DC) Additional Instructions: routine reha Stand Alone Forms: Nursing Discharge Form Activity:: Activity as Tolerated Equipment/Supplies:: No Equipment Needed Diet:: Carb Counting Discharge Orders Discharge Orders: Discharge Order (Routine); Ordered 08/31/20 Ordered By: Lyric Curry Discharge Data Discharge Date/Time-TO BE ENTERED AT DEPARTURE: 08/31/20 12:40 DS: Summary Status at Discharge Functional status at discharge: uses cane/walker Overall status at discharge: patient is not back to baseline Mental Status: mental status grossly normal Speech and Movement: speech and movement normal Mood: congruent mood Affect: normal affect Exam Const General: cooperative, healthy appearing and no acute distress HENMT Head: normal to inspection Face and sinus: normal facial exam Eyes General: appearance normal, both eyes and all related structures Pupils: PERRL EOM: EOM intact bilaterally Neck Neck: normal visual inspection and No submandibular swelling Lymphatic: no lymphadenopathy noted Chest Chest: normal inspection of the chest and no tenderness Resp Effort & Inspection: normal respiratory effort and able to speak in complete sentences Auscultation: clear to auscultation bilaterally Cardio Rate: regular rate Rhythm: regular rhythm GI Inspection: normal to inspection Palpation: soft, not firm, not rigid and nontender Auscultation: normal bowel sounds Male General Exam: Yes normal external exam Back/Spine/Pelvis Thoracic/Lumbar Spine: thoracic and lumbar spine normal to inspection Pelvis: no pain with anterior-posterior compression Skin General skin exam: no rashes or lesions noted Neuro General: patient alert, patient awake and patient oriented x3 Cognition: normal cognition Speech: speech normal Motor: muscle tone normal throughout Sensory Exam: no sensory deficits noted Extrem General: normal to inspection, full ROM, capillary refill normal, no calf tenderness bilaterally and no edema Psych Appearance: grossly normal Mental Status: mental status grossly normal Speech and Movement: speech and movement normal Mood: congruent mood Affect: normal affect DS: Data Vitals/I&O Vitals and I&O: Vital Signs Temperature 37 C 08/31/20 07:27 Temperature Source Tympanic 08/31/20 07:27 Pulse 67 08/31/20 07:27 Pulse Rhythm Irregular 08/31/20 09:08 Respiratory Rate 19 08/31/20 07:27 Respiratory Effort Non-Labored 08/31/20 09:08 Respiratory Depth Normal 08/31/20 09:08 Respiratory Pattern Normal 08/31/20 09:08 Blood Pressure 136/70 08/31/20 07:27 Blood Pressure Position Sitting 08/30/20 17:38 Pulse Oximetry 96 08/31/20 07:27 Oxygen Delivery Method Room Air 08/31/20 07:27 Oxygen Flow Rate 0 08/31/20 07:27 Pain Level 0 08/31/20 07:27 Intake & Output 08/30/20 08/30/20 08/31/20 11:59 23:59 11:59 Intake Total 500 / 500 1050 / 1050 Balance 500 / 500 1050 / 1050 Weight 105 kg Intake: Oral 500 / 500 1050 / 1050 Other: Urine Color Yellow Yellow Urine Appearance Clear Clear Urine Odor Normal Normal Comment moderate volume void in toilet, unable to measure. small inct void in brief, moderate volume void in toilet. Voiding Methods Toilet Toilet Data Completed and Pending Labs on day of discharge: Labs from last 24 hours 08/30/20 08/30/20 08/30/20 20:10 18:30 18:30 WBC 9.05 RBC 4.34 L Hgb 13.9 Hct 42.4 MCV 97.7 H MCH 32.0 MCHC 32.8 RDW 12.8 Plt Count 195 MPV 10.6 Immature Gran % 0.4 Neutrophils % 78.8 Lymphocytes % 12.5 Monocytes % 6.9 Eosinophils % 1.0 Basophils % 0.4 Nucleated RBC % 0 Absolute Neutrophils 7.13 H Absolute Lymphocytes 1.13 L Absolute Monocytes 0.62 Absolute Eosinophils 0.09 Absolute Basophils 0.04 PT INR APTT Sodium 139 Potassium 3.8 Chloride 104 Carbon Dioxide 23.2 Anion Gap 11.8 H BUN 19 H Creatinine 1.00 Estimated GFR/1.73 m2 >= 60.00 Glucose 167 H Calcium 9.2 Magnesium 2.2 Total Bilirubin 0.4 AST 18 ALT 20 Alkaline Phosphatase 67 Troponin I < 0.05 Total Protein 8.4 H Albumin 3.5 Urine Color Urine Clarity Urine pH Ur Specific [place] Urine Protein Urine Ketones Urine Blood Urine Nitrite Urine Bilirubin Urine Urobilinogen Ur Leukocyte Esterase Urine RBC Urine WBC Ur Epithelial Cells Urine Crystals Urine Bacteria Urine Casts Urine Mucus Urine Other Ur Culture Indicated? Urine Glucose COVID-19 Source Nasopharynx SARS-CoV-2 (PCR) Negative Nasopharyn COVID-19 PCR Influenza Type A (PCR) Negative Influenza Type B (PCR) Negative RSV (PCR) Negative Ref Test Perform Site 08/30/20 08/30/20 08/29/20 18:30 17:50 20:04 WBC RBC Hgb Hct MCV MCH MCHC RDW Plt Count MPV Immature Gran % Neutrophils % Lymphocytes % Monocytes % Eosinophils % Basophils % Nucleated RBC % Absolute Neutrophils Absolute Lymphocytes Absolute Monocytes Absolute Eosinophils Absolute Basophils PT 10.8 INR 1.1 APTT 35.0 H Sodium Potassium Chloride Carbon Dioxide Anion Gap BUN Creatinine Estimated GFR/1.73 m2 Glucose Calcium Magnesium Total Bilirubin AST ALT Alkaline Phosphatase Troponin I Total Protein Albumin Urine Color Yellow Urine Clarity Clear Urine pH 6.0 Ur Specific [place] 1.015 Urine Protein 30 H Urine Ketones Negative Urine Blood Trace-intact H Urine Nitrite Negative Urine Bilirubin Negative Urine Urobilinogen 0.2 Ur Leukocyte Esterase Negative Urine RBC 3-5 H Urine WBC 5-10 Ur Epithelial Cells Negative Urine Crystals Negative Urine Bacteria Negative Urine Casts Negative Urine Mucus Negative Urine Other Negative Ur Culture Indicated? Yes Urine Glucose Negative COVID-19 Source SARS-CoV-2 (PCR) Cancelled Nasopharyn COVID-19 PCR Cancelled Influenza Type A (PCR) Influenza Type B (PCR) RSV (PCR) Ref Test Perform Site Cancelled 08/30/20 17:50 Urine - Reflex from Urine Culture - Pending Preliminary micro results at discharge 08/30/20 17:50 Urine Culture - Pending Urine - Reflex from [facility] Medical History Abnormality of gait due to impairment of balance Alcohol dependence Asthma Atypical chest pain CAD (coronary artery disease) Carpal tunnel syndrome Celiac disease Chronic constipation Cognitive impairment Dementia associated with alcoholism Edema of lower extremity Enlarged prostate GERD (gastroesophageal reflux disease) Goals of care, counseling/discussion Hyperlipidemia Hypertension Insomnia Lives alone with help available [facility] Major depression Non-insulin dependent type 2 diabetes mellitus Noncompliance with medication regimen Obesity Palliative care patient Paroxysmal A-fib Prostate cancer Seborrheic dermatitis Sensorineural hearing loss of combined sites Sialadenitis Spinal stenosis Thyroid nodule TMJ (dislocation of temporomandibular joint) Urinary retention Surgical History History of appendectomy History of brachytherapy Family History Son Pancreatic cancer Daughter Pancreatic cancer Son Substance abuse History of incarceration Son No problems noted. Son No problems noted. 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 [employer] Pets and animals: No Sexually active: No Current gender identity: male What is your relationship status?: How often do you talk on the phone with friends or family?: once per week How often do you get together with friends or relatives?: never Do you belong to any clubs or organized social groups?: no Panel score (0-1 are the most socially isolated patients): 0 What type of physical activity do you participate in: walking and sedentary lifestyle Duration: < 15 minutes/day Special melissa needs: No Seatbelt use: always Water heater temp set <120 deg: Yes Working smoke detector in home: Yes Fire extinguisher in home: Yes Firearms in home: No Do you feel safe at home: Yes Do you feel safe in your relationship?: Yes
--- NOTE | 2020-09-14 14:57 | W.CARDEVENT ---
Date of service: 09/14/20 Time of Service: 14:57 Cardiac Event Recorder Referring Provider:: Dayanara Indications:: Afib Cardiac Event Note: This is a 30-day event recorder ordered for indication of syncope and collapse as well as atrial fibrillation. ?The patient was monitored for a total of 11 hours. ?Over that time, the patient was in atrial fibrillation for the entirety with an average heart rate of 50 bpm. The maximal heart rate recorded was 88 bpm. ?Patient no episodes of ventricular tachycardia, no pauses greater than 3 seconds and no evidence of high degree heart block. ?There were no patient triggered events.
== END 2020-08-31 12:40 | disposition skilled nursing facility (03) ==
LOC: ER 20:16 → MS 21:29
PROVIDERS: Admitting Provider General Practice; Emergency Provider Physician Assistant; PCP Nurse Practitioner; Visit Provider General Practice
DX: R62.7 Adult failure to thrive (principal); F10.27 Alcohol dependence with alcohol-induced persisting dementia; R26.89 Other abnormalities of gait and mobility; F10.20 Alcohol dependence, uncomplicated; J45.909 Unspecified asthma, uncomplicated; I25.10 Atherosclerotic heart disease of native coronary artery without angina pectoris; K90.0 Celiac disease; K21.9 Gastro-esophageal reflux disease without esophagitis; N40.0 Benign prostatic hyperplasia without lower urinary tract symptoms; E78.5 Hyperlipidemia, unspecified; I10 Essential (primary) hypertension; G47.00 Insomnia, unspecified; E11.9 Type 2 diabetes mellitus without complications; F32.9 Major depressive disorder, single episode, unspecified; E66.9 Obesity, unspecified; I48.0 Paroxysmal atrial fibrillation; M48.00 Spinal stenosis, site unspecified
CPT/HCPCS: 36415; 80053; 99217; 99221; 99285; U0003; 81003; 81015; 83735; 84484; 85025; 85610; 85730; 87086; 99218; 99284; G0378

== ENCOUNTER 2020-09-13 15:18 | Outpatient (REF) | payer MEDICARE, SELFPAY | END 2020-09-13 15:19 | disposition home or self-care (01) | LOC: LBN 15:18 | PROVIDERS: PCP Nurse Practitioner; Visit Provider Family Medicine | DX: J10.1 Influenza due to other identified influenza virus with other respiratory manifestations (principal) | CPT/HCPCS: 87449 ==

== ENCOUNTER 2020-09-14 14:57 | Outpatient (CLI) | payer MEDICARE, SELFPAY | END 2020-09-14 14:58 | PROVIDERS: PCP Nurse Practitioner; Referring Provider Family Medicine; Visit Provider Internal Medicine Cardiovascular Disease | DX: I48.91 Unspecified atrial fibrillation (principal); Z53.29 Procedure and treatment not carried out because of patient's decision for other reasons | CPT/HCPCS: 93272 ==

== ENCOUNTER 2020-09-14 19:14 | Outpatient (REF) | payer MEDICARE, SELFPAY ==
[2020-09-18 17:57] LABS: COVID-19 RT-PCR Result Not Detected ((See Note))
== END 2020-09-14 19:15 | disposition home or self-care (01) ==
LOC: LBN 19:14
PROVIDERS: PCP Nurse Practitioner; Visit Provider Nurse Practitioner Adult Health
DX: Z20.822 Contact with and (suspected) exposure to COVID-19 (principal)
CPT/HCPCS: U0003

== ENCOUNTER 2020-12-25 17:22 | Outpatient (REF) | payer MEDICARE, SELFPAY ==
[2020-12-25 17:50] LABS: Abs Immature Grans 0.07 10^3/uL (0.0-0.06); Absolute Basophil Count 0.04 10^3/uL (0.0-0.2); Absolute Eosinophil Count 0.23 10^3/uL (0.0-0.7); Absolute Lymphocyte Count 1.37 10^3/uL (1.2-3.4); Absolute Monocyte Count 0.82 10^3/uL (0.1-0.8); Absolute Neutrophil Count 6.58 10^3/uL (1.2-6.7); Basophils % 0.4; Eosinophils % 2.5; HCT 39.4 % (40.0-50.0); HGB 12.9 g/dL (13.5-17.5); Immature Grans % 0.8; MCH 31.8 pg (27.0-33.0); MCHC 32.7 % (32.0-36.0); MPV 11.3 fL (8.0-11.0); Neutrophils % 72.3; Nucleated RBC 0 %; Platelet Count 193 10^3/uL (130-400); RBC 4.06 10^6/uL (4.36-5.78); RDW 14.3 % (11.8-14.1); RDW-SD 51.3 fL; WBC 9.11 10^3/uL (4.4-10.8)
[2020-12-25 18:19] LABS: BUN 21 mg/dL (7-18); Calcium 9.1 mg/dL (8.5-10.1); Chloride 106 mmol/L (98-107); Glucose 77 mg/dL (74-106); Potassium 4.7 mmol/L (3.5-5.1); Sodium 142 mmol/L (136-145)
== END 2020-12-25 17:23 | disposition home or self-care (01) ==
LOC: LBN 17:22
PROVIDERS: PCP Nurse Practitioner; Visit Provider Family Medicine
DX: I25.10 Atherosclerotic heart disease of native coronary artery without angina pectoris (principal); I48.0 Paroxysmal atrial fibrillation
CPT/HCPCS: 80048; 85025

== ENCOUNTER 2021-05-30 14:45 | Outpatient (REF) | payer MEDICARE, SELFPAY ==
[2021-05-30 21:51] LABS: PSA, Screening 0.6 ng/mL (0.0-6.5)
[2021-06-02 17:17] LABS: Testosterone, Total 84 ng/dL (240-950)
== END 2021-05-30 14:46 | disposition home or self-care (01) ==
LOC: LBN 14:45
PROVIDERS: PCP Nurse Practitioner; Visit Provider Family Medicine
DX: N40.0 Benign prostatic hyperplasia without lower urinary tract symptoms (principal); Z12.5 Encounter for screening for malignant neoplasm of prostate
CPT/HCPCS: 84153; 84403

== ENCOUNTER 2021-08-08 19:04 | Outpatient (REF) | payer MEDICARE, SELFPAY ==
[2021-08-08 13:12] LABS: Bilirubin Negative (Negative); Blood Negative (Negative); Clarity Clear (Clear); Glucose Negative (Negative); Ketones Negative (Negative); Leukocyte Esterase Negative (Negative); Nitrite Negative (Negative); Urobilinogen 0.2 EU/dL (Up TO 0.2)
== END 2021-08-08 19:05 | disposition home or self-care (01) ==
LOC: LBN 19:04
PROVIDERS: PCP Nurse Practitioner; Visit Provider Family Medicine
DX: R35.0 Frequency of micturition (principal)
CPT/HCPCS: 81003; 87086

== ENCOUNTER 2021-09-13 08:02 | Outpatient (REF) | payer MEDICARE, SELFPAY | END 2021-09-13 08:03 | disposition home or self-care (01) | LOC: LBN 08:02 | PROVIDERS: PCP Nurse Practitioner; Visit Provider Family Medicine | DX: N40.0 Benign prostatic hyperplasia without lower urinary tract symptoms (principal); Z12.5 Encounter for screening for malignant neoplasm of prostate | CPT/HCPCS: 84153 ==

== ENCOUNTER 2021-10-26 22:49 | Emergency (ER) | payer MEDICARE, SELFPAY ==
[2021-10-26 22:55] VITALS: BP 128/55; PULSE 52; RESP 16; TEMP 36.3; O2SAT 97
--- NOTE | 2021-10-26 23:00 | DI.CT_ITS ---
Exam(s) CT HEAD NECK WO EXAM: CT HEAD NECK WO CLINICAL HISTORY: fell, hit occiput, right neck pain. TECHNIQUE: Imaging Protocol: Axial computed tomography images with coronal and sagittal reformatted images were created and reviewed COMPARISON: CT CT BRAIN NECK CTA from 08/14/2020 FINDINGS: BRAIN: There are no skull fractures. mucosal thickening is noted in the paranasal sinuses but without fluid levels therein. There is no evidence of intracranial hemorrhage, mass effect, or shift of midline structures. There are no extra-axial fluid collections. The ventricles are not enlarged or shifted and there is no blo od within the ventricular system nor within the basal cisterns. CERVICAL SPINE: There is no evidence of fracture nor listhesis. No significant prevertebral soft tissue swelling. There is advanced disc space narrowing in the lower cervical spine levels C5-6 and C6-7 levels. Multilevel facet arthropathy. There is no significant facet joint malalignment. No significant osseous lesions evident. IMPRESSION: No acute intracranial findings on this noninfused CT scan of the brain. No evidence of cervical spine fracture, malalignment, nor acute compromise of the cervical spinal can al. Multilevel degenerative changes. RADIATION DOSE DELIVERED: 1,565.73mGy.cm Total DLP DATA REPOSITORY: All CT scans at this facility are submitted to the National Radiology Data Registry (NRDR) Dose Index Registry (DIR) with the [employer] (ACR). RADIATION OPTIMIZATION: All CT scans at this facility use at least one of these dose optimization te chniques: automated exposure control; mA and/or kV adjustment per patient size (includes targeted exa ms where dose is matched to clinical indication); or iterative reconstruction.
--- NOTE | 2021-10-26 23:04 | W.ED.GENAD ---
Discharge Plan Disposition Patient Disposition: HOME Condition: Good Discharge Details Clinical Impression: Fall, Contusion of scalp, Thyroid nodule Primary Care Provider: Erika Mix ED Provider: Jas Abel Home Meds and New Rx's Prescriptions: Continued furosemide 20 MG tablet 40 mg PO DAILY Qty: 60 11RF triamcinolone acetonide 63 GM aerosol 63 g Topical PRN 0RF gabapentin 300 mg Capsule 300 mg PO BID 0RF metoprolol succinate 25 mg Tablet Extended Release 24 Hr 25 mg PO DAILY 0RF albuterol sulfate 90 mcg/actuation Hfa Aerosol Inhaler 2 puff INHALATION QID PRN0RF atorvastatin 40 MG tablet 20 mg PO DAILY 0RF docusate sodium 100 mg Tablet 100 mg PO BID 0RF polyethylene glycol 3350 17 gram Powder In Packet 17 g PO DAILY 0RF metformin 1,000 mg Tablet 1,000 mg PO BID 0RF sennosides 8.6 mg Capsule 8.6 mg PO DAILY 0RF alogliptin 6.25 mg Tablet 6.25 mg PO DAILY 0RF folic acid 1 mg Tablet 1 mg PO DAILY 0RF finasteride 5 mg Tablet 5 mg PO DAILY 0RF carboxymethylcellulose sodium 0.5 % Drops 1 drp ophthalmic (eye) QID 0RF tamsulosin 0.4 mg capsule 0.4 mg PO BID 0RF quetiapine [Seroquel] 25 mg tablet 25 mg PO BID Qty: 60 0RF thiamine HCl (vitamin B1) 100 mg tablet 100 mg PO DAILY Qty: 30 0RF aspirin 81 mg Tablet 81 mg PO DAILY 0RF acetaminophen [Tylenol] 325 MG tablet 650 mg PO Q6H PRN PRN (Reason: Mild Pain, Temp. Over 38.5) 0RF tramadol 50 mg tablet 50 mg PO QID PRN0RF Label Comments: Take 1 tablet by mouth every four hours as needed for pain docusate sodium [Colace] 100 mg Capsule 100 mg PO BID 0RF omeprazole 20 mg Capsule,Delayed Release(Dr/Ec) 20 mg PO DAILY 0RF oxybutynin chloride 5 mg Tablet 5 mg PO BID 0RF sertraline 50 mg Tablet 75 mg PO DAILY 0RF donepezil 5 mg Tablet,Disintegrating 5 mg PO DAILY 0RF diclofenac sodium [Voltaren Arthritis Pain] 1 % Gel 1 applic TOPICAL DAILY 0RF Paxlovid (EUA) 300 mg (150 mg x 2)-100 mg Tablet 1 tab PO BID 0RF Discharge Instructions Instructions: Contusion in Adults (ED) Additional Instructions: The CT scan of your head neck is negative for any bleed or fracture. You do have a contusion on the back of your scalp. Please apply ice to this area. You can apply triple antibiotic ointment as needed. If you notice any worsening of your symptoms, or any new symptoms such as vomiting, diarrhea, fever, chills, shortness of breath, chest pain, numbness, weakness, or fainting , please return immediately to the emergency department for reevaluation. Please follow up with your primary care provider as soon as possible for reassessment and reevaluation. As always, it was a pleasure participating in your medical care today. Referrals: Erika Mix [Primary Care Provider] - Medical Decision Making This is an 81-year-old male with a past medical history of atrial fibrillation, on aspirin but not on any blood thinners, diabetes, cognitive impairment, who is a palliative care patient, who is [facility], who is currently Covid positive but otherwise asymptomatic, who presents today after a fall. Patient states that he was sitting on a chair fell back and hit his head. He denies loss of consciousness and states he recalls the event. He does have a hematoma on his scalp. He denies any significant head pain except when palpated. He does admit to mild right-sided neck pain. He is currently in c-collar. He denies any chest pain, shortness of breath, dizziness, vision changes, numbness, tingling, or weakness. No other complaints at this time. No other modifying factors. Physical exam demonstrates a small contusion/hematoma on the scalp on the posterior aspect. No bleeding or laceration. No midline cervical thoracic or lumbar spine tenderness. The patient does have mild right-sided neck pain. Physical exam shows no other abnormalities or deficits. Patient demonstrates good movement, no focal neurologic deficits on assessment. Suspect mild concussion contusion. Will get CT scan of the head and neck for further evaluation. Currently he denies any dizziness, lightheadedness, or vision changes. 12:[address] scan of the head neck is negative for acute process. Patient feels well. Patient makes it unequivocally clear that he wants to go back to health and rehab and he does not want to stay here any longer. Patient will be discharged back. I have extensively reviewed the treatment plan and discharge instructions with the patient. I have addressed all patient concerns at this time. The patient was made aware of what symptoms to monitor for that would warrant a return to the emergency department. Discussed the plan with the patient, they demonstrate verbal understanding and agreement with our assessment and plan at this time. The documentation in this chart was dictated using [employer] dictation software. Please excuse any dictation errors. FINDINGS: Brain: There is diffuse cerebral atrophy concordant with the patient's age. Chronic small vessel deep white matter ischemic disease is suggested by areas of patchy white matter low attenuation. No intracranial hemorrhage. No acute large territory CVA. No mass. No acute edema. No acute intracranial abnormality. Cerebral ventricles: Atrophy concordant ventriculomegaly Paranasal sinuses: Chronic sinus disease with bilateral maxillary and ethmoid air cell mucoperiosteal thickening. Frontal sinus mild chronic disease. Mastoid air cells: Visualized mastoid air cells are well aerated. Bones/joints: Unremarkable. No acute fracture. Soft tissues: Left posterior parietal scalp laceration and contusion. No foreign body. IMPRESSION: 1. No acute intracranial abnormality. No intracranial hemorrhage. 2. Age-related atrophy and chronic small vessel deep white matter ischemia. 3. Posterior left parietal scalp laceration and contusion. No foreign body. 4. No skull fracture 5. Chronic sinus disease. FINDINGS: Bones/joints: Osteopenia. No acute fracture. Severe degenerative disc disease at C5-C6 and C6- C7. Multilevel degenerative facet and uncovertebral joint disease. Discs/Spinal canal/Neural foramina: No significant disc protrusion. No severe spinal canal stenosis. Multilevel bilateral moderate to severe foraminal stenosis. This is evident bilaterally from C3-C4 through C6-C7. Thyroid: Left thyroid nodularity. Coarse calcifications. Nonemergent thyroid ultrasound evaluation recommended. Largest nodule is approximately 15 x 11 mm. Lungs: Unremarkable lung apices Soft tissues: Atherosclerotic arterial calcification.. IMPRESSION: 1. Degenerative cervical spine changes. 2. No acute fracture or dislocation. 3. Left thyroid nodule. Recommend clinical correlation and nonemergent thyroid ultrasound evaluation of felt clinically warranted. Thank you for allowing us to participate in the care of your patient. Dictated and Authenticated by: Dominic Landa MD 10/27/2021 12:21 AM Eastern Time ([place] & [place]) HPI General Date/Time Provider Initiated Documentation: 10/26/21 23:01. HPI Narrative: This is an 81-year-old male with a past medical history of atrial fibrillation, on aspirin but not on any blood thinners, diabetes, cognitive impairment, who is a palliative care patient, who is from health [facility] re[facility], who is currently Covid positive but otherwise asymptomatic, who presents today after a fall. Patient states that he was sitting on a chair fell back and hit his head. He denies loss of consciousness and states he recalls the event. He does have a hematoma on his scalp. He denies any significant head pain except when palpated. He does admit to mild right-sided neck pain. He is currently in c-collar. He denies any chest pain, shortness of breath, dizziness, vision changes, numbness, tingling, or weakness. No other complaints at this time. No other modifying factors. Related Data Home Medications Medication Instructions Recorded Confirmed acetaminophen 325 mg tablet 650 mg PO Q6H PRN PRN tab 06/24/16 10/26/21 (Tylenol) furosemide 20 mg tablet 40 mg PO DAILY #60 tab-cap 08/06/17 10/26/21 triamcinolone acetonide 0.147 63 g TOPICAL PRN 08/06/17 01/17/21 mg/gram topical aerosol albuterol sulfate 90 mcg/actuation 2 puff INHALATION QID PRN 08/23/18 01/17/21 aerosol inhaler atorvastatin 40 mg tablet 20 mg PO DAILY 08/23/18 10/26/21 gabapentin 300 mg capsule 300 mg PO BID 08/23/18 10/26/21 metoprolol succinate 25 mg 25 mg PO DAILY 08/23/18 10/26/21 tablet,extended release 24 hr docusate sodium 100 mg tablet 100 mg PO BID 10/10/18 01/17/21 alogliptin 6.25 mg tablet 6.25 mg PO DAILY 08/04/20 10/26/21 finasteride 5 mg tablet 5 mg PO DAILY 08/04/20 10/26/21 folic acid 1 mg tablet 1 mg PO DAILY 08/04/20 10/26/21 metformin 1,000 mg tablet 1,000 mg PO BID 08/04/20 10/26/21 polyethylene glycol 3350 17 gram 17 g PO DAILY 08/04/20 10/26/21 oral powder packet sennosides 8.6 mg capsule 8.6 mg PO DAILY 08/04/20 10/26/21 carboxymethylcellulose sodium 0.5 1 drp OPHTHALMIC (EYE) QID 08/17/20 01/17/21 % eye drops tamsulosin 0.4 mg capsule 0.4 mg PO BID 08/17/20 10/26/21 quetiapine 25 mg tablet (Seroquel) 25 mg PO BID #60 tab 08/22/20 10/26/21 thiamine HCl (vitamin B1) 100 mg 100 mg PO DAILY #30 tab 08/22/20 01/17/21 tablet aspirin 81 mg tablet 81 mg PO DAILY 08/28/20 10/26/21 diclofenac sodium 1 % topical gel 1 applic TOPICAL DAILY 10/26/21 10/26/21 (Voltaren Arthritis Pain) docusate sodium 100 mg capsule 100 mg PO BID 10/26/21 10/26/21 (Colace) donepezil 5 mg disintegrating 5 mg PO DAILY 10/26/21 10/26/21 tablet nirmatrelvir 300 mg (150 mg x 1 tab PO BID 10/26/21 10/26/21 2)-ritonavir 100 mg tablet (EUA) (Paxlovid (EUA)) omeprazole 20 mg capsule,delayed 20 mg PO DAILY 10/26/21 10/26/21 release oxybutynin chloride 5 mg tablet 5 mg PO BID 10/26/21 10/26/21 sertraline 50 mg tablet 75 mg PO DAILY 10/26/21 10/26/21 tramadol 50 mg tablet 50 mg PO QID PRN 10/26/21 10/26/21 Previous Rx's Medication Instructions Recorded acetaminophen 325 mg tablet 650 mg PO Q6H PRN PRN tab 06/24/16 (Tylenol) furosemide 20 mg tablet 40 mg PO DAILY #60 tab-cap 08/06/17 quetiapine 25 mg tablet (Seroquel) 25 mg PO BID #60 tab 08/22/20 thiamine HCl (vitamin B1) 100 mg 100 mg PO DAILY #30 tab 08/22/20 tablet Allergies Allergy/AdvReac Type Severity Reaction Status Date / Time wheat dextrin AdvReac Severe Unverified 10/26/21 23:00 animal dander AdvReac Unknown Unverified 10/26/21 23:00 codeine AdvReac Unverified 10/26/21 23:00 glutens Allergy Unknown Uncoded 10/26/21 23:00 glutethimide Allergy Unknown Uncoded 10/26/21 23:00 cats AdvReac Unknown Uncoded 10/26/21 23:00 General Stated Complaint: HeadInjury ABDIAS: 3 Review of Systems All systems reviewed & are unremarkable except as noted in HPI and below PFSH All Active Problems (Updated 10/27/21 @ 00:38 by Jas Abel DO) Fall (Acute) Contusion of scalp (Acute) Thyroid nodule (Acute) Chronic a-fib (Chronic) as noted on 30-day event monitor detention resident (Acute) Dementia (Chronic) mild to moderate; appears to fluctuate Goals of care, counseling/discussion (Acute) Palliative care patient (Acute) Cognitive impairment (Chronic) mild 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) Frequent falls (Chronic) Weakness (Acute) Chronic constipation (Chronic) Discharge planning issues (Acute) DVT prophylaxis (Acute) Acute UTI (Acute) Medical History Abnormality of gait due to impairment of balance Asthma Atypical chest pain CAD (coronary artery disease) Carpal tunnel syndrome Celiac disease Chronic confusion did not where he was, or date oriented only to self Dementia associated with alcoholism Edema of lower extremity Enlarged prostate GERD (gastroesophageal reflux disease) Hyperlipidemia Hypertension Insomnia Lives alone with help available used to live at [facility] now at Rehab Major depression Noncompliance with medication regimen Obesity Paroxysmal A-fib Prostate cancer Seborrheic dermatitis Sensorineural hearing loss of combined sites Sialadenitis Socially inappropriate behavior due to his dementia prefers to be naked, undresses regularly Spinal stenosis Thyroid nodule TMJ (dislocation of temporomandibular joint) Urinary retention Surgical History History of appendectomy History of brachytherapy Family History Son Pancreatic cancer Daughter Pancreatic cancer Son Substance abuse History of incarceration Son No problems noted. Son No problems noted. 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 [employer] Pets and animals: No Sexually active: No Current gender identity: male What is your relationship status?: How often do you talk on the phone with friends or family?: once per week How often do you get together with friends or relatives?: never Do you belong to any clubs or organized social groups?: no Panel score (0-1 are the most socially isolated patients): 0 What type of physical activity do you participate in: walking and sedentary lifestyle Duration: < 15 minutes/day Frequency: daily Special melissa needs: No Seatbelt use: always Water heater temp set <120 deg: Yes Working smoke detector in home: Yes Fire extinguisher in home: Yes Firearms in home: No Do you feel safe at home: Yes Do you feel safe in your relationship?: Yes Additional Social history: Moved into [facility] after his last hospitalization. Has improved considerably since my last visit with him. He has had no recent socially inappropriate behaviors. Was dressed 01/17/21. Language more fluent. He recognized me immediately. Very pleasant and social, His social graces are still remarkably intact. He was polite. Oriented x 3 today, was only oriented to self last visit. Exam Narrative Exam Narrative: 1.Const: Well-nourished, Well-developed, appearing stated age 2.Eyes: PERRL, no conjunctival injection, and symmetrical lids. 3.ENT: Atraumatic external nose and ears. Moist MM. Neck: Symmetric, trachea midline, No thyromegaly. There is no evidence of raccoon eyes, schulz sign, CSF rhinorrhea, mastoid tenderness, cranial crepitus, exophthalmos, or hyphema. Patient demonstrates intact dentition with no signs of tooth avulsion or fracture, no signs of jaw deformity, no evidence of a LeFort's fracture, with an intact palate, nose and orbital region. There is no evidence of a nasal septal hematoma. No proptosis. Jaw closes symmetrically. Airway is clear. Patient's posterior scalp just to the left of midline by the occiput demonstrates a small hematoma, and skin abrasion. No bleeding or laceration. No deformity. 4.CVS: +S1/S2, No murmurs or gallops. Peripheral pulses 2+ and equal in all extremities. Brisk capillary refill in all extremities. 5.RESP: Unlabored respiratory effort. Clear to auscultation bilaterally. No wheezes rales or rhonchi 6.GI: Soft, Nontender/Nondistended, No hepatosplenomegaly. No guarding or rebound. 7.MSK: Normocephalic/Atraumatic, Extremities w/o deformity or ttp No cyanosis or clubbing, Normal movement of all extremities No midline thoracic or lumbar spine tenderness, or cervical tenderness. The patient does have slight right lateral neck pain on palpation just to the right of midline. 8.Skin: Warm, Dry. No rashes or lesions. 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 Sensation grossly intact, no focal neurologic deficits. 10.Psych: (AAO) x3. Appropriate mood and affect Course Vital Signs Vital signs: Vital Signs Temperature 36.3 C L 10/26/21 22:55 Pulse 52 L 10/26/21 22:55 Respiratory Rate 16 10/26/21 22:55 Blood Pressure 128/55 L 10/26/21 22:55 Pulse Oximetry 97 10/26/21 22:55 Temperature 36.3 C L 10/26/21 22:55 Pulse 52 L 10/26/21 22:55 Respiratory Rate 16 10/26/21 22:55 Blood Pressure 128/55 L 10/26/21 22:55 Pulse Oximetry 97 10/26/21 22:55 Pain Level 7 10/26/21 22:55
--- NOTE | 2021-10-27 00:22 | DI.VRAD_ITS ---
PROCEDURE INFORMATION: Exam: CT Head Without Contrast Exam date and time: 10/26/2021 11:42 PM Age: 81 years old Clinical indication: Injury or trauma; Concussion/head injury; Consciousness not specified; Injury date: 10/26/21; Injury details: Fall, head injury TECHNIQUE: Imaging protocol: Computed tomography of the head without contrast. Radiation optimization: All CT scans at this facility use at least one of these dose optimization techniques: automated exposure control; mA and/or kV adjustment per patient size (includes targeted exams where dose is matched to clinical indication); or iterative reconstruction. COMPARISON: MR BRAIN WO 08/14/2020 1:33 PM FINDINGS: Brain: There is diffuse cerebral atrophy concordant with the patient's age. Chronic small vessel deep white matter ischemic disease is suggested by areas of patchy white matter low attenuation. No intracranial hemorrhage. No acute large territory CVA. No mass. No acute edema. No acute intracranial abnormality. Cerebral ventricles: Atrophy concordant ventriculomegaly Paranasal sinuses: Chronic sinus disease with bilateral maxillary and ethmoid air cell mucoperiosteal thickening. Frontal sinus mild chronic disease. Mastoid air cells: Visualized mastoid air cells are well aerated. Bones/joints: Unremarkable. No acute fracture. Soft tissues: Left posterior parietal scalp laceration and contusion. No foreign body. IMPRESSION: 1. No acute intracranial abnormality. No intracranial hemorrhage. 2. Age-related atrophy and chronic small vessel deep white matter ischemia. 3. Posterior left parietal scalp laceration and contusion. No foreign body. 4. No skull fracture 5. Chronic sinus disease. PROCEDURE INFORMATION: Exam: CT Cervical Spine Without Contrast Exam date and time: 10/26/2021 11:42 PM Age: 81 years old Clinical indication: Injury or trauma; Concussion/head injury; Consciousness not specified; Injury date: 10/26/21; Injury details: Fall, head injury TECHNIQUE: Imaging protocol: Computed tomography images of the cervical spine without contrast. Radiation optimization: All CT scans at this facility use at least one of these dose optimization techniques: automated exposure control; mA and/or kV adjustment per patient size (includes targeted exams where dose is matched to clinical indication); or iterative reconstruction. COMPARISON: MR BRAIN WO 08/14/2020 1:33 PM FINDINGS: Bones/joints: Osteopenia. No acute fracture. Severe degenerative disc disease at C5-C6 and C6-C7. Multilevel degenerative facet and uncovertebral joint disease. Discs/Spinal canal/Neural foramina: No significant disc protrusion. No severe spinal canal stenosis. Multilevel bilateral moderate to severe foraminal stenosis. This is evident bilaterally from C3-C4 through C6-C7. Thyroid: Left thyroid nodularity. Coarse calcifications. Nonemergent thyroid ultrasound evaluation recommended. Largest nodule is approximately 15 x 11 mm. Lungs: Unremarkable lung apices Soft tissues: Atherosclerotic arterial calcification.. IMPRESSION: 1. Degenerative cervical spine changes. 2. No acute fracture or dislocation. 3. Left thyroid nodule. Recommend clinical correlation and nonemergent thyroid ultrasound evaluation of felt clinically warranted. Dictated and Authenticated by: Dominic Landa MD. Ordering:RODNEY Mark MD
== END 2021-10-27 00:46 | disposition home or self-care (01) ==
PROVIDERS: Emergency Provider Student in an Organized Health Care Education/Training Program; PCP Nurse Practitioner
DX: S00.03XA Contusion of scalp, initial encounter (principal); W07.XXXA Fall from chair, initial encounter; E04.1 Nontoxic single thyroid nodule
CPT/HCPCS: 99284; 70450; 70490; 99283

== ENCOUNTER 2021-11-14 16:06 | Emergency (ER) | payer MEDICARE, MEDICAID, SELFPAY ==
[2021-11-14] VITALS (24 sets, daily range): BP systolic 100–135; BP diastolic 56–95; PULSE 46–85; RESP 14–22; O2SAT 96–98
--- NOTE | 2021-11-14 16:00 | DI.RAD_ITS ---
Exam(s) XR CHEST 2V PA LATERAL EXAM: XR CHEST 2V PA LATERAL CLINICAL HISTORY: fall. TECHNIQUE: 2D digital imaging was performed. COMPARISON: CR XR CHEST 2V PA LATERAL from 08/14/2020 FINDINGS: 2 views: Heart size is normal. The mediastinum is not widened. Lungs are clear. No infiltrates nor pleural effusions. IMPRESSION: No acute pulmonary findings. DATA REPOSITORY: RADIATION DOSE DELIVERED:
--- NOTE | 2021-11-14 16:00 | RT.EKG_ITS ---
APPROVED REPORT Exam: Resting ECG Reason for Exam: loss of conciousness Patient Location: E HR:60 bpm ECG Measurements Heart Rate 60 AXIS LA [id number] P [id number] QRSd 97 QRS 85 QT 480 T 53 QTc 482 Conclusion Atrial fibrillation...? atrial activity Physician: no stemi, unchanged
--- NOTE | 2021-11-14 16:00 | DI.CT_ITS ---
Exam(s) CT HEAD CERVICAL SPINE WO EXAM: CT HEAD CERVICAL SPINE WO CLINICAL HISTORY: fall/head injury. TECHNIQUE: Imaging Protocol: Axial computed tomography images with coronal and sagittal reformatted images were created and reviewed COMPARISON: CT CT BRAIN NECK CTA from 08/14/[address] HEAD NECK WO from 10/26/2021 FINDINGS: BRAIN: There are no skull fractures. There is circumferential mucosal thickening in the maxillary sinuses, more so on the right side but no associated fluid levels therein. Sphenoid sinuses are clear. There is mucosal thickening as well as fluid in the frontal sinuses, left more so than right.. These find ings are similar to the previous study. Mastoid air cells remain clear. There is no evidence of intracranial hemorrhage, mass effect, or shift of midline structures. There are no extra-axial fluid collections. The ventricles are not enlarged or shifted and there is no blo od within the ventricular system nor within the basal cisterns. Symmetrical atrophy noted. Size of the intervals is commensurate when compared to the size of the ov erlying cortical sulci. There is some periventricular hypodensity consistent with chronic small vess el ischemic changes. Heavy calcification in the vertebral arteries at the skull base is noted as wel l as within the intracavernous and supraclinoid internal carotid arteries. CERVICAL SPINE: There is no evidence of fracture nor listhesis. No significant prevertebral soft tissue swelling. Multilevel degenerative changes. There is spinal canal stenosis evident in the lower cervical spine region. Multilevel facet arthropathy. There is no significant facet joint malalignment. No significant osseous lesions evident. IMPRESSION: No acute intracranial findings on this noninfused CT scan of the brain.Again noted is significant par anasal sinus disease as described above. This also involves the frontal sinuses. This finding exhib its minimal change compared to 10/26/2021. Advanced multilevel degenerative changes in the cervical spine. Also spinal canal stenosis in the lo wer cervical spine. Liver, there are no acute cervical spine fractures nor facet joint malalignment. RADIATION DOSE DELIVERED: 1,738.46mGy.cm Total DLP DATA REPOSITORY: All CT scans at this facility are submitted to the National Radiology Data Registry (NRDR) Dose Index Registry (DIR) with the [employer] (ACR). RADIATION OPTIMIZATION: All CT scans at this facility use at least one of these dose optimization te chniques: automated exposure control; mA and/or kV adjustment per patient size (includes targeted exa ms where dose is matched to clinical indication); or iterative reconstruction.
[2021-11-14 17:17] LABS: Abs Immature Grans 0.06 10^3/uL (0.0-0.06); Absolute Basophil Count 0.06 10^3/uL (0.0-0.2); Absolute Eosinophil Count 0.16 10^3/uL (0.0-0.7); Absolute Lymphocyte Count 1.16 10^3/uL (1.2-3.4); Absolute Monocyte Count 0.67 10^3/uL (0.1-0.8); Absolute Neutrophil Count 7.76 10^3/uL (1.2-6.7); Basophils % 0.6; Eosinophils % 1.6; HCT 42.1 % (40.0-50.0); HGB 13.8 g/dL (13.5-17.5); Immature Grans % 0.6; Lymphocytes % 11.8; MCH 31.9 pg (27.0-33.0); MCHC 32.8 % (32.0-36.0); MCV 97.2 fL (80-95); MPV 11.1 fL (8.0-11.0); Monocytes % 6.8; Neutrophils % 78.6; Nucleated RBC 0 %; Platelet Count 181 10^3/uL (130-400); RBC 4.33 10^6/uL (4.36-5.78); RDW 13.2 % (11.8-14.1); RDW-SD 47.7 fL; WBC 9.87 10^3/uL (4.4-10.8)
--- NOTE | 2021-11-14 17:23 | DI.VRAD_ITS ---
PROCEDURE INFORMATION: Exam: XR Chest Exam date and time: 11/14/2021 4:40 PM Age: 81 years old Clinical indication: Other: Trauma TECHNIQUE: Imaging protocol: XR of the chest. Views: 2 views. COMPARISON: CT CHEST/ABD/PEL W 08/17/2020 12:10 PM FINDINGS: Lungs: Hazy pulmonary is present in the left lower lobe.. Pleural spaces: Unremarkable. No pleural effusion. No pneumothorax. Heart/Mediastinum: The cardiac silhouette is mildly enlarged, although exaggerated by AP technique. Bones/joints: Unremarkable. IMPRESSION: Hazy pulmonary opacity present in the left lower lobe. In the setting of trauma, this may be due to pulmonary contusion. Dictated and Authenticated by: Reny Liang MD. Ordering:TAWANDA Toledo MD
--- NOTE | 2021-11-14 17:29 | W.ED.GENAD ---
Discharge Plan Disposition Patient Disposition: HOME Condition: Stable Discharge Details Clinical Impression: Head injury, Fall Primary Care Provider: Erika Mix ED Provider: Tre Alvarez Home Meds and New Rx's Prescriptions: Continued furosemide 20 MG tablet 40 mg PO DAILY Qty: 60 11RF triamcinolone acetonide 63 GM aerosol 63 g Topical PRN 0RF gabapentin 300 mg Capsule 300 mg PO TID 0RF metoprolol succinate 25 mg Tablet Extended Release 24 Hr 25 mg PO DAILY 0RF albuterol sulfate 90 mcg/actuation Hfa Aerosol Inhaler 2 puff INHALATION QID PRN0RF atorvastatin 40 MG tablet 20 mg PO DAILY 0RF docusate sodium 100 mg Tablet 100 mg PO BID 0RF polyethylene glycol 3350 17 gram Powder In Packet 17 g PO DAILY 0RF metformin 1,000 mg Tablet 1,000 mg PO BID 0RF sennosides 8.6 mg Capsule 8.6 mg PO DAILY 0RF alogliptin 6.25 mg Tablet 6.25 mg PO DAILY 0RF folic acid 1 mg Tablet 1 mg PO DAILY 0RF finasteride 5 mg Tablet 5 mg PO DAILY 0RF carboxymethylcellulose sodium 0.5 % Drops 1 drp ophthalmic (eye) QID 0RF tamsulosin 0.4 mg capsule 0.4 mg PO BID 0RF thiamine HCl (vitamin B1) 100 mg tablet 100 mg PO DAILY Qty: 30 0RF aspirin 81 mg Tablet 81 mg PO DAILY 0RF acetaminophen [Tylenol] 325 MG tablet 650 mg PO Q6H PRN PRN (Reason: Mild Pain, Temp. Over 38.5) 0RF tramadol 50 mg tablet 50 mg PO QID PRN0RF Label Comments: Take 1 tablet by mouth every four hours as needed for pain omeprazole 20 mg Capsule,Delayed Release(Dr/Ec) 20 mg PO BID 0RF oxybutynin chloride 5 mg Tablet 5 mg PO BID 0RF sertraline 50 mg Tablet 75 mg PO DAILY 0RF donepezil 5 mg Tablet,Disintegrating 5 mg PO DAILY 0RF diclofenac sodium [Voltaren Arthritis Pain] 1 % Gel 1 applic TOPICAL DAILY 0RF Paxlovid (EUA) 300 mg (150 mg x 2)-100 mg Tablet 1 tab PO BID 0RF ascorbic acid (vitamin C) [Vitamin C] 500 mg Tablet 500 mg PO DAILY 0RF cholecalciferol (vitamin D3) [Vitamin D3] 25 mcg (1,000 unit) Capsule 50 mcg PO DAILY 0RF quetiapine [Seroquel] 25 mg tablet 50 mg PO BID 0RF Discharge Instructions Instructions: Fall Prevention for Older Adults (ED), Head Injury (ED) Additional Instructions: Work-up in the ER does not reveal any obvious emergent process. Please watch for new or worsening symptoms and return to the ER for any concerns. Otherwise contact your primary care provider tomorrow to discuss your ER visit and need for outpatient reevaluation Discharge Data Discharge Date/Time-TO BE ENTERED AT DEPARTURE: 11/14/21 19:01 Medical Decision Making This is a 81-year-old gentleman, not anticoagulated, presenting to the ER for fall and head injury. The fall was unwitnessed and I was told by EMS that the patient is not sure why he fell or remembers the incident; However, the patient tells me he was getting up, loss of balance, fell forward, and struck his head. He is very adamant and clear about the details. He denies any other injury from the fall or symptoms prior to the fall. Will obtain CT of his head and C-spine, and given the confusing circumstances regarding his fall, will obtain routine screening laboratory values, EKG, a single troponin and CXR. He denies any chest pain or shortness of breath whatsoever. Laboratory values do not reveal any obvious emergent process. Imaging of his head, C-spine, chest are all unremarkable. C- collar was removed. Patient reports that he feels well, at baseline, and would like to go home. His uradxrcn-ye-fns feels as though he will his baseline. We discussed his unremarkable work-up thus far. They have no questions or concerns and he was comfortable bringing him back to his residence in his current condition. He is at his baseline ambulatory status at discharge. Standard discharge and return precautions were provided. This documentation was generated using [employer] system, please disregard any oddities of phrase or misspellings. Medical Records Medical records reviewed: Yes I reviewed the patient's medical records. Imaging Data Radiologic Study: Attestation: I personally reviewed and interpreted this imaging study as follows: Imaging: X-Ray Radiologist's impression: Exam(s) XR CHEST 2V PA LATERAL EXAM: XR CHEST 2V PA LATERAL CLINICAL HISTORY: fall. TECHNIQUE: 2D digital imaging was performed. COMPARISON: CR XR CHEST 2V PA LATERAL from 08/14/2020 FINDINGS: 2 views: Heart size is normal. The mediastinum is not widened. Lungs are clear. No infiltrates nor pleural effusions. IMPRESSION: No acute pulmonary findings. Radiologic Study #2: Attestation: I personally reviewed and interpreted this imaging study as follows: Imaging: CT Scan Radiologist's impression: PROCEDURE INFORMATION: Exam: CT Head Without Contrast Exam date and time: 11/14/2021 4:23 PM Age: 81 years old Clinical indication: Other: Trauma, fall injury TECHNIQUE: Imaging protocol: Computed tomography of the head without contrast. Radiation optimization: All CT scans at this facility use at least one of these dose optimization techniques: automated exposure control; mA and/or kV adjustment per patient size (includes targeted exams where dose is matched to clinical indication); or iterative reconstruction. COMPARISON: CT HEAD NECK WO 10/26/2021 11:42 PM FINDINGS: Brain: No mass, intracranial hemorrhage or brain edema. Severe diffuse brain voume loss in excess of that considered age appropriate. No focal encephalomalacia or transcortical defect. Mild confluent periventricular white matter hypoattenuation. No focal defect. Normal cerebellum and brainstem. Cerebral ventricles: Appropriate size. No abnormalities. Paranasal sinuses: Clear. Mastoid air cells: Clear. Orbital cavities: There has been bilateral ocular lens surgery. Vasculature: Bilateral vertebral and carotid atherosclerosis. Bones/joints: No fracture or suspicious lesion. Soft tissues: Unremarkable. IMPRESSION: 1. No acute intracranial abnormality. 2. Diffuse brain atrophy. 3. Atherosclerosis and typical stigmata of chronic ischemic white matter microangiopathy PROCEDURE INFORMATION: Exam: CT Cervical Spine Without Contrast Exam date and time: 11/14/2021 4:23 PM Age: 81 years old Clinical indication: Other: Trauma, fall injury TECHNIQUE: Imaging protocol: Computed tomography images of the cervical spine without contrast. Radiation optimization: All CT scans at this facility use at least one of these dose optimization techniques: automated exposure control; mA and/or kV adjustment per patient size (includes targeted exams where dose is matched to clinical indication); or iterative reconstruction. COMPARISON: CT HEAD NECK WO 10/26/2021 11:42 PM FINDINGS: Bones/joints: No fracture. 2 mm posterior degenerative subluxation of C5 and C6. Multilevel findings: Disc space narrowing, endplate sclerosis and vertebral spurring. This is greatest C5-C6 and C6-C7 where the disc spaces are obliterated. There is contiguous calcification of the anterior longitudinal ligament from C5 to the limits of visualization at T1/2. Discs/Spinal canal/Neural foramina: Facet sclerosis and spurring and uncovertebral spurring and disc osteophytes cause neural foramen narrowing C3/4 and C4/5 which is moderate to severe and may be clinically significant. Central canal narrowing is greatest at C6/7 and where the AP dimension of the central canal is 9 mm. Epidural space: Normal. Spinal cord: Normal. Prevertebral Space: Unremarkable. Brain: Normal cervico-medullary junction. Mastoid air cells: Clear. Thyroid: Inhomogeneous and partly calcified. Relative enlargement of left reji thyroid. No lesion requiring follow-up. Lymph nodes: None enlarged or otherwise suspicious. Lungs: Unremarkable. Vasculature: Carotid atherosclerosis. Soft tissues: Unremarkable. IMPRESSION: 1. No acute abnormality. Negative for fracture or traumatic malalignment. 2. Chronic unchanged cervical spondylosis with narrowing of the central canal to as little as 9 mm and bilateral neural foramen narrowing at C3/4 and C4/5 that may be clinically significant. 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 3. Carotid atherosclerosis. Lab Data Lab results reviewed: Yes I reviewed the patient's lab results. Labs: Laboratory Tests Range/Units 11/14/21 11/14/21 11/14/21 17:10 17:10 17:10 WBC (4.4-10.8) 10^3/uL 9.87 RBC (4.36-5.78) 10^6/uL 4.33 L Hgb (13.5-17.5) g/dL 13.8 Hct (40.0-50.0) % 42.1 MCV (80-95) fL 97.2 H MCH (27.0-33.0) pg 31.9 MCHC (32.0-36.0) % 32.8 RDW (11.8-14.1) % 13.2 Plt Count (130-400) 10^3/uL 181 MPV (8.0-11.0) fL 11.1 H Immature Gran % 0.6 Neutrophils % 78.6 Lymphocytes % 11.8 Monocytes % 6.8 Eosinophils % 1.6 Basophils % 0.6 Nucleated RBC % % 0 Absolute Neutrophils (1.2-6.7) 10^3/uL 7.76 H Absolute Lymphocytes (1.2-3.4) 10^3/uL 1.16 L Absolute Monocytes (0.1-0.8) 10^3/uL 0.67 Absolute Eosinophils (0.0-0.7) 10^3/uL 0.16 Absolute Basophils (0.0-0.2) 10^3/uL 0.06 PT (9.3-11.0) sec 10.8 INR (0.9-1.1) 1.1 APTT (21.0-27.5) sec 37.6 H Sodium (136-145) mmol/L 141 Potassium (3.5-5.1) mmol/L 4.3 Chloride (98-107) mmol/L 104 Carbon Dioxide (21.0-32.0) mmol/L 26.7 Anion Gap (3-11) mmol/L 10.3 BUN (7-18) mg/dL 21 H Creatinine (0.70-1.30) mg/dL 0.9 Estimated GFR/1.73 m2 (mL/min/1.73m2) >= 60.00 Glucose (74-106) mg/dL 100 Calcium (8.5-10.1) mg/dL 9.4 Magnesium (1.8-2.4) mg/dL 1.7 L Total Bilirubin (0.2-1.0) mg/dL 0.5 AST (15-37) U/L 19 ALT (16-63) U/L 21 Alkaline Phosphatase (46-116) U/L 102 Troponin I (<or=60) ng/L < 50 Total Protein (6.4-8.2) g/dL 8.5 H Albumin (3.4-5.0) g/dL 3.6 ECG Data Attestation: I personally reviewed and interpreted this ECG (s) as follows: Interpretation: Please see official report by Earnest Sauer fib, ventricular rate of 68, no STEMI HPI General Mode of arrival: EMS. Date/Time Provider Initiated Documentation: 11/14/21 16:14. Limitations to Documentation: other (dementia). Information obtained by: patient, EMS and old records reviewed. History of Present Illness 81 year old M presents to the emergency department with the chief complaint of fall/head injury, described as mild, with intensity rated at 2. Quality is described as aching, and is localized to the head. Patient reports no radiation. Patient started experiencing this minute(s) (30) and it has been constant. improves with No relieving factors improve symptom(s), No exacerbating factors reported . Patient notes no other symptoms.. Patient did receive the following treatments prior to arrival, other (ems - c collar) Related Data Home Medications Medication Instructions Recorded Confirmed acetaminophen 325 mg tablet 650 mg PO Q6H PRN PRN tab 06/24/16 11/15/21 (Tylenol) furosemide 20 mg tablet 40 mg PO DAILY #60 tab-cap 08/06/17 11/15/21 triamcinolone acetonide 0.147 63 g TOPICAL PRN 08/06/17 11/15/21 mg/gram topical aerosol albuterol sulfate 90 mcg/actuation 2 puff INHALATION QID PRN 08/23/18 11/15/21 aerosol inhaler atorvastatin 40 mg tablet 20 mg PO DAILY 08/23/18 11/15/21 gabapentin 300 mg capsule 300 mg PO TID 08/23/18 11/15/21 metoprolol succinate 25 mg 25 mg PO DAILY 08/23/18 11/15/21 tablet,extended release 24 hr docusate sodium 100 mg tablet 100 mg PO BID 10/10/18 11/15/21 alogliptin 6.25 mg tablet 6.25 mg PO DAILY 08/04/20 11/15/21 finasteride 5 mg tablet 5 mg PO DAILY 08/04/20 11/15/21 folic acid 1 mg tablet 1 mg PO DAILY 08/04/20 11/15/21 metformin 1,000 mg tablet 1,000 mg PO BID 08/04/20 11/15/21 polyethylene glycol 3350 17 gram 17 g PO DAILY 08/04/20 11/15/21 oral powder packet sennosides 8.6 mg capsule 8.6 mg PO DAILY 08/04/20 11/15/21 carboxymethylcellulose sodium 0.5 1 drp OPHTHALMIC (EYE) QID 08/17/20 11/15/21 % eye drops tamsulosin 0.4 mg capsule 0.4 mg PO BID 08/17/20 11/15/21 thiamine HCl (vitamin B1) 100 mg 100 mg PO DAILY #30 tab 08/22/20 11/15/21 tablet aspirin 81 mg tablet 81 mg PO DAILY 08/28/20 11/15/21 diclofenac sodium 1 % topical gel 1 applic TOPICAL DAILY 10/26/21 11/15/21 (Voltaren Arthritis Pain) donepezil 5 mg disintegrating 5 mg PO DAILY 10/26/21 11/15/21 tablet nirmatrelvir 150 mg x 2-ritonavir 1 tab PO BID 10/26/21 11/15/21 100 mg tablet (EUA) (Paxlovid (EUA)) omeprazole 20 mg capsule,delayed 20 mg PO BID 10/26/21 11/15/21 release oxybutynin chloride 5 mg tablet 5 mg PO BID 10/26/21 11/15/21 sertraline 50 mg tablet 75 mg PO DAILY 10/26/21 11/15/21 tramadol 50 mg tablet 50 mg PO QID PRN 10/26/21 11/15/21 ascorbic acid (vitamin C) 500 mg 500 mg PO DAILY 11/14/21 11/15/21 tablet (Vitamin C) cholecalciferol (vitamin D3) 25 50 mcg PO DAILY 11/14/21 11/15/21 mcg (1,000 unit) capsule (Vitamin D3) quetiapine 25 mg tablet (Seroquel) 50 mg PO BID 11/14/21 11/15/21 Previous Rx's Medication Instructions Recorded acetaminophen 325 mg tablet 650 mg PO Q6H PRN PRN tab 06/24/16 (Tylenol) furosemide 20 mg tablet 40 mg PO DAILY #60 tab-cap 08/06/17 thiamine HCl (vitamin B1) 100 mg 100 mg PO DAILY #30 tab 08/22/20 tablet Allergies Allergy/AdvReac Type Severity Reaction Status Date / Time wheat dextrin AdvReac Severe Unverified 11/14/21 17:55 animal dander AdvReac Unknown Unverified 11/14/21 17:55 codeine AdvReac Unverified 11/14/21 17:55 glutens Allergy Unknown Uncoded 11/14/21 17:55 glutethimide Allergy Unknown Uncoded 11/14/21 17:55 cats AdvReac Unknown Uncoded 11/14/21 17:55 General Stated Complaint: HeadInjury ABDIAS: 2 Review of Systems Constitutional Constitutional: Denies fever(s), Reports headache(s) and Denies weakness Eyes Eyes: Denies change in vision ENT Ears, Nose, Mouth, and Throat: Reports headache(s) and Denies neck pain Cardiovascular Cardiovascular: Denies chest pain and Denies dyspnea Respiratory Respiratory: Denies cough and Denies dyspnea Gastrointestinal Gastrointestinal: Denies abdominal pain, Denies nausea and Denies vomiting Genitourinary Genitourinary: Denies dysuria Musculoskeletal Musculoskeletal: Denies back pain and Denies neck pain Integumentary/Breasts Skin/Breast: Denies rash Neurologic Neurologic: Reports headache(s) and Denies weakness Hematologic/Lymphatic Hematologic/Lymphatic: Denies easy bleeding and Denies easy bruising PFSH All Active Problems Fall (Acute) Contusion of scalp (Acute) Thyroid nodule (Acute) Head injury (Acute) Fall (Acute) Chronic a-fib (Chronic) as noted on 30-day event monitor alf resident (Acute) Dementia (Chronic) mild to moderate; appears to fluctuate Goals of care, counseling/discussion (Acute) Palliative care patient (Acute) Cognitive impairment (Chronic) mild 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) Frequent falls (Chronic) Weakness (Acute) Chronic constipation (Chronic) Discharge planning issues (Acute) DVT prophylaxis (Acute) Acute UTI (Acute) Medical History Abnormality of gait due to impairment of balance Asthma Atypical chest pain CAD (coronary artery disease) Carpal tunnel syndrome Celiac disease Chronic confusion did not where he was, or date oriented only to self Dementia associated with alcoholism Edema of lower extremity Enlarged prostate GERD (gastroesophageal reflux disease) Hyperlipidemia Hypertension Insomnia Lives alone with help available used to [facility] at [facility] now at [facility] Major depression Noncompliance with medication regimen Obesity Paroxysmal A-fib Prostate cancer Seborrheic dermatitis Sensorineural hearing loss of combined sites Sialadenitis Socially inappropriate behavior due to his dementia prefers to be naked, undresses regularly Spinal stenosis Thyroid nodule TMJ (dislocation of temporomandibular joint) Urinary retention Surgical History History of appendectomy History of brachytherapy Family History Son Pancreatic cancer Daughter Pancreatic cancer Son Substance abuse History of incarceration Son No problems noted. Son No problems noted. 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 [employer] Pets and animals: No Sexually active: No Current gender identity: male What is your relationship status?: How often do you talk on the phone with friends or family?: once per week How often do you get together with friends or relatives?: never Do you belong to any clubs or organized social groups?: no Panel score (0-1 are the most socially isolated patients): 0 What type of physical activity do you participate in: walking and sedentary lifestyle Duration: < 15 minutes/day Frequency: daily Special melissa needs: No Seatbelt use: always Water heater temp set <120 deg: Yes Working smoke detector in home: Yes Fire extinguisher in home: Yes Firearms in home: No Do you feel safe at home: Yes Do you feel safe in your relationship?: Yes Additional Social history: Moved into [facility] after his last hospitalization. Has improved considerably since my last visit with him. He has had no recent socially inappropriate behaviors. Was dressed 01/17/21. Language more fluent. He recognized me immediately. Very pleasant and social, His social graces are still remarkably intact. He was polite. Oriented x 3 today, was only oriented to self last visit. Exam Const General: cooperative, healthy appearing, comfortable and no acute distress Orientation: alert, awake, oriented to person and oriented to place [facility] Head: normal to inspection, normocephalic and atraumatic Head images: 1. Mild tenderness, no crepitus Face and sinus: normal facial exam Mouth: moist mucous membranes Eyes General: appearance normal, both eyes and all related structures Conjunctivae: conjunctivae normal Neck Neck: normal visual inspection, trachea midline, supple, nontender and other (In a hard c-collar) Resp Effort & Inspection: normal respiratory effort and able to speak in complete sentences Auscultation: clear to auscultation bilaterally Cardio Rate: regular rate Rhythm: abnormal rhythm irregularly irregular GI Palpation: soft and nontender Back/Spine/Pelvis Back: No back tenderness Skin General skin exam: no rashes or lesions noted Neuro General: patient alert, patient awake, moves all extremities and no focal motor deficits Cranial Nerves: CN's II-XI intact bilaterally Cognition: normal cognition Speech: speech normal Motor: muscle tone normal throughout Sensory Exam: no sensory deficits noted Extrem General: normal to inspection, full ROM and capillary refill normal Psych Appearance: grossly normal Mental Status: mental status grossly normal Course Vital Signs Vital signs: Vital Signs Pulse 56 L 11/14/21 16:07 Respiratory Rate 16 11/14/21 16:07 Blood Pressure 127/71 11/14/21 16:07 Pulse Oximetry 98 11/14/21 16:07 Temperature Source Temporal Artery Scan 11/14/21 16:07 Pulse 56 L 11/14/21 16:07 Respiratory Rate 16 11/14/21 16:07 Respiratory Effort 11/14/21 16:13 Blood Pressure 127/71 11/14/21 16:07 Blood Pressure Position Supine 11/14/21 16:07 Pulse Oximetry 98 11/14/21 16:07 Oxygen Delivery Method Room Air 11/14/21 16:07 Oxygen Flow Rate 0 11/14/21 16:07 Pain Level 6 11/14/21 16:07 Lab/Test Results Lab/Test Results: Laboratory Tests Range/Units 11/14/21 17:10 WBC (4.4-10.8) 10^3/uL 9.87 RBC (4.36-5.78) 10^6/uL 4.33 L Hgb (13.5-17.5) g/dL 13.8 Hct (40.0-50.0) % 42.1 MCV (80-95) fL 97.2 H MCH (27.0-33.0) pg 31.9 MCHC (32.0-36.0) % 32.8 RDW (11.8-14.1) % 13.2 Plt Count (130-400) 10^3/uL 181 MPV (8.0-11.0) fL 11.1 H Immature Gran % 0.6 Neutrophils % 78.6 Lymphocytes % 11.8 Monocytes % 6.8 Eosinophils % 1.6 Basophils % 0.6 Nucleated RBC % % 0 Absolute Neutrophils (1.2-6.7) 10^3/uL 7.76 H Absolute Lymphocytes (1.2-3.4) 10^3/uL 1.16 L Absolute Monocytes (0.1-0.8) 10^3/uL 0.67 Absolute Eosinophils (0.0-0.7) 10^3/uL 0.16 Absolute Basophils (0.0-0.2) 10^3/uL 0.06
[2021-11-14 17:33] LABS: ALT 21 U/L (16-63); AST 19 U/L (15-37); Albumin 3.6 g/dL (3.4-5.0); Alkaline Phosphatase 102 U/L (46-116); Anion Gap 10.3 mmol/L (3-11); BUN 21 mg/dL (7-18); Bilirubin, Total 0.5 mg/dL (0.2-1.0); CO2 26.7 mmol/L (21.0-32.0); CREATININE 0.9 mg/dL (0.70-1.30); Calcium 9.4 mg/dL (8.5-10.1); Chloride 104 mmol/L (98-107); Glucose 100 mg/dL (74-106); Magnesium 1.7 mg/dL (1.8-2.4); Potassium 4.3 mmol/L (3.5-5.1); Sodium 141 mmol/L (136-145); Total Protein 8.5 g/dL (6.4-8.2); Troponin I < 50 ng/L (<or=60)
[2021-11-14 17:35] LABS: INR 1.1 (0.9-1.1); PTT Activated 37.6 sec (21.0-27.5); Prothrombin Time 10.8 sec (9.3-11.0)
--- NOTE | 2021-11-14 17:58 | DI.VRAD_ITS ---
PROCEDURE INFORMATION: Exam: CT Head Without Contrast Exam date and time: 11/14/2021 4:23 PM Age: 81 years old Clinical indication: Other: Trauma, fall injury TECHNIQUE: Imaging protocol: Computed tomography of the head without contrast. Radiation optimization: All CT scans at this facility use at least one of these dose optimization techniques: automated exposure control; mA and/or kV adjustment per patient size (includes targeted exams where dose is matched to clinical indication); or iterative reconstruction. COMPARISON: CT HEAD NECK WO 10/26/2021 11:42 PM FINDINGS: Brain: No mass, intracranial hemorrhage or brain edema. Severe diffuse brain voume loss in excess of that considered age appropriate. No focal encephalomalacia or transcortical defect. Mild confluent periventricular white matter hypoattenuation. No focal defect. Normal cerebellum and brainstem. Cerebral ventricles: Appropriate size. No abnormalities. Paranasal sinuses: Clear. Mastoid air cells: Clear. Orbital cavities: There has been bilateral ocular lens surgery. Vasculature: Bilateral vertebral and carotid atherosclerosis. Bones/joints: No fracture or suspicious lesion. Soft tissues: Unremarkable. IMPRESSION: 1. No acute intracranial abnormality. 2. Diffuse brain atrophy. 3. Atherosclerosis and typical stigmata of chronic ischemic white matter microangiopathy. PROCEDURE INFORMATION: Exam: CT Cervical Spine Without Contrast Exam date and time: 11/14/2021 4:23 PM Age: 81 years old Clinical indication: Other: Trauma, fall injury TECHNIQUE: Imaging protocol: Computed tomography images of the cervical spine without contrast. Radiation optimization: All CT scans at this facility use at least one of these dose optimization techniques: automated exposure control; mA and/or kV adjustment per patient size (includes targeted exams where dose is matched to clinical indication); or iterative reconstruction. COMPARISON: CT HEAD NECK WO 10/26/2021 11:42 PM FINDINGS: Bones/joints: No fracture. 2 mm posterior degenerative subluxation of C5 and C6. Multilevel findings: Disc space narrowing, endplate sclerosis and vertebral spurring. This is greatest C5-C6 and C6-C7 where the disc spaces are obliterated. There is contiguous calcification of the anterior longitudinal ligament from C5 to the limits of visualization at T1/2. Discs/Spinal canal/Neural foramina: Facet sclerosis and spurring and uncovertebral spurring and disc osteophytes cause neural foramen narrowing C3/4 and C4/5 which is moderate to severe and may be clinically significant. Central canal narrowing is greatest at C6/7 and where the AP dimension of the central canal is 9 mm. Epidural space: Normal. Spinal cord: Normal. Prevertebral Space: Unremarkable. Brain: Normal cervico-medullary junction. Mastoid air cells: Clear. Thyroid: Inhomogeneous and partly calcified. Relative enlargement of left reji thyroid. No lesion requiring follow-up. Lymph nodes: None enlarged or otherwise suspicious. Lungs: Unremarkable. Vasculature: Carotid atherosclerosis. Soft tissues: Unremarkable. IMPRESSION: 1. No acute abnormality. Negative for fracture or traumatic malalignment. 2. Chronic unchanged cervical spondylosis with narrowing of the central canal to as little as 9 mm and bilateral neural foramen narrowing at C3/4 and C4/5 that may be clinically significant. 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 3. Carotid atherosclerosis. Dictated and Authenticated by: Marcel Demarco MD. Ordering:TAWANDA Toledo MD
== END 2021-11-14 19:01 | disposition home or self-care (01) ==
PROVIDERS: Emergency Provider Physician Assistant; PCP Nurse Practitioner
DX: S09.8XXA Other specified injuries of head, initial encounter (principal); S00.03XA Contusion of scalp, initial encounter; W18.39XA Other fall on same level, initial encounter; S06.9X9A Unspecified intracranial injury with loss of consciousness of unspecified duration, initial encounter
CPT/HCPCS: 36415; 80053; 93005; 99285; 70450; 71046; 72125; 81003; 83735; 84484; 85025; 85610; 85730; 93010; 99284

== ENCOUNTER 2022-04-16 14:01 | Emergency (ER) | payer MEDICARE, MEDICAID, SELFPAY ==
[2022-04-16] VITALS (86 sets, daily range): BP systolic 84–165; BP diastolic 45–114; PULSE 63–121; RESP 19–37; TEMP 36; O2SAT 94–100
--- NOTE | 2022-04-16 13:45 | RT.EKG_ITS ---
APPROVED REPORT Exam: Resting ECG Reason for Exam: sob Patient Location: E HR:111 bpm ECG Measurements Heart Rate 111 AXIS NE [id number] P [id number] QRSd 114 QRS 82 QT 372 T -21 QTc 507 Conclusion Atrial fibrillation...? atrial activity Ventricular premature complex...V complex w/ short R-R interval Aberrant complex...small R-R variation, aberrant QRS Posterior infarct, acute...ST<-0.1 V1-V3 or ST>.05 V7-V9 Prolonged QT interval...QTc >500mS. Afib. Artifact. PVCs. No STEMI. I have reviewed and interpreted ECG and agree with software generated interpretation.
--- NOTE | 2022-04-16 14:15 | DI.RAD_ITS ---
Exam(s) XR PORTABLE CHEST AP EXAM: XR PORTABLE CHEST AP CLINICAL HISTORY: shortness of breath, r/o acute disease TECHNIQUE: 2D digital imaging was performed of the chest. One image was obtained. An AP view was ob tained. COMPARISON: CR,XR XR CHEST 2V PA LATERAL from 11/14/2021 FINDINGS: MEDIASTINUM: Normal. HEART: Normal. PULMONARY VASCULATURE: Normal. LUNGS: Clear. PLEURAL SPACE: No pleural effusion or pneumothorax. BONE:Within normal limits for the patient's age. OTHER FINDINGS:Normal. IMPRESSION: No acute pulmonary findings. DATA REPOSITORY: RADIATION DOSE DELIVERED:
[2022-04-16 14:38] LABS: HCT 44.6 % (40.0-50.0); HGB 13.4 g/dL (13.5-17.5); MCH 31.3 pg (27.0-33.0); MCV 104 fL (80-95); MPV 11.2 fL (8.0-11.0); Platelet Count 420 10^3/uL (130-400); RBC 4.28 10^6/uL (4.36-5.78); RDW 13.5 % (11.8-14.1); RDW-SD 51.9 fL
[2022-04-16 14:39] LABS: Source Nasal/Nares
[2022-04-16 14:44] LABS: WBC 28.25 10^3/uL (4.4-10.8)
--- NOTE | 2022-04-16 14:53 | W.ED.GENAD ---
Discharge Plan Disposition Patient Disposition: [facility] Condition: Serious Discharge Details Clinical Impression: UTI (urinary tract infection), COVID-19, Hypotension, Lactic acidosis, Altered mental status, Sepsis Primary Care Provider: Erika Mix ED Provider: Elba Giles Home Meds and New Rx's Prescriptions: No Action furosemide 20 MG tablet 40 mg PO DAILY Qty: 60 11RF tramadol 50 mg tablet 50 mg PO Q4H PRN Label Comments: Take 1 tablet by mouth every four hours as needed for pain bisacodyl 10 mg suppository 10 mg KY DAILY PRN Fleet Enema 19-7 gram/118 mL enema 118 ml KY DAILY PRN ibuprofen 600 mg tablet 600 mg PO Q8H PRN magnesium hydroxide [Dulcolax (magnesium hydroxide)] 400 mg/5 mL suspension 30 ml PO DAILY PRN nystatin 100,000 unit/gram powder 1 applic topical BID bismuth subsalicylate [Pepto-Bismol] 262 mg/15 mL suspension 524 mg PO Q30-60M PRN Rx Instructions: do not exceed 8 doses in a 24 hour period pyrithione zinc 1 % shampoo 1 applic topical DAILY PRN Rx Instructions: wet hair then apply , let stand 5 mins then rinse. Repeat. triamcinolone acetonide 0.1 % cream 1 applic topical DAILY gabapentin 300 mg Capsule 300 mg PO TID metoprolol succinate 25 mg Tablet Extended Release 24 Hr 25 mg PO DAILY albuterol sulfate 90 mcg/actuation Hfa Aerosol Inhaler 2 puff INHALATION QID PRN atorvastatin 40 MG tablet 20 mg PO DAILY docusate sodium 100 mg Tablet 100 mg PO BID metformin 1,000 mg Tablet 1,000 mg PO BID alogliptin 6.25 mg Tablet 6.25 mg PO DAILY folic acid 1 mg Tablet 1 mg PO DAILY tamsulosin 0.4 mg capsule 0.4 mg PO BID thiamine HCl (vitamin B1) 100 mg tablet 100 mg PO DAILY Qty: 30 0RF aspirin 81 mg Tablet 81 mg PO DAILY sennosides 8.6 mg Tablet 8.6 mg PO DAILY ascorbic acid (vitamin C) [Vitamin C] 500 mg Tablet 500 mg PO DAILY zinc 50 mg Tablet 50 mg PO DAILY sertraline 50 mg Tablet 75 mg PO DAILY quetiapine [Seroquel] 50 mg Tablet 50 mg PO BID cholecalciferol (vitamin D3) [Vitamin D3] 25 mcg (1,000 unit) Tablet 50 mcg PO DAILY acetaminophen [Tylenol] 325 MG tablet 650 mg PO Q6H PRN PRN (Reason: Mild Pain, Temp. Over 38.5) 0RF omeprazole 20 mg Capsule,Delayed Release(Dr/Ec) 20 mg PO BID donepezil 5 mg Tablet,Disintegrating 5 mg PO DAILY diclofenac sodium [Voltaren Arthritis Pain] 1 % Gel 1 applic TOPICAL DAILY Discharge Data Discharge Date/Time-TO BE ENTERED AT DEPARTURE: 04/16/22 21:40 Medical Decision Making 1415 -- 81-year-old male with a history of dementia, hypertension, hyperlipidemia, coronary artery disease, paroxysmal atrial fibrillation, prostate cancer, diabetes who presents with chest pain, shortness of breath and hypoxia per EMS [facility] EMS reported an oxygen saturation of 73% on room air and 85% on 2 L and neb treatment. It was reportedly potentially not an accurate waveform on pulse oximetry. Oxygen saturation 99% on nonrebreather and titrated down to nasal cannula and eventually 100% on room air. Palliative care note from January 2022 notes that patient has previously been DNR/DNI. EKG notes a rate of 111, afib, no stemi. EKG read as acute WI with posterior infarct but there is significant artifact and does not appear accurate and no stemi. 1500 --labs and imaging reviewed. White blood cell count 28. Respiratory unable to obtain ABG. pH on VBG 6.77, PCO2 25, PO2 57. BUN 106, creatinine 9, bicarb 5, glucose 55. Troponin negative. BNP 16 555. Nursing able to remove approximately 200 cc of milky appearing urine with straight cath. Urinalysis appears consistent with UTI. COVID positive. Upon further discussion with sons in waiting room, patient was diagnosed with COVID over a week ago [facility]. They state they have been unable to see him since his diagnosis. Patient initially has been hemodynamically stable but now hypotensive with systolic as low as 80s. He has improved with fluids and systolic now 90s. Long discussion with POA son Benitez Rodriguez who also discussed with his Lanette and they would like everything done including dialysis if indicated. Case discussed with hospitalist who feels that patient would be better served at a tertiary facility. Case discussed with [facility] critical care except patient for transfer. Accepting physician Dr. Daley. Recommend 3 amp of bicarb, 50 miEq each. Recommend starting Levophed to keep MAP of 65. Recommend Zosyn and to continue IV fluid hydration. 1929 --called to bedside for sonorous respirations. Patient has maintained oxygen saturation 1 high percent on room air. Intact gag reflex. His pressure has improved with Levophed, currently 122/74, map 80. Son was informed of patient's current condition and low threshold for intubation as he becomes hypoxic but I suspect that he is tachypneic in the setting of metabolic acidosis with compensation but will continue to monitor and reassess. Sons were able to evaluate patient at bedside as he is likely outside of the infectious window as he was diagnosed with COVID over 1 week ago. 2029 --MAP of 88, blood pressure 130/90. We will continue to titrate down Levophed. Oxygen saturation 100%. Mental status at baseline. No signs of apnea and maintaining airway. Medical Records Medical records reviewed: Yes I reviewed the patient's medical records. Imaging Data Radiologic Study: Radiologist's impression: XR PORTABLE CHEST AP CLINICAL HISTORY:? shortness of breath, r/o acute disease TECHNIQUE:? 2D digital imaging was performed of the chest. One image was obtained.? An AP view was obtained. COMPARISON:? CR,XR XR CHEST 2V PA ? LATERAL from 11/14/2021 FINDINGS: MEDIASTINUM: Normal.? HEART: Normal. PULMONARY VASCULATURE: Normal. LUNGS: Clear.? PLEURAL SPACE: No pleural effusion or pneumothorax. BONE:Within normal limits for the patient's age. OTHER FINDINGS:Normal.? IMPRESSION: No acute pulmonary findings. CT Chest Without Contrast; Diagnostic Exam date and time: 04/16/2022 4:39 PM Age: 81 years old Clinical indication: Patient HX: Hypoxia, acute kidney inj, covid +, R/O pneumonia, kidney disease TECHNIQUE: Imaging protocol: Diagnostic computed tomography of the chest without contrast. Radiation optimization: All CT scans at this facility use at least one of these dose optimization techniques: automated exposure control; mA and/or kV adjustment per patient size (includes targeted exams where dose is matched to clinical indication); or iterative reconstruction. COMPARISON: CT CHEST/ABD/PEL W 08/17/2020 12:10 PM FINDINGS: Thyroid: Calcifications and enlarged left lobe of the thyroid.. 12 mm nodule. No follow-up required Lungs: Subpleural densities in the lung rasheed bilaterally consistent with chronic lung changes. Mild opacities in the right lower lobe and lingula may represent atelectasis or pneumonia.? Pleural spaces: Unremarkable. No pneumothorax. No pleural effusion. Heart: Unremarkable. No cardiomegaly. No pericardial effusion. Lymph nodes: Unremarkable. No enlarged lymph nodes. Vasculature: Unruptured aneurysm of the ascending aorta 4.2 x 4.1 cm. Bones/joints: T7 vertebral body is increased in density. This may represent a sclerotic vertebral body and blastic metastasis. This was not clearly present on the prior study. Soft tissues: Unremarkable. IMPRESSION: 1. 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 2. Subpleural densities in the lung rasheed bilaterally consistent with chronic lung changes. 3. T7 vertebral body is increased in density. This may represent a sclerotic vertebral body and blastic metastasis. This was not clearly present on the prior study. 4 Mild opacities in the right lower lobe and lingula may represent atelectasis or pneumonia.? CT Abdomen And Pelvis Without Contrast Exam date and time: 04/16/2022 4:39 PM Age: 81 years old Clinical indication: Patient HX: Hypoxia, acute kidney inj, covid +, R/O pneumonia, kidney disease TECHNIQUE: Imaging protocol: Computed tomography of the abdomen and pelvis without contrast. Radiation optimization: All CT scans at this facility use at least one of these dose optimization techniques: automated exposure control; mA and/or kV adjustment per patient size (includes targeted exams where dose is matched to clinical indication); or iterative reconstruction. COMPARISON: CT CHEST/ABD/PEL W 08/17/2020 12:10 PM FINDINGS: Liver: Normal. No mass. Gallbladder and bile ducts: Gallstones in the gallbladder.. Pancreas: Pancreatic atrophy Spleen: Normal. No splenomegaly. Adrenal glands: Normal. No mass. Kidneys and ureters: Normal. No hydronephrosis. Stomach and bowel: Diverticulosis of the rectosigmoid. No dianne diverticulitis. Appendix: No evidence of appendicitis. Intraperitoneal space: Unremarkable. No free air. No significant fluid collection. Vasculature: Unremarkable. No abdominal aortic aneurysm. Lymph nodes: Unremarkable. No enlarged lymph nodes. Urinary bladder: The bladder is decompressed. Anterior bladder wall measures 21. mm. This is nonspecific and may represent inflammation or infection. Neoplastic process and neurogenic bladder are included in the differential. Reproductive: Unremarkable as visualized. Bones/joints: Unremarkable. No acute fracture. Soft tissues: Unremarkable. Other findings: Motion artifact degrades images IMPRESSION: 1. Gallstones in the gallbladder.. 2.The bladder is decompressed. Anterior bladder wall measures 21 mm. This is nonspecific and may represent inflammation or infection. Neoplastic process and neurogenic bladder are included in the differential.? Recommend urology consult Lab Data Lab results reviewed: Yes I reviewed the patient's lab results. Labs: 04/16/22 17:30 Blood Blood Culture - Pending 04/16/22 17:15 Blood Blood Culture - Pending 04/16/22 15:19 Urine - Reflex from Ua Urine Culture - Pending Laboratory Tests Range/Units 04/16/22 04/16/22 04/16/22 14:12 14:12 14:31 WBC (4.4-10.8) 10^3/uL 28.25 H* RBC (4.36-5.78) 10^6/uL 4.28 L Hgb (13.5-17.5) g/dL 13.4 L Hct (40.0-50.0) % 44.6 MCV (80-95) fL 104 H MCH (27.0-33.0) pg 31.3 MCHC (32.0-36.0) % 30.0 L RDW (11.8-14.1) % 13.5 Plt Count (130-400) 10^3/uL 420 H MPV (8.0-11.0) fL 11.2 H Immature Gran % See Differential Neutrophils % 66.0 Band Neutrophils % 2 Lymphocytes % 20.0 Monocytes % 4.0 Eosinophils % 0.0 Basophils % 1.0 Metamyelocytes % 2 Myelocytes % 5 Nucleated RBC % (0.0-0.3) % 0.0 Absolute Neutrophils (1.2-6.7) 10^3/uL 19.21 H Absolute Lymphocytes (1.2-3.4) 10^3/uL 5.65 H Absolute Monocytes (0.1-0.8) 10^3/uL 1.13 H Absolute Eosinophils (0.0-0.7) 10^3/uL 0.00 Absolute Basophils (0.0-0.2) 10^3/uL 0.28 H RBC Morphology See Below Macrocytosis 1+ ABG Sample Site ABG pH ABG pCO2 ABG pO2 ABG HCO3 ABG Total CO2 ABG O2 Saturation ABG Base Excess VBG pH (7.31-7.41) VBG pCO2 (41-51) mmHg VBG pO2 mmHg VBG HCO3 VBG Total CO2 VBG O2 Saturation % VBG Base Excess VBG Lactate (0.6-1.4) mmol/L Oxygen Liter Flow FiO2 Sodium Cancelled Potassium Cancelled Chloride Cancelled Carbon Dioxide Cancelled Anion Gap Cancelled BUN Cancelled Creatinine Cancelled Est GFR (CKD-EPI 2020) Cancelled Glucose Cancelled Calcium Cancelled Magnesium Cancelled Total Bilirubin Cancelled AST Cancelled ALT Cancelled Alkaline Phosphatase Cancelled Creatine Kinase (39-308) U/L Troponin I Cancelled NT-Pro-B Natriuret Pep Cancelled Total Protein Cancelled Albumin Cancelled Procalcitonin ng/mL Urine Color (Yellow) Urine Clarity (Clear) Urine pH (5-8) Ur Specific Haworth (1.005-1.025) Urine Protein (Negative) mg/dL Urine Ketones (Negative) mg/dL Urine Blood (Negative) Urine Nitrite (Negative) Urine Bilirubin (Negative) Urine Urobilinogen (Up TO 0.2) EU/dL Ur Leukocyte Esterase (Negative) Urine RBC (0-2) HPF Urine WBC (0-5) HPF Ur Epithelial Cells Urine Crystals Urine Bacteria Urine Mucus Ur Culture Indicated? Urine Glucose (Negative) mg/dL COVID-19 Source Nasal/Nares SARS-CoV-2 (PCR) (Negative) POSITIVE A* Range/Units 04/16/22 04/16/22 04/16/22 14:32 14:45 14:45 WBC (4.4-10.8) 10^3/uL RBC (4.36-5.78) 10^6/uL Hgb (13.5-17.5) g/dL Hct (40.0-50.0) % MCV (80-95) fL MCH (27.0-33.0) pg MCHC (32.0-36.0) % RDW (11.8-14.1) % Plt Count (130-400) 10^3/uL MPV (8.0-11.0) fL Immature Gran % Neutrophils % Band Neutrophils % Lymphocytes % Monocytes % Eosinophils % Basophils % Metamyelocytes % Myelocytes % Nucleated RBC % (0.0-0.3) % Absolute Neutrophils (1.2-6.7) 10^3/uL Absolute Lymphocytes (1.2-3.4) 10^3/uL Absolute Monocytes (0.1-0.8) 10^3/uL Absolute Eosinophils (0.0-0.7) 10^3/uL Absolute Basophils (0.0-0.2) 10^3/uL RBC Morphology Macrocytosis ABG Sample Site Cancelled ABG pH Cancelled ABG pCO2 Cancelled ABG pO2 Cancelled ABG HCO3 Cancelled ABG Total CO2 Cancelled ABG O2 Saturation Cancelled ABG Base Excess Cancelled VBG pH (7.31-7.41) VBG pCO2 (41-51) mmHg VBG pO2 mmHg VBG HCO3 VBG Total CO2 VBG O2 Saturation % VBG Base Excess VBG Lactate (0.6-1.4) mmol/L Oxygen Liter Flow Cancelled FiO2 Cancelled Sodium 139 Potassium 4.8 Chloride 94 L Carbon Dioxide < 5.0 L* Anion Gap 40.75843 H BUN 106 H* Creatinine 9.0 H* Est GFR (CKD-EPI 2020) 5.38 Glucose 65 L Calcium 9.1 Magnesium 2.3 Total Bilirubin 0.4 AST 21 ALT 15 L Alkaline Phosphatase 87 Creatine Kinase (39-308) U/L 59 Troponin I < 50 NT-Pro-B Natriuret Pep 32879 H Total Protein 8.6 H Albumin 2.9 L Procalcitonin ng/mL Urine Color (Yellow) Urine Clarity (Clear) Urine pH (5-8) Ur Specific Haworth (1.005-1.025) Urine Protein (Negative) mg/dL Urine Ketones (Negative) mg/dL Urine Blood (Negative) Urine Nitrite (Negative) Urine Bilirubin (Negative) Urine Urobilinogen (Up TO 0.2) EU/dL Ur Leukocyte Esterase (Negative) Urine RBC (0-2) HPF Urine WBC (0-5) HPF Ur Epithelial Cells Urine Crystals Urine Bacteria Urine Mucus Ur Culture Indicated? Urine Glucose (Negative) mg/dL COVID-19 Source SARS-CoV-2 (PCR) (Negative) Range/Units 04/16/22 04/16/22 04/16/22 14:57 15:19 17:15 WBC (4.4-10.8) 10^3/uL RBC (4.36-5.78) 10^6/uL Hgb (13.5-17.5) g/dL Hct (40.0-50.0) % MCV (80-95) fL MCH (27.0-33.0) pg MCHC (32.0-36.0) % RDW (11.8-14.1) % Plt Count (130-400) 10^3/uL MPV (8.0-11.0) fL Immature Gran % Neutrophils % Band Neutrophils % Lymphocytes % Monocytes % Eosinophils % Basophils % Metamyelocytes % Myelocytes % Nucleated RBC % (0.0-0.3) % Absolute Neutrophils (1.2-6.7) 10^3/uL Absolute Lymphocytes (1.2-3.4) 10^3/uL Absolute Monocytes (0.1-0.8) 10^3/uL Absolute Eosinophils (0.0-0.7) 10^3/uL Absolute Basophils (0.0-0.2) 10^3/uL RBC Morphology Macrocytosis ABG Sample Site ABG pH ABG pCO2 ABG pO2 ABG HCO3 ABG Total CO2 ABG O2 Saturation ABG Base Excess VBG pH (7.31-7.41) < 6.77 L* VBG pCO2 (41-51) mmHg 25 L VBG pO2 mmHg 57 VBG HCO3 VBG Total CO2 VBG O2 Saturation % 70 VBG Base Excess VBG Lactate (0.6-1.4) mmol/L 19.0 H* Oxygen Liter Flow FiO2 Sodium Potassium Chloride Carbon Dioxide Anion Gap BUN Creatinine Est GFR (CKD-EPI 2020) Glucose Calcium Magnesium Total Bilirubin AST ALT Alkaline Phosphatase Creatine Kinase (39-308) U/L Troponin I NT-Pro-B Natriuret Pep Total Protein Albumin Procalcitonin ng/mL 0.7 Urine Color (Yellow) Yellow Urine Clarity (Clear) Turbid Urine pH (5-8) 6.0 Ur Specific Haworth (1.005-1.025) 1.025 Urine Protein (Negative) mg/dL >=300 H Urine Ketones (Negative) mg/dL Negative Urine Blood (Negative) Large H Urine Nitrite (Negative) Negative Urine Bilirubin (Negative) Negative Urine Urobilinogen (Up TO 0.2) EU/dL 0.2 Ur Leukocyte Esterase (Negative) Large H Urine RBC (0-2) HPF Urine WBC (0-5) HPF >50 H Ur Epithelial Cells Not Applicable Urine Crystals Not Applicable Urine Bacteria Not Applicable Urine Mucus Not Applicable Ur Culture Indicated? Yes Urine Glucose (Negative) mg/dL Negative COVID-19 Source SARS-CoV-2 (PCR) (Negative) Range/Units 04/16/22 17:15 WBC (4.4-10.8) 10^3/uL RBC (4.36-5.78) 10^6/uL Hgb (13.5-17.5) g/dL Hct (40.0-50.0) % MCV (80-95) fL MCH (27.0-33.0) pg MCHC (32.0-36.0) % RDW (11.8-14.1) % Plt Count (130-400) 10^3/uL MPV (8.0-11.0) fL Immature Gran % Neutrophils % Band Neutrophils % Lymphocytes % Monocytes % Eosinophils % Basophils % Metamyelocytes % Myelocytes % Nucleated RBC % (0.0-0.3) % Absolute Neutrophils (1.2-6.7) 10^3/uL Absolute Lymphocytes (1.2-3.4) 10^3/uL Absolute Monocytes (0.1-0.8) 10^3/uL Absolute Eosinophils (0.0-0.7) 10^3/uL Absolute Basophils (0.0-0.2) 10^3/uL RBC Morphology Macrocytosis ABG Sample Site ABG pH ABG pCO2 ABG pO2 ABG HCO3 ABG Total CO2 ABG O2 Saturation ABG Base Excess VBG pH (7.31-7.41) < 6.77 L* VBG pCO2 (41-51) mmHg 25 L VBG pO2 mmHg 73 VBG HCO3 Not Applicable VBG Total CO2 Not Applicable VBG O2 Saturation % 80 VBG Base Excess Not Applicable VBG Lactate (0.6-1.4) mmol/L Oxygen Liter Flow FiO2 Sodium Potassium Chloride Carbon Dioxide Anion Gap BUN Creatinine Est GFR (CKD-EPI 2020) Glucose Calcium Magnesium Total Bilirubin AST ALT Alkaline Phosphatase Creatine Kinase (39-308) U/L Troponin I NT-Pro-B Natriuret Pep Total Protein Albumin Procalcitonin ng/mL Urine Color (Yellow) Urine Clarity (Clear) Urine pH (5-8) Ur Specific Haworth (1.005-1.025) Urine Protein (Negative) mg/dL Urine Ketones (Negative) mg/dL Urine Blood (Negative) Urine Nitrite (Negative) Urine Bilirubin (Negative) Urine Urobilinogen (Up TO 0.2) EU/dL Ur Leukocyte Esterase (Negative) Urine RBC (0-2) HPF Urine WBC (0-5) HPF Ur Epithelial Cells Urine Crystals Urine Bacteria Urine Mucus Ur Culture Indicated? Urine Glucose (Negative) mg/dL COVID-19 Source SARS-CoV-2 (PCR) (Negative) ECG Data Attestation: I personally reviewed and interpreted this ECG (s) as follows: Interpretation: rate of 111, afib, PVCs, no stemi. HPI General Mode of arrival: EMS. Date/Time Provider Initiated Documentation: 04/16/22 14:23. Limitations to Documentation: no limitations. Information obtained by: patient. HPI Narrative: Patient is AN 81-year-old male with a history of dementia, coronary artery disease, paroxysmal atrial fibrillation, asthma, GERD, hypertension, diabetes [facility] chest pain and shortness of breath. EMS reports an oxygen saturation of 73% on room air which increased to 85% on 2 L nasal cannula and neb treatment. EMS reports that patient has had rapid abdominal breathing and nausea. Heart rate was noted to be regular between 90s and 130s. Patient has a history of dementia and unable to provide history Related Data Home Medications Medication Instructions Recorded Confirmed acetaminophen 325 mg tablet 650 mg PO Q6H PRN PRN Mild Pain, 06/24/16 04/16/22 (Tylenol) Temp. Over 38.5 furosemide 20 mg tablet 40 mg PO DAILY #60 tab-caps 08/06/17 04/16/22 albuterol sulfate 90 mcg/actuation 2 puff inhalation QID PRN 08/23/18 04/16/22 aerosol inhaler atorvastatin 40 mg tablet 20 mg PO DAILY 08/23/18 04/16/22 gabapentin 300 mg capsule 300 mg PO TID 08/23/18 04/16/22 metoprolol succinate 25 mg 25 mg PO DAILY 08/23/18 04/16/22 tablet,extended release 24 hr docusate sodium 100 mg tablet 100 mg PO BID 10/10/18 04/16/22 alogliptin 6.25 mg tablet 6.25 mg PO DAILY 08/04/20 04/16/22 folic acid 1 mg tablet 1 mg PO DAILY 08/04/20 04/16/22 metformin 1,000 mg tablet 1,000 mg PO BID 08/04/20 04/16/22 tamsulosin 0.4 mg capsule 0.4 mg PO BID 08/17/20 04/16/22 thiamine HCl (vitamin B1) 100 mg 100 mg PO DAILY #30 tabs 08/22/20 04/16/22 tablet aspirin 81 mg tablet 81 mg PO DAILY 08/28/20 04/16/22 diclofenac sodium 1 % topical gel 1 applic topical DAILY 10/26/21 04/16/22 (Voltaren Arthritis Pain) donepezil 5 mg disintegrating 5 mg PO DAILY 10/26/21 04/16/22 tablet omeprazole 20 mg capsule,delayed 20 mg PO BID 10/26/21 04/16/22 release bisacodyl 10 mg rectal suppository 10 mg KY DAILY PRN 12/19/21 04/16/22 bismuth subsalicylate 262 mg/15 mL 524 mg PO Q30-60M PRN 12/19/21 04/16/22 oral suspension (Pepto-Bismol) ibuprofen 600 mg tablet 600 mg PO Q8H PRN 12/19/21 04/16/22 magnesium hydroxide 400 mg/5 mL 30 ml PO DAILY PRN 12/19/21 04/16/22 oral suspension (Dulcolax (magnesium hydroxide)) nystatin 100,000 unit/gram topical 1 applic topical BID 12/19/21 04/16/22 powder pyrithione zinc 1 % shampoo 1 applic topical DAILY PRN 12/19/21 04/16/22 sodium phosphates 19 gram-7 118 ml KY DAILY PRN 12/19/21 04/16/22 gram/118 mL enema (Fleet Enema) tramadol 50 mg tablet 50 mg PO Q4H PRN 12/19/21 04/16/22 triamcinolone acetonide 0.1 % 1 applic topical DAILY 12/19/21 04/16/22 topical cream ascorbic acid (vitamin C) 500 mg 500 mg PO DAILY 04/16/22 04/16/22 tablet (Vitamin C) cholecalciferol (vitamin D3) 25 50 mcg PO DAILY 04/16/22 04/16/22 mcg (1,000 unit) tablet (Vitamin D3) quetiapine 50 mg tablet (Seroquel) 50 mg PO BID 04/16/22 04/16/22 sennosides 8.6 mg tablet 8.6 mg PO DAILY 04/16/22 04/16/22 sertraline 50 mg tablet 75 mg PO DAILY 04/16/22 04/16/22 zinc 50 mg tablet 50 mg PO DAILY 04/16/22 04/16/22 Previous Rx's Medication Instructions Recorded acetaminophen 325 mg tablet 650 mg PO Q6H PRN PRN Mild Pain, 06/24/16 (Tylenol) Temp. Over 38.5 furosemide 20 mg tablet 40 mg PO DAILY #60 tab-caps 08/06/17 thiamine HCl (vitamin B1) 100 mg 100 mg PO DAILY #30 tabs 08/22/20 tablet Allergies Allergy/AdvReac Type Severity Reaction Status Date / Time wheat dextrin AdvReac Severe Unverified 04/16/22 14:32 animal dander AdvReac Unknown Unverified 04/16/22 14:32 codeine AdvReac Unverified 04/16/22 14:32 glutens Allergy Unknown Uncoded 04/16/22 14:32 glutethimide Allergy Unknown Uncoded 04/16/22 14:32 cats AdvReac Unknown Uncoded 04/16/22 14:32 General Stated Complaint: Chest Pain ABDIAS: 2 Review of Systems Unobtainable due to mental status Constitutional Constitutional: Denies chills, Denies excessive sweating, Denies fatigue, Denies fever(s), Denies weakness and Denies weight loss Eyes Eyes: Reports system reviewed and no additional complaints, except as documented and Denies blurry vision ENT Ears, Nose, Mouth, and Throat: Denies vertigo, Denies dizziness, Denies otalgia, Denies nasal congestion, Denies sore throat and Denies throat swelling Cardiovascular Cardiovascular: Denies chest pain, Denies syncope, Denies rapid heart rate and Denies dyspnea Respiratory Respiratory: Denies chest congestion, Denies cough, Denies pain on inspiration and Denies dyspnea Gastrointestinal Gastrointestinal: Denies abdominal pain, Denies diarrhea and Denies vomiting Genitourinary Genitourinary: Denies hematuria, Denies dysuria and Denies flank pain Musculoskeletal Musculoskeletal: Denies back pain and Denies joint swelling Integumentary/Breasts Skin/Breast: Denies lesions and Denies rash Neurologic Neurologic: Denies behavioral changes, Denies confusion, Denies vertigo, Denies dizziness, Denies syncope, Denies localized weakness and Denies weakness Psychiatric Psychiatric: Denies behavioral changes, Denies confusion and Denies depression Endocrine Endocrine: Denies excessive sweating and Denies fatigue Hematologic/Lymphatic Hematologic/Lymphatic: Denies easy bruising and Denies lymphadenopathy Allergic/Immunologic Allergic/Immunologic: Denies throat swelling PFSH All Active Problems (Updated 04/18/22 @ 14:51 by Elba Gilse DO) UTI (urinary tract infection) (Acute) COVID-19 (Acute) Hypotension (Acute) Lactic acidosis (Acute) Altered mental status (Acute) Sepsis (Acute) Chronic a-fib (Chronic) as noted on 30-day event monitor senior living resident (Acute) Dementia (Chronic) mild to moderate; appears to fluctuate Goals of care, counseling/discussion (Acute) Palliative care patient (Acute) Cognitive impairment (Chronic) mild 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) Frequent falls (Chronic) Weakness (Acute) Chronic constipation (Chronic) Discharge planning issues (Acute) DVT prophylaxis (Acute) Acute UTI (Acute) Medical History Abnormality of gait due to impairment of balance Asthma Atypical chest pain CAD (coronary artery disease) Carpal tunnel syndrome Celiac disease Chronic confusion did not where he was, or date oriented only to self Dementia associated with alcoholism Edema of lower extremity Enlarged prostate GERD (gastroesophageal reflux disease) Hyperlipidemia Hypertension Insomnia Lives alone with help available used to live at [facility] now at [facility] Major depression Noncompliance with medication regimen Obesity Paroxysmal A-fib Prostate cancer Seborrheic dermatitis Sensorineural hearing loss of combined sites Sialadenitis Socially inappropriate behavior due to his dementia prefers to be naked, undresses regularly Spinal stenosis Thyroid nodule TMJ (dislocation of temporomandibular joint) Urinary retention Surgical History History of appendectomy History of brachytherapy Family History Son Pancreatic cancer Daughter Pancreatic cancer Son Substance abuse History of incarceration Son No problems noted. Son No problems noted. 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 [employer] Pets and animals: No Sexually active: No Current gender identity: male What is your relationship status?: How often do you talk on the phone with friends or family?: once per week How often do you get together with friends or relatives?: never Do you belong to any clubs or organized social groups?: no Panel score (0-1 are the most socially isolated patients): 0 What type of physical activity do you participate in: walking and sedentary lifestyle Duration: < 15 minutes/day Frequency: daily Special melissa needs: No Seatbelt use: always Water heater temp set <120 deg: Yes Working smoke detector in home: Yes Fire extinguisher in home: Yes Firearms in home: No Do you feel safe at home: Yes Do you feel safe in your relationship?: Yes Additional Social history: Moved into [facility] after his last hospitalization. Has improved considerably since my last visit with him. He has had no recent socially inappropriate behaviors. Was dressed 01/17/21. Language more fluent. He recognized me immediately. Very pleasant and social, His social graces are still remarkably intact. He was polite. Oriented x 3 today, was only oriented to self last visit. Exam Const General: cooperative Orientation: awake HENHI Head: normal to inspection Ears: hearing grossly normal bilaterally, external ears normal and TM's normal bilaterally General nose exam: external nose normal Face and sinus: normal facial exam Mouth: oral mucosae normal Teeth and gingiva: dentition normal Throat: posterior oropharynx normal Eyes General: appearance normal, both eyes and all related structures Eyelids: eyelids normal Pupils: PERRL EOM: EOM intact bilaterally Neck Neck: normal visual inspection Lymphatic: no lymphadenopathy noted Chest Chest: normal inspection of the chest Resp Effort & Inspection: normal respiratory effort Auscultation: clear to auscultation bilaterally Cardio Rate: tachycardic Rhythm: regular rhythm GI Inspection: normal to inspection Palpation: soft, not firm, no guarding, no hepatosplenomegaly, no masses and nontender Auscultation: normal bowel sounds Back/Spine/Pelvis Back: no CVA tenderness Skin General skin exam: no rashes or lesions noted Neuro General: patient awake Motor: muscle tone normal throughout Sensory Exam: no sensory deficits noted Extrem General: normal to inspection, full ROM, capillary refill normal and no edema Psych Appearance: grossly normal Mental Status: mental status grossly normal Speech and Movement: speech and movement normal Affect: normal affect Thought Process: normal Course Vital Signs Vital signs: Vital Signs Temperature 96.8 F L 04/16/22 14:02 Pulse 104 H 04/16/22 14:02 Respiratory Rate 23 04/16/22 14:02 Blood Pressure 126/114 H 04/16/22 14:02 Pulse Oximetry 99 04/16/22 14:02 Temperature 96.8 F L 04/16/22 14:02 Temperature Source Temporal Artery Scan 04/16/22 14:02 Pulse 102 H 04/16/22 14:16 Pulse 114 H 04/16/22 14:30 Respiratory Rate 22 04/16/22 14:30 Respiratory Effort Labored 04/16/22 14:19 Respiratory Depth Deep 04/16/22 14:19 Respiratory Pattern Tachypnea 04/16/22 14:19 Blood Pressure 107/66 04/16/22 14:16 Blood Pressure Mean 73 04/16/22 14:16 Blood Pressure Position Sitting 04/16/22 14:02 Pulse Oximetry 100 04/16/22 14:29 Oxygen Delivery Method Non-Rebreather 04/16/22 14:29 Oxygen Flow Rate 15 04/16/22 14:29 Lab/Test Results Lab/Test Results: Laboratory Tests Range/Units 04/16/22 14:31 COVID-19 Source Nasal/Nares Critical Care Time Critical Care Time Critical Care Time: Yes Total Critical Care Time: 30 Attestation: I spent 30 minutes of critical care time with this patient. This does not include time spent on separately reported billable procedures.
--- NOTE | 2022-04-16 15:00 | RT.EKG_ITS ---
APPROVED REPORT Exam: Resting ECG Reason for Exam: chest pain Patient Location: E HR:104 bpm ECG Measurements Heart Rate 104 AXIS ME [id number] P [id number] QRSd 119 QRS 77 QT 428 T -55 QTc 563 Conclusion Atrial fibrillation...? atrial activity Nonspecific intraventricular conduction delay...QRSd >115mS, not LBBB/RBBB Low voltage, precordial leads...precordial leads <1.0mV Borderline repol abnormality, diffuse leads...ST dep, T flat/neg, ant/lat/inf Prolonged QT interval...QTc >500mS. Afib. No STEMI. I have reviewed and interpreted ECG and agree with software generated interpretation.
[2022-04-16 15:04] LABS: O2 Sat (Venous) 70 %; pCO2 (Venous) 25 mmHg (41-51); pO2 (Venous) 57 mmHg
[2022-04-16 15:10] LABS: COVID-19 PCR POSITIVE (Negative)
[2022-04-16 15:17] LABS: ALT 15 U/L (16-63); AST 21 U/L (15-37); Albumin 2.9 g/dL (3.4-5.0); Alkaline Phosphatase 87 U/L (46-116); Bilirubin, Total 0.4 mg/dL (0.2-1.0); Calcium 9.1 mg/dL (8.5-10.1); Chloride 94 mmol/L (98-107); Estimated GFR 5.38 (mL/min/1.73m2); Glucose 65 mg/dL (74-106); Magnesium 2.3 mg/dL (1.8-2.4); NT-proBNP 16555 pg/mL (<300); Potassium 4.8 mmol/L (3.5-5.1); Sodium 139 mmol/L (136-145); Total Protein 8.6 g/dL (6.4-8.2); Troponin I < 50 ng/L (<or=60)
[2022-04-16 15:25] LABS: Absolute Lymphocyte Count 5.65 10^3/uL (1.2-3.4); Absolute Neutrophil Count 19.21 10^3/uL (1.2-6.7); Bands % 2
[2022-04-16 15:26] LABS: Absolute Basophil Count 0.28 10^3/uL (0.0-0.2); Absolute Monocyte Count 1.13 10^3/uL (0.1-0.8); Diff Comment Manual Differential; Macrocytosis 1+; Metamyelocytes % 2; Myelocytes % 5
[2022-04-16 15:30] LABS: Anion Gap 40.00001 mmol/L (3-11)
[2022-04-16 15:34] LABS: Bilirubin Negative (Negative); Blood Large (Negative); Clarity Turbid (Clear); Glucose Negative (Negative); Ketones Negative (Negative); Leukocyte Esterase Large (Negative); Nitrite Negative (Negative); Specific Gravity 1.025 (1.005-1.025); Urobilinogen 0.2 EU/dL (Up TO 0.2)
[2022-04-16 15:47] LABS: WBC >50 HPF (0-5)
[2022-04-16 15:48] LABS: C & S Indicated? Yes
[2022-04-16 15:49] LABS: BUN 106 mg/dL (7-18)
[2022-04-16 15:51] LABS: CO2 < 5.0 mmol/L (21.0-32.0)
--- NOTE | 2022-04-16 16:15 | DI.CT_ITS ---
Exam(s) CT CHEST/ABD/PEL WO EXAM: CT CHEST/ABD/PEL WO CLINICAL HISTORY: hypoxia, acute kidney inj TECHNIQUE: Imaging Protocol: Axial computed tomography images with coronal and sagittal reformatted images were created and reviewed COMPARISON: CT CT BRAIN NECK CTA from 08/14/[address] CHEST/ABD/PEL W from 08/17/2020 FINDINGS: Suboptimal examination. The patient was scanned in the right lateral decubitus position. The examin ation is limited due to patient motion artifact. CHEST: Tracheobronchial tree: Patent where visualized. Pulmonary parenchyma: No consolidation or dominant measurable mass. No architectural distortion. Mild dependent atelectasis is seen in the lung bases. Mediastinum and Nissa: No dominant adenopathy or fluid collection. The esophagus is unremarkable. Thyroid gland: Stable thyroid nodules. Pleura: No effusion or pneumothorax. Heart: The heart is not dilated. Coronary artery calcifications are present. No pericardial effusion . Aorta: The ascending thoracic aorta measures 4.2 x 4.3 cm. Atherosclerosis is present. Lymph nodes: Within normal limits. Bones:Within normal limits for the patient's age. There is sclerosis of the T7 vertebral body. Toxey static disease cannot be excluded. Soft tissues: Unremarkable. ABDOMEN: Liver: Normal density. No measurable mass. Gallbladder and Biliary Tract: Cholelithiasis. The gallbladder is distended. No biliary ductal dila tation. Pancreas: There is atrophy of the pancreas. No peripancreatic fluid collections are present. Spleen: Normal. Adrenals: No masses seen. Kidneys: Normal size, contour and axis. No radiodense stones or obstructive uropathy. No masses seen. Abdominal Aorta: Abdominal portion non-dilated. Atherosclerosis. Bowel: No obstruction or bowel wall thickening. No evidence of appendicitis. There is diverticulosis seen in the sigmoid colon but no evidence of acute diverticulitis. Peritoneal Cavity: No ascites, collection or mesenteric inflammatory response. No free air. Lymph Nodes: Within normal limits. Bones: Within normal limits for the patient's age. Soft Tissues: Unremarkable. PELVIS: Bladder: There is diffuse thickening of the wall of the urinary bladder. Mild inflammation is seen a round the urinary bladder. Reproductive Organs: Unremarkable as visualized. Lymph Nodes: Within normal limits. Bones: Within normal limits for the patient's age. IMPRESSION: 1. Atelectasis in the lung bases. 2. Thoracic ascending aorta measures 4.2 x 4.1 cm. 3. Sclerotic T7 vertebral body. Metastatic disease cannot be excluded. 4. There is thickening of the urinary bladder with mild infiltration of the surrounding soft tissues. Infection/inflammation cystitis should be considered. Neoplasm or neurogenic bladder cannot be exc luded. RADIATION DOSE DELIVERED: 1,024.71mGy.cm Total DLP 1,024.71mGy.cm Total DLP DATA REPOSITORY: All CT scans at this facility are submitted to the National Radiology Data Registry (NRDR) Dose Index Registry (DIR) with the [employer] (ACR). RADIATION OPTIMIZATION: All CT scans at this facility use at least one of these dose optimization te chniques: automated exposure control; mA and/or kV adjustment per patient size (includes targeted exa ms where dose is matched to clinical indication); or iterative reconstruction.
[2022-04-16] MEDS: Normal Saline 1,000 ML 1000 ML IV ×2 (16:24→18:03)
[2022-04-16 16:48] LABS: Creatine Kinase 59 U/L (39-308)
--- NOTE | 2022-04-16 17:05 | DI.VRAD_ITS ---
Addendum created by James Krishnan MD on 04/16/2022 5:30:44 PM EDT: Correction: The impression should read 2.The bladder is decompressed. Anterior bladder wall measures 21 mm. This is nonspecific and may represent inflammation or infection. Neoplastic process and neurogenic bladder are included in the differential. Recommend urology consult Initial report created on 04/16/2022 5:04:51 PM EDT: PROCEDURE INFORMATION: Exam: CT Chest Without Contrast; Diagnostic Exam date and time: 04/16/2022 4:39 PM Age: 81 years old Clinical indication: Patient HX: Hypoxia, acute kidney inj, covid +, R/O pneumonia, kidney disease TECHNIQUE: Imaging protocol: Diagnostic computed tomography of the chest without contrast. Radiation optimization: All CT scans at this facility use at least one of these dose optimization techniques: automated exposure control; mA and/or kV adjustment per patient size (includes targeted exams where dose is matched to clinical indication); or iterative reconstruction. COMPARISON: CT CHEST/ABD/PEL W 08/17/2020 12:10 PM FINDINGS: Thyroid: Calcifications and enlarged left lobe of the thyroid.. 12 mm nodule. No follow-up required Lungs: Subpleural densities in the lung rasheed bilaterally consistent with chronic lung changes. Mild opacities in the right lower lobe and lingula may represent atelectasis or pneumonia. Pleural spaces: Unremarkable. No pneumothorax. No pleural effusion. Heart: Unremarkable. No cardiomegaly. No pericardial effusion. Lymph nodes: Unremarkable. No enlarged lymph nodes. Vasculature: Unruptured aneurysm of the ascending aorta 4.2 x 4.1 cm. Bones/joints: T7 vertebral body is increased in density. This may represent a sclerotic vertebral body and blastic metastasis. This was not clearly present on the prior study. Soft tissues: Unremarkable. IMPRESSION: 1. 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 2. Subpleural densities in the lung rasheed bilaterally consistent with chronic lung changes. 3. T7 vertebral body is increased in density. This may represent a sclerotic vertebral body and blastic metastasis. This was not clearly present on the prior study. 4 Mild opacities in the right lower lobe and lingula may represent atelectasis or pneumonia. PROCEDURE INFORMATION: Exam: CT Abdomen And Pelvis Without Contrast Exam date and time: 04/16/2022 4:39 PM Age: 81 years old Clinical indication: Patient HX: Hypoxia, acute kidney inj, covid +, R/O pneumonia, kidney disease TECHNIQUE: Imaging protocol: Computed tomography of the abdomen and pelvis without contrast. Radiation optimization: All CT scans at this facility use at least one of these dose optimization techniques: automated exposure control; mA and/or kV adjustment per patient size (includes targeted exams where dose is matched to clinical indication); or iterative reconstruction. COMPARISON: CT CHEST/ABD/PEL W 08/17/2020 12:10 PM FINDINGS: Liver: Normal. No mass. Gallbladder and bile ducts: Gallstones in the gallbladder.. Pancreas: Pancreatic atrophy Spleen: Normal. No splenomegaly. Adrenal glands: Normal. No mass. Kidneys and ureters: Normal. No hydronephrosis. Stomach and bowel: Diverticulosis of the rectosigmoid. No dianne diverticulitis. Appendix: No evidence of appendicitis. Intraperitoneal space: Unremarkable. No free air. No significant fluid collection. Vasculature: Unremarkable. No abdominal aortic aneurysm. Lymph nodes: Unremarkable. No enlarged lymph nodes. Urinary bladder: The bladder is decompressed. Anterior bladder wall measures 21. mm. This is nonspecific and may represent inflammation or infection. Neoplastic process and neurogenic bladder are included in the differential. Reproductive: Unremarkable as visualized. Bones/joints: Unremarkable. No acute fracture. Soft tissues: Unremarkable. Other findings: Motion artifact degrades images IMPRESSION: 1. Gallstones in the gallbladder.. 2. Mm. This is nonspecific and may represent inflammation or infection. Neoplastic process and neurogenic bladder are included in the differential. Dictated and Authenticated by: James Krishnan MD. Ordering:JADA Arreola MD
[2022-04-16 17:25] LABS: O2 Sat (Venous) 80 %; pCO2 (Venous) 25 mmHg (41-51); pO2 (Venous) 73 mmHg
[2022-04-16 18:41] LABS: Procalcitonin 0.7 ng/mL
[2022-04-16] MEDS: Sodium Bicarbonate 50 MEQ/50 ML SYR 150 MEQ IVP (18:49)
[2022-04-16] MEDS: PIPERACILLIN/TAZO 3.375 GM in Normal Saline 50 ML IVPB (18:57)
--- NOTE | 2022-04-16 19:01 | NUR.NOTE ---
Nursing Note: Sodium bicarb and norep drip both checked and verified by myself and Marlen Phoenix RN. Sodium bicarb dosing also verified by Dr Steiner prior to administration. [place] [facility]
== END 2022-04-16 21:40 | disposition short-term general hospital (02) ==
PROVIDERS: Emergency Provider Physician Assistant; PCP Nurse Practitioner
DX: U07.1 COVID-19 (principal); N39.0 Urinary tract infection, site not specified; I95.9 Hypotension, unspecified; E87.2 Acidosis; R41.82 Altered mental status, unspecified; A41.9 Sepsis, unspecified organism; I10 Essential (primary) hypertension; I48.0 Paroxysmal atrial fibrillation; J45.909 Unspecified asthma, uncomplicated; Z79.84 Long term (current) use of oral hypoglycemic drugs; Z79.82 Long term (current) use of aspirin; Z79.52 Long term (current) use of systemic steroids
CPT/HCPCS: 36415; 51702; 71250; 80053; 82550; 82805; 84145; 87040; 87077; 87635; 93005; 96361; 96365; 96366; 96367; 96375; 99291; 71045; 74176; 81003; 81015; 83605; 83735; 83880; 84484; 85025; 87086; 87186; 93010; J2543

== ENCOUNTER 2022-05-25 10:50 | Emergency (ER) | payer MEDICARE, MEDICAID, SELFPAY ==
[2022-05-25 10:56] VITALS: PULSE 85; RESP 16; TEMP 36.3; O2SAT 99
--- NOTE | 2022-05-25 11:00 | DI.RAD_ITS ---
Exam(s) XR PELVIS AP EXAM: XR PELVIS AP CLINICAL HISTORY: fall from bed. TECHNIQUE: 2D digital imaging was performed. COMPARISON: None for comparison. FINDINGS: The examination is suboptimal due to significant patient motion artifact. BONES: Evaluation of fracture is limited due to patient motion artifact. No bony destructive lesion is seen. JOINTS: No dislocation present. Degenerative changes are seen in the hips and lumbar spine. SOFT TISSUE: Normal. IMPRESSION: 1. Suboptimal examination due to significant patient motion artifact. This limits evaluation for fra cture. 2. Degenerative changes in the spine and hips. DATA REPOSITORY: RADIATION DOSE DELIVERED:
--- NOTE | 2022-05-25 11:14 | DI.CT_ITS ---
Exam(s) CT HEAD CERVICAL SPINE WO EXAM: CT HEAD CERVICAL SPINE WO CLINICAL HISTORY: fall head injury. TECHNIQUE: Imaging Protocol: Axial computed tomography images with coronal and sagittal reformatted images were created and reviewed COMPARISON: CT CT HEAD CERVICAL SPINE WO from 11/14/2021 FINDINGS: The examination is limited due to patient motion artifact. CT Head: Ventricles and Extra axial spaces: Normal in size and morphology for the patient's age. Hemorrhage: None. Cerebral parenchyma: There is no evidence of an acute territorial infarct. There are areas of decrea sed attenuation in the white matter consistent with small vessel ischemic disease. Midline shift: None. Brainstem/Cerebellum: Normal. Calvarium: Normal. Visualized Paranasal sinuses/Mastoids: Clear. Soft Tissues: Unremarkable. CT Cervical Spine: Bones: No acute fracture or subluxation. Moderate cervical spondylosis. [facility] is seen in the lower ce rvical and upper thoracic spine. There is mild reversal of the normal cervical lordosis. Soft Tissues: Unremarkable. Lung Apices: Clear. IMPRESSION: 1. Examination is limited by patient motion artifact. 2. No acute intracranial process. 3. No acute fracture or subluxation in the cervical spine. RADIATION DOSE DELIVERED: 1658.68 mGy.cm Total DLP DATA REPOSITORY: All CT scans at this facility are submitted to the National Radiology Data Registry (NRDR) Dose Index Registry (DIR) with the [employer] (ACR). RADIATION OPTIMIZATION: All CT scans at this facility use at least one of these dose optimization te chniques: automated exposure control; mA and/or kV adjustment per patient size (includes targeted exa ms where dose is matched to clinical indication); or iterative reconstruction.
--- NOTE | 2022-05-25 11:19 | W.ED.GENAD ---
Discharge Plan Disposition Patient Disposition: HOME Condition: Improving Discharge Details Clinical Impression: Head injury, Acute UTI Primary Care Provider: Erika Mix ED Provider: Shamir Thorpe Home Meds and New Rx's Prescriptions: New cefpodoxime 200 mg tablet 200 mg PO BID 7 Days Qty: 14 0RF Rx Instructions: must administer with a meal/food No Action furosemide 20 MG tablet 40 mg PO DAILY Qty: 60 11RF bisacodyl 10 mg suppository 10 mg NV DAILY PRN Fleet Enema 19-7 gram/118 mL enema 118 ml NV DAILY PRN ibuprofen 600 mg tablet 600 mg PO Q8H PRN magnesium hydroxide [Dulcolax (magnesium hydroxide)] 400 mg/5 mL suspension 30 ml PO DAILY PRN nystatin 100,000 unit/gram powder 1 applic topical BID bismuth subsalicylate [Pepto-Bismol] 262 mg/15 mL suspension 524 mg PO Q30-60M PRN Rx Instructions: do not exceed 8 doses in a 24 hour period pyrithione zinc 1 % shampoo 1 applic topical DAILY PRN Rx Instructions: wet hair then apply , let stand 5 mins then rinse. Repeat. gabapentin 300 mg Capsule 300 mg PO TID metoprolol succinate 25 mg Tablet Extended Release 24 Hr 25 mg PO DAILY albuterol sulfate 90 mcg/actuation Hfa Aerosol Inhaler 2 puff INHALATION QID PRN atorvastatin 40 MG tablet 40 mg PO DAILY docusate sodium 100 mg Tablet 100 mg PO BID metformin 1,000 mg Tablet 1,000 mg PO BID alogliptin 6.25 mg Tablet 6.25 mg PO DAILY folic acid 1 mg Tablet 1 mg PO DAILY tamsulosin 0.4 mg capsule 0.4 mg PO BID aspirin 81 mg Tablet 81 mg PO DAILY sennosides 8.6 mg Tablet 8.6 mg PO DAILY ascorbic acid (vitamin C) [Vitamin C] 500 mg Tablet 500 mg PO DAILY sertraline 50 mg Tablet 75 mg PO DAILY quetiapine [Seroquel] 50 mg Tablet 50 mg PO BID cholecalciferol (vitamin D3) [Vitamin D3] 25 mcg (1,000 unit) Tablet 50 mcg PO DAILY acetaminophen [Tylenol] 325 MG tablet 650 mg PO Q6H PRN PRN (Reason: Mild Pain, Temp. Over 38.5) 0RF omeprazole 20 mg Capsule,Delayed Release(Dr/Ec) 20 mg PO BID donepezil 5 mg Tablet,Disintegrating 5 mg PO DAILY diclofenac sodium [Voltaren Arthritis Pain] 1 % Gel 1 applic TOPICAL DAILY polyethylene glycol 3350 17 gram Powder In Packet 17 g PO PRN PRN melatonin 3 mg Tablet 3 mg PO QHS oxybutynin chloride 5 mg Tablet 5 mg PO BID Discharge Instructions Instructions: Urinary Tract Infection in Men (ED), Head Injury (ED) Additional Instructions: Please follow with your primary care physician. Please return to the emergency department for any worsening symptoms Medical Decision Making 81-year-old male presents brought in by EMS after being found down next to his bed at half-way. Unknown mechanism of injury however is that he fell in his room, unclear whether he had loss of consciousness. Patient did endorse to family that he had a headache however no current complaints on examination. Patient is arousable moving spontaneously following commands, no midline spinal tenderness, is currently in c-collar, no external signs of trauma, however per family patient has been more restless over the last week. Has a G-tube and Hernández catheter in place. Consider delirium in the setting of UTI versus electrolyte abnormality must also consider intracranial injury from fall, less likely acute stroke, lower suspicion for primary cardiac process, will obtain basic labs UA CT head CT C-spine, will administer IV acetaminophen for discomfort as patient does have a G-tube and is older with altered mental status. Disposition pending reassessment and results 13: 18 patient displaying signs of delirium rolling in bed appears agitated, was given 1 mg of Ativan because she was unable to sit still during CT however due to other patients going to imaging before him his medication is worn off will redose 0.5 mg IV Ativan to have patient go to diagnostic imaging. 14: 42 patient now resting more comfortably. A simple team for procedural sedation order obtain CT head CT C-spine however patient was calm cooperative and was able to be scan without sedation. Patient's family member at bedside endorses that she saw fecal matter on his Hernández catheter flushed port at the half-way. There is evidence of mild UTI. Will change Hernández catheter. Will cover empirically with antibiotics. Hemodynamically stable, calm cooperative in no acute distress, will likely be discharged back to half-way facility. 15: 31 patient resting comfortably no acute distress. Calm cooperative more interactive. Treat empirically for UTI. CT head CT C-spine negative. Home care instructions and return precautions given HPI General Date/Time Provider Initiated Documentation: 05/25/22 10:57. HPI Narrative: 82-year-old male history of frequent falls, diabetes, dementia, brought in from half-way after being found down next to bed, unknown mechanism of injury however is assumed that he had fallen out of bed or slipped in his room. Patient endorses hitting his head and having headache to family, no complaints currently. Related Data Home Medications Medication Instructions Recorded Confirmed acetaminophen 325 mg tablet 650 mg PO Q6H PRN PRN Mild Pain, 06/24/16 05/25/22 (Tylenol) Temp. Over 38.5 furosemide 20 mg tablet 40 mg PO DAILY #60 tab-caps 08/06/17 05/25/22 albuterol sulfate 90 mcg/actuation 2 puff inhalation QID PRN 08/23/18 05/25/22 aerosol inhaler atorvastatin 40 mg tablet 40 mg PO DAILY 08/23/18 05/25/22 gabapentin 300 mg capsule 300 mg PO TID 08/23/18 04/16/22 metoprolol succinate 25 mg 25 mg PO DAILY 08/23/18 05/25/22 tablet,extended release 24 hr docusate sodium 100 mg tablet 100 mg PO BID 10/10/18 04/16/22 alogliptin 6.25 mg tablet 6.25 mg PO DAILY 08/04/20 05/25/22 folic acid 1 mg tablet 1 mg PO DAILY 08/04/20 04/16/22 metformin 1,000 mg tablet 1,000 mg PO BID 08/04/20 04/16/22 tamsulosin 0.4 mg capsule 0.4 mg PO BID 08/17/20 05/25/22 aspirin 81 mg tablet 81 mg PO DAILY 08/28/20 05/25/22 diclofenac sodium 1 % topical gel 1 applic topical DAILY 10/26/21 05/25/22 (Voltaren Arthritis Pain) donepezil 5 mg disintegrating 5 mg PO DAILY 10/26/21 05/25/22 tablet omeprazole 20 mg capsule,delayed 20 mg PO BID 10/26/21 05/25/22 release bisacodyl 10 mg rectal suppository 10 mg NV DAILY PRN 12/19/21 04/16/22 bismuth subsalicylate 262 mg/15 mL 524 mg PO Q30-60M PRN 12/19/21 04/16/22 oral suspension (Pepto-Bismol) ibuprofen 600 mg tablet 600 mg PO Q8H PRN 12/19/21 05/25/22 magnesium hydroxide 400 mg/5 mL 30 ml PO DAILY PRN 12/19/21 05/25/22 oral suspension (Dulcolax (magnesium hydroxide)) nystatin 100,000 unit/gram topical 1 applic topical BID 12/19/21 05/25/22 powder pyrithione zinc 1 % shampoo 1 applic topical DAILY PRN 12/19/21 04/16/22 sodium phosphates 19 gram-7 118 ml NV DAILY PRN 12/19/21 04/16/22 gram/118 mL enema (Fleet Enema) ascorbic acid (vitamin C) 500 mg 500 mg PO DAILY 04/16/22 04/16/22 tablet (Vitamin C) cholecalciferol (vitamin D3) 25 50 mcg PO DAILY 04/16/22 04/16/22 mcg (1,000 unit) tablet (Vitamin D3) quetiapine 50 mg tablet (Seroquel) 50 mg PO BID 04/16/22 05/25/22 sennosides 8.6 mg tablet 8.6 mg PO DAILY 04/16/22 05/25/22 sertraline 50 mg tablet 75 mg PO DAILY 04/16/22 05/25/22 cefpodoxime 200 mg tablet 200 mg PO BID 7 days #14 tabs 05/25/22 melatonin 3 mg tablet 3 mg PO QHS 05/25/22 05/25/22 oxybutynin chloride 5 mg tablet 5 mg PO BID 05/25/22 05/25/22 polyethylene glycol 3350 17 gram 17 g PO PRN PRN 05/25/22 05/25/22 oral powder packet Previous Rx's Medication Instructions Recorded acetaminophen 325 mg tablet 650 mg PO Q6H PRN PRN Mild Pain, 06/24/16 (Tylenol) Temp. Over 38.5 furosemide 20 mg tablet 40 mg PO DAILY #60 tab-caps 08/06/17 cefpodoxime 200 mg tablet 200 mg PO BID 7 days #14 tabs 05/25/22 Allergies Allergy/AdvReac Type Severity Reaction Status Date / Time wheat dextrin AdvReac Severe Unverified 05/25/22 11:30 animal dander AdvReac Unknown Unverified 05/25/22 11:30 codeine AdvReac Unverified 05/25/22 11:30 glutens Allergy Unknown Uncoded 05/25/22 11:30 glutethimide Allergy Unknown Uncoded 05/25/22 11:30 cats AdvReac Unknown Uncoded 05/25/22 11:30 General Stated Complaint: Trauma ABDIAS: 2 Review of Systems Narrative: Review of Systems Constitutional: negative Eyes: negative ENT: negative Cardiovascular: negative Respiratory: negative Gastrointestinal: negative : negative Musculoskeletal: negative Skin: negative Neurologic: Headache Psych: negative PFSH All Active Problems (Updated 05/25/22 @ 15:32 by Shamir Thorpe MD) COVID-19 (Acute) Head injury (Acute) Acute UTI (Acute) Chronic a-fib (Chronic) as noted on 30-day event monitor [facility] resident (Acute) Dementia (Chronic) mild to moderate; appears to fluctuate Goals of care, counseling/discussion (Acute) Palliative care patient (Acute) Cognitive impairment (Chronic) mild 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) Frequent falls (Chronic) Weakness (Acute) Chronic constipation (Chronic) Discharge planning issues (Acute) DVT prophylaxis (Acute) Acute UTI (Acute) Medical History Abnormality of gait due to impairment of balance Asthma Atypical chest pain CAD (coronary artery disease) Carpal tunnel syndrome Celiac disease Chronic confusion did not where he was, or date oriented only to self Dementia associated with alcoholism Edema of lower extremity Enlarged prostate GERD (gastroesophageal reflux disease) Hyperlipidemia Hypertension Insomnia Lives alone with help available used to live at [facility] now at Rehab Major depression Noncompliance with medication regimen Obesity Paroxysmal A-fib Prostate cancer Seborrheic dermatitis Sensorineural hearing loss of combined sites Sialadenitis Socially inappropriate behavior due to his dementia prefers to be naked, undresses regularly Spinal stenosis Thyroid nodule TMJ (dislocation of temporomandibular joint) Urinary retention Surgical History History of appendectomy History of brachytherapy Family History Son Pancreatic cancer Daughter Pancreatic cancer Son Substance abuse History of incarceration Son No problems noted. Son No problems noted. 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 [employer] Pets and animals: No Sexually active: No Current gender identity: male What is your relationship status?: How often do you talk on the phone with friends or family?: once per week How often do you get together with friends or relatives?: never Do you belong to any clubs or organized social groups?: no Panel score (0-1 are the most socially isolated patients): 0 What type of physical activity do you participate in: walking and sedentary lifestyle Duration: < 15 minutes/day Frequency: daily Special melissa needs: No Seatbelt use: always Water heater temp set <120 deg: Yes Working smoke detector in home: Yes Fire extinguisher in home: Yes Firearms in home: No Do you feel safe at home: Yes Do you feel safe in your relationship?: Yes Additional Social history: patient lives at [facility] and rehab. Exam Narrative Exam Narrative: Physical Examination General: alert, awake, cooperative, slightly restless and uncomfortable appearing HEENT: normocephalic, atraumatic; pinpoint pupils bilaterally, EOM intact, conjunctiva normal; no nasal discharge; moist mucous membranes, oral and pharyngeal mucosa normal, tolerating secretions Neck: supple, trachea midline; full ROM Chest: normal to inspection Respiratory: normal respiratory effort, speaking in full sentences, clear to auscultation, no wheezing, rales or rhonchi Cardiac: regular rate, regular rhythm, S1S2 intact, no murmurs rubs or gallops GI: abdomen soft, non-tender, non-distended; no palpable mass or hepatosplenomegaly Back: No midline spinal tenderness step-off or deformity Skin: no lesions, rashes or trauma appreciated Neuro: Moving all extremities with full strength, no cranial nerve deficits Extremities: No signs of trauma to limbs Psych: Appropriate mood and affect Course Vital Signs Vital signs: Vital Signs Temperature 36.3 C L 05/25/22 10:56 Pulse 85 05/25/22 10:56 Respiratory Rate 16 05/25/22 10:56 Pulse Oximetry 99 05/25/22 10:56 Temperature 36.3 C L 05/25/22 10:56 Temperature Source Skin 05/25/22 10:56 Pulse 85 05/25/22 10:56 Respiratory Rate 16 05/25/22 10:56 Respiratory Effort Non-Labored 05/25/22 11:07 Respiratory Depth Normal 05/25/22 11:07 Respiratory Pattern Normal 05/25/22 11:07 Pulse Oximetry 99 05/25/22 10:56 Oxygen Delivery Method Room Air 05/25/22 10:56 Oxygen Flow Rate 0 05/25/22 10:56 Comment 05/25/22 10:56
[2022-05-25 11:38] LABS: Bilirubin Negative (Negative); Blood Large (Negative); Clarity Clear (Clear); Glucose Negative (Negative); Ketones Negative (Negative); Leukocyte Esterase Small (Negative); Nitrite Negative (Negative); Specific Gravity 1.015 (1.005-1.025); Urobilinogen 0.2 EU/dL (Up TO 0.2)
[2022-05-25 11:46] LABS: Bacteria Few HPF (Negative); C & S Indicated? Yes; Casts Negative LPF (Negative); Crystals Negative HPF (Negative); Epithelial Cells Few HPF (Negative); Mucus Negative (Negative)
[2022-05-25 11:56] LABS: Abs Immature Grans 0.16 10^3/uL (0.0-0.06); Absolute Basophil Count 0.06 10^3/uL (0.0-0.2); Absolute Eosinophil Count 0.06 10^3/uL (0.0-0.7); Absolute Monocyte Count 0.87 10^3/uL (0.1-0.8); Absolute Neutrophil Count 9.72 10^3/uL (1.2-6.7); Basophils % 0.5; Eosinophils % 0.5; HCT 31.1 % (40.0-50.0); HGB 9.8 g/dL (13.5-17.5); Immature Grans % 1.3; Lymphocytes % 8.7; MCHC 31.5 % (32.0-36.0); MCV 98 fL (80-95); MPV 10.7 fL (8.0-11.0); Monocytes % 7.3; Neutrophils % 81.7; Platelet Count 285 10^3/uL (130-400); RBC 3.16 10^6/uL (4.36-5.78); RDW 16.1 % (11.8-14.1); RDW-SD 58.1 fL
[2022-05-25 11:57] LABS: Absolute Lymphocyte Count 1.04 10^3/uL (1.2-3.4)
[2022-05-25] MEDS: ACETAMINOPHEN 1,000 MG/100 ML BTL 400 MG IVPB (12:02)
[2022-05-25 12:15] LABS: ALT 26 U/L (16-63); AST 20 U/L (15-37); Alkaline Phosphatase 88 U/L (46-116); Anion Gap 11.3 mmol/L (3-11); BUN 14 mg/dL (7-18); Bilirubin, Total 0.5 mg/dL (0.2-1.0); CO2 26.7 mmol/L (21.0-32.0); Calcium 9.1 mg/dL (8.5-10.1); Chloride 108 mmol/L (98-107); Estimated GFR 74.68 (mL/min/1.73m2); Glucose 110 mg/dL (74-106); Potassium 4.1 mmol/L (3.5-5.1); Sodium 146 mmol/L (136-145); Total Protein 7.6 g/dL (6.4-8.2)
--- NOTE | 2022-05-25 12:15 | NUR.NOTE ---
Nursing Note: unable to obtain CT due to patients restlessness, per MD verbal order give 0.5mg of Ativan to try to obtain CT.
[2022-05-25] MEDS: LORazepam 2 MG/ML VIAL (12:20)
[2022-05-25] MEDS: LORazepam 2 MG/ML VIAL 0.5 MG IVP (13:23)
[2022-05-25] MEDS: Cefpodoxime 200 MG TAB PO (15:04)
--- NOTE | 2022-05-25 15:06 | DI.VRAD_ITS ---
PROCEDURE INFORMATION: Exam: XR Pelvis Exam date and time: 05/25/2022 2:24 PM Age: 82 years old Clinical indication: Injury or trauma; Fall; Blunt trauma (contusions or hematomas); Does not apply; Pelvic region TECHNIQUE: Imaging protocol: Radiologic exam of the pelvis. Views: Two views COMPARISON: CT CHEST/ABD/PEL WO 04/16/2022 4:39 PM FINDINGS: Bones/joints: Advanced degenerative arthritis lumbar spine. Degenerative arthritis both hips. Soft tissues: Unremarkable. Other findings: Images are markedly degraded by motion which limits evaluation for fracture. IMPRESSION: Images are markedly degraded by motion. Degenerative arthritis in the spine and hips Dictated and Authenticated by: Suzy Pendleton MD. Ordering:KWESI Barksdale MD
--- NOTE | 2022-05-25 15:27 | DI.VRAD_ITS ---
PROCEDURE INFORMATION: Exam: CT Head Without Contrast Exam date and time: 05/25/2022 1:31 PM Age: 82 years old Clinical indication: Injury or trauma; Fall; Blunt trauma (contusions or hematomas) TECHNIQUE: Imaging protocol: Computed tomography of the head without contrast. COMPARISON: CT HEAD CERVICAL SPINE WO 11/14/2021 4:23 PM FINDINGS: Brain: There is ventricular, cortical sulcal prominence consistent with central, cortical atrophy. There is no evidence of acute hemorrhage. There is no evidence of an intracranial mass or shift. No definite acute cortical or major vascular territory infarct identified. Low attenuation involving the periventricular white matter is nonspecific but likely small vessel change/microangiopathy. No significant extra-axial collections. Intracranial vascular calcification but no hyperdense intravascular thrombus. Cerebral ventricles: Ventricular prominence likely is related to central atrophy. Paranasal sinuses: No significant sinus opacification or fluid level Mastoid air cells: No significant mastoid or middle ear opacification Orbital cavities: Prior lens replacement. No significant orbital abnormality Bones/joints: No acute bony abnormality Soft tissues: No significant subcutaneous abnormality identified. Other findings: Exam degraded by patient motion IMPRESSION: 1. Exam degraded by patient motion. 2. Central, cortical atrophy. No acute findings on non-contrast CT of the head. PROCEDURE INFORMATION: Exam: CT Cervical Spine Without Contrast Exam date and time: 05/25/2022 1:31 PM Age: 82 years old Clinical indication: Injury or trauma; Fall; Blunt trauma (contusions or hematomas) TECHNIQUE: Imaging protocol: Computed tomography of the cervical spine without contrast. COMPARISON: CT HEAD CERVICAL SPINE WO 11/14/2021 4:23 PM FINDINGS: Bones/joints: Bony structures are osteopenic. There is scoliosis convex to the left in the lower cervical spine. There is mild reversal of the cervical lordosis. There is minimal anterolisthesis of the C3 with respect to C4, C4 with respect to C5. There is no evidence of an acute fracture in the cervical spine. There is no decrease of vertebral body height. No definite acute or destructive bony abnormality is identified. There are findings suggestive of DISH particularly noted within the lower cervical, upper thoracic spine. There is multilevel disc space narrowing in the cervical spine. There are disc osteophyte complexes, spondylitic changes of the endplates, uncovertebral and facet arthropathy. Degenerative changes lead to narrowing of the canal/stenosis most prominent at C5-C6, C6-C7. Degenerative changes also lead to multilevel foraminal stenosis. Lungs: No significant abnormality at the lung apices Vasculature: Vascular calcification is noted. Soft tissues: The thyroid gland is enlarged, heterogeneous with nodules. There is no other soft tissue mass in the neck. Other findings: Exam mildly degraded by motion IMPRESSION: 1. Exam degraded by patient motion 2. No acute fracture. Scoliosis, cervical spondylosis, disc disease. Dictated and Authenticated by: Zohreh Rosa MD. Ordering:KWESI Barksdale MD
[2022-05-25 15:59] VITALS: PULSE 85; RESP 16; TEMP 36.3; O2SAT 99
== END 2022-05-25 16:19 | disposition home or self-care (01) ==
PROVIDERS: Emergency Provider Emergency Medicine; PCP Nurse Practitioner
DX: S09.90XA Unspecified injury of head, initial encounter (principal); N39.0 Urinary tract infection, site not specified; E11.9 Type 2 diabetes mellitus without complications; F03.90 Unspecified dementia, unspecified severity, without behavioral disturbance, psychotic disturbance, mood disturbance, and anxiety; I25.10 Atherosclerotic heart disease of native coronary artery without angina pectoris; J45.909 Unspecified asthma, uncomplicated; I10 Essential (primary) hypertension; I48.91 Unspecified atrial fibrillation; R45.1 Restlessness and agitation; W06.XXXA Fall from bed, initial encounter; W22.8XXA Striking against or struck by other objects, initial encounter; Y92.129 Unspecified place in nursing home as the place of occurrence of the external cause
CPT/HCPCS: 36415; 51702; 80053; 87077; 96365; 96375; 99284; 70450; 72125; 72170; 81003; 81015; 85025; 87086; 87186; J0131; J2060

== ENCOUNTER 2022-07-03 15:46 | Outpatient (REF) | payer MEDICARE, MEDICAID, SELFPAY ==
[2022-07-03 15:13] LABS: Bilirubin Negative (Negative); Blood Small (Negative); Clarity Cloudy (Clear); Glucose Negative (Negative); Ketones Negative (Negative); Leukocyte Esterase Large (Negative); Nitrite Negative (Negative); Urobilinogen 0.2 EU/dL (Up TO 0.2)
[2022-07-03 15:21] LABS: C & S Indicated? C&S Done As Ordered; WBC >50 HPF (0-5)
== END 2022-07-03 15:47 | disposition home or self-care (01) ==
LOC: LBN 15:46
PROVIDERS: PCP Nurse Practitioner; Visit Provider Family Medicine
DX: R41.82 Altered mental status, unspecified (principal); R82.998 Other abnormal findings in urine
CPT/HCPCS: 87077; 81003; 81015; 87086; 87186

== ENCOUNTER 2022-08-24 09:57 | Outpatient (REF) | payer MEDICARE, MEDICAID, SELFPAY ==
[2022-08-24 10:13] LABS: Abs Immature Grans 0.21 10^3/uL (0.0-0.06); Absolute Basophil Count 0.06 10^3/uL (0.0-0.2); Absolute Eosinophil Count 0.06 10^3/uL (0.0-0.7); Absolute Monocyte Count 0.72 10^3/uL (0.1-0.8); Basophils % 0.4; Eosinophils % 0.4; HCT 32.6 % (40.0-50.0); HGB 10.4 g/dL (13.5-17.5); Immature Grans % 1.3; Lymphocytes % 4.8; MCH 28.9 pg (27.0-33.0); MCHC 31.9 % (32.0-36.0); MCV 91 fL (80-95); MPV 11.1 fL (8.0-11.0); Monocytes % 4.5; Neutrophils % 88.6; Platelet Count 230 10^3/uL (130-400); RDW-SD 53.5 fL; WBC 15.98 10^3/uL (4.4-10.8)
[2022-08-24 10:17] LABS: Absolute Lymphocyte Count 0.77 10^3/uL (1.2-3.4); Absolute Neutrophil Count 14.16 10^3/uL (1.2-6.7)
[2022-08-24 10:25] LABS: ALT 19 U/L (16-63); AST 21 U/L (15-37); Albumin 2.3 g/dL (3.4-5.0); Alkaline Phosphatase 86 U/L (46-116); Anion Gap 9.4 mmol/L (3-11); BUN 24 mg/dL (7-18); Bilirubin, Total 0.6 mg/dL (0.2-1.0); C-Reactive Protein 14.91 mg/dL (0.0-0.3); CO2 26.6 mmol/L (21.0-32.0); CREATININE 1.2 mg/dL (0.70-1.30); Calcium 8.6 mg/dL (8.5-10.1); Chloride 106 mmol/L (98-107); Glucose 154 mg/dL (74-106); Potassium 3.6 mmol/L (3.5-5.1); Sodium 142 mmol/L (136-145); Total Protein 7.4 g/dL (6.4-8.2)
[2022-08-26 23:41] LABS: Estimated Average Glucose 134 mg/dL; Hemoglobin A1C 6.3 % (<5.7)
== END 2022-08-24 09:58 | disposition home or self-care (01) ==
LOC: LBN 09:57
PROVIDERS: PCP Nurse Practitioner; Visit Provider Family Medicine
DX: E11.9 Type 2 diabetes mellitus without complications (principal)
CPT/HCPCS: 80053; 83036; 85025; 86140

== ENCOUNTER 2022-08-24 17:32 | Inpatient (IN) | payer MEDICARE, MEDICAID, SELFPAY ==
[2022-08-24 17:52] VITALS: PULSE 76; RESP 20; TEMP 36.7; O2SAT 97
--- NOTE | 2022-08-24 18:15 | DI.CT_ITS ---
Exam(s) CT HEAD NECK W EXAM: CT HEAD NECK W CLINICAL HISTORY: Right side neck mass, R/O abscess. TECHNIQUE: Imaging Protocol: Axial computed tomography images with coronal and sagittal reformatted images were created and reviewed COMPARISON: CT CT HEAD CERVICAL SPINE WO from 05/25/2022 FINDINGS: CT head with: Ventricles and Extra axial spaces: Normal in size and morphology for the patient's age. Hemorrhage: Evaluation of hemorrhage is limited due to the intravenous contrast administration. Cerebral parenchyma: There is no evidence of an acute territorial infarct. There are areas of decrea sed attenuation in the white matter consistent with small vessel ischemic disease. Enhancement: No intracranial enhancing masses are identified. Midline shift: None. Brainstem/Cerebellum: Normal. Calvarium: Normal. Visualized Paranasal sinuses/Mastoids: There is mild mucosal thickening in the paranasal sinuses. Th e mastoid air cells are clear. Soft Tissues: Unremarkable. CT neck with: Orbits and orbital soft tissues: Within normal limits. Visualized paranasal sinuses: There is mild mucosal thickening in the paranasal sinuses. Nasopharynx: Within normal limits. Oropharynx: Within normal limits. Hypopharynx: Within normal limits. Larynx: Within normal limits. Retropharyngeal space: Within normal limits. Parotids/submandibular: The submandibular glands are unremarkable as is the left parotid gland. The right parotid gland is enlarged and heterogeneous. There are several solid nodule seen within the p arotid gland. There is infiltration of the surrounding soft tissues. Thyroid gland: There is a 1.4 by 1.4 cm hypodense nodule in the left lobe of the thyroid gland. The left lobe is enlarged. Thyroid gland is heterogeneous with multiple calcifications noted. Lymphadenopathy: There is scattered lymph nodes seen along the level one to level three all measurin g less than 8 mm in short axis diameter which are physiologic in nature. Trachea: Within normal limits. Lung apices: Within normal limits. Bones: Within normal limits for the patient's age. Carotids/Jugular: Atherosclerosis is present. Soft tissues: As described above under the section of parotid/submandibular. IMPRESSION: 1. No acute intracranial process. 2. No enhancing intracranial mass. 3. Enlarged heterogeneous right parotid gland. This may reflect parotid Garza with reactive lymph no cookie. Neoplasm cannot be excluded. Please correlate clinically. 4. 1.4 cm hypodense nodule in the left thyroid gland. Nonemergent thyroid ultrasound is recommended. Unexpected findings RADIATION DOSE DELIVERED: 1,071.92mGy.cm Total DLP DATA REPOSITORY: All CT scans at this facility are submitted to the National Radiology Data Registry (NRDR) Dose Index Registry (DIR) with the [employer] (A[employer]). RADIATION OPTIMIZATION: All CT scans at this facility use at least one of these dose optimization te chniques: automated exposure control; mA and/or kV adjustment per patient size (includes targeted exa ms where dose is matched to clinical indication); or iterative reconstruction.
--- NOTE | 2022-08-24 18:34 | W.ED.GENAD ---
Discharge Plan Disposition Patient Disposition: Admit to [facility] Condition: Stable Discharge Details Clinical Impression: Parotiditis Admit Date/Time: 08/24/22 21:15 Admit Provider: Leydi Carrizales Attending Provider: Leydi Carrizales Primary Care Provider: Erika Mix ED Provider: Aga Patel Discharge Data Discharge Date/Time-TO BE ENTERED AT DEPARTURE: 08/24/22 23:14 Medical Decision Making 82-year-old male presents to the ER via EMS [facility] the with a chief complaint of decreased oral intake after being diagnosed with pericarditis yesterday per facility report. Patient was placed on Augmentin yesterday.. No airway involvement no trouble breathing. Son is at bedside who states that he saw his father yesterday and had a he noted a goopy eye with some drainage and thereafter he was told that he he began with swelling in the right side of his face and neck. CBC, CMP, lactate, blood cultures IV CT head and neck with IV contrast ordered. Discussed with radiology regarding whether head or facial he will modify it if needed. CBC shows leukocytosis with white blood cell count of 16.64 which is elevated from 15,000 and earlier today, hemoglobin 10.6 medic at 34.1 which is at patient's baseline, absolute neutrophils 14.76, lactate elevated at 1.6, sodium 142 potassium 3.3 BUN 25 creatinine 1.3 GFR 54, glucose 123. CT result noted below shows parotitis with reactive lymph nodes malignancy is not excluded. 2058: Spoke with ENT MD Dr. Jus Alex who is transitional kindergarten teacher regarding CT results, he recommends Clindamycin 900mg IV TID , Sialagogues /sour candies q1 hour while awake and adequate hydration. Clindamycin 900 mg IV ordered. Health and rehab cannot do IV antibiotics, will page hospitalist. Spoke with Dr. Carrizales who is on for hospitalist regarding patient case and details she verbalized understanding. She agrees to admit patient for admission. I did discuss plan of care with family who verbalizes understanding and are in agreement with the plan. Patient is laying in bed awakens to verbal, antibiotic is done infusing. Did asked the nurse to recheck vital signs and a temperature. This text was generated using StackIQ[employer] system, please disregard any oddities of phrase or misspellings. Medical Records Medical records reviewed: Yes I reviewed the patient's medical records. Imaging Data Radiologic Study: Imaging: CT Scan Radiologist's impression: COMPARISON: CT HEAD NECK WO 10/26/2021 11:42 PM FINDINGS: Pharynx: No significant tonsillar enlargement. Larynx: Epiglottis is normal. Prevertebral and retropharyngeal spaces: Unremarkable. Salivary glands: The right parotid gland is enlarged and contains multiple nodules measuring up to 1.5 cm. Thyroid: A 1.5 cm hypodense nodule is seen in the left thyroid lobe with associated calcification. Lymph nodes: A slightly enlarged right jugulodigastric lymph node noted measuring approximately 1.3 cm in short axis dimension (image 60, series 13). Trachea: Visualized trachea is unremarkable. Lungs: Unremarkable as visualized. Bones/joints: No acute fracture. There are multilevel degenerative changes most prominent at C3- C4, C4-C5, C5-C6 and C6-C7 with bilateral neural foraminal narrowing. No significant spinal canal stenosis. Soft tissues: No significant soft tissue swelling. IMPRESSION: 1. Enlarged right parotid gland containing small nodules. This finding could represent parotitis with reactive lymph nodes. However, malignancy in this region is not excluded. Correlate with clinical findings. 2. No acute fracture. Multilevel degenerative changes as described. 3. 1.5 cm hypodense nodule in the left thyroid lobe. Correlate with nonemergent ultrasound findings. Thank you for allowing us to participate in the care of your patient. Dictated and Authenticated by: Lor Klein MD Lab Data Lab results reviewed: Yes I reviewed the patient's lab results. Labs: 08/24/22 19:30 Blood Blood Culture - Pending 08/24/22 18:45 Blood Blood Culture - Pending Laboratory Tests Range/Units 08/24/22 08/24/22 08/24/22 18:45 18:45 18:45 WBC (4.4-10.8) 10^3/uL 16.64 H RBC (4.36-5.78) 10^6/uL 3.68 L Hgb (13.5-17.5) g/dL 10.6 L Hct (40.0-50.0) % 34.1 L MCV (80-95) fL 93 MCH (27.0-33.0) pg 28.8 MCHC (32.0-36.0) % 31.1 L RDW (11.8-14.1) % 16.2 H Plt Count (130-400) 10^3/uL 259 MPV (8.0-11.0) fL 10.9 Immature Gran % 1.1 Neutrophils % 88.7 Lymphocytes % 5.3 Monocytes % 4.4 Eosinophils % 0.2 Basophils % 0.3 Nucleated RBC % (0.0-0.3) % 0.0 Absolute Neutrophils (1.2-6.7) 10^3/uL 14.76 H Absolute Lymphocytes (1.2-3.4) 10^3/uL 0.88 L Absolute Monocytes (0.1-0.8) 10^3/uL 0.73 Absolute Eosinophils (0.0-0.7) 10^3/uL 0.03 Absolute Basophils (0.0-0.2) 10^3/uL 0.05 VBG Lactate (0.6-1.4) mmol/L 1.6 H Sodium (136-145) mmol/L 142 Potassium (3.5-5.1) mmol/L 3.3 L Chloride (98-107) mmol/L 105 Carbon Dioxide (21.0-32.0) mmol/L 28.5 Anion Gap (3-11) mmol/L 8.5 BUN (7-18) mg/dL 25 H Creatinine (0.70-1.30) mg/dL 1.3 Est GFR (CKD-EPI 2020) (mL/min/1.73m2) 54.51 Glucose (74-106) mg/dL 123 H Calcium (8.5-10.1) mg/dL 9.1 Magnesium (1.8-2.4) mg/dL 2.2 Total Bilirubin (0.2-1.0) mg/dL 0.5 AST (15-37) U/L 35 ALT (16-63) U/L 28 Alkaline Phosphatase (46-116) U/L 88 C-Reactive Protein (0.0-0.3) mg/dL Total Protein (6.4-8.2) g/dL 8.8 H Albumin (3.4-5.0) g/dL 2.4 L Procalcitonin ng/mL Add-On Test Request Range/Units 08/24/22 08/24/22 08/24/22 18:45 18:45 18:45 WBC (4.4-10.8) 10^3/uL RBC (4.36-5.78) 10^6/uL Hgb (13.5-17.5) g/dL Hct (40.0-50.0) % MCV (80-95) fL MCH (27.0-33.0) pg MCHC (32.0-36.0) % RDW (11.8-14.1) % Plt Count (130-400) 10^3/uL MPV (8.0-11.0) fL Immature Gran % Neutrophils % Lymphocytes % Monocytes % Eosinophils % Basophils % Nucleated RBC % (0.0-0.3) % Absolute Neutrophils (1.2-6.7) 10^3/uL Absolute Lymphocytes (1.2-3.4) 10^3/uL Absolute Monocytes (0.1-0.8) 10^3/uL Absolute Eosinophils (0.0-0.7) 10^3/uL Absolute Basophils (0.0-0.2) 10^3/uL VBG Lactate (0.6-1.4) mmol/L Sodium (136-145) mmol/L Potassium (3.5-5.1) mmol/L Chloride (98-107) mmol/L Carbon Dioxide (21.0-32.0) mmol/L Anion Gap (3-11) mmol/L BUN (7-18) mg/dL Creatinine (0.70-1.30) mg/dL Est GFR (CKD-EPI 2020) (mL/min/1.73m2) Glucose (74-106) mg/dL Calcium (8.5-10.1) mg/dL Magnesium (1.8-2.4) mg/dL Total Bilirubin (0.2-1.0) mg/dL AST (15-37) U/L ALT (16-63) U/L Alkaline Phosphatase (46-116) U/L C-Reactive Protein (0.0-0.3) mg/dL 15.93 H Total Protein (6.4-8.2) g/dL Albumin (3.4-5.0) g/dL Procalcitonin ng/mL 0.2 Add-On Test Request DONE HPI General Mode of arrival: EMS. Date/Time Provider Initiated Documentation: 08/24/22 17:33. Limitations to Documentation: altered mental status (History of vascular and alcoholic dementia, person baseline is does not follow commands) and physical limitation. Information obtained by: patient, family (Son, Lane), RN/MD, EMS and old records reviewed. HPI Narrative: 82-year-old male presents to the ER via EMS from [facility] the with a chief complaint of decreased oral intake after being diagnosed with pericarditis yesterday per facility report. Patient was placed on Augmentin yesterday.. No airway involvement no trouble breathing. Son is at bedside who states that he saw his father yesterday and had a he noted a goopy eye with some drainage and thereafter he was told that he he began with swelling in the right side of his face and neck. On initial exam patient is awake, confused, I am unable to get him to open his mouth to further investigate and examined his posterior oropharynx and throat, he does have a warm erythemic palpable mass noted preauricular over his mandible and lateral cervical area. No stridor auscultated, no wheezing. Patient has a past medical history of vascular alcoholic dementia, atrial fibrillation, alcohol abuse, asthma, GERD, hypertension, obesity, celiac disease, surgical history include appendectomy and cataracts. Related Data Home Medications Medication Instructions Recorded Confirmed acetaminophen 325 mg tablet 650 mg PO Q6H PRN PRN Mild Pain, 06/24/16 08/24/22 (Tylenol) Temp. Over 38.5 furosemide 20 mg tablet 40 mg PO DAILY #60 tab-caps 08/06/17 08/24/22 albuterol sulfate 90 mcg/actuation 2 puff inhalation QID PRN 08/23/18 08/24/22 aerosol inhaler atorvastatin 40 mg tablet 40 mg PO DAILY 08/23/18 08/24/22 alogliptin 6.25 mg tablet 6.25 mg PO DAILY 08/04/20 08/24/22 tamsulosin 0.4 mg capsule 0.8 mg PO DAILY 08/17/20 08/01/22 aspirin 81 mg tablet 81 mg PO DAILY 08/28/20 08/24/22 diclofenac sodium 1 % topical gel 1 applic topical DAILY 10/26/21 08/24/22 (Voltaren Arthritis Pain) donepezil 5 mg disintegrating 5 mg PO DAILY 10/26/21 08/24/22 tablet omeprazole 20 mg capsule,delayed 20 mg PO BID 10/26/21 08/24/22 release bisacodyl 10 mg rectal suppository 10 mg MD DAILY PRN 12/19/21 08/24/22 ibuprofen 600 mg tablet 600 mg PO Q8H PRN 12/19/21 08/24/22 nystatin 100,000 unit/gram topical 1 applic topical BID 12/19/21 08/24/22 powder pyrithione zinc 1 % shampoo 1 applic topical DAILY PRN 12/19/21 08/24/22 sodium phosphates 19 gram-7 118 ml MD DAILY PRN 12/19/21 08/24/22 gram/118 mL enema (Fleet Enema) ascorbic acid (vitamin C) 500 mg 500 mg PO DAILY 04/16/22 08/24/22 tablet (Vitamin C) cholecalciferol (vitamin D3) 25 50 mcg PO DAILY 04/16/22 08/24/22 mcg (1,000 unit) tablet (Vitamin D3) quetiapine 50 mg tablet (Seroquel) 50 mg PO BID 04/16/22 08/24/22 sertraline 50 mg tablet 75 mg PO DAILY 04/16/22 08/24/22 melatonin 3 mg tablet 3 mg PO QHS 05/25/22 08/24/22 oxybutynin chloride 5 mg tablet 5 mg PO BID 05/25/22 08/24/22 polyethylene glycol 3350 17 gram 17 g PO PRN PRN 05/25/22 08/24/22 oral powder packet albuterol sulfate 1.25 mg/3 mL 1.25 mg inhalation QID PRN 08/24/22 08/24/22 solution for nebulization amoxicillin 875 mg-potassium 1 tab PO BID 08/24/22 08/24/22 clavulanate 125 mg tablet Previous Rx's Medication Instructions Recorded acetaminophen 325 mg tablet 650 mg PO Q6H PRN PRN Mild Pain, 06/24/16 (Tylenol) Temp. Over 38.5 furosemide 20 mg tablet 40 mg PO DAILY #60 tab-caps 08/06/17 Allergies Allergy/AdvReac Type Severity Reaction Status Date / Time wheat dextrin AdvReac Severe Unverified 08/24/22 17:35 animal dander AdvReac Unknown Unverified 08/24/22 17:35 codeine AdvReac Unverified 08/24/22 17:35 glutens Allergy Unknown Uncoded 08/24/22 17:35 glutethimide Allergy Unknown Uncoded 08/24/22 17:35 cats AdvReac Unknown Uncoded 08/24/22 17:35 General Stated Complaint: Cellulitis ABDIAS: 3 Review of Systems Narrative: Majority of history obtained by facility staff EMS and patient's family. 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) Frequent falls (Chronic) Weakness (Acute) Chronic constipation (Chronic) Discharge planning issues (Acute) DVT prophylaxis (Acute) Acute UTI (Acute) Medical History Abnormality of gait due to impairment of balance Asthma Atypical chest pain CAD (coronary artery disease) Carpal tunnel syndrome Celiac disease Chronic confusion did not where he was, or date oriented only to self Dementia associated with alcoholism Edema of lower extremity Enlarged prostate GERD (gastroesophageal reflux disease) Hyperlipidemia Hypertension Insomnia Lives alone with help available used to live at [facility] now at Rehab Major depression Noncompliance with medication regimen Obesity Paroxysmal A-fib Prostate cancer Seborrheic dermatitis Sensorineural hearing loss of combined sites Sialadenitis Socially inappropriate behavior due to his dementia prefers to be naked, undresses regularly Spinal stenosis Thyroid nodule TMJ (dislocation of temporomandibular joint) Urinary retention Surgical History History of appendectomy History of brachytherapy Family History Son Pancreatic cancer Daughter Pancreatic cancer Son Substance abuse History of incarceration Son No problems noted. Son No problems noted. 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 [employer] Pets and animals: No Sexually active: No Current gender identity: male What is your relationship status?: How often do you talk on the phone with friends or family?: once per week How often do you get together with friends or relatives?: never Do you belong to any clubs or organized social groups?: no Panel score (0-1 are the most socially isolated patients): 0 What type of physical activity do you participate in: walking and sedentary lifestyle Duration: < 15 minutes/day Frequency: daily Special melissa needs: No Seatbelt use: always Water heater temp set <120 deg: Yes Working smoke detector in home: Yes Fire extinguisher in home: Yes Firearms in home: No Do you feel safe at home: Yes Do you feel safe in your relationship?: Yes Additional Social history: patient lives at [facility] re[facility]. Exam [facility] Head images: 1. Approximately 4 cm x 4 cm area of palpable nonmovable mass, there is warmth and overlying erythema. Ears: TM normal on the right and TM normal on the left General nose exam: external nose normal Face images: 1. Erythema Course Vital Signs Vital signs: Vital Signs Temperature 36.7 C 08/24/22 17:52 Pulse 76 08/24/22 17:52 Respiratory Rate 20 08/24/22 17:52 Pulse Oximetry 97 08/24/22 17:52 Temperature 36.7 C 08/24/22 17:52 Temperature Source Temporal Artery Scan 08/24/22 17:52 Pulse 76 08/24/22 17:52 Respiratory Rate 20 08/24/22 17:52 Respiratory Effort 08/24/22 17:57 Blood Pressure Position Supine 08/24/22 17:52 Pulse Oximetry 97 08/24/22 17:52 Oxygen Delivery Method Room Air 08/24/22 17:52 Oxygen Flow Rate 0 08/24/22 17:52 Lab/Test Results Lab/Test Results: 08/24/22 18:03 Blood Blood Culture - Pending 08/24/22 18:03 Blood Blood Culture - Pending
[2022-08-24 18:51] LABS: Abs Immature Grans 0.18 10^3/uL (0.0-0.06); Absolute Basophil Count 0.05 10^3/uL (0.0-0.2); Absolute Lymphocyte Count 0.88 10^3/uL (1.2-3.4); Basophils % 0.3; Eosinophils % 0.2; HCT 34.1 % (40.0-50.0); HGB 10.6 g/dL (13.5-17.5); Immature Grans % 1.1; Lactate 1.6 mmol/L (0.6-1.4); Lymphocytes % 5.3; MCH 28.8 pg (27.0-33.0); MCHC 31.1 % (32.0-36.0); MCV 93 fL (80-95); MPV 10.9 fL (8.0-11.0); Monocytes % 4.4; Neutrophils % 88.7; Platelet Count 259 10^3/uL (130-400); RBC 3.68 10^6/uL (4.36-5.78); RDW 16.2 % (11.8-14.1); RDW-SD 54.9 fL; WBC 16.64 10^3/uL (4.4-10.8)
[2022-08-24 18:53] LABS: Absolute Eosinophil Count 0.03 10^3/uL (0.0-0.7); Absolute Monocyte Count 0.73 10^3/uL (0.1-0.8); Absolute Neutrophil Count 14.76 10^3/uL (1.2-6.7)
[2022-08-24 19:08] LABS: ALT 28 U/L (16-63); AST 35 U/L (15-37); Albumin 2.4 g/dL (3.4-5.0); Alkaline Phosphatase 88 U/L (46-116); Anion Gap 8.5 mmol/L (3-11); BUN 25 mg/dL (7-18); Bilirubin, Total 0.5 mg/dL (0.2-1.0); CO2 28.5 mmol/L (21.0-32.0); CREATININE 1.3 mg/dL (0.70-1.30); Calcium 9.1 mg/dL (8.5-10.1); Chloride 105 mmol/L (98-107); Estimated GFR 54.51 (mL/min/1.73m2); Glucose 123 mg/dL (74-106); Magnesium 2.2 mg/dL (1.8-2.4); Potassium 3.3 mmol/L (3.5-5.1); Sodium 142 mmol/L (136-145); Total Protein 8.8 g/dL (6.4-8.2)
[2022-08-24] MEDS: Omnipaque 350 MG/ML 100 ML BTL IJ (19:20)
[2022-08-24] MEDS: Normal Saline - Diluent 50 ML VIAL IJ (19:21)
[2022-08-24] MEDS: cefTRIAXone 1 GM/50 ML BAG IVPB (19:38)
--- NOTE | 2022-08-24 20:21 | DI.VRAD_ITS ---
PROCEDURE INFORMATION: Exam: CT Head With Contrast Exam date and time: 08/24/2022 7:00 PM Age: 82 years old Clinical indication: R/O abscess, RT side neck mass; Mass, lump, or swelling in neck; Right TECHNIQUE: Imaging protocol: Computed tomography of the head with intravenous contrast. Contrast material: 350; Contrast volume: 100 ml; Contrast route: INTRAVENOUS (IV); COMPARISON: CT HEAD CERVICAL SPINE WO 05/25/2022 2:28 PM FINDINGS: Brain: There is no evidence to suggest acute intracranial hemorrhage, evaluation of hemorrhage is limited due intravenous contrast. No mass effect or midline shift. There is no large acute territorial cerebral infarct. Cerebral ventricles: Unremarkable. No ventriculomegaly. Bones/joints: No acute fracture. Paranasal sinuses: There is mild mucosal thickening in the left frontal and bilateral maxillary sinuses. Mastoid air cells: Trace fluid noted in the left mastoid air cells. Soft tissues: Unremarkable. IMPRESSION: 1. No acute intracranial hemorrhage, mass effect or midline shift. 2. No evidence of enhancing mass in the brain. PROCEDURE INFORMATION: Exam: CT Neck With Contrast Exam date and time: 08/24/2022 7:00 PM Age: 82 years old Clinical indication: R/O abscess, RT side neck mass; Mass, lump, or swelling in neck; Right TECHNIQUE: Imaging protocol: Computed tomography of the neck with contrast. COMPARISON: CT HEAD NECK WO 10/26/2021 11:42 PM FINDINGS: Pharynx: No significant tonsillar enlargement. Larynx: Epiglottis is normal. Prevertebral and retropharyngeal spaces: Unremarkable. Salivary glands: The right parotid gland is enlarged and contains multiple nodules measuring up to 1.5 cm. Thyroid: A 1.5 cm hypodense nodule is seen in the left thyroid lobe with associated calcification. Lymph nodes: A slightly enlarged right jugulodigastric lymph node noted measuring approximately 1.3 cm in short axis dimension (image 60, series 13). Trachea: Visualized trachea is unremarkable. Lungs: Unremarkable as visualized. Bones/joints: No acute fracture. There are multilevel degenerative changes most prominent at C3-C4, C4-C5, C5-C6 and C6-C7 with bilateral neural foraminal narrowing. No significant spinal canal stenosis. Soft tissues: No significant soft tissue swelling. IMPRESSION: 1. Enlarged right parotid gland containing small nodules. This finding could represent parotitis with reactive lymph nodes. However, malignancy in this region is not excluded. Correlate with clinical findings. 2. No acute fracture. Multilevel degenerative changes as described. 3. 1.5 cm hypodense nodule in the left thyroid lobe. Correlate with nonemergent ultrasound findings. Dictated and Authenticated by: Lor Du MD. Ordering:ABBEY Yung MD
--- NOTE | 2022-08-24 21:26 | W.PM.HP.N ---
Date of service: 08/24/22 Time of Service: 21:27 Assessment and Plan Assessment and plan (1) Parotiditis: Status: Acute Assessment and plan: Will treat with clindamycin 900 mg IV Q8hrs, IVF, sialogogues Q1hr, parotid massage, elevate head of bed. No ENT in house over the weekend - may benefit from an evaluation if not better by beginning of next week. Will schedule tylenol IV and provide prn toradol. Will write for a clear liquid diet. Speech therapy consult. Trend CRP, procalcitonin. Await blood cultures. (2) Dehydration: Status: Acute Assessment and plan: While I am not sure that the patient's BP is real (it is 92/62 by the last documented check), the patient has had BPs in this range before. I do think his clinical exam is c/w dehydration. Will hydrate with IVF. (3) Chronic a-fib: Status: Chronic Assessment and plan: He does not appear to be on rate control medications or anticoagulation. His vital signs are stable in the ED. I do not feel that cardiac monitoring is warranted at this time. We will monitor vital signs. (4) Non-insulin dependent type 2 diabetes mellitus: Status: Chronic Assessment and plan: Cover with SSI. Hold alogliptin. (5) Dementia: Status: Chronic Assessment and plan: Unfortunately, the patient stopped eating/drinking. If he does not take his usual medications PO, we may have to resort to prn antipsychotics, should his behaviors escalate. (6) Hypokalemia: Status: Acute Assessment and plan: Replete, check magnesium (7) Thyroid nodule: Status: Acute Assessment and plan: 1.5 cm hypodense nodule in L thyroid lobe seen on today's CT. Outpatient follow. (8) DVT prophylaxis: Status: Acute Assessment and plan: SC enoxaparin (9) Discharge planning issues: Status: Acute Assessment and plan: Full code C/s PT and palliative care History of Present Illness History of Present Illness Chief Complaint: R neck swelling; stopped eating/drinking Narrative: Mr Rodriguez is an 82 year old male with PMHx of alcoholic dementia, atrial fibrillation, CHFrEF (40% per MPI in 2016), NIDDM2, hypertension, hyperlipidemia, who is a resident of the [facility] nursing facility, who was brought to [facility] ED today with right neck redness and swelling. He was noted to have a goopy eye yesterday, per son. The patient had stopped eating and drinking at the custodial. He did not permit a thorough oral examination and did not follow commands per ED provider (his baseline, per ED provider). CT imaging showed that the airway was not involved, that the right parotid gland was enlarged and contained small nodules, medical center representative of parotitis with reactive lymphadenopathy, though malignancy could not be excluded. There was no drainable abscess. ENT consult was sought, and Dr Alex recommended that the patient be started on clindamycin 900 mg IV q 8hrs, that he receive IV hydration, sialogogues Q 1 hr, parotid massage if he tolerates it. His head of bed should be elevated. Hospitalist admission was requested. On my interview with the patient, he is somnolent,but does wake up enough to answer some questions. He states his neck is the only place that hurts and that he is not having trouble swallowing. He is not short of breath. He says he is thirsty and would like some water. Review of Systems All systems reviewed & are unremarkable except as noted in HPI and below PFSH All Active Problems (Updated 08/24/22 @ 23:30 by Leydi Carrizales MD) Dehydration (Acute) Hypokalemia (Acute) Thyroid nodule (Acute) Parotiditis (Acute) COVID-19 (Acute) Chronic a-fib (Chronic) as noted on 30-day event monitor half-way resident (Acute) Dementia (Chronic) mild to moderate; appears to fluctuate Goals of care, counseling/discussion (Acute) Palliative care patient (Acute) Cognitive impairment (Chronic) mild 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) Frequent falls (Chronic) Weakness (Acute) Chronic constipation (Chronic) Discharge planning issues (Acute) DVT prophylaxis (Acute) Acute UTI (Acute) Medical History Abnormality of gait due to impairment of balance Asthma Atypical chest pain CAD (coronary artery disease) Carpal tunnel syndrome Celiac disease Chronic confusion did not where he was, or date oriented only to self Dementia associated with alcoholism Edema of lower extremity Enlarged prostate GERD (gastroesophageal reflux disease) Hyperlipidemia Hypertension Insomnia Lives alone with help available used to live at [facility] now at Rehab Major depression Noncompliance with medication regimen Obesity Paroxysmal A-fib Prostate cancer Seborrheic dermatitis Sensorineural hearing loss of combined sites Sialadenitis Socially inappropriate behavior due to his dementia prefers to be naked, undresses regularly Spinal stenosis Thyroid nodule TMJ (dislocation of temporomandibular joint) Urinary retention Surgical History History of appendectomy History of brachytherapy Family History Son Pancreatic cancer Daughter Pancreatic cancer Son Substance abuse History of incarceration Son No problems noted. Son No problems noted. 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 [employer] Pets and animals: No Sexually active: No Current gender identity: male What is your relationship status?: How often do you talk on the phone with friends or family?: once per week How often do you get together with friends or relatives?: never Do you belong to any clubs or organized social groups?: no Panel score (0-1 are the most socially isolated patients): 0 What type of physical activity do you participate in: walking and sedentary lifestyle Duration: < 15 minutes/day Frequency: daily Special melissa needs: No Seatbelt use: always Water heater temp set <120 deg: Yes Working smoke detector in home: Yes Fire extinguisher in home: Yes Firearms in home: No Do you feel safe at home: Yes Do you feel safe in your relationship?: Yes Additional Social history: patient lives at [facility]. Meds Allergies and Home Medications Allergies Allergy/AdvReac Type Severity Reaction Status Date / Time wheat dextrin AdvReac Severe Unverified 08/24/22 17:35 animal dander AdvReac Unknown Unverified 08/24/22 17:35 codeine AdvReac Unverified 08/24/22 17:35 glutens Allergy Unknown Uncoded 08/24/22 17:35 glutethimide Allergy Unknown Uncoded 08/24/22 17:35 cats AdvReac Unknown Uncoded 08/24/22 17:35 Home Medications Medication Instructions Recorded Confirmed Type acetaminophen 325 mg tablet 650 mg PO Q6H PRN PRN Mild Pain, 06/24/16 08/24/22 Rx (Tylenol) Temp. Over 38.5 furosemide 20 mg tablet 40 mg PO DAILY #60 tab-caps 08/06/17 08/24/22 Rx albuterol sulfate 90 mcg/actuation 2 puff inhalation QID PRN 08/23/18 08/24/22 History aerosol inhaler atorvastatin 40 mg tablet 40 mg PO DAILY 08/23/18 08/24/22 History alogliptin 6.25 mg tablet 6.25 mg PO DAILY 08/04/20 08/24/22 History tamsulosin 0.4 mg capsule 0.8 mg PO DAILY 08/17/20 08/01/22 History aspirin 81 mg tablet 81 mg PO DAILY 08/28/20 08/24/22 History diclofenac sodium 1 % topical gel 1 applic topical DAILY 10/26/21 08/24/22 History (Voltaren Arthritis Pain) donepezil 5 mg disintegrating 5 mg PO DAILY 10/26/21 08/24/22 History tablet omeprazole 20 mg capsule,delayed 20 mg PO BID 10/26/21 08/24/22 History release bisacodyl 10 mg rectal suppository 10 mg NE DAILY PRN 12/19/21 08/24/22 History ibuprofen 600 mg tablet 600 mg PO Q8H PRN 12/19/21 08/24/22 History nystatin 100,000 unit/gram topical 1 applic topical BID 12/19/21 08/24/22 History powder pyrithione zinc 1 % shampoo 1 applic topical DAILY PRN 12/19/21 08/24/22 History sodium phosphates 19 gram-7 118 ml NE DAILY PRN 12/19/21 08/24/22 History gram/118 mL enema (Fleet Enema) ascorbic acid (vitamin C) 500 mg 500 mg PO DAILY 04/16/22 08/24/22 History tablet (Vitamin C) cholecalciferol (vitamin D3) 25 50 mcg PO DAILY 04/16/22 08/24/22 History mcg (1,000 unit) tablet (Vitamin D3) quetiapine 50 mg tablet (Seroquel) 50 mg PO BID 04/16/22 08/24/22 History sertraline 50 mg tablet 75 mg PO DAILY 04/16/22 08/24/22 History melatonin 3 mg tablet 3 mg PO QHS 05/25/22 08/24/22 History oxybutynin chloride 5 mg tablet 5 mg PO BID 05/25/22 08/24/22 History polyethylene glycol 3350 17 gram 17 g PO PRN PRN 05/25/22 08/24/22 History oral powder packet albuterol sulfate 1.25 mg/3 mL 1.25 mg inhalation QID PRN 08/24/22 08/24/22 History solution for nebulization amoxicillin 875 mg-potassium 1 tab PO BID 08/24/22 08/24/22 History clavulanate 125 mg tablet Exam Narrative Exam Narrative: General: Elderly male who is A&Ox2 (knows he is in the hospital), asleep, easily arousable, answers some but not all questions, follows simple commands, uncomfortable and not permitting a good exam of the neck or of the oropharynx Neurological: A&Ox2, no focal deficits Psychiatric: difficult to examine given the patient's somnolence. He is calm and cooperative Skin: Erythema R neck; otherwise, dry/intact without bruises or rashes HEENT: Atraumatic, normocephalic, EOMI, dry MM, not opening mouth wide enough to permit exam of the oropharynx, swelling and erythema R parotid/neck, otherwise no goiter or JVD Cardiovascular: RRR, no m/r/g Lungs: CTAB Gastrointestinal: soft, nontender, nondistended Genitourinary: deferred Extremities: 1+ pedal pulses B, no edema/clubbing/cyanosis Results Imaging Additional studies: CT head: 1. No acute intracranial hemorrhage, mass effect or midline shift. 2. No evidence of enhancing mass in the brain. CT neck w/ contrast: 1. Enlarged right parotid gland containing small nodules. This finding could represent parotitis with reactive lymph nodes. However, malignancy in this region is not excluded. Correlate with clinical findings. 2. No acute fracture. Multilevel degenerative changes as described. 3. 1.5 cm hypodense nodule in the left thyroid lobe. Correlate with nonemergent ultrasound findings. Labs Result diagrams: 08/24/22 18:45 08/24/22 18:45 Labs: Laboratory Results - last 24 hr 08/24/22 08/24/22 08/24/22 18:45 18:45 18:45 WBC 16.64 H RBC 3.68 L Hgb 10.6 L Hct 34.1 L MCV 93 MCH 28.8 MCHC 31.1 L RDW 16.2 H Plt Count 259 MPV 10.9 Immature Gran % 1.1 Neutrophils % 88.7 Lymphocytes % 5.3 Monocytes % 4.4 Eosinophils % 0.2 Basophils % 0.3 Nucleated RBC % 0.0 Absolute Neutrophils 14.76 H Absolute Lymphocytes 0.88 L Absolute Monocytes 0.73 Absolute Eosinophils 0.03 Absolute Basophils 0.05 VBG Lactate 1.6 H Sodium 142 Potassium 3.3 L Chloride 105 Carbon Dioxide 28.5 Anion Gap 8.5 BUN 25 H Creatinine 1.3 Est GFR (CKD-EPI 2020) 54.51 Glucose 123 H Calcium 9.1 Magnesium 2.2 Total Bilirubin 0.5 AST 35 ALT 28 Alkaline Phosphatase 88 Total Protein 8.8 H Albumin 2.4 L Last Vital Signs Temp 36.7 C 08/24/22 17:52 Pulse 76 08/24/22 17:52 Resp 20 08/24/22 17:52 Pulse Ox 97 08/24/22 17:52 Time Spent Time spent with Patient: 40-54 minutes Time was spent: preparing to see the patient(eg.review tests), obtaining and/or reviewing separately otained hiistory, ordering medications,tests, procedures, referring, communicating with other health hospice spiritual care coordinator, indepentently interpreting results, counseling the patient and care coordination
[2022-08-24 22:03] LABS: Source Nasal/Nares
[2022-08-24] MEDS: CLINDAMYCIN 900 MG/50 ML BAG 50 MG IVPB (22:03)
[2022-08-24 22:14] LABS: C-Reactive Protein 15.93 mg/dL (0.0-0.3)
[2022-08-24 22:15] VITALS: BP 92/62; PULSE 80; RESP 16; TEMP 36; O2SAT 96
--- NOTE | 2022-08-24 22:19 | NUR.NOTE ---
report from ERIC Lang. IV abx administering via pump. Pt lying quietly on right side, awaiting bed assignment
[2022-08-24 22:21] LABS: Lab Add On Test DONE
[2022-08-24 22:34] LABS: Procalcitonin 0.2 ng/mL
[2022-08-24 22:44] LABS: COVID-19 PCR Negative (Negative)
[2022-08-24] MEDS: Normal Saline 500 ML IV (22:49)
--- NOTE | 2022-08-24 22:52 | NUR.NOTE ---
discussed pt's hypotension and position in bed with provider Aga Patel APRN, IV fluids which were ordered at 1900 were not administered by previous RN, so they were initiated now.
[2022-08-24] MEDS: ACETAMINOPHEN 1,000 MG/100 ML BTL 400 MG IVPB (22:54)
[2022-08-24 23:37] VITALS: BP 109/74; PULSE 73; RESP 19; TEMP 36.2; O2SAT 100
[2022-08-25] VITALS (7 sets, daily range): BP systolic 92–113; BP diastolic 51–61; PULSE 56–67; RESP 12–22; TEMP 36.1–36.5; O2SAT 94–99
[2022-08-25] MEDS: Normal Saline Flush 10 ML SYR IVP
[2022-08-25] MEDS: POTASSIUM CHLORIDE 20 MEQ/100 ML BAG 50 MEQ IVPB (00:30)
[2022-08-25] MEDS: Lactated Ringers 500 ML IV (00:30)
[2022-08-25] MEDS: Enoxaparin 40 MG/0.4 ML SYR SC ×2 (00:36→23:33)
[2022-08-25] MEDS: ACETAMINOPHEN 1,000 MG/100 ML BTL 400 MG IVPB (05:42)
[2022-08-25] MEDS: CLINDAMYCIN 900 MG/50 ML BAG 50 MG IVPB ×3 (06:05→21:34)
[2022-08-25 06:48] LABS: Abs Immature Grans 0.14 10^3/uL (0.0-0.06); Absolute Basophil Count 0.07 10^3/uL (0.0-0.2); Absolute Eosinophil Count 0.05 10^3/uL (0.0-0.7); Absolute Lymphocyte Count 1.05 10^3/uL (1.2-3.4); Absolute Monocyte Count 0.72 10^3/uL (0.1-0.8); Basophils % 0.5; Eosinophils % 0.4; HCT 29.5 % (40.0-50.0); HGB 9.3 g/dL (13.5-17.5); Lymphocytes % 7.7; MCH 29.2 pg (27.0-33.0); MCHC 31.5 % (32.0-36.0); MCV 93 fL (80-95); MPV 11.4 fL (8.0-11.0); Monocytes % 5.3; Neutrophils % 85.1; Platelet Count 247 10^3/uL (130-400); RBC 3.19 10^6/uL (4.36-5.78); RDW 16.2 % (11.8-14.1); RDW-SD 56.1 fL; WBC 13.66 10^3/uL (4.4-10.8)
[2022-08-25 06:55] LABS: Anion Gap 7.5 mmol/L (3-11); BUN 24 mg/dL (7-18); CO2 27.5 mmol/L (21.0-32.0); CREATININE 1.2 mg/dL (0.70-1.30); Calcium 8.9 mg/dL (8.5-10.1); Chloride 109 mmol/L (98-107); Glucose 125 mg/dL (74-106); Magnesium 2.2 mg/dL (1.8-2.4); Potassium 3.7 mmol/L (3.5-5.1); Sodium 144 mmol/L (136-145)
[2022-08-25 06:57] LABS: Absolute Neutrophil Count 11.62 10^3/uL (1.2-6.7)
[2022-08-25] MEDS: QUEtiapine 50 MG TAB PO ×2 (08:35→20:40)
[2022-08-25] MEDS: Ketorolac 15 MG/ML VIAL IVP ×3 (08:39→20:40)
[2022-08-25] MEDS: Oxybutynin 5 MG TAB PO ×2 (08:44→20:41)
[2022-08-25] MEDS: Aspirin 81 MG CHEW PO (08:50)
[2022-08-25] MEDS: Cholecalciferol (Vitamin D3) 1,000 UNIT TAB 2000 UNITS PO (08:50)
[2022-08-25] MEDS: Sertraline 50 MG TAB 75 MG PO (08:51)
[2022-08-25] MEDS: Ascorbic Acid 500 MG TAB PO (08:51)
[2022-08-25] MEDS: Omeprazole 20 MG CAPCR PO ×2 (08:51→20:41)
[2022-08-25] MEDS: Atorvastatin 40 MG TAB PO (08:51)
[2022-08-25] MEDS: Donepezil 5 MG TAB PO (08:53)
--- NOTE | 2022-08-25 12:33 | INITIAL_ITS ---
- If Service Date Differs Date of service: 08/25/22 Time of Service: 12:33 Care Management Initial Assess REASON FOR HOSPITALIZATION:: acute bacterial parotitis, FTT PAST MEDICAL HISTORY/PAST SURGICAL HISTORY:: All Active Problems. Dehydration (Acute). Hypokalemia (Acute). Thyroid nodule (Acute). Parotiditis (Acute). COVID-19 (Acute). Chronic a-fib (Chronic). as noted on 30-day event monitor. alf resident (Acute). Dementia (Chronic). mild to moderate; appears to fluctuate. Goals of care, counseling/discussion (Acute). Palliative care patient (Acute). Cognitive impairment (Chronic). mild. 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). Frequent falls (Chronic). Weakness (Acute). Chronic constipation (Chronic). Discharge planning issues (Acute). DVT prophylaxis (Acute). Acute UTI (Acute). Medical History. Abnormality of gait due to impairment of balance. Asthma. Atypical chest pain. CAD (coronary artery disease). Carpal tunnel syndrome. Celiac disease. Chronic confusion. did not where he was, or date. oriented only to self. Dementia associated with alcoholism. Edema of lower extremity. Enlarged prostate. GERD (gastroesophageal reflux disease). Hyperlipidemia. Hypertension. Insomnia. Lives alone with help available. used to live at [facility]. now at Rehab. Major depression. Noncompliance with medication regimen. Obesity. Paroxysmal A-fib. Prostate cancer. Seborrheic dermatitis. Sensorineural hearing loss of combined sites. Sialadenitis. Socially inappropriate behavior. due to his dementia. prefers to be naked, undresses regularly. Spinal stenosis. Thyroid nodule. TMJ (dislocation of temporomandibular joint). Urinary retention. Surgical History. History of appendectomy. History of brachytherapy PREVIOUS FUNCTIONAL STATUS/SOCIAL/FAMILY SUPPORTS:: Williams resides at [facility], where he has been for about two years. He previously lived in an apartment at the [facility]. He has two living children, Benitez and Lanette, who are supportive, and are his HCA's. He requires support for ADL's, which is provided by facility staff. CURRENT FUNCTIONAL STATUS:: Williams was sitting up in bed, eating lunch with assistance from his RN. He stated that he is feeling ok. CM reviewed with him that he resides at [facility], and has for about two years. He stated that he feels that he is being well taken care of there. CM will coordinate his return to the facility once he is medically cleared. He stated that he spoke to his son, Benitez and daughter, Lanette yesterday. CM will continue to follow. ADVANCE DIRECTIVES:: [facility] on file. Benitez and Lanette (children) are both listed as agents. Has patient been provided with info about the portal/API?: Yes Did the patient sign up for the portal?: No CODE STATUS:: Full Code INSURANCE COVERAGE / FINANCIAL ISSUES:: MCR/ AARP supplement/ MARY- [employer] Highest needs/jail MARY CURRENT HOME/COMMUNITY SERVICES/EQUIPMENT:: Williams currently lives at [facility], where all of his needs are met. W/C bound. Palliative care follows. PRIMARY CARE PHYSICIAN:: Erika Mix POTENTIAL DISCHARGE NEEDS:: Coordinated return to [facility] PATIENT/FAMILY EDUCATION NEEDS:: Review discharge instructions and limitations with Williams as well as staff at [facility] through RN to RN communication prior to discharge. Palliative care follow up, goals of care. ANTICIPATED BARRIERS TO DISCHARGE:: None identified. TRANSPORTATION:: facility w/c van PLAN:: Anticipate Williams will return to [facility] once medically cleared. He will likely transport via facility w/c van, coordinated by CM. He will follow up with the facility providers and his discharge plan of care. CM will continue to follow.
[2022-08-25] MEDS: Nystatin POWDER 15 GM JAR TP ×2 (12:55→20:42)
[2022-08-25] MEDS: Acetaminophen 500 MG TAB 1000 MG PO ×2 (13:23→20:41)
--- NOTE | 2022-08-25 14:29 | PT.INIE ---
Date of service: 08/25/22 Time of Service: 14:29 PT Notes Visit Reasons: Acute Bacterial Parotitis, FTT Physical Therapy Inpatient Initial Evaluation Date: [] Referring Doctor: PT Orders: PT CONSULT: [] Precautions: Fall. Standard. Activity as tolerated. Patient Profile/Admitting Diagnosis: [] PMHX: All Active Problems?(Updated 08/24/22 @ 23:30 by Leydi Carrizales MD) Dehydration (Acute) Hypokalemia (Acute) Thyroid nodule (Acute) Parotiditis (Acute) COVID-19 (Acute) Chronic a-fib (Chronic) as noted on 30-day event monitor prison resident (Acute) Dementia (Chronic) mild to moderate; appears to fluctuate Goals of care, counseling/discussion (Acute) Palliative care patient (Acute) Cognitive impairment (Chronic) mild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) Frequent falls (Chronic) Weakness (Acute) Chronic constipation (Chronic) Discharge planning issues (Acute) DVT prophylaxis (Acute) Acute UTI (Acute) Medical History? Abnormality of gait due to impairment of balance Asthma Atypical chest pain CAD (coronary artery disease) Carpal tunnel syndrome Celiac disease Chronic confusion did not where he was, or date oriented only to selfDementia associated with alcoholism Edema of lower extremity Enlarged prostate GERD (gastroesophageal reflux disease) Hyperlipidemia Hypertension Insomnia Lives alone with help available [facility] now at RehabMajor depression Noncompliance with medication regimen Obesity Paroxysmal A-fib Prostate cancer Seborrheic dermatitis Sensorineural hearing loss of combined sites Sialadenitis Socially inappropriate behavior due to his dementia prefers to be naked, undresses regularlySpinal stenosis Thyroid nodule TMJ (dislocation of temporomandibular joint) Urinary retention Surgical History? History of appendectomy History of brachytherapy Social History/Home Situation: [] Equipment Owned/DME: [] Subjective: [] Objective: [] General Observation: [] Mental Status: Alert and oriented as to person, place, time, and purpose. Able to pay attention, focus, and respond appropriately. Pain: []/10 in [] [] Vital Signs: [] ROM: Right Upper Extremity: Shoulder Flexion WFL. Shoulder abduction WFL. Elbow flexion WFL. Wrist flexion WFL. Functional opening and closing of hand WFL. Left Upper Extremity: Shoulder Flexion WFL. Shoulder abduction WFL. Elbow flexion WFL. Wrist flexion WFL. Functional opening and closing of hand WFL. Right Lower Extremity: Hip flexion WFL. Hip abduction WFL. Knee flexion WFL. Ankle dorsiflexion WFL. Ankle plantarflexion WFL. Left Lower Extremity: Hip flexion WFL. Hip abduction WFL. Knee flexion WFL. Ankle dorsiflexion WFL. Ankle plantarflexion WFL. Strength: Right Upper Extremity: Shoulder flexors []/5. Shoulder abductors []/5. Elbow flexors []/5. Elbow extensors []/5. Research Microbiologist strong. Left Upper Extremity: Shoulder flexors []/5. Shoulder abductors []/5. Elbow flexors []/5. Elbow extensors []/5. Research Microbiologist strong. Right Lower Extremity: Hip flexors []/5. Hip abductors []/5. Knee flexors []/5. Knee extensors []/5. Ankle dorsiflexors []/5. Ankle plantarflexors []/5. Left Lower Extremity: Hip flexors []/5. Hip abductors []/5. Knee flexors []/5. Knee extensors []/5. Ankle dorsiflexors []/5. Ankle plantarflexors []/5. Bed Mobility/Transfers: Rolling with [] cues for safe/correct technique Supine to sit with [] cues for safe/correct technique Sit to supine with [] cues for safe/correct technique Sit to stand with [] with [] cues for safe/correct technique Stand to sit with [] with [] cues for safe/correct technique Bed to bedside commode with [] with [] cues for safe/correct technique Bedside commode to bed with [] with [] cues for safe/correct technique Bed to reclining chair with [] with [] cues for safe/correct technique Reclining chair to bed with [] with [] cues for safe/correct technique Gait: Instructed patient with level surface ambulation of [] feet requiring [] assist. Penelope []. Step height []. Step length []. Balance: Static Sitting: [] Dynamic Sitting: [] Static Standing: [] Dynamic Standing: [] Special Tests: Mobility Limitations Standardized Measure [facility] AM-PAC 6 clicks Basic Mobility Inpatient Short Form: Raw Score: [] CMS Score: []% deficit Informed Consent/Education: Patient was instructed in purpose of PT consult and plan of care. Agreeable to proceed with established PT POC to achieve personal goals. Assessment: Patient presents with clinical signs and symptoms consistent with current/admitting diagnoses that have resulted to mobility limitations, gait instability, generalized weakness, and overall ADL decline as demonstrated by the following impairment level findings: 1. Decreased strength to [] [] major muscle groups 2. Impaired sitting/standing balance 3. Impaired activity tolerance 4. Limitation of joint range of motion in [] 5. Shortness of breath 6. Swelling Impairments are contributing to the following functional limitations: 1. Decline in bed mobility skills 2. Decline in transfer skills 3. Difficulty with ambulation without assistive device and physical assistance 4. Increased completion time for mobility ADL performance 5. Increased risk for falls 6. Difficulty with managing steps alone safely Patient is assessed as a [] complexity based on the following: History: []-year-old [] with past medical history as indicated above Examination: Demonstrable impairment in strength, balance, and mobility level with underlying impairments and functional limitations as exhibited above as well as deficit score of []% utilizing the [facility] Mobility Inpatient Short Form Presentation: [] Decision Making: [] complexity Goals: Goals X1 week 1. Supine-Sit independent 2. Sit-Supine independent 3. Sit-Stand independent 4. Stand-Sit independent with [] 5. Bed-Chair independent with [] 6. Chair-Bed independent with [] 7. Independent gait on level surface with use of [] for at least [] feet without report of pain nor dyspnea 8. Independent stair negotiation while holding onto [] rails for at least [] steps without report of pain nor dyspnea 9. Independent with home exercise program 10. Good static and dynamic standing balance/tolerance Plan of Care/Treatment Plan: 1-2x/day, 7 days/week x 1 week. Plan of care has been reviewed with the SHIPPING AND RECEIVING COORDINATOR providing the service under Physical Therapy direction. Initiate Physical Therapy intervention for pain management as needed, strengthening, bed mobility, transfers, gait, stairs, balance training, and use of assistive device. DISCHARGE RECOMMENDATIONS: [] Home with no services [] [] Home with services [specify] [] Home with outpatient PT [] [] SNF for continued rehabilitation [] [] [facility] [] [] SNF versus LTC based on ability to participate and progress [] TREATMENT CODE/TIME: [] Thank you for the opportunity to participate in the care of this patient. Salima Mcintosh PT, DPT, CLT [facility] [place], [place]
--- NOTE | 2022-08-25 15:08 | PT.INNT ---
Date of service: 08/25/22 Time of Service: 02:30 PT Notes Visit Reasons: Acute Bacterial Parotitis, FTT Patient refused evaluation stating thet he is exhausted and wants to rest and sleep. Politely requested to be seen tomorrow morning.
--- NOTE | 2022-08-25 15:17 | PGE_ITS ---
Date of Service Date of service: 08/25/22 Time of Service: 15:17 Assessment and Plan Assessment and plan (1) Parotiditis: Status: Acute Assessment and plan: continue clindamycin 900 mg IV Q8hrs day 2, stop IVF as he is taking good PO, not using sialogogues Q1hr, does not tolerated parotid massage, continue elevate head of bed. No ENT in house over the weekend - may benefit from an evaluation if not better by beginning of next week. Will schedule tylenol, change to oral and provide prn toradol. advance diet to moist, minced, consider pureed if not tolerating Speech therapy consult. Trend CRP, procalcitonin. Await blood cultures. (2) Dehydration: Status: Acute Assessment and plan: hydrated overnight and now taking good fluids. stop IV fluids, encourage/offer PO monitor (3) Chronic a-fib: Status: Chronic Assessment and plan: Not on rate control medications or anticoagulation. vital signs are stable, continue to monitor (4) Non-insulin dependent type 2 diabetes mellitus: Status: Chronic Assessment and plan: Cover with SSI. Hold alogliptin. (5) Dementia: Status: Chronic Assessment and plan: no behavioral disturbances (6) Hypokalemia: Status: Resolved Assessment and plan: Repleted, (7) Thyroid nodule: Status: Acute Assessment and plan: 1.5 cm hypodense nodule in L thyroid lobe seen on today's CT. Outpatient follow. (8) DVT prophylaxis: Status: Acute Assessment and plan: SC enoxaparin (9) Discharge planning issues: Status: Acute Assessment and plan: Full code C/s PT and palliative care discussed with Dr Newton Subjective Subjective Patient reports: no new complaints, tolerating liquids well, voiding w/o difficulty (incontinent) and afebrile; denies tolerating a regular diet or shortness of breath Exam Const General: comfortable, no acute distress and frail appearing Nutritional Appearance: thin Orientation: alert, awake and confused [facility] Head: normal to inspection Mouth: moist mucous membranes abnormal (dry) Resp Effort & Inspection: normal respiratory effort (even and unlabored) Auscultation: diminished lung sounds (poor inspiratory effort) Cardio Rate: regular rate Rhythm: regular rhythm GI Inspection: normal to inspection Palpation: soft Skin General skin exam: no rashes or lesions noted and dry skin Extrem General: normal to inspection, full ROM and no pedal edema Objective Last Vital Signs Temp 36.5 C 08/25/22 15:11 Pulse 67 08/25/22 15:11 Resp 20 08/25/22 15:11 BP 99/54 L 08/25/22 15:11 Pulse Ox 94 08/25/22 15:11 Laboratory Results - last 24 hr 08/24/22 08/24/22 08/24/22 18:45 18:45 18:45 WBC 16.64 H RBC 3.68 L Hgb 10.6 L Hct 34.1 L MCV 93 MCH 28.8 MCHC 31.1 L RDW 16.2 H Plt Count 259 MPV 10.9 Immature Gran % 1.1 Neutrophils % 88.7 Lymphocytes % 5.3 Monocytes % 4.4 Eosinophils % 0.2 Basophils % 0.3 Nucleated RBC % 0.0 Absolute Neutrophils 14.76 H Absolute Lymphocytes 0.88 L Absolute Monocytes 0.73 Absolute Eosinophils 0.03 Absolute Basophils 0.05 VBG Lactate 1.6 H Sodium 142 Potassium 3.3 L Chloride 105 Carbon Dioxide 28.5 Anion Gap 8.5 BUN 25 H Creatinine 1.3 Est GFR (CKD-EPI 2020) 54.51 Glucose 123 H Calcium 9.1 Magnesium 2.2 Total Bilirubin 0.5 AST 35 ALT 28 Alkaline Phosphatase 88 C-Reactive Protein Total Protein 8.8 H Albumin 2.4 L Procalcitonin COVID-19 Source SARS-CoV-2 (PCR) Add-On Test Request 08/24/22 08/24/22 08/24/22 18:45 18:45 18:45 WBC RBC Hgb Hct MCV MCH MCHC RDW Plt Count MPV Immature Gran % Neutrophils % Lymphocytes % Monocytes % Eosinophils % Basophils % Nucleated RBC % Absolute Neutrophils Absolute Lymphocytes Absolute Monocytes Absolute Eosinophils Absolute Basophils VBG Lactate Sodium Potassium Chloride Carbon Dioxide Anion Gap BUN Creatinine Est GFR (CKD-EPI 2020) Glucose Calcium Magnesium Total Bilirubin AST ALT Alkaline Phosphatase C-Reactive Protein 15.93 H Total Protein Albumin Procalcitonin 0.2 COVID-19 Source SARS-CoV-2 (PCR) Add-On Test Request DONE 08/24/22 08/24/22 08/25/22 22:00 23:50 05:54 WBC RBC Hgb Hct MCV MCH MCHC RDW Plt Count MPV Immature Gran % Neutrophils % Lymphocytes % Monocytes % Eosinophils % Basophils % Nucleated RBC % Absolute Neutrophils Absolute Lymphocytes Absolute Monocytes Absolute Eosinophils Absolute Basophils VBG Lactate Sodium 144 Potassium 3.7 Chloride 109 H Carbon Dioxide 27.5 Anion Gap 7.5 BUN 24 H Creatinine 1.2 Est GFR (CKD-EPI 2020) 60.00 Glucose 125 H Calcium 8.9 Magnesium 2.2 Total Bilirubin AST ALT Alkaline Phosphatase C-Reactive Protein 12.70 H Total Protein Albumin Procalcitonin COVID-19 Source Nasal/Nares SARS-CoV-2 (PCR) Negative Add-On Test Request Cancelled 08/25/22 05:54 WBC 13.66 H RBC 3.19 L Hgb 9.3 L Hct 29.5 L MCV 93 MCH 29.2 MCHC 31.5 L RDW 16.2 H Plt Count 247 MPV 11.4 H Immature Gran % 1.0 Neutrophils % 85.1 Lymphocytes % 7.7 Monocytes % 5.3 Eosinophils % 0.4 Basophils % 0.5 Nucleated RBC % 0.0 Absolute Neutrophils 11.62 H Absolute Lymphocytes 1.05 L Absolute Monocytes 0.72 Absolute Eosinophils 0.05 Absolute Basophils 0.07 VBG Lactate Sodium Potassium Chloride Carbon Dioxide Anion Gap BUN Creatinine Est GFR (CKD-EPI 2020) Glucose Calcium Magnesium Total Bilirubin AST ALT Alkaline Phosphatase C-Reactive Protein Total Protein Albumin Procalcitonin COVID-19 Source SARS-CoV-2 (PCR) Add-On Test Request Time Spent with Patient Time Spent with Patient: 25-34 minutes Time was spent: preparing to see the patient(eg.review tests) and obtaining and/or reviewing separately [facility]
[2022-08-25] MEDS: Melatonin 3 MG TAB PO (20:41)
[2022-08-26] MEDS: Ketorolac 15 MG/ML VIAL IVP (02:12)
[2022-08-26 04:30] VITALS: BP 102/52; PULSE 57; RESP 14; TEMP 36.4; O2SAT 98
[2022-08-26] MEDS: Normal Saline 500 ML 30 ML IV (05:13)
[2022-08-26 05:26] VITALS: TEMP 36.4
[2022-08-26] MEDS: Acetaminophen 500 MG TAB 1000 MG PO ×3 (05:26→21:26)
[2022-08-26] MEDS: CLINDAMYCIN 900 MG/50 ML BAG 50 MG IVPB ×3 (05:26→21:27)
--- NOTE | 2022-08-26 05:30 | NUR.NOTE ---
Nursing Note: 0530 MIVf on hold for KVO of NS while Clindamycin infuses. Patient tolerated crushed Tylenol in Applesauce. Refuses to allow oral hygiene after oral medications, I don't want my mouth cleaned out.
[2022-08-26 06:24] LABS: Abs Immature Grans 0.14 10^3/uL (0.0-0.06); Absolute Basophil Count 0.04 10^3/uL (0.0-0.2); Absolute Eosinophil Count 0.14 10^3/uL (0.0-0.7); Absolute Lymphocyte Count 0.79 10^3/uL (1.2-3.4); Absolute Monocyte Count 0.62 10^3/uL (0.1-0.8); Absolute Neutrophil Count 10.12 10^3/uL (1.2-6.7); Basophils % 0.3; Eosinophils % 1.2; HCT 29.6 % (40.0-50.0); HGB 9.2 g/dL (13.5-17.5); Immature Grans % 1.2; Lymphocytes % 6.7; MCHC 31.1 % (32.0-36.0); MCV 93 fL (80-95); MPV 10.9 fL (8.0-11.0); Monocytes % 5.2; Neutrophils % 85.4; Platelet Count 223 10^3/uL (130-400); RBC 3.17 10^6/uL (4.36-5.78); RDW 16.1 % (11.8-14.1); RDW-SD 55.8 fL; WBC 11.85 10^3/uL (4.4-10.8)
[2022-08-26 06:38] LABS: Anion Gap 7.7 mmol/L (3-11); BUN 30 mg/dL (7-18); C-Reactive Protein 7.31 mg/dL (0.0-0.3); CO2 26.3 mmol/L (21.0-32.0); CREATININE 1.5 mg/dL (0.70-1.30); Calcium 8.7 mg/dL (8.5-10.1); Chloride 109 mmol/L (98-107); Estimated GFR 45.91 (mL/min/1.73m2); Glucose 107 mg/dL (74-106); Potassium 4.1 mmol/L (3.5-5.1); Sodium 143 mmol/L (136-145)
[2022-08-26 07:40] VITALS: BP 105/58; PULSE 49; RESP 20; O2SAT 99
--- NOTE | 2022-08-26 07:53 | W.PALLCONSUL ---
Date of service: 08/26/22 Time of Service: 07:54 History of Present Illness History of Present Illness Chief Complaint: Right neck swelling Narrative: From [facility]: History of Present Illness?Chief Complaint: R neck swelling; stopped eating/drinking?Narrative: Mr Rodriguez is an 82 year old male with PMHx of alcoholic dementia, atrial fibrillation, CHFrEF (40%? per MPI in 2016), NIDDM2, hypertension, hyperlipidemia, who [facility], who was brought to [facility] ED today with right neck redness and swelling. He was noted to have a goopy eye yesterday, per son. The patient had stopped eating and drinking at the senior living. He did not permit a thorough oral examination and did not follow commands per ED provider (his baseline, per ED provider). CT imaging showed that the airway was not involved, that the right parotid gland was enlarged and contained small nodules, sales account representative of parotitis with reactive lymphadenopathy, though malignancy could not be excluded. There was no drainable abscess.? ENT consult was sought, and Dr Alex recommended that the patient be started on clindamycin 900 mg IV q 8hrs, that he receive IV hydration, sialogogues Q 1 hr, parotid massage if he tolerates it. His head of bed should be elevated. Hospitalist admission was requested. On my interview with the patient, he is somnolent,but does wake up enough to answer some questions. He states his neck is the only place that hurts and that he is not having trouble swallowing. He is not short of breath. He says he is thirsty and would like some water. ? Interim Hx: Williams is lying in his bed. He did respond to me and was able to tell me his name. He was not certain where he was at. Per nursing he has been having more difficulty with swallowing. He is often times confused and uncooperative. He needs to have most of his care done for him Assessment and Plan Assessment and plan (1) Parotiditis: Status: Acute Assessment and plan: Receiving clindamycin (2) senior living resident: Status: Acute (3) Dementia: Status: Chronic Assessment and plan: alcoholic dementia with increasing frailty, and falls (4) Palliative care patient: Status: Acute Assessment and plan: He has been seen by Ginny Salazar NP in the past. She will be available later this week. It has been about 8 months since she is last seen him. At that time she felt he was eligible for hospice. He also did state that he wanted to be a DNR/DNI. She wanted the COLST form completed with his son and [id number]. Was difficult to reach them by phone. I asked our resident care supervisor, Ely to reach out to Williams's family so that we could have a family meeting. She called both Benitez and Lanette but neither have called her back. Hopefully tomorrow they will be able to plan this meeting so that they can better clarify goals of care for Williams and his CODE STATUS. I agree with Ginny. At this point he would qualify for hospice. I will let Dr. Interiano who will be inpatient palliative care doctor know about Williams. Review of Systems Narrative: He is unable to give me a review of systems. He does not respond to any of my questions as far as shortness of breath constipation etc. PFSH All Active Problems (Updated 08/25/22 @ 15:22 by Lyric Curry NP) Dehydration (Acute) Thyroid nodule (Acute) Parotiditis (Acute) COVID-19 (Acute) Chronic a-fib (Chronic) as noted on 30-day event monitor senior living resident (Acute) Dementia (Chronic) mild to moderate; appears to fluctuate Goals of care, counseling/discussion (Acute) Palliative care patient (Acute) Cognitive impairment (Chronic) mild 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) Frequent falls (Chronic) Weakness (Acute) Chronic constipation (Chronic) Discharge planning issues (Acute) DVT prophylaxis (Acute) Acute UTI (Acute) Medical History Abnormality of gait due to impairment of balance Asthma Atypical chest pain CAD (coronary artery disease) Carpal tunnel syndrome Celiac disease Chronic confusion did not where he was, or date oriented only to self Dementia associated with alcoholism Edema of lower extremity Enlarged prostate GERD (gastroesophageal reflux disease) Hyperlipidemia Hypertension Insomnia Lives alone with help available used to live at [facility] now at Rehab Major depression Noncompliance with medication regimen Obesity Paroxysmal A-fib Prostate cancer Seborrheic dermatitis Sensorineural hearing loss of combined sites Sialadenitis Socially inappropriate behavior due to his dementia prefers to be naked, undresses regularly Spinal stenosis Thyroid nodule TMJ (dislocation of temporomandibular joint) Urinary retention Surgical History History of appendectomy History of brachytherapy Family History Son Pancreatic cancer Daughter Pancreatic cancer Son Substance abuse History of incarceration Son No problems noted. Son No problems noted. 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 [employer] Pets and animals: No Sexually active: No Current gender identity: male What is your relationship status?: How often do you talk on the phone with friends or family?: once per week How often do you get together with friends or relatives?: never Do you belong to any clubs or organized social groups?: no Panel score (0-1 are the most socially isolated patients): 0 What type of physical activity do you participate in: walking and sedentary lifestyle Duration: < 15 minutes/day Frequency: daily Special melissa needs: No Seatbelt use: always Water heater temp set <120 deg: Yes Working smoke detector in home: Yes Fire extinguisher in home: Yes Firearms in home: No Do you feel safe at home: Yes Do you feel safe in your relationship?: Yes Additional Social history: patient lives at [facility]. Exam Narrative Exam Narrative: Williams is lying in bed. He does look at me and talks, but he does not respond to my questions. He does have swelling on the right side of his neck in the parotid gland area. He does wince when I touch it .his heart is regular, rate controlled. Lungs unable to cooperate with the exam. Abdomen was nontender. Legs without edema I did ask him about CPR. He said I do not want any of that. Results Last Vital Signs Temp 97.5 F L 08/26/22 05:26 Pulse 57 L 08/26/22 04:30 Resp 14 08/26/22 04:30 BP 102/52 L 08/26/22 04:30 Pulse Ox 98 08/26/22 04:30 Labs Result diagrams: 08/26/22 05:35 08/26/22 05:35 Labs: Laboratory Results - last 24 hr 08/26/22 08/26/22 05:35 05:35 WBC 11.85 H RBC 3.17 L Hgb 9.2 L Hct 29.6 L MCV 93 MCH 29.0 MCHC 31.1 L RDW 16.1 H Plt Count 223 MPV 10.9 Immature Gran % 1.2 Neutrophils % 85.4 Lymphocytes % 6.7 Monocytes % 5.2 Eosinophils % 1.2 Basophils % 0.3 Nucleated RBC % 0.0 Absolute Neutrophils 10.12 H Absolute Lymphocytes 0.79 L Absolute Monocytes 0.62 Absolute Eosinophils 0.14 Absolute Basophils 0.04 Sodium 143 Potassium 4.1 Chloride 109 H Carbon Dioxide 26.3 Anion Gap 7.7 BUN 30 H Creatinine 1.5 H Est GFR (CKD-EPI 2020) 45.91 Glucose 107 H Calcium 8.7 C-Reactive Protein 7.31 H
[2022-08-26 08:00] VITALS: BP 110/54; PULSE 58; O2SAT 96
--- NOTE | 2022-08-26 08:08 | PT.INNT ---
PT Notes Visit Reasons: Acute Bacterial Parotitis, FTT Attempt evaluation again this morning - patient resistant, non-cooperative and resistant. Falls in and out of sleep. Asks to be left alone. I attempt coaxing him for 15 min, even with assist of passive LE movement, which he guards to and is very rigid. Discussion with nursing concludes his current state may be his norm, noone seems to understand his usual functional state at [facility]. Advise nursing to inform us if he demonstrates more engagement and cooperation, and PT will attempt evaluation.
--- NOTE | 2022-08-26 08:44 | CMPROGNOTE_ITS ---
- If Service Date Differs Date of service: 08/26/22 Time of Service: 08:44 Care Management Progress Note S/O:Williams was lying in bed when CM met with him. He was alert and oriented and agreeable to conversation. Per nursing, Williams has refused much of his care and medications. He just waves people away when he does not want to participate in the plan of care. CM asked Williams about this and if he would rather not have so many things done. He stated that it was true. FARNAZ shared the fact that Dr. Amee peterson is trying to arrange a meeting with Williams and his family to discuss this as we want to honor his wishes. Williams was agreeable to having the meeting A: Williams is an 82 year old man admitted on 08/24/22 with acute bacterial parotitis P:Anticipate Williams will return to [facility] once medically cleared. He will likely transport via facility w/c van, coordinated by FARNAZ. He will follow up with the facility providers and his discharge plan of care. CM will continue to follow and suppport Natan and his discharge planning needs.
--- NOTE | 2022-08-26 10:53 | PHA.REVIEW2 ---
Pharmacy Admission Review - Admission Clinical Review (Last Reviewed 08/01/22 @ 08:59 by Paola Dickson NP) Dehydration (Acute) Thyroid nodule (Acute) Parotiditis (Acute) Discharge planning issues (Acute) DVT prophylaxis (Acute) wheat dextrin Adverse Reaction (Severe, Unverified 08/24/22 17:35) animal dander Adverse Reaction (Unknown, Unverified 08/24/22 17:35) codeine Adverse Reaction (Unverified 08/24/22 17:35) glutens Allergy (Unknown, Uncoded 08/24/22 17:35) glutethimide Allergy (Unknown, Uncoded 08/24/22 17:35) cats Adverse Reaction (Unknown, Uncoded 08/24/22 17:35) Resuscitation Status Full Code Height 5 ft 10 in Weight 71.4 kg - Renal Dosing Renal Dosing: BUN 30 mg/dL (7-18) H 08/26/22 05:35 Creatinine 1.5 mg/dL (0.70-1.30) H 08/26/22 05:35 Medications needing adjustments: Reviewed (eCrCl 37 ml/min, current orders ok) - Anticoagulation Anticoagulation: Hgb 9.2 g/dL (13.5-17.5) L 08/26/22 05:35 Hct 29.6 % (40.0-50.0) L 08/26/22 05:35 Plt Count 223 10^3/uL (130-400) 08/26/22 05:35 Creatinine 1.5 mg/dL (0.70-1.30) H 08/26/22 05:35 DVT Prophylaxis: Reviewed Medications: Enoxaparin - Opiate Usage Evaluate Pain Scale/Pains Meds: N/A - Relevant Labs Sodium 143 mmol/L (136-145) 08/26/22 05:35 Potassium 4.1 mmol/L (3.5-5.1) 08/26/22 05:35 Chloride 109 mmol/L (98-107) H 08/26/22 05:35 Magnesium 2.2 mg/dL (1.8-2.4) 08/25/22 05:54 C-Reactive Protein 7.31 mg/dL (0.0-0.3) H 08/26/22 05:35 Electrolytes, C-Reactive P, ESR: Reviewed - DM Control DM Control: Glucose 107 mg/dL (74-106) H 08/26/22 05:35 Finger Stick Blood Glucose 110 Finger Stick Blood Glucose 104 DM Control: Reviewed Insulin Dosing, Diabetic Medication: aspart per SS - Cardiac Review BP, HR, EF%: Reviewed - Qtc Review QTc: N/A - IV to PO Switch IV Medications: Reviewed - Home Meds Home Med List reviewed: Intervened Relevent Home Meds Not ordered & why?: reviewed, not ordered: tamsulosin, furosemide, alogliptan (SSI ordered in place) - Current meds Current Medication Order Review: Reviewed (today is day 3 of clinda 900mg IV q8h)
--- NOTE | 2022-08-26 14:56 | W.PM.PROGNOT ---
Date of Service Date of service: 08/26/22 Time of Service: 14:56 Assessment and Plan Assessment and plan (1) Parotiditis: Status: Acute Assessment and plan: continue clindamycin 900 mg IV Q8hrs day 3, No IVF, taking oral nutrition without issue -advance diet to moist, minced, consider pureed if not tolerating continue elevate head of bed. Continue scheduled oral tylenol, prn toradol. Speech therapy consult Trend CRP, procalcitonin. CRP 7.31 will check tomorrow - procal will be checked tomorrow Await blood cultures no growth x 72 h MRSA negative (2) Dehydration: Status: Resolved Assessment and plan: Originally on IVF, now oral with good intake Encourage/offer PO monitor (3) Chronic a-fib: Status: Chronic Assessment and plan: Not on rate control medications or anticoagulation. vital signs are stable, continue to monitor (4) Non-insulin dependent type 2 diabetes mellitus: Status: Chronic Assessment and plan: Cover with SSI. Hold alogliptin. (5) Dementia: Status: Chronic Assessment and plan: no behavioral disturbances (6) Hypokalemia: Status: Resolved Assessment and plan: Normal today 4.1 (7) Thyroid nodule: Status: Acute Assessment and plan: 1.5 cm hypodense nodule in L thyroid lobe seen on today's CT. Outpatient follow. (8) DVT prophylaxis: Status: Acute Assessment and plan: SC enoxaparin (9) Discharge planning issues: Status: Acute Assessment and plan: Full code C/s PT and palliative care discussed with Dr Newton Subjective Subjective Patient reports: no new complaints, pain is less, voiding w/o difficulty, bowel movement and afebrile; denies diarrhea, nausea or vomiting Interval history since last seen: Pleasantly confused, semi fowelers in bed, no complaints Exam Const General: comfortable, no acute distress and frail appearing Nutritional Appearance: thin Orientation: alert, awake and confused [facility] Head: normal to inspection Mouth: moist mucous membranes abnormal (dry) Resp Effort & Inspection: normal respiratory effort (even and unlabored) Auscultation: diminished lung sounds (poor inspiratory effort) Cardio Rate: regular rate Rhythm: regular rhythm GI Inspection: normal to inspection Palpation: soft Skin General skin exam: no rashes or lesions noted and dry skin Extrem General: normal to inspection, full ROM and no pedal edema Objective Last Vital Signs Temp 36.4 C L 08/26/22 05:26 Pulse 58 L 08/26/22 08:00 Resp 20 08/26/22 07:40 BP 110/54 L 08/26/22 08:00 Pulse Ox 96 08/26/22 08:00 Laboratory Results - last 24 hr 08/26/22 08/26/22 05:35 05:35 WBC 11.85 H RBC 3.17 L Hgb 9.2 L Hct 29.6 L MCV 93 MCH 29.0 MCHC 31.1 L RDW 16.1 H Plt Count 223 MPV 10.9 Immature Gran % 1.2 Neutrophils % 85.4 Lymphocytes % 6.7 Monocytes % 5.2 Eosinophils % 1.2 Basophils % 0.3 Nucleated RBC % 0.0 Absolute Neutrophils 10.12 H Absolute Lymphocytes 0.79 L Absolute Monocytes 0.62 Absolute Eosinophils 0.14 Absolute Basophils 0.04 Sodium 143 Potassium 4.1 Chloride 109 H Carbon Dioxide 26.3 Anion Gap 7.7 BUN 30 H Creatinine 1.5 H Est GFR (CKD-EPI 2020) 45.91 Glucose 107 H Calcium 8.7 C-Reactive Protein 7.31 H Time Spent with Patient Time Spent with Patient: 25-34 minutes Time was spent: preparing to see the patient(eg.review tests), obtaining and/or reviewing separately otained hiistory, ordering medications,tests, procedures, referring, communicating with other health manager intensive care unit, indepentently interpreting results, counseling the patient and care coordination
[2022-08-26 16:00] VITALS: BP 95/54; PULSE 55; RESP 14; TEMP 36.3; O2SAT 95
[2022-08-26] MEDS: Normal Saline Flush 10 ML SYR IVP (21:26)
[2022-08-26] MEDS: Omeprazole 20 MG CAPCR PO (21:26)
[2022-08-26] MEDS: Nystatin POWDER 15 GM JAR TP (21:27)
[2022-08-26] MEDS: Oxybutynin 5 MG TAB PO (21:27)
[2022-08-26] MEDS: Melatonin 3 MG TAB PO (21:27)
[2022-08-26] MEDS: QUEtiapine 50 MG TAB PO (21:27)
[2022-08-26 21:45] VITALS: BP 111/57; PULSE 63; RESP 14; TEMP 36.3; O2SAT 96
[2022-08-27] VITALS (11 sets, daily range): BP systolic 82–122; BP diastolic 40–67; PULSE 44–63; RESP 12–18; TEMP 36.5–37; O2SAT 96–100
[2022-08-27] MEDS: Enoxaparin 40 MG/0.4 ML SYR SC (01:11)
[2022-08-27 05:31] LABS: Abs Immature Grans 0.15 10^3/uL (0.0-0.06); Absolute Eosinophil Count 0.17 10^3/uL (0.0-0.7); Absolute Lymphocyte Count 0.92 10^3/uL (1.2-3.4); Absolute Neutrophil Count 9.35 10^3/uL (1.2-6.7); Basophils % 0.4; Eosinophils % 1.5; HGB 9.2 g/dL (13.5-17.5); Immature Grans % 1.3; Lymphocytes % 8.1; MCH 28.3 pg (27.0-33.0); MCHC 30.7 % (32.0-36.0); MCV 92 fL (80-95); MPV 10.8 fL (8.0-11.0); Monocytes % 6.2; Neutrophils % 82.5; Platelet Count 249 10^3/uL (130-400); RBC 3.25 10^6/uL (4.36-5.78); RDW 16.2 % (11.8-14.1); RDW-SD 55.9 fL; WBC 11.33 10^3/uL (4.4-10.8)
[2022-08-27 05:37] LABS: Absolute Basophil Count 0.05 10^3/uL (0.0-0.2)
[2022-08-27 05:42] LABS: Anion Gap 7.1 mmol/L (3-11); BUN 24 mg/dL (7-18); CO2 26.9 mmol/L (21.0-32.0); CREATININE 1.4 mg/dL (0.70-1.30); Calcium 8.6 mg/dL (8.5-10.1); Chloride 107 mmol/L (98-107); Estimated GFR 49.87 (mL/min/1.73m2); Glucose 84 mg/dL (74-106); Magnesium 1.9 mg/dL (1.8-2.4); Potassium 3.9 mmol/L (3.5-5.1); Sodium 141 mmol/L (136-145)
[2022-08-27] MEDS: CLINDAMYCIN 900 MG/50 ML BAG 50 MG IVPB ×3 (05:51→21:00)
[2022-08-27] MEDS: Acetaminophen 500 MG TAB 1000 MG PO ×3 (05:52→21:05)
[2022-08-27] MEDS: QUEtiapine 50 MG TAB PO ×2 (08:22→21:00)
[2022-08-27] MEDS: Sertraline 50 MG TAB 75 MG PO (08:22)
[2022-08-27] MEDS: Cholecalciferol (Vitamin D3) 1,000 UNIT TAB 2000 UNITS PO (08:22)
[2022-08-27] MEDS: Oxybutynin 5 MG TAB PO ×2 (08:22→21:00)
[2022-08-27] MEDS: Donepezil 5 MG TAB PO (08:23)
[2022-08-27] MEDS: Aspirin 81 MG CHEW PO (08:23)
[2022-08-27] MEDS: Omeprazole 20 MG CAPCR PO ×2 (08:23→21:00)
[2022-08-27] MEDS: Ascorbic Acid 500 MG TAB PO (08:23)
[2022-08-27] MEDS: Atorvastatin 40 MG TAB PO (08:23)
--- NOTE | 2022-08-27 08:55 | PDOC.CMPRO ---
- If Service Date Differs Date of service: 08/27/22 Time of Service: 08:55 Care Management Progress Note S/O:Williams was lying in bed when CM met with him. He was alert and oriented to self. CM asked Williams how he was feeling and he answered great. He had no complaints. Williams had a speech evaluation this morning and slow sips of thin liquids was recommended with verbal cueing provided by staff. CM informed Williams that a palliative Care consultation is scheduled for this afternoon at 4pm and that his son Benitez would be there. Williams asked what was going to be discussed and CM informed him that it would be about goals of care and what he would like going forward. Williams stated very clearly I do not like those kinds of conversations. Williams remains a full code and Benitez explained to CM on the phone that Williams made that decision and completed a COLST form before he developed dementia and that he, Benitez, plans to honor his wishes. A: Williams is an 82 year old man admitted on 08/24/22 with acute bacterial parotitis P:Anticipate Williams will return to [facility] once medically cleared. He will likely transport via facility w/c van, coordinated by FARNAZ. He will follow up with the facility providers and his discharge plan of care. CM will continue to follow and suppport Natan and his discharge planning needs.
--- NOTE | 2022-08-27 09:37 | IN_ITS ---
Date of service: 08/27/22 Time of Service: 09:37 PT Notes Visit Reasons: Acute Bacterial Parotitis, FTT Physical Therapy Inpatient Initial Evaluation Date: 08/27/2022 Referring Doctor: Leydi Carrizales MD PT Orders: PT CONSULT: Limited ability Precautions: Fall. Standard. Activity as tolerated. Fearful of falling. Patient Profile/Admitting Diagnosis: Williams is an 82-year-old male resident of SNF for 2 years now with past medical history significant for dementia and spinal stenosis who presented to the ED on 08/24/2022 due to decreased oral intake and generalized weakness.? 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 Abnormality of gait due to impairment of balance Asthma Atypical chest pain CAD (coronary artery disease) Carpal tunnel syndrome Celiac disease Chronic confusion did not where he was, or date oriented only to selfDementia associated with alcoholism Edema of lower extremity Enlarged prostate GERD (gastroesophageal reflux disease) Hyperlipidemia Hypertension Insomnia Lives alone with help available used to live at [facility] now at Rehab Major depression Noncompliance with medication regimen Obesity Paroxysmal A-fib Prostate cancer Seborrheic dermatitis Sensorineural hearing loss of combined sites Sialadenitis Socially inappropriate behavior due to his dementia prefers to be naked, undresses regularly Spinal stenosis Thyroid nodule TMJ (dislocation of temporomandibular joint) Urinary retention Surgical History? History of appendectomy History of brachytherapy Social History/Home Situation: Per son, patient has been a SNF resident for over 2 years now and has been wheelchair-bound at the SNF. Equipment Owned/DME: Wheelchair Subjective: Required extensive encouragement from PT, nursing staff, and soon Benitez to participate in this evalaution. Patient has not been receptive to being moved out of bed with attempts by PT since three days ago. Son Benitez states that his father has been fearful of falling every time he is being moved. Son states that he has always seen his father on the wheelchair at the rehab, thinks that two people transfer him over there. Objective: General Observation: Supine in bed. Telemetry monitoring in place. Mental Status: Had difficulty processing and following instructions. Pain: None reported ROM: Right Upper Extremity: ?Lacks about 50% of AROM in shoulder. Elbows and wrists/hand WFL. Left Upper Extremity:? ?Lacks about 50% of AROM in shoulder. Elbows and wrists/hand WFL. Right Lower Extremity: Lacks 50% of AROM in R LE joints Left Lower Extremity: Lacks 50% of AROM in R LE joints Strength: Right Upper Extremity: Grossly 3-/5 in shoulder. 3+/5 in elbow and wrist/hand. Left Upper Extremity: Grossly 3-/5 in shoulder. 3+/5 in elbow and wrist/hand. Right Lower Extremity: Grossly 3-/5 Left Lower Extremity: Grossly 3-/5 Sensation: Unable to test Bed Mobility/Transfers: Sit to stand moderate assist of 2 Stand to sit moderate assist of 2 Bed to chair assist of 2 using STEDY lift Chair to bed assist of 2 using mechanical lift Gait: Unable. Pushes back for fear of falling. Balance: Static Sitting: Fair Dynamic Sitting: Poor Static Standing: Unable Dynamic Standing: Unable Special Tests: Mobility Limitations Standardized Measure [facility]-PAC 6 clicks Basic Mobility Inpatient Short Form: Raw Score: 6? CMS Score: 100% deficit ? Informed Consent/Education:? Patient instructed in purpose of PT consult and plan of care. Requires encouragement to participate in session. [place] Marquis is agreeable with silling patient to address mobility decline. Assessment: Fearfulness of falling, cognitive decline, and lack of motivation are barriers to progressing patient's mobility at this time. Prognosis for achieving goals poor. Will continue to attempt patient engagement while on admission to work on strength, sitting and standing balance /tolerance, and mobility progression. Patient presents with clinical signs and symptoms consistent with current/admitting diagnoses that have resulted to mobility limitations, gait instability, generalized weakness, and overall ADL decline as demonstrated by the following impairment level findings: 1. Decreased strength to B UE/LE major muscle groups 2. Impaired sitting/standing balance 3. Impaired activity tolerance 4. Limitation of joint range of motion in B shoulders and B LE 5. Cognitive decline Impairments are contributing to the following functional limitations: 1. Decline in bed mobility skills 2. Decline in transfer skills 3. Inability to ambulate due to fearfulness of falling 4. Increased risk for falls 6. Incrrased risk for skin breakdown Patient is assessed as a 36591 high complexity based on the following: History: 82-year-old male with past medical history as indicated above Examination: Demonstrable impairment in strength, balance, and mobility level with underlying impairments and functional limitations as exhibited above as well as deficit score of 100% utilizing the [facility] Mobility Inpatient Short Form Presentation: Unstable Decision Makin high complexity Goals: Goals X1 week 1. Supine-Sit minimal assist 2. Sit-Supine minimal assist 3. Sit-Stand minimal assist 4. Stand-Sit minimal assist 5. Bed-Chair minimal assist 6. Chair-Bed minimal assist Plan of Care/Treatment Plan: 1-2x/day, 7 days/week x 1 week. Plan of care has been reviewed with the BLUEPRINT PROCESSOR providing the service under Physical Therapy direction. Initiate Physical Therapy intervention for pain management as needed, strengthening, bed mobility, transfers, gait, stairs, balance training, and use of assistive device. DISCHARGE RECOMMENDATIONS: [] Home with no services [] [] Home with services [specify] [] Home with outpatient PT [] [] SNF for continued rehabilitation [] [] Shelter Care [] [] SNF versus LTC based on ability to participate and progress [] [X] Return to SNF when medically cleared by hospitalist TREATMENT CODE/TIME: 80905 x 25 minutes, 89980 x 10 minutes beginning at 9:37 AM. Thank you for the opportunity to participate in the care of this patient. Salima Mcintosh PT, DPT, CLT [facility] [place], [place]
--- NOTE | 2022-08-27 11:30 | W.SPSTE ---
Date of service: 08/27/22 Time of Service: 11:30 Subjective Patient contacted at bedside at 11:30am. Nursing asists to position bed at ~70-80 degrees upright. Denies current or baseline swallow difficulties. Denies coughing with liquids at any time. Nursing notes he has been coughing with thin liquids at times. Physical therapy also reporting a coughing episode observed with thin liquids, at that time patient was reclined at 45 degree angle. Patient referred for Clinical Swallow Evaluation from Dr Carrizales given recent poor oral intake and nursing observation of swallow difficulty. Precautions: Fall, Standard, DNR/DNI (status changed from full code by palliative this afternoon prior to writing this note) Objective Objective HPI: History of Present Illness?Chief Complaint on admit: R neck swelling; stopped eating/drinking From H&P: Mr Rodriguez is an 82 year old male with PMHx of alcoholic dementia, atrial fibrillation, CHFrEF (40%? per MPI in 2016), NIDDM2, hypertension, hyperlipidemia, who is a resident of the [facility] nursing facility, who was brought to [facility] ED today with right neck redness and swelling. He was noted to have a goopy eye yesterday, per son. The [facility]. He did not permit a thorough oral examination and did not follow commands per ED provider (his baseline, per ED provider). CT imaging showed that the airway was not involved, that the right parotid gland was enlarged and contained small nodules, medical customer service representative of parotitis with reactive lymphadenopathy, though malignancy could not be excluded. There was no drainable abscess.? ENT consult was sought, and Dr Alex recommended that the patient be started on clindamycin 900 mg IV q 8hrs, that he receive IV hydration, sialogogues Q 1 hr, parotid massage if he tolerates it. His head of bed should be elevated. Hospitalist admission was requested. Initially he endorsed with neck pain but denied difficulty swallowing. During hospitalization PO intake has improved somewhat. Diet was advanced prior to CERTIFIED PEDIATRIC NURSE PRACTITIONER evaluation to Level 5/Minced/moist and he has reportedly tolerated this well but nursing has reported some observed difficulties with thin liquids (coughing). Other relevant medical history highlighted below in problem list. Head/Neck CT 08/24/22 IMPRESSION: 1. No acute intracranial process.? 2. No enhancing intracranial mass. 3. Enlarged heterogeneous right parotid gland.? This may reflect parotid Sharkey with reactive lymph nodes.? Neoplasm cannot be excluded.? Please correlate clinically. 4. 1.4 cm hypodense nodule in the left thyroid gland.? Nonemergent thyroid ultrasound is recommended. PFSH All Active Problems?(Updated 08/24/22 @ 23:30 by Leydi Carrizales MD) Dehydration (Acute) Hypokalemia (Acute) Thyroid nodule (Acute) Parotiditis (Acute) COVID-19 (Acute) Chronic a-fib (Chronic) as noted on 30-day event monitor care home resident (Acute) Dementia (Chronic) mild to moderate; appears to fluctuate Goals of care, counseling/discussion (Acute) Palliative care patient (Acute) Cognitive impairment (Chronic) mild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) Frequent falls (Chronic) Weakness (Acute) Chronic constipation (Chronic) Discharge planning issues (Acute) DVT prophylaxis (Acute) Acute UTI (Acute) Medical History? Abnormality of gait due to impairment of balance Asthma Atypical chest pain CAD (coronary artery disease) Carpal tunnel syndrome Celiac disease Chronic confusion did not where he was, or date oriented only to selfDementia associated with alcoholism Edema of lower extremity Enlarged prostate GERD (gastroesophageal reflux disease) Hyperlipidemia Hypertension Insomnia Lives alone with help available [facility] now [facility] RehabMajor depression Noncompliance with medication regimen Obesity Paroxysmal A-fib Prostate cancer Seborrheic dermatitis Sensorineural hearing loss of combined sites Sialadenitis Socially inappropriate behavior due to his dementia prefers to be naked, undresses regularlySpinal stenosis Thyroid nodule TMJ (dislocation of temporomandibular joint) Urinary retention Surgical History? History of appendectomy History of brachytherapy EXAMINATION Mental Status: Inconsistent responsiveness to interview questions. Low awareness/orientation. Able to respond accurately to egocentric personal history questions (Where did you grow up, do you have kids, etc). Frequently not responding to questions or instructions but showing frustration and insisting that he completed the task when instruction is repeated. Low insight. Frequently closing eyes but not somnolent. Speech: Limited verbal output, but 100% intelligible. Language: Limited verbal output, though appears with good comprehension if responses are given. Suspect impacted by mental status. Respiratory: Tolerates room air without s/sx dyspnea. No coughing/wheezing at baseline. Oral-Peripheral Exam: limited due to patient not responding to many instructions Dentition: Partially edentulous on bottom and top, no dentures visible - difficult to visualize full dentition due to patient refusal. Oral care/mucosa: Patient does not follow instructions to allow visualization of full oral cavity, but noting very dry tongue with dark brown coating. Poor oral care. Noting no facial assymetry at rest. Patient is able to protrude tongue but does participate in any further lingual or facial ROM, strength, coordination tasks. Volitional swallow: Unable to elicit. Patient cognitive status impacting motor initiation, when repeated the instruction I already did that! Volitional cough: Unable to elicit as above. Vocal quality clear/dry at baseline. PO TRIALS: Ice chips x1 (does not elicit a swallow response), 8x sips thin liquid, 5x sips nectar liquid, 2 bites pudding. Patient refuses further solid/puree trials from lunch tray. Feeding behaviors: impulsive, large volume/consecutive sips resistant to instructions, improved when combined visual-tactile cues one small s ip and STOP (with hand up for patient to see, tactile hand over hand assist with cup). With practice, patient requiring less assist to take single sips across session. Prolonged oral phase, likely secondary to dry mouth, mental status Mild oral residue Suspect delayed swallow onset. Appears with xerostomia and poor oral care likely impacting swallow performance and increasing risk of complications. Voice remains dry throughout. 1x significant delayed cough after drinking liquids and taking small solid trials - suspect secondary to pharyngeal residue at risk of aspiration when breathing resumes. Assessment IMPRESSIONS: At least mild dysphagia. Patient does present with s/sx aspiration with increasing trials of thin liquids after taking puree trials. Suspect due in part to build up of pharyngeal residue, coordination & timing of swallow onset vs respiration, and complicated by xerostomia, poor oral care, weakness and altered mental status vs baseline dementia with impulsive feeding behaviors. There is also possibility that temporary anatomical changes in setting of parotiditis are causing altered bolus flow and impacting pharyngeal motility. Patient also with GERD history, reflux aspiration cannot be ruled out. Given he was admitted with dehydration and limited PO intake, and patient without significant pneumonia history, do not recommend thickening liquids at this time. Patient appears to tolerate sips liquid well when provided with visual and verbal supports to take single, small sips, and additional saliva swallows to ensure better pharyngeal clearance. Agree with minced/moist at this time unless patient/family request otherwise per their goals of care - patient appears to prefer puree desserts at this time based upon food intake assessments by nursing. Remains full assist for feeding. Primary focus is on risk mitigation. As much oral care as patient will allow, upright positioning, reflux precautions, and managing impulsive feeding behaviors. Further CERTIFIED PEDIATRIC NURSE PRACTITIONER services: Warranted inpatient / patient to be followed while on unit to provide family/caregiver education, ensure implementation of safe swallow strategies, and ensure diet tolerance with use of strategies. Recommend CERTIFIED PEDIATRIC NURSE PRACTITIONER evaluation upon return to [facility] ? Instrumentation: none recommended at this time Diet Texture Modification(s): IDDSI Level(s) SOLIDS 5-Minced & Moist Solids LIQUIDS 0-Thin Liquids Medication Intake: Crushed as able with 4-Extremely Thick Liquids, Alter medications only as advised by MD or Pharmacist RISK MANAGEMENT: HOB upright as tolerated; upright for all PO intake. Encourage physical mobility as tolerated. Oral hygiene BID/2x per day, before/after PO intake, using friction with toothbrush on all oral structures as tolerated, suction PRN Level of Assistance/Supervision: Assistive feeding only by trained staff/family PO intake only when awake/alert? Strategies/Adaptations/Assistive Equipment: Reduce auditory and/or visual distractions when eating Provide verbal and/or visual cues to use recommended strategies (One sip and STOP) Small sips and bites when eating Slow rate of intake Swallow between bites Small+frequent meals throughout day Posture/Positioning Needs: Maintain upright position at least 60 minutes after meals Avoid meals/snacks 2-3 hours prior to reclining/sleeping Sleep with head of bed elevated to reduce likelihood of nocturnal reflux Plan Pharmaceutical Laboratory Technician Goals: Patient will tolerate safest/least restrictive diet for adequate nutritional intake without pulmonary compromise. Short Term Goals: Patient/family/care providers will be independent with use and cueing of safe swallow strategies. Patient/family/care providers will verbalize understanding of dysphagia education including s/sx to watch for aspiration, risk mitigation strategies, safe swallow behaviors, and reflux precautions. Coding
--- NOTE | 2022-08-27 11:42 | W.PALPGNOTE ---
Subjective Subjective Interval history since last seen: Weight loss Objective Last Vital Signs Temp 37 C 08/27/22 09:11 Pulse 63 08/27/22 09:11 Resp 18 08/27/22 09:11 BP 91/55 L 08/27/22 09:11 Pulse Ox 99 08/27/22 09:11 Laboratory Results - last 24 hr 08/27/22 08/27/22 05:14 05:14 WBC 11.33 H RBC 3.25 L Hgb 9.2 L Hct 30.0 L MCV 92 MCH 28.3 MCHC 30.7 L RDW 16.2 H Plt Count 249 MPV 10.8 Immature Gran % 1.3 Neutrophils % 82.5 Lymphocytes % 8.1 Monocytes % 6.2 Eosinophils % 1.5 Basophils % 0.4 Nucleated RBC % 0.0 Absolute Neutrophils 9.35 H Absolute Lymphocytes 0.92 L Absolute Monocytes 0.70 Absolute Eosinophils 0.17 Absolute Basophils 0.05 Sodium 141 Potassium 3.9 Chloride 107 Carbon Dioxide 26.9 Anion Gap 7.1 BUN 24 H Creatinine 1.4 H Est GFR (CKD-EPI 2020) 49.87 Glucose 84 Calcium 8.6 Magnesium 1.9
--- NOTE | 2022-08-27 13:40 | NUR.NOTE ---
Nursing Note. 5 cm abrasion line base of right gluteal area noted after removing brief. Cleansed and covered with 4 X 4 Mepilex dressing.
[2022-08-27] MEDS: Normal Saline Flush 10 ML SYR IVP (14:42)
--- NOTE | 2022-08-27 15:26 | W.PALPGNOTE ---
Date of service: 08/27/22 Time of Service: 16:00 Assessment and Plan Assessment and plan (1) Parotiditis: Status: Acute (2) Vascular dementia: Status: Acute (3) Alcoholic dementia: Status: Acute (4) Advanced care planning/counseling discussion: Status: Acute (5) Palliative care patient: Status: Acute (6) Abnormal weight loss: Status: Acute (7) Frail elderly: Status: Acute Subjective Subjective Interval history since last seen: Palliative care team met this afternoon with patient's son Benitez and RIMA Gama to discuss goals of care and CODE STATUS. Present at meeting with her case management Ely Garcia and hospitalist nurse practitioner Jenna Schmidt. Patient was not present at family medicine meeting due to lack of capacity for decision-making. Dr. Franco of palliative care and his family and case management have talk with him over this admission regarding what he wants us does not want as documented in notes; this has been somewhat difficult as at times he does not interact. [id number] Lanette was able to give us significant additional history to give background for today's decisions: 1. Patient considers himself part of a [employer] group within the [employer]. The patient told Lanette that the philosophy is that your body is your zoroastrian and you need to do everything possible to keep that already alive and in good shape. Even if you do not want to do a treatment, you are obligated to do it . She recalls that limitations mother had recurrence of cancer in her mid 90s, she decided to forego further treatment and he is extremely upset about this because of his mandaen believes. She reports that he filled out a COLST form before he developed dementia stating that he would want everything done medically under any circumstance. We do not have that form available to us. 2. In early April 2022 he developed urosepsis with severe acidosis, hypotension, acute renal failure, encephalopathy. Based on his previous expressed desires to have all treatment, family had him transferred to [facility]. He had a 3+ week admission there which included about a weeks worth of continuous dialysis within the ICU, and 3 weeks of tube feedings via nasal Dobbhoff tube. Lanette describes that after about 3 weeks he pulled out the tube and refused to let them put it back in. Of note, long-term through the hospital admission which she decided to switch him over to DNR/DNI for the remainder of the hospital admission as she felt he had gone through so much that she did not want him to go through anything more than that. 3.As noted in July 2022 palliative care visit note with Paola Dickson NP, patient said he did not want to have any invasive treatment. Paola tried to set up family meeting with Benitez and Lanette, but was unable to. She did fill out a [place] COLST stating DNR/DNI. However Lanette and Benitez felt the patient did not have capacity and that per his wishes he would have preferred full code and reversed him to full code at that time. 3. About 5 days ago Mr. Rodriguez developed acute parotitis with secondary facial cellulitis. He was admitted to [facility] and started on IV antibiotics. He has responded well. All agree he is pretty much back to his baseline: Swelling is mostly resolved, erythema is resolving. He has resumed some eating.. Hospital staff is recommending that he be switched back to oral antibiotics and transferred back to [facility] tomorrow. 4. Rachel describes him as a very social person he used to enjoy visiting with friends. Lanette says that he is social at the [facility], participating in activities. They are concerned that he does not drink enough fluids and this is led to several episodes of urosepsis (at least 2 hospital admissions for urosepsis over the last 6 months). 5. Phone call with nurse at [facility] today. This nurse says she has worked with Mr. Rodriguez for many months. She reports that he usually does not interact with other residents or even staff or participate in activities. They had a hard time getting him to eat. He will eat nutritional shakes. He suffers from frequent loose stools. He does not seem to be in pain or distress that she can recall. 6. Additional medical information: Patient has had 2 hospital admissions in the last 6 months. He has had dramatic weight loss, over 80 pounds (40 kg) in the last 12 months and over the 30 pounds (16 kg) in the last 3 months. As noted above, he refuses to take his medications several times a week at his [facility]. Lanette and Benitez wish that the goals for Mr. Rodriguez include a good quality of life , being comfortable and free from pain. Lanette discussed how she struggles with his previous expressed desires for having everything done . She witnessed what happened during the 3 and half weeks [facility] admission including ICU, dialysis, nasal feeding tube. She felt that doing all that treatment was appropriate given that it resulted from a side effect from his medications and that he had a good chance of recovering. However, if he went into renal failure slowly as a result of the underlying diabetes, (which she sees as an irreversible cause of renal failure), she does not feel that dialysis would be appropriate in that case as it would not improve his quality of life and perhaps make it worse. She also does not feel that he should have a feeding tube again (as evidenced by him pulling it out). She also feels strongly that he should never be intubated going forward. Lanette prefers to go forward and take decisions on a [id number] basis depending on the clinical situation. We discussed that given his comorbidities, weight loss, multiple recent hospital admissions in the setting of moderate to severe dementia, should he go into cardiac arrest, he would be very unlikely to survive, and there would be nothing comfortable with painless about the procedure. After consideration, both Benitez and Lanette agreed that they would like to now switch Mr. Vivar with his DNR/DNI status, as undergoing CPR would be a burden to him. They also stated during the visit that he should not be intubated, cannot see the situation where they would consent to a feeding tube, and with not consent to dialysis if he developed chronic renal failure. They feel very strongly that should he become ill and illness cannot be treated at [facility] (i.e. with oral rehydration or oral antibiotics), they would like him to be transferred to the emergency department for evaluation and treatment, including IV hydration, IV antibiotics and full evaluation. In the setting of acute illness, they would like to to consider treatments on a ovgn-ol-[id number] basis. Listening carefully Lanette explain the patient's past history and philosophy, as well as recount the decisions she has had to make over the last year as she has had to act as his healthcare agent, she does come to the realization that there are situations where certain treatments may be futile, and therefore would be a burden for Mr. Rodriguez without any benefit. Plan: -A COLST was written (and verbal consent obtained) to state DNR/DNI, transfer and treat. Case management, hospitalist nurse practitioner Jenna Schmidt and ICU nurse was informed of CODE STATUS changed. Hospital staff will assure that copy of COLST is sent back to [facility] and that they are aware of the change in CODE STATUS. -Case management will discuss with hospital credit resolution representative to see if [employer] is available to come and visit patient. -Palliative medicine team will continue to follow patient at [facility] Total time of meetin minutes, additional time for consultation with other staff 15 minutes, documentation 10 minutes, chart review 10 minutes Additional Data: Palliative Performance Scale % Ambulation Activity and Evidence of Disease Self Care Intake Level of Consciousness 100 Full Normal activity, no evidence of disease Full Normal Full 90 Full Normal activity, some evidence of disease Full Normal Full 80 Full Normal activity with effort, some evidence of disease Full Normal or reduced Full 70 Reduced Unable to do normal work, some evidence of disease Full Normal or reduced Full 60 Reduced Unable to do hobby or some housework, significant disease Occasional assist necessary Normal or reduced Full or confusion 50 Mainly sit/lie Unable to do any work, extensive disease Considerable assistance required Normal or reduced Full or confusion 40 Mainly in bed Unable to do any work, extensive disease Mainly assistance Normal or reduced Full, drowsy, or confusion 30 Totally bed bound Unable to do any work, extensive disease Total care Reduced Full, drowsy, or confusion 20 Totally bed bound Unable to do any work, extensive disease Total care Minimal sips Full, drowsy, or confusion 10 Totally bed bound Unable to do any work, extensive disease Total care Mouth care only Drowsy or coma 0 - - - - Patient Score: 30-40 Functional Assessment Scale (FAST) 1 No difficulty either subjectively or objectively 2 Complains of forgetting location of objects. Subjective work difficulties 3 Decreased job functioning evident to co-workers. Difficulty in traveling to new locations. Decreased organizational capacity* 4 Decreased ability to perform complex task, (e.g., planning dinner for guests, handling personal finances, such as forgetting to pay bills, etc) 5 Requires assistance in choosing proper clothing to wear for the day, season, or occasion, (e.g., pt may wear the same clothing repeatedly unless supervised*) 6 Occasionally or more frequently over the past weeks for the following*: A) Improperly putting on clothes without assistance or cueing B) Unable to bathe properly (not able to choose proper water temp) C) Inability to handle mechanics of toileting (e.g., forget to flush the toilet, does not wipe properly or properly dispose of toilet tissue) D) Urinary Incontinence E) Fecal Incontinence 7 A) Ability to speak limited to approximately < 6 intelligible different words in the course of an average day or in the course of an intensive interview. B) Speech ability is limited to the use of a single intelligible word in an average day or in the course of an intensive interview C) Ambulatory ability is lost (cannot walk without personal assistance) D) Cannot sit up without assistance (e.g., the individual will fall over if there are not lateral rests [arms] on the chair) E) Loss of ability to smile. F) Loss of ability to hold up head independently *Scored primarily on information obtained from a knowledgeable informant. Patient Score:6D Exam Narrative Exam Narrative: Patient observed in bed awake and alert, erythema bilaterally over his cheeks and nose. Facial swelling has resolved. He is able to speak with his family in short sentences. Able to hold a cup and drink from it. Smiles at his family. Objective Last Vital Signs Temp 36.7 C 08/27/22 11:40 Pulse 61 08/27/22 11:40 Resp 16 08/27/22 11:40 BP 103/59 L 08/27/22 11:40 Pulse Ox 96 08/27/22 11:40 Laboratory Results - last 24 hr 08/27/22 08/27/22 05:14 05:14 WBC 11.33 H RBC 3.25 L Hgb 9.2 L Hct 30.0 L MCV 92 MCH 28.3 MCHC 30.7 L RDW 16.2 H Plt Count 249 MPV 10.8 Immature Gran % 1.3 Neutrophils % 82.5 Lymphocytes % 8.1 Monocytes % 6.2 Eosinophils % 1.5 Basophils % 0.4 Nucleated RBC % 0.0 Absolute Neutrophils 9.35 H Absolute Lymphocytes 0.92 L Absolute Monocytes 0.70 Absolute Eosinophils 0.17 Absolute Basophils 0.05 Sodium 141 Potassium 3.9 Chloride 107 Carbon Dioxide 26.9 Anion Gap 7.1 BUN 24 H Creatinine 1.4 H Est GFR (CKD-EPI 2020) 49.87 Glucose 84 Calcium 8.6 Magnesium 1.9
--- NOTE | 2022-08-27 17:31 | W.PM.PROGNOT ---
Date of Service Date of service: 08/27/22 Time of Service: 17:33 Assessment and Plan Assessment and plan (1) Parotiditis: Status: Acute Assessment and plan: continue clindamycin 900 mg IV Q8hrs day 4 - will convert to oral on discharge No IVF, taking oral nutrition without issue - diet is moist, minced, and he is tolerating continue elevate head of bed. Continue scheduled oral tylenol, prn toradol. Speech therapy consult Trend CRP, procalcitonin. CRP - will check tomorrow - procal will be checked tomorrow Await blood cultures no growth x 72 h MRSA negative (2) Dehydration: Status: Resolved Assessment and plan: Originally on IVF, now oral with improving intake Encourage/offer PO monitor (3) Chronic a-fib: Status: Chronic Assessment and plan: Not on rate control medications or anticoagulation. vital signs are stable, continue to monitor (4) Non-insulin dependent type 2 diabetes mellitus: Status: Chronic Assessment and plan: Cover with SSI. Hold alogliptin. (5) Dementia: Status: Chronic Assessment and plan: no behavioral disturbances (6) Hypokalemia: Status: Resolved Assessment and plan: Normal today 3.9 (7) Thyroid nodule: Status: Acute Assessment and plan: 1.5 cm hypodense nodule in L thyroid lobe seen on today's CT. Outpatient follow. (8) DVT prophylaxis: Status: Acute Assessment and plan: SC enoxaparin (9) Discharge planning issues: Status: Acute Assessment and plan: Code changed to DNR/DNI after family meeting. Back to [facility] & tomorrow discussed with Dr Newton Subjective Subjective Patient reports: no new complaints, pain is less, voiding w/o difficulty, bowel movement and afebrile; denies flatus, diarrhea, blood in stool, nausea, vomiting or shortness of breath Interval history since last seen: Family here today to meet with Dr Interiano with Palliative Care, Code Status changed to DNR/DNI - He is awake, alert and pleasantly confused. Exam Const General: comfortable, no acute distress and frail appearing Nutritional Appearance: thin Orientation: alert, awake and confused HENAL Head: normal to inspection Mouth: moist mucous membranes abnormal (dry) Resp Effort & Inspection: normal respiratory effort (even and unlabored) Auscultation: diminished lung sounds (poor inspiratory effort) Cardio Rate: regular rate Rhythm: regular rhythm GI Inspection: normal to inspection Palpation: soft Skin General skin exam: no rashes or lesions noted and dry skin Extrem General: normal to inspection, full ROM and no pedal edema Objective Last Vital Signs Temp 36.7 C 08/27/22 11:40 Pulse 62 08/27/22 16:16 Resp 16 08/27/22 11:40 BP 91/60 L 08/27/22 16:16 Pulse Ox 98 08/27/22 16:15 Laboratory Results - last 24 hr 08/27/22 08/27/22 05:14 05:14 WBC 11.33 H RBC 3.25 L Hgb 9.2 L Hct 30.0 L MCV 92 MCH 28.3 MCHC 30.7 L RDW 16.2 H Plt Count 249 MPV 10.8 Immature Gran % 1.3 Neutrophils % 82.5 Lymphocytes % 8.1 Monocytes % 6.2 Eosinophils % 1.5 Basophils % 0.4 Nucleated RBC % 0.0 Absolute Neutrophils 9.35 H Absolute Lymphocytes 0.92 L Absolute Monocytes 0.70 Absolute Eosinophils 0.17 Absolute Basophils 0.05 Sodium 141 Potassium 3.9 Chloride 107 Carbon Dioxide 26.9 Anion Gap 7.1 BUN 24 H Creatinine 1.4 H Est GFR (CKD-EPI 2020) 49.87 Glucose 84 Calcium 8.6 Magnesium 1.9 Time Spent with Patient Time Spent with Patient: >50 minutes Time was spent: preparing to see the patient(eg.review tests), obtaining and/or reviewing separately otained hiistory, ordering medications,tests, procedures, referring, communicating with other health childbirth and infant care teacher, indepentently interpreting results, counseling the patient and care coordination
[2022-08-27] MEDS: Melatonin 3 MG TAB PO (21:00)
[2022-08-28] MEDS: Enoxaparin 40 MG/0.4 ML SYR SC (01:09)
[2022-08-28] MEDS: Acetaminophen 500 MG TAB 1000 MG PO (05:19)
[2022-08-28] MEDS: CLINDAMYCIN 900 MG/50 ML BAG 50 MG IVPB (05:19)
[2022-08-28 05:55] LABS: Abs Immature Grans 0.21 10^3/uL (0.0-0.06); Absolute Basophil Count 0.05 10^3/uL (0.0-0.2); Absolute Eosinophil Count 0.09 10^3/uL (0.0-0.7); Absolute Monocyte Count 0.62 10^3/uL (0.1-0.8); Absolute Neutrophil Count 9.42 10^3/uL (1.2-6.7); Basophils % 0.4; Eosinophils % 0.8; HCT 30.6 % (40.0-50.0); HGB 9.8 g/dL (13.5-17.5); Immature Grans % 1.8; Lymphocytes % 9.6; MCH 29.4 pg (27.0-33.0); MCV 92 fL (80-95); MPV 10.9 fL (8.0-11.0); Monocytes % 5.4; Platelet Count 246 10^3/uL (130-400); RBC 3.33 10^6/uL (4.36-5.78); RDW 16.3 % (11.8-14.1); RDW-SD 54.7 fL; WBC 11.49 10^3/uL (4.4-10.8)
[2022-08-28 06:14] LABS: Anion Gap 5.7 mmol/L (3-11); BUN 21 mg/dL (7-18); C-Reactive Protein 5.57 mg/dL (0.0-0.3); CO2 27.3 mmol/L (21.0-32.0); CREATININE 1.3 mg/dL (0.70-1.30); Calcium 8.5 mg/dL (8.5-10.1); Chloride 106 mmol/L (98-107); Estimated GFR 54.51 (mL/min/1.73m2); Glucose 81 mg/dL (74-106); Magnesium 1.7 mg/dL (1.8-2.4); Potassium 4.1 mmol/L (3.5-5.1); Sodium 139 mmol/L (136-145)
[2022-08-28 06:55] LABS: Procalcitonin 0.5 ng/mL
[2022-08-28 07:54] VITALS: BP 103/56; PULSE 58; RESP 14; TEMP 35.9; O2SAT 95
[2022-08-28] MEDS: Sertraline 50 MG TAB 75 MG PO (09:26)
[2022-08-28] MEDS: Oxybutynin 5 MG TAB PO (09:26)
[2022-08-28] MEDS: Donepezil 5 MG TAB PO (09:26)
[2022-08-28] MEDS: Atorvastatin 40 MG TAB PO (09:26)
[2022-08-28] MEDS: Cholecalciferol (Vitamin D3) 1,000 UNIT TAB 2000 UNITS PO (09:27)
[2022-08-28] MEDS: Omeprazole 20 MG CAPCR PO (09:27)
[2022-08-28] MEDS: MAGNESIUM SULFATE 2 GM/50 ML BAG IVPB (09:27)
[2022-08-28] MEDS: QUEtiapine 50 MG TAB PO (09:27)
[2022-08-28] MEDS: Aspirin 81 MG CHEW PO (09:27)
[2022-08-28] MEDS: Ascorbic Acid 500 MG TAB PO (09:30)
--- NOTE | 2022-08-28 10:06 | PDOC.CMDIS ---
- If Service Date Differs Date of service: 08/28/22 Time of Service: 10:06 LACE Index Scoring Tool - Questions: Length of Stay (in days): 4 - 6 Acuity (Admit via E.D.?): Yes Comorbidities: Any Tumor, Dementia E.D. Visits: 5 - Answers: Total Score: 16 Risk of Readmission: High Risk Care Management Discharge Reason for Hospitalization: acute bacterial parotitis, FTT Discharge Plan: Williams will return to [facility] and will transport via EMS coordinated by CM. He will follow up with the facility providers and his discharge plan of care. Patient/Family Education Needs: Review discharge instructions and limitations with Williams as well as staff at [facility] through RN to RN communication prior to discharge. Palliative care follow up, goals of care. Services Needed at Discharge: [facility]
[2022-08-28] MEDS: Nystatin POWDER 15 GM JAR TP (10:16)
--- NOTE | 2022-08-28 10:53 | W.PM.DS.N ---
Date of service: 08/28/22 Time of Service: 09:00 DS: Diagnosis Discharge Diagnosis (1) Parotiditis: Status: Acute (2) Dehydration: Status: Resolved (3) Chronic a-fib: Status: Chronic (4) Non-insulin dependent type 2 diabetes mellitus: Status: Chronic (5) Dementia: Status: Chronic (6) Hypokalemia: Status: Resolved (7) Thyroid nodule: Status: Acute Discharge Plan Disposition Patient Disposition: [facility] Facility(SNF) Condition: Fair Discharge Details Reason For Visit: Acute Bacterial Parotitis, FTT Admit Date/Time: 08/24/22 21:15 Admit Provider: Leydi Carrizales Attending Provider: Leydi Carrizales Primary Care Provider: Erika Mix Hospital Course Hospital Course: Mr Rodriguez is an 82 year old male with PMHx of alcoholic dementia, atrial fibrillation, CHFrEF (40%? per MPI in 2016), NIDDM2, hypertension, hyperlipidemia, who is a resident of the [facility] nursing facility, who was brought to [facility] ED 08/24/2022 with right neck redness and swelling. He was noted to have a goopy eye the day prior to admission, per son. The patient had stopped eating and drinking at the detention. He did not permit a thorough oral examination and did not follow commands per ED provider (his baseline, per ED provider). CT imaging showed that the airway was not involved, that the right parotid gland was enlarged and contained small nodules, vendor representatives of parotitis with reactive lymphadenopathy, though malignancy could not be excluded. There was no drainable abscess.? ENT consult was sought, and Dr Alex recommended that the patient be started on clindamycin 900 mg IV q 8hrs, that he receive IV hydration, sialogogues Q 1 hr, parotid massage if he tolerates it. His head of bed should be elevated. Patient only complained of his neck hurting and denied he is was having trouble swallowing. He was not short of breath. He was admitted to the medical floor for IV antibiotics. He was seen by Palliative Care while hospitalized which resulted in a family meeting.? His code status was changed from full code to DNR/DNI and a new COLST was completed.? Patient?s son Benitez is DPOA, he was present at this meeting and agreed with the change in code status. He improved and on day 5 he was discharged back to the [facility] on oral Clindamycin for 5 more days.? He was afebrile, face was not swollen and his vital signs are stable. Discussed with Dr Newton Roxie Meds and New Rx's Prescriptions: New clindamycin HCl [Cleocin HCl] 150 mg capsule 450 mg PO TID Qty: 45 0RF Continued furosemide 20 MG tablet 40 mg PO DAILY Qty: 60 11RF bisacodyl 10 mg suppository 10 mg TN DAILY PRN Fleet Enema 19-7 gram/118 mL enema 118 ml TN DAILY PRN ibuprofen 600 mg tablet 600 mg PO Q8H PRN nystatin 100,000 unit/gram powder 1 applic topical BID pyrithione zinc 1 % shampoo 1 applic topical DAILY PRN Rx Instructions: wet hair then apply , let stand 5 mins then rinse. Repeat. albuterol sulfate 90 mcg/actuation Hfa Aerosol Inhaler 2 puff INHALATION QID PRN atorvastatin 40 MG tablet 40 mg PO DAILY alogliptin 6.25 mg Tablet 6.25 mg PO DAILY tamsulosin 0.4 mg capsule 0.8 mg PO DAILY aspirin 81 mg Tablet 81 mg PO DAILY ascorbic acid (vitamin C) [Vitamin C] 500 mg Tablet 500 mg PO DAILY sertraline 50 mg Tablet 75 mg PO DAILY quetiapine [Seroquel] 50 mg Tablet 50 mg PO BID cholecalciferol (vitamin D3) [Vitamin D3] 25 mcg (1,000 unit) Tablet 50 mcg PO DAILY acetaminophen [Tylenol] 325 MG tablet 650 mg PO Q6H PRN PRN (Reason: Mild Pain, Temp. Over 38.5) 0RF omeprazole 20 mg Capsule,Delayed Release(Dr/Ec) 20 mg PO BID donepezil 5 mg Tablet,Disintegrating 5 mg PO DAILY polyethylene glycol 3350 17 gram Powder In Packet 17 g PO PRN PRN melatonin 3 mg Tablet 3 mg PO QHS oxybutynin chloride 5 mg Tablet 5 mg PO BID albuterol sulfate 1.25 mg/3 mL Solution For Nebulization 1.25 mg INHALATION QID PRN Discharge Instructions Instructions: Clindamycin (By mouth) Additional Instructions: Clindamycin 450 mg three times a day for five days Stand Alone Forms: Nursing Discharge Form Referrals: Erika Mix [Primary Care Provider] - (Follow up per Discharge from [facility] ) Activity:: Activity as Tolerated Equipment/Supplies:: Walker Diet:: Low Sodium Discharge Orders Discharge Orders: Discharge Order (Routine); Ordered 08/28/22 Ordered By: Jenna Scmhidt Discharge Data Discharge Date/Time-TO BE ENTERED AT DEPARTURE: 08/28/22 12:55 Discharge Comment: taken by [facility] to [facility] H&R DS: Summary Time Spent with Patient providing and/or coordinating discharge services: Greater than 30 minutes Status at Discharge Functional status at discharge: uses cane/walker Overall status at discharge: patient is progressing back to baseline Mental Status: mental status grossly normal Speech and Movement: speech and movement normal Mood: congruent mood Affect: normal affect Exam Const General: comfortable, no acute distress and frail appearing Nutritional Appearance: thin Orientation: alert, awake and confused HENMT Head: normal to inspection Mouth: moist mucous membranes abnormal (dry) Resp Effort & Inspection: normal respiratory effort (even and unlabored) Auscultation: diminished lung sounds (poor inspiratory effort) Cardio Rate: regular rate Rhythm: regular rhythm GI Inspection: normal to inspection Palpation: soft Skin General skin exam: no rashes or lesions noted and dry skin Extrem General: normal to inspection, full ROM and no pedal edema Psych Mental Status: mental status grossly normal Speech and Movement: speech and movement normal Mood: congruent mood Affect: normal affect DS: Data Vitals/I&O Vitals and I&O: Vital Signs Temperature 35.9 C L 08/28/22 07:54 Temperature Source Temporal Artery Scan 08/28/22 07:54 Pulse 58 L 08/28/22 07:54 Pulse Rhythm Regular 08/28/22 08:00 Respiratory Rate 14 08/28/22 07:54 Respiratory Effort Non-Labored 08/28/22 08:00 Respiratory Depth Normal 08/28/22 08:00 Respiratory Pattern Normal 08/28/22 08:00 Blood Pressure 103/56 L 08/28/22 07:54 Blood Pressure Mean 67 08/28/22 07:54 Blood Pressure Position Supine 08/24/22 23:37 Pulse Oximetry 95 08/28/22 07:54 Oxygen Delivery Method Room Air 08/28/22 07:54 Oxygen Flow Rate 0 08/28/22 07:54 Pain Level 0 08/28/22 07:54 Comment 08/26/22 21:45 Intake & Output 0108/27/22 08/28/22 11:59 23:59 11:59 Intake Total 180 / 1000 820 / 1000 400 / 400 Output Total 50 / 50 Balance 130 / 950 820 / 950 400 / 400 Weight 65.8 kg 71.4 kg Intake: IV 60 / 110 50 / 110 100 / 100 Oral 120 / 890 770 / 890 300 / 300 Output: Urine 50 / 50 Other: Urine Color Pale Yellow Yellow Urine Appearance Clear Urine Odor Normal None Normal Comment pt was incontinent in breif Pt incontinent in brief Pt incontinent of urine in brief Stool Size Small Moderate Moderate Stool Characteristics Liquid Soft Soft Brown Voiding Methods Diaper Diaper Diaper Incontinent Incontinent Data Completed and Pending Labs on day of discharge: Labs from last 24 hours 08/28/22 08/28/22 08/28/22 05:15 05:15 05:15 WBC 11.49 H RBC 3.33 L Hgb 9.8 L Hct 30.6 L MCV 92 MCH 29.4 MCHC 32.0 RDW 16.3 H Plt Count 246 MPV 10.9 Immature Gran % 1.8 Neutrophils % 82.0 Lymphocytes % 9.6 Monocytes % 5.4 Eosinophils % 0.8 Basophils % 0.4 Nucleated RBC % 0.0 Absolute Neutrophils 9.42 H Absolute Lymphocytes 1.10 L Absolute Monocytes 0.62 Absolute Eosinophils 0.09 Absolute Basophils 0.05 Sodium 139 Potassium 4.1 Chloride 106 Carbon Dioxide 27.3 Anion Gap 5.7 BUN 21 H Creatinine 1.3 Est GFR (CKD-EPI 2020) 54.51 Glucose 81 Calcium 8.5 Magnesium 1.7 L C-Reactive Protein 5.57 H Procalcitonin 0.5 Preliminary micro results at discharge 08/24/22 19:30 Blood Culture - Preliminary Blood NO GROWTH 72 HOURS 08/24/22 18:45 Blood Culture - Preliminary Blood NO GROWTH 72 HOURS PFSH All Active Problems (Updated 08/29/22 @ 00:05 by LEEANN VILLAGRAN) Frail elderly (Acute) Abnormal weight loss (Acute) Advanced care planning/counseling discussion (Acute) Alcoholic dementia (Acute) Vascular dementia (Acute) Thyroid nodule (Acute) Parotiditis (Acute) COVID-19 (Acute) Chronic a-fib (Chronic) as noted on 30-day event monitor Dementia (Chronic) mild to moderate; appears to fluctuate Goals of care, counseling/discussion (Acute) Cognitive impairment (Chronic) mild 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) Frequent falls (Chronic) Weakness (Acute) Chronic constipation (Chronic) Acute UTI (Acute) Medical History Abnormality of gait due to impairment of balance Asthma Atypical chest pain CAD (coronary artery disease) Carpal tunnel syndrome Celiac disease Chronic confusion did not where he was, or date oriented only to self Dementia associated with alcoholism Edema of lower extremity Enlarged prostate GERD (gastroesophageal reflux disease) Hyperlipidemia Hypertension Insomnia Lives alone with help available used to live at [facility] now at Rehab Major depression Noncompliance with medication regimen Obesity Paroxysmal A-fib Prostate cancer Seborrheic dermatitis Sensorineural hearing loss of combined sites Sialadenitis Socially inappropriate behavior due to his dementia prefers to be naked, undresses regularly Spinal stenosis Thyroid nodule TMJ (dislocation of temporomandibular joint) Urinary retention Surgical History History of appendectomy History of brachytherapy Family History Son Pancreatic cancer Daughter Pancreatic cancer Son Substance abuse History of incarceration Son No problems noted. Son No problems noted. 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 [employer] Pets and animals: No Sexually active: No Current gender identity: male What is your relationship status?: How often do you talk on the phone with friends or family?: once per week How often do you get together with friends or relatives?: never Do you belong to any clubs or organized social groups?: no Panel score (0-1 are the most socially isolated patients): 0 What type of physical activity do you participate in: walking and sedentary lifestyle Duration: < 15 minutes/day Frequency: daily Special melissa needs: No Seatbelt use: always Water heater temp set <120 deg: Yes Working smoke detector in home: Yes Fire extinguisher in home: Yes Firearms in home: No Do you feel safe at home: Yes Do you feel safe in your relationship?: Yes Additional Social history: patient lives at [facility] rehab. Time Spent with Patient Time Spent with Patient: 45-69 minutes Time was spent: preparing to see the patient(eg.review tests), obtaining and/or reviewing separately otained hiistory, ordering medications,tests, procedures, referring, communicating with other health pediatric critical care nurse, indepentently interpreting results, counseling the patient and care coordination
[2022-08-28 12:04] VITALS: BP 91/50; PULSE 57
[2022-08-28] MEDS: Insulin Aspart 300 UNITS/3 ML PEN SC (12:08)
[2022-08-28 12:13] VITALS: RESP 14; TEMP 35.9; O2SAT 99
--- NOTE | 2022-08-29 16:37 | PT.INDS ---
Date of service: 08/29/22 PT Notes Visit Reasons: Acute Bacterial Parotitis, FTT Physical Therapy Inpatient Discharge Summary Date: 08/29/2022 Dates of service: 08/27/2022 only This is a clinical summary of care provided for the duration of dates listed above. No charge was made in the completion of this documentation. Referring Doctor: Leydi Carrizales MD PT Orders: PT CONSULT: Limited ability Precautions: Fall. Standard. Activity as tolerated.? Fearful of falling. Patient Profile/Admitting Diagnosis: Williams is an 82-year-old male resident of SNF for 2 years now with past medical history significant for dementia and spinal stenosis who presented to the ED on 08/24/2022 due to decreased oral intake and generalized weakness.? Patient is diagnosed with parotiditis, dehydration,? AF, IDDM type II, hypokalemia, and thyroid nodule PMHX: All Active Problems?(Updated 08/24/22 @ 23:30 by Leydi Carrizales MD) Dehydration (Acute) Hypokalemia (Acute) Thyroid nodule (Acute) Parotiditis (Acute) COVID-19 (Acute) Chronic a-fib (Chronic) as noted on 30-day event monitor shelter resident (Acute) Dementia (Chronic) mild to moderate; appears to fluctuate Goals of care, counseling/discussion (Acute) Palliative care patient (Acute) Cognitive impairment (Chronic) mild 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) Frequent falls (Chronic) Weakness (Acute) Chronic constipation (Chronic) Discharge planning issues (Acute) DVT prophylaxis (Acute) Acute UTI (Acute) Medical History? Abnormality of gait due to impairment of balance Asthma Atypical chest pain CAD (coronary artery disease) Carpal tunnel syndrome Celiac disease Chronic confusion did not where he was, or date oriented only to selfDementia associated with alcoholism Edema of lower extremity Enlarged prostate GERD (gastroesophageal reflux disease) Hyperlipidemia Hypertension Insomnia Lives alone with help available used to live at [facility] now at Rehab Major depression Noncompliance with medication regimen Obesity Paroxysmal A-fib Prostate cancer Seborrheic dermatitis Sensorineural hearing loss of combined sites Sialadenitis Socially inappropriate behavior due to his dementia prefers to be naked, undresses regularly Spinal stenosis Thyroid nodule TMJ (dislocation of temporomandibular joint) Urinary retention Surgical History? History of appendectomy History of brachytherapy Social History/Home Situation: Per son,? patient has been a SNF resident for over 2 years now and has been wheelchair-bound at the SNF. Equipment Owned/DME: Wheelchair Subjective: NT. See most recent LEAD RAMP AGENT notes. Objective: General Observation: NT. See most recent LEAD RAMP AGENT notes. Mental Status:? NT. See most recent LEAD RAMP AGENT notes. Pain: NT. See most recent LEAD RAMP AGENT notes. ROM: Right Upper Extremity: ?Lacks about 50% of AROM in shoulder.? Elbows and wrists/hand WFL. Left Upper Extremity:? ?Lacks about 50% of AROM in shoulder.? Elbows and wrists/hand WFL. Right Lower Extremity:? Lacks 50% of AROM in R LE joints Left Lower Extremity:? Lacks 50% of AROM in R LE joints Strength: Right Upper Extremity: Grossly 3-/5 in shoulder.? 3+/5 in elbow and wrist/hand. Left Upper Extremity:? Grossly 3-/5 in shoulder.? 3+/5 in elbow and wrist/hand. Right Lower Extremity: Grossly 3-/5 Left Lower Extremity: Grossly 3-/5 Sensation: Unable to test Bed Mobility/Transfers: Sit to stand moderate assist of 2 Stand to sit moderate assist of 2 Bed to chair assist of 2 using STEDY lift Chair to bed assist of 2 using mechanical lift Gait: Unable.? Pushes back for fear of falling. Balance: Static Sitting: Fair Dynamic Sitting: Poor Static Standing: Unable Dynamic Standing: Unable Assessment: Fearfulness of falling,? cognitive decline,? and lack of motivation are barriers to progressing patient's mobility at this time.? Prognosis for achieving goals poor.? Will continue to attempt patient engagement while on admission to work on strength,? sitting and standing balance /tolerance,? and mobility progression.? Patient presents with clinical signs and symptoms consistent with current/admitting diagnoses that have resulted to mobility limitations, gait instability, generalized weakness, and overall ADL decline as demonstrated by the following impairment level findings: 1.? Decreased strength to B UE/LE major muscle groups 2.? Impaired sitting/standing balance 3.? Impaired activity tolerance 4.? Limitation of joint range of motion in B shoulders and? B LE 5.? Cognitive decline Impairments are contributing to the following functional limitations: 1.? Decline in bed mobility skills 2.? Decline in transfer skills 3.? Inability to ambulate due to fearfulness of falling 4.? Increased risk for falls 6.? Incrrased risk for skin breakdown Goals: Goals X1 week 1. Supine-Sit minimal assist NOT MET 2. Sit-Supine minimal assist NOT MET 3. Sit-Stand minimal assist NOT MET 4. Stand-Sit minimal assist NOT MET 5. Bed-Chair minimal assist NOT MET 6. Chair-Bed minimal assist NOT MET DISCHARGE RECOMMENDATIONS: [] ? Home with no services [] [] ? Home with services [specify] [] ? Home with outpatient PT [] [] ? SNF for continued rehabilitation [] [] ? Retirement Care [] [] ? SNF versus LTC based on ability to participate and progress [] [X]? Return to SNF when medically cleared by hospitalist TREATMENT CODE/TIME: NC Thank you for the opportunity to participate in the care of this patient. Salima Mcintosh PT, DPT, CLT [facility] [place], [place]
== END 2022-08-28 12:55 | disposition skilled nursing facility (03) | DRG 155 ==
LOC: ER 22:02 → ICU 08-25 08:16
PROVIDERS: Internal Medicine; Nurse Practitioner Family; Admitting Provider Internal Medicine; Emergency Provider Registered Nurse Emergency; PCP Nurse Practitioner; Visit Provider Internal Medicine
DX: K11.20 Sialoadenitis, unspecified (principal); I48.20 Chronic atrial fibrillation, unspecified; I50.20 Unspecified systolic (congestive) heart failure; E86.0 Dehydration; E87.6 Hypokalemia; E04.1 Nontoxic single thyroid nodule; E11.9 Type 2 diabetes mellitus without complications; E78.5 Hyperlipidemia, unspecified; F10.97 Alcohol use, unspecified with alcohol-induced persisting dementia; R29.6 Repeated falls; Z86.16 Personal history of COVID-19; I25.10 Atherosclerotic heart disease of native coronary artery without angina pectoris; J45.909 Unspecified asthma, uncomplicated; K90.0 Celiac disease; K21.9 Gastro-esophageal reflux disease without esophagitis; R26.89 Other abnormalities of gait and mobility; M48.00 Spinal stenosis, site unspecified; R33.9 Retention of urine, unspecified; Z66 Do not resuscitate; R54 Age-related physical debility; I11.0 Hypertensive heart disease with heart failure
CPT/HCPCS: 36415; 70491; 80048; 80053; 84145; 87040; 87081; 87635; 92610; 96361; 96365; 96367; 97163; 97530; 99285; J1650; 70460; 83605; 83735; 85025; 86140; 99223; 99232; 99233; 99239; J0131; J0696; J1885; J3480; J3490

== ENCOUNTER 2022-09-10 15:59 | Outpatient (REF) | payer MEDICARE, MEDICAID, SELFPAY ==
[2022-09-10 17:15] LABS: Abs Immature Grans 0.18 10^3/uL (0.0-0.06); Absolute Lymphocyte Count 1.33 10^3/uL (1.2-3.4); Absolute Monocyte Count 0.91 10^3/uL (0.1-0.8); Basophils % 0.6; HCT 30.3 % (40.0-50.0); HGB 9.4 g/dL (13.5-17.5); Immature Grans % 1.5; Lymphocytes % 10.7; MCH 28.9 pg (27.0-33.0); MCV 93 fL (80-95); MPV 10.9 fL (8.0-11.0); Monocytes % 7.3; Neutrophils % 78.9; Platelet Count 274 10^3/uL (130-400); RBC 3.25 10^6/uL (4.36-5.78); RDW 17.1 % (11.8-14.1); RDW-SD 58.4 fL; WBC 12.41 10^3/uL (4.4-10.8)
[2022-09-10 17:28] LABS: Absolute Basophil Count 0.07 10^3/uL (0.0-0.2); Absolute Eosinophil Count 0.12 10^3/uL (0.0-0.7); Absolute Neutrophil Count 9.79 10^3/uL (1.2-6.7)
[2022-09-10 17:35] LABS: ALT 10 U/L (16-63); AST 13 U/L (15-37); Albumin 2.6 g/dL (3.4-5.0); Alkaline Phosphatase 83 U/L (46-116); Anion Gap 6.1 mmol/L (3-11); BUN 16 mg/dL (7-18); Bilirubin, Total 0.3 mg/dL (0.2-1.0); CO2 29.9 mmol/L (21.0-32.0); CREATININE 1.1 mg/dL (0.70-1.30); Calcium 8.9 mg/dL (8.5-10.1); Chloride 103 mmol/L (98-107); Estimated GFR 66.61 (mL/min/1.73m2); Glucose 85 mg/dL (74-106); Potassium 3.8 mmol/L (3.5-5.1); Sodium 139 mmol/L (136-145); TSH 1.03 uIU/mL (0.36-3.74); Total Protein 7.3 g/dL (6.4-8.2)
== END 2022-09-10 16:00 | disposition home or self-care (01) ==
LOC: LBN 15:59
PROVIDERS: PCP Nurse Practitioner; Visit Provider Family Medicine
DX: E04.1 Nontoxic single thyroid nodule (principal); E11.9 Type 2 diabetes mellitus without complications; E78.5 Hyperlipidemia, unspecified
CPT/HCPCS: 80053; 84443; 85025

== ENCOUNTER 2022-10-29 14:06 | Outpatient (REF) | payer MEDICARE, MEDICAID, SELFPAY ==
[2022-10-29 13:09] LABS: Bilirubin Negative (Negative); Blood Moderate (Negative); Clarity Cloudy (Clear); Glucose Negative (Negative); Ketones Negative (Negative); Leukocyte Esterase Large (Negative); Nitrite Negative (Negative); Urobilinogen 0.2 mg/dL (Up to 0.2); pH 6.5 (5-8)
[2022-10-29 13:45] LABS: Bacteria Moderate HPF (Negative); Casts Negative LPF (Negative); Crystals Negative HPF (Negative); Epithelial Cells Few HPF (Negative); Mucus Negative (Negative); WBC >50 HPF (0-5)
[2022-10-29 13:46] LABS: C & S Indicated? C&S Done As Ordered
== END 2022-10-29 14:07 | disposition home or self-care (01) ==
LOC: LBN 14:06
PROVIDERS: PCP Nurse Practitioner; Visit Provider Family Medicine
DX: R53.1 Weakness (principal); N39.0 Urinary tract infection, site not specified
CPT/HCPCS: 87077; 81003; 81015; 87086; 87186

== ENCOUNTER 2022-11-18 13:52 | Outpatient (REF) | payer MEDICARE, MEDICAID, SELFPAY ==
[2022-11-18 14:03] LABS: Abs Immature Grans 0.16 10^3/uL (0.0-0.06); Absolute Basophil Count 0.07 10^3/uL (0.0-0.2); Absolute Eosinophil Count 0.21 10^3/uL (0.0-0.7); Absolute Lymphocyte Count 1.61 10^3/uL (1.2-3.4); Absolute Monocyte Count 0.67 10^3/uL (0.1-0.8); Basophils % 0.6; Eosinophils % 1.7; HCT 35.7 % (40.0-50.0); HGB 11.5 g/dL (13.5-17.5); Immature Grans % 1.3; MCHC 32.2 % (32.0-36.0); MCV 90 fL (80-95); MPV 10.7 fL (8.0-11.0); Monocytes % 5.4; Platelet Count 290 10^3/uL (130-400); RBC 3.96 10^6/uL (4.36-5.78); RDW 15.3 % (11.8-14.1); RDW-SD 50.4 fL; WBC 12.41 10^3/uL (4.4-10.8)
[2022-11-18 14:04] LABS: Absolute Neutrophil Count 9.68 10^3/uL (1.2-6.7)
[2022-11-18 14:13] LABS: ALT 28 U/L (16-63); AST 25 U/L (15-37); Albumin 2.7 g/dL (3.4-5.0); Alkaline Phosphatase 98 U/L (46-116); BUN 22 mg/dL (7-18); Bilirubin, Total 0.4 mg/dL (0.2-1.0); CREATININE 1.4 mg/dL (0.70-1.30); Calcium 9.2 mg/dL (8.5-10.1); Chloride 102 mmol/L (98-107); Estimated GFR 49.87 (mL/min/1.73m2); Glucose 122 mg/dL (74-106); Potassium 3.2 mmol/L (3.5-5.1); Sodium 140 mmol/L (136-145)
== END 2022-11-18 13:53 | disposition home or self-care (01) ==
LOC: LBN 13:52
PROVIDERS: PCP Nurse Practitioner; Visit Provider Physician Assistant
DX: M62.81 Muscle weakness (generalized) (principal); R29.6 Repeated falls; E11.9 Type 2 diabetes mellitus without complications
CPT/HCPCS: 80053; 85025

== ENCOUNTER 2022-11-28 12:46 | Outpatient (REF) | payer MEDICARE, MEDICAID, SELFPAY ==
[2022-11-28 12:58] LABS: Bilirubin Negative (Negative); Blood Small (Negative); Clarity Cloudy (Clear); Glucose Negative (Negative); Ketones Negative (Negative); Leukocyte Esterase Large (Negative); Nitrite Negative (Negative); Urobilinogen 0.2 mg/dL (Up to 0.2); pH 6.5 (5-8)
[2022-11-28 13:10] LABS: C & S Indicated? Yes; WBC >50 HPF (0-5)
== END 2022-11-28 12:47 | disposition home or self-care (01) ==
LOC: LBN 12:46
PROVIDERS: PCP Nurse Practitioner; Visit Provider Physician Assistant
DX: N39.0 Urinary tract infection, site not specified (principal)
CPT/HCPCS: 87077; 81003; 81015; 87086; 87186

== ENCOUNTER 2022-12-26 17:38 | Emergency (ER) | payer MEDICARE, MEDICAID, SELFPAY ==
[2022-12-26 17:38] VITALS: BP 117/87; PULSE 84; RESP 18; TEMP 36.7; O2SAT 99
--- NOTE | 2022-12-26 17:43 | ED.GENADUL_ITS ---
Discharge Plan Disposition Patient Disposition: Home Discharge Details Clinical Impression: Laceration of scalp, Head injury Primary Care Provider: Erika Mix ED Provider: Mary Laguna Home Meds and New Rx's Prescriptions: Continued glucagon 1 mg recon soln 1 mg subcut Q20M PRN Rx Instructions: until target blood sugar attained dextrose 40 % gel 20 g PO DIRECTED PRN Rx Instructions: until symptoms of low blood sugar are controlled furosemide 20 MG tablet 40 mg PO DAILY Qty: 60 11RF bisacodyl 10 mg suppository 10 mg MO DAILY PRN Fleet Enema 19-7 gram/118 mL enema 118 ml MO DAILY PRN nystatin 100,000 unit/gram powder 1 applic topical BID pyrithione zinc 1 % shampoo 1 applic topical DAILY PRN Rx Instructions: wet hair then apply , let stand 5 mins then rinse. Repeat. albuterol sulfate 90 mcg/actuation Hfa Aerosol Inhaler 2 puff INHALATION QID PRN alogliptin 6.25 mg Tablet 6.25 mg PO DAILY tamsulosin 0.4 mg capsule 0.8 mg PO DAILY aspirin 81 mg Tablet 81 mg PO DAILY ascorbic acid (vitamin C) [Vitamin C] 500 mg Tablet 500 mg PO DAILY sertraline 50 mg Tablet 75 mg PO DAILY quetiapine [Seroquel] 50 mg Tablet 50 mg PO BID cholecalciferol (vitamin D3) [Vitamin D3] 25 mcg (1,000 unit) Tablet 50 mcg PO DAILY acetaminophen [Tylenol] 325 MG tablet 650 mg PO Q6H PRN PRN (Reason: Mild Pain, Temp. Over 38.5) 0RF omeprazole 20 mg Capsule,Delayed Release(Dr/Ec) 20 mg PO BID donepezil 5 mg Tablet,Disintegrating 5 mg PO DAILY melatonin 3 mg Tablet 3 mg PO QHS oxybutynin chloride 5 mg Tablet 5 mg PO BID albuterol sulfate 1.25 mg/3 mL Solution For Nebulization 1.25 mg INHALATION QID PRN Discontinued ibuprofen 600 mg tablet 600 mg PO Q8H PRN clindamycin HCl [Cleocin HCl] 150 mg capsule 450 mg PO TID Qty: 45 0RF No Action atorvastatin 40 MG tablet 40 mg PO DAILY polyethylene glycol 3350 17 gram Powder In Packet 17 g PO PRN PRN Discharge Instructions Instructions: Head Injury (ED), Contusion in Adults (ED) Additional Instructions: Stable removal in 7 days Tylenol as needed for pain Return spreading redness, alteration in mental status, or any new or worsening pain complaints as needed Referrals: Erika Mix [Primary Care Provider] - Discharge Data Discharge Date/Time-TO BE ENTERED AT DEPARTURE: 12/26/22 19:19 Medical Decision Making 82-year-old male presents with reported witnessed head injury without loss of consciousness Laceration noted, DNR/DNI status and patient presents with his guardian, she prefers that we repair laceration and does not wish that we order any additional imaging, specifically no CT brain and cervical spine, they understand that we are unable to exclude intracranial pathology or cervical spine fracture without ordering these tests, they do not wish to pursue this further and states that he is at his baseline cognition Patient tolerated procedure without incident and will return to rehabilitation center, neurologically and cognitively intact per patient All discussions were had with guardian in the room and agreeable to plan at this time Staple removal in 7 days recommended HPI General Date/Time Provider Initiated Documentation: 12/26/22 17:43 . HPI Narrative: This 82-year-old male presents with report of fall from his wheelchair. Accidental fall, patient is nonambulatory and lifted himself out of the wheelchair. He has baseline dementia and this is not changed, there is no reported loss of consciousness and the event was witnessed. He did hit his head and suffered laceration. Secondary to dementia, unable to obtain history from patient, history obtained from patient's nurse at the rehabilitation center. No history of anticoagulation. Related Data Home Medications Medication Instructions Recorded Confirmed acetaminophen 325 mg tablet 650 mg PO Q6H PRN PRN Mild Pain, 06/24/16 11/26/22 (Tylenol) Temp. Over 38.5 furosemide 20 mg tablet 40 mg PO DAILY #60 tab-caps 08/06/17 11/26/22 albuterol sulfate 90 mcg/actuation 2 puff inhalation QID PRN 08/23/18 10/01/22 aerosol inhaler atorvastatin 40 mg tablet 40 mg PO DAILY 08/23/18 11/26/22 alogliptin 6.25 mg tablet 6.25 mg PO DAILY 08/04/20 11/26/22 tamsulosin 0.4 mg capsule 0.8 mg PO DAILY 08/17/20 11/26/22 aspirin 81 mg tablet 81 mg PO DAILY 08/28/20 11/26/22 donepezil 5 mg disintegrating 5 mg PO DAILY 10/26/21 11/26/22 tablet omeprazole 20 mg capsule,delayed 20 mg PO BID 10/26/21 11/26/22 release bisacodyl 10 mg rectal suppository 10 mg MO DAILY PRN 12/19/21 10/01/22 nystatin 100,000 unit/gram topical 1 applic topical BID 12/19/21 10/01/22 powder pyrithione zinc 1 % shampoo 1 applic topical DAILY PRN 12/19/21 10/01/22 sodium phosphates 19 gram-7 118 ml MO DAILY PRN 12/19/21 11/26/22 gram/118 mL enema (Fleet Enema) ascorbic acid (vitamin C) 500 mg 500 mg PO DAILY 04/16/22 10/01/22 tablet (Vitamin C) cholecalciferol (vitamin D3) 25 50 mcg PO DAILY 04/16/22 10/01/22 mcg (1,000 unit) tablet (Vitamin D3) quetiapine 50 mg tablet (Seroquel) 50 mg PO BID 04/16/22 11/26/22 sertraline 50 mg tablet 75 mg PO DAILY 04/16/22 11/26/22 melatonin 3 mg tablet 3 mg PO QHS 05/25/22 11/26/22 oxybutynin chloride 5 mg tablet 5 mg PO BID 05/25/22 11/26/22 polyethylene glycol 3350 17 gram 17 g PO PRN PRN 05/25/22 11/26/22 oral powder packet albuterol sulfate 1.25 mg/3 mL 1.25 mg inhalation QID PRN 08/24/22 10/01/22 solution for nebulization dextrose 40 % oral gel 20 g PO DIRECTED PRN 11/25/22 11/26/22 glucagon 1 mg solution for 1 mg subcut Q20M PRN 11/25/22 11/26/22 injection Previous Rx's Medication Instructions Recorded acetaminophen 325 mg tablet 650 mg PO Q6H PRN PRN Mild Pain, 06/24/16 (Tylenol) Temp. Over 38.5 furosemide 20 mg tablet 40 mg PO DAILY #60 tab-caps 08/06/17 Allergies Allergy/AdvReac Type Severity Reaction Status Date / Time wheat dextrin AdvReac Severe Unverified 08/24/22 17:35 animal dander AdvReac Unknown Unverified 08/24/22 17:35 codeine AdvReac Unverified 08/24/22 17:35 glutens Allergy Unknown Uncoded 08/24/22 17:35 glutethimide Allergy Unknown Uncoded 08/24/22 17:35 cats AdvReac Unknown Uncoded 08/24/22 17:35 General ABDIAS: 3 PFSH All Active Problems (Updated 12/26/22 @ 19:10 by DEMETRIO Bhatti) Laceration of scalp (Acute) Head injury (Acute) Suspected urinary tract infection (Acute) Encounter for hospice care discussion (Acute) Frail elderly (Acute) Abnormal weight loss (Acute) Alcoholic dementia (Acute) Vascular dementia (Acute) Thyroid nodule (Acute) Parotiditis (Acute) COVID-19 (Acute) Chronic a-fib (Chronic) as noted on 30-day event monitor Dementia (Chronic) mild to moderate; appears to fluctuate Goals of care, counseling/discussion (Acute) Cognitive impairment (Chronic) mild 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) Frequent falls (Chronic) Weakness (Acute) Chronic constipation (Chronic) Acute UTI (Acute) Medical History Abnormality of gait due to impairment of balance Asthma Atypical chest pain CAD (coronary artery disease) Carpal tunnel syndrome Celiac disease Chronic confusion did not where he was, or date oriented only to self Dementia associated with alcoholism Edema of lower extremity Enlarged prostate GERD (gastroesophageal reflux disease) Hyperlipidemia Hypertension Insomnia Lives alone with help available used to live at [facility] now at Rehab Major depression Noncompliance with medication regimen Obesity Paroxysmal A-fib Prostate cancer Seborrheic dermatitis Sensorineural hearing loss of combined sites Sialadenitis Socially inappropriate behavior due to his dementia prefers to be naked, undresses regularly Spinal stenosis Thyroid nodule TMJ (dislocation of temporomandibular joint) Urinary retention Surgical History History of appendectomy History of brachytherapy Family History Son Pancreatic cancer Daughter Pancreatic cancer Son Substance abuse History of incarceration Son No problems noted. Son No problems noted. 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 [employer] Pets and animals: No Sexually active: No Current gender identity: male What is your relationship status?: How often do you talk on the phone with friends or family?: once per week How often do you get together with friends or relatives?: never Do you belong to any clubs or organized social groups?: no Panel score (0-1 are the most socially isolated patients): 0 What type of physical activity do you participate in: walking and sedentary lifestyle Duration: < 15 minutes/day Frequency: daily Special melissa needs: No Seatbelt use: always Water heater temp set <120 deg: Yes Working smoke detector in home: Yes Fire extinguisher in home: Yes Firearms in home: No Do you feel safe at home: Yes Do you feel safe in your relationship?: Yes Additional Social history: patient lives at [facility] and rehab. Exam Narrative Exam Narrative: Patient is alert, he has approximately 1 inch laceration in the occipital region, no significant hematoma, pupils equal round reactive to light and accommodation, no visible signs of neck trauma or midline tenderness, lungs clear to auscultation No hemotympanum, no visible signs of chest trauma, lungs clear to auscultation, cardiac rate rhythm regular, no abdominal tenderness, alert and oriented x2 Procedures Laceration Laceration 1: Site: scalp Size (cm): 2.5 Description: linear Skin layer closed with: other (staple) Number of sutures: 2 Technique: simple, interrupted
== END 2022-12-26 19:19 | disposition home or self-care (01) ==
PROVIDERS: Emergency Provider Physician Assistant; PCP Nurse Practitioner
DX: S01.01XA Laceration without foreign body of scalp, initial encounter (principal); W05.0XXA Fall from non-moving wheelchair, initial encounter; F03.90 Unspecified dementia, unspecified severity, without behavioral disturbance, psychotic disturbance, mood disturbance, and anxiety; Z23 Encounter for immunization
CPT/HCPCS: 12001; 90471; 99282

== ENCOUNTER 2023-01-04 11:14 | Outpatient (REF) | payer MEDICARE, MEDICAID, SELFPAY ==
[2023-01-04 13:00] LABS: Hemoglobin A1C 5.7 % (<5.7)
== END 2023-01-04 11:15 | disposition home or self-care (01) ==
LOC: LBN 11:14
PROVIDERS: PCP Nurse Practitioner; Visit Provider Family Medicine
DX: E11.9 Type 2 diabetes mellitus without complications (principal)
CPT/HCPCS: 83036

== ENCOUNTER 2023-05-26 15:15 | Outpatient (REF) | payer MEDICARE, MEDICAID, SELFPAY ==
[2023-05-26 14:41] LABS: Anion Gap 10.7 mmol/L (3-11); BUN 43 mg/dL (7-18); CO2 24.3 mmol/L (21.0-32.0); CREATININE 1.7 mg/dL (0.70-1.30); Calcium 9.1 mg/dL (8.5-10.1); Calculated LDL 38 mg/dL (<100); Chloride 101 mmol/L (98-107); Cholesterol 91 mg/dL (<200); Estimated GFR 39.26 (mL/min/1.73m2); Glucose 132 mg/dL (74-106); HDL Cholesterol 37 mg/dL (40-60); Potassium 3.2 mmol/L (3.5-5.1); Sodium 136 mmol/L (136-145); Triglyceride 84 mg/dL (<150)
[2023-05-26 14:48] LABS: Hemoglobin A1C 6.4 % (<5.7)
== END 2023-05-26 15:16 | disposition home or self-care (01) ==
LOC: LBN 15:15
PROVIDERS: PCP Nurse Practitioner; Visit Provider Family Medicine
DX: M62.81 Muscle weakness (generalized) (principal); E11.9 Type 2 diabetes mellitus without complications
CPT/HCPCS: 80048; 80061; 83036